=== PATIENT | female | born 1965 ===

== ENCOUNTER 2016-10-29 20:13 | Inpatient (IN) | payer MEDICAID, OTHER ==
[2016-10-29 20:13] VITALS: BMI 30.7
[2016-10-29] MEDS ORDERED: Albuterol-Ipratrop 3 mg / 0.5 (3 ml) UD INH STA ×2 (20:59→22:07)
--- NOTE | 2016-10-29 21:08 | C.PDOC ---
History Of Present Illness Patient is a 51 year old female who presents to the ER with a complaint of SOB, cough and wheezing for the past 3 days. Patient was seen in August on the where she was treated for asthma, patient deteriorated and was intubated. Patient then improved and was discharged home with antibiotics and nebulizer. Patient uses only one albuterol treatment at home and shows poor MDI technique in the ER. Denies any nausea, vomiting, or diarrhea. Time Seen by Provider: 10/29/16 20:25 Chief Complaint (Nursing): Shortness Of Breath History Per: Patient History/Exam Limitations: no limitations Current Symptoms Are (Timing): Still Present Associated Symptoms: denies: Chills, Chest Pain, Bloody Cough Past Medical History Reviewed: Historical Data, Nursing Documentation, Vital Signs Vital Signs: Last Vital Signs Temp 98.3 F 10/29/16 20:29 Pulse 120 H 10/29/16 23:25 Resp 20 10/29/16 23:25 BP 125/62 10/29/16 23:25 Pulse Ox 100 10/29/16 23:25 - Medical History PMH: Asthma, CVA, Diabetes, HTN, Hypercholesterolemia, Peripheral Edema - [facility] Procedures ASSISTANCE WITH RESPIRATORY VENTILATION, >96 HRS, CPAP (05/24/16) INSERT INFUSION DEV IN R INT JUGULAR VEIN, PERC (08/27/16) INSERTION OF ENDOTRACHEAL AIRWAY INTO TRACHEA, VIA OPENING (08/27/16) MEASURE OF CARDIAC SAMPL & PRESSURE, L HEART, PERC APPROACH (05/24/16) PLAIN RADIOGRAPHY OF LEFT HEART USING OTHER CONTRAST (05/24/16) PLAIN RADIOGRAPHY OF MULT COR ART USING OTH CONTRAST (05/24/16) RESPIRATORY VENTILATION, 24-96 CONSECUTIVE HOURS (08/27/16) Family History: States: Unknown Family Hx - Social History Hx Tobacco Use: No Hx Alcohol Use: No Hx Substance Use: No - Immunization History Hx Tetanus Toxoid Vaccination: Yes Hx Influenza Vaccination: Yes Hx Pneumococcal Vaccination: Yes Review Of Systems Cardiovascular: Negative for: Chest Pain, Palpitations Respiratory: Positive for: Cough, Shortness of Breath, Wheezing Gastrointestinal: Negative for: Nausea, Vomiting, Abdominal Pain Physical Exam - Physical Exam Appears: Non-toxic Skin: Normal Color, Warm, Dry Head: Atraumatic, Normacephalic Oral Mucosa: Moist Throat: Normal Chest: Symmetrical Cardiovascular: Rhythm Regular Respiratory: No Decreased Breath Sounds (inspiratory and expiratory), Wheezing Gastrointestinal/Abdominal: Soft, No Tenderness Neurological/Psych: Oriented x3, Normal Speech, Normal Cognition ED Course And Treatment - Laboratory Results Result Diagrams: 10/29/16 21:33 10/29/16 21:33 Lab Interpretation: Abnormal (++ hyperglycemia) ECG: Interpreted By Me ECG Rhythm: Sinus Rhythm, L BBB ECG Interpretation: Normal, No Changes From Prior Rate From EC O2 Sat by Pulse Oximetry: 98 (Room air) Pulse Ox Interpretation: Normal - Radiology CXR: Interpreted by Me CXR Interpretation: Yes: No Acute Disease, Other (hyperinflated) Progress Note: EKG, blood work, chest x-ray, and peak flow pre/post tx ordered. Combivent respimat INH, lasix IVP, and solu-medrol IVP administered. Reevaluation Time: 22:12 Reassessment Condition: Improved (mild improvement.) - Physician Consult Information Outcome Of Conversation: 2215: d/w Hospitalists- Dr. Olivas- blake to Tele Obs Critical Care Time - Critical Care Note Total Time (in mins): 90 Documented critical care: time excludes all time spent performing seperately billable procedures. Medical Decision Making Medical Decision Making: poorly controlled DM and asthma Adm 09/06 for asthma with intubation h/o normal cardiac cath and card echo with diastolic dysfunction: considering pt 's tachycardia (due to nebs), consider restarting/increasing C-Winchester blockers when s/s of asthma improved. Disposition Doctor Will See Patient In The: Hospital Counseled Patient/Family Regarding: Studies Performed, Diagnosis - Disposition Disposition: HOSPITALIZED Disposition Time: 22:13 Condition: FAIR - Clinical Impression Clinical Impression: Asthma exacerbation, Diabetes mellitus - Scribe Statement The provider has reviewed the documentation as recorded by the Scribe Magdy Sheth All medical record entries made by the Scribe were at my direction and personally dictated by me. I have reviewed the chart and agree that the record accurately reflects my personal performance of the history, physical exam, medical decision making, and the department course for this patient. I have also personally directed, reviewed, and agree with the discharge instructions and disposition.
[2016-10-29] MEDS ORDERED: Albuterol-Ipratrop 3 mg / 0.5 (3 ml) UD ONE ×5 (21:12→23:19)
[2016-10-29 21:37] LABS: BASO % 0.5 % (0.0-2.0); EOS # 0.1 K/uL (0.0-0.7); EOS % 1.1 % (0.0-4.0); HEMATOCRIT 43.3 % (34.0-47.0); LYMPH # 1.2 K/uL (1.0-4.3); LYMPH % 14.4 % (20.0-40.0); MEAN CELL VOLUME 84.7 fL (81.0-99.0); MEAN CORPUSCULAR HEMOGLOBIN 29.2 pg (27.0-31.0); MEAN CORPUSCULAR HGB CONC 34.4 g/dL (33.0-37.0); MEAN PLATELET VOLUME 7.4 fL (7.2-11.7); MONO # 0.7 K/uL (0.0-0.8); MONO % 8.4 % (0.0-10.0); RED CELL DISTRIBUTION WIDTH 13.1 % (11.5-14.5)
[2016-10-29 21:55] LABS: CHLORIDE 95 mmol/L (98-107)
[2016-10-29 21:56] LABS: POTASSIUM 3.9 mmol/L (3.6-5.2); SODIUM 136 mmol/L (132-148)
[2016-10-29 21:58] LABS: GFR AFRICAN-AMERICAN > 60
[2016-10-29 21:59] LABS: ALB/GLOB RATIO 1.5 (1.0-2.1); ALKALINE PHOSPHATASE 119 U/L (38-126); ALT/SGPT 64 U/L (9-52); AST/SGOT 50 U/L (14-36); BILIRUBIN,TOTAL 0.6 mg/dL (0.2-1.3); BLOOD UREA NITROGEN 10 mg/dL (7-17); CALCIUM 9.2 mg/dl (8.6-10.4); CARBON DIOXIDE 26 mmol/L (22-30); TOTAL PROTEIN 7.5 g/dL (6.3-8.3)
[2016-10-29 22:04] LABS: GLUCOSE,RANDOM 407 mg/dL (65-105)
[2016-10-29] MEDS ORDERED: (Novolin R) Insulin Human Regular 100 units/ml vial IV STA (22:06)
[2016-10-29] MEDS ORDERED: (Novolin R) Insulin Human Regular 100 units/ml vial ONE (22:09)
--- NOTE | 2016-10-29 23:34 | CP.PCM.HP ---
<Valentina Brigitte RITCHIE - Last Filed: 10/30/16 01:01> History of Present Illness - History of Present Illness History of Present Illness: Patient is a 51 year old female with past medical history of asthma requiring intubation one time, CHF, DM, HTN, CVA in 2003 without residual deficits, HLD, ME 16 years ago who presents to the hospital with complaint of shortness of breath for three days. Patient states that she has also been having a cough that is non-productive for the past 3 days. Patient denies fever but admits to chills. Patient states that she has lower extremity swelling that has been present since May 2016. Patient admits to sore throat which has been present since her intubation in August 2016. Patient also admits to palpitations. Patient states that while she occasionally feels light-headed at her baseline, she has been feeling increasingly lightheaded the past several days. Patient denies appetite changes. Patient states she has been compliant with her medications for her asthma but it was noted in the ER that the patient does not know the proper technique to use inhaled medications. PMD: Clinic PMHx: asthma- patient was intubated on last admission for desaturation, CHF, DM , HTN, CVA, HLD, ME Meds: lasix 20mg daily, flovent q12, pulmicort 0.25 q12, ASA 81, ventolin q6prn , vasotec 10mg daily, coreg 3.125 BID, singulair 10mg, metformin 1000mg daily, glimepiride 2mg, simvastatin 40mg PSH: cardiac cath, tubal ligation FamHx: Mother with HTN, DM, of ME in her 30s SocialHx: denies tobacco, alcohol, drugs, not currently employed Allergies: denies Present on Admission - Present on Admission Any Indicators Present on Admission: No Review of Systems - Constitutional Constitutional: Chills. absent: Fever, Weight Loss, Weakness - EENT Nose/Mouth/Throat: Nasal Congestion, Nasal Discharge, Sore Throat - Cardiovascular Cardiovascular: Leg Edema, Lightheadedness, Palpitations - Respiratory Respiratory: Cough, Wheezing. absent: Excessive Mucous Production - Gastrointestinal Gastrointestinal: Nausea. absent: Abdominal Pain, Vomiting - Genitourinary Genitourinary: absent: Dysuria - Musculoskeletal Musculoskeletal: Back Pain - Integumentary Integumentary: absent: Skin Ulcer - Neurological Neurological: Headaches Past Patient History - Infectious Disease Hx of Infectious Diseases: None - Past Medical History & Family History Past Medical History?: Yes - Past Social History Smoking Status: Never Smoked - CARDIAC Hx Hypercholesterolemia: Yes Hx Hypertension: Yes Hx Peripheral Edema: Yes - PULMONARY Hx Asthma: Yes - NEUROLOGICAL HX Cerebrovascular Accident: Yes - HEENT Other/Comment: Blurred vision - RENAL Other/Comment: UTI - ENDOCRINE/METABOLIC Hx Diabetes Mellitus Type 2: Yes - INTEGUMENTARY Other/Comment: Bilateral feet discoloration - MUSCULOSKELETAL/RHEUMATOLOGICAL Hx Falls: No - PSYCHIATRIC Hx Substance Use: No - ANESTHESIA Hx Anesthesia: No Meds Allergies/Adverse Reactions: Allergies Allergy/AdvReac Type Severity Reaction Status Date / Time No Known Allergies Allergy Verified 08/26/16 15:37 Physical Exam - Constitutional Appears: Non-toxic, No Acute Distress - Head Exam Head Exam: ATRAUMATIC, NORMOCEPHALIC - Eye Exam Eye Exam: EOMI - ENT Exam ENT Exam: Mucous Membranes Moist - Neck Exam Neck exam: Negative for: Lymphadenopathy - Respiratory Exam Respiratory Exam: Wheezes (expiratory bilaterally) - Cardiovascular Exam Cardiovascular Exam: Tachycardia, +S1, +S2 - GI/Abdominal Exam GI & Abdominal Exam: Normal Bowel Sounds, Soft. absent: Tenderness - Extremities Exam Extremities exam: Positive for: pedal edema (bilateral 2+ pitting edema) - Neurological Exam Neurological exam: Alert, Oriented x3 - Psychiatric Exam Psychiatric exam: Normal Affect - Skin Skin Exam: Normal Color, Warm Results - Vital Signs Recent Vital Signs: Last Vital Signs Temp 98.3 F 10/29/16 20:29 Pulse 127 H 10/29/16 20:29 Resp 24 10/29/16 20:29 BP 170/87 H 10/29/16 20:29 Pulse Ox 98 10/29/16 22:57 - Labs Result Diagrams: 10/29/16 21:33 10/29/16 21:33 Labs: Laboratory Results - last 24 hr 10/29/16 21:33 WBC 8.0 RBC 5.11 Hgb 14.9 Hct 43.3 MCV 84.7 MCH 29.2 MCHC 34.4 RDW 13.1 Plt Count 295 MPV 7.4 Neut % (Auto) 75.6 H Lymph % (Auto) 14.4 L Childress % (Auto) 8.4 Eos % (Auto) 1.1 Baso % (Auto) 0.5 Neut # 6.1 Lymph # 1.2 Childress # 0.7 Eos # 0.1 Baso # 0.0 PT 11.7 INR 1.0 APTT 34 Sodium 136 Potassium 3.9 Chloride 95 L Carbon Dioxide 26 Anion Gap 19 BUN 10 Creatinine 0.5 L Est GFR ( Amer) > 60 Est GFR (Non-Af Amer) > 60 Random Glucose 407 H* D Calcium 9.2 Total Bilirubin 0.6 AST 50 H D ALT 64 H Alkaline Phosphatase 119 Troponin I 0.0170 NT-Pro-B Natriuret Pep 116 Total Protein 7.5 Albumin 4.5 Globulin 3.1 Albumin/Globulin Ratio 1.5 Assessment & Plan (1) Asthma exacerbation Assessment and Plan: patient received 125mg solumedrol in ER will continue 40mg q8h duonebs q6h singulair 10mg HS Status: Acute (2) Tachycardia Assessment and Plan: patient with history of CVA but unknown if there is clotting disorder will check d-dimer if d-dimer positive will check CTA Status: Acute (3) Diabetes mellitus Assessment and Plan: will restart home medications metformin and glimepiride if patient does not need CTA- patient may require higher dosages of metformin will place patient on ISS for now accuchecks ACHS Status: Acute (4) Hyperlipidemia Assessment and Plan: continue home medication equivalent- crestor 10mg HS Status: Acute (5) Congestive heart failure Assessment and Plan: continue home medication lasix 20mg PO daily will recheck echo last echo 08/2016 showed systolic function moderately to severely impaired Status: Acute (6) Hypertension Assessment and Plan: continue vasotec 10mg daily continue coreg 3.125mg BID Status: Chronic (7) Prophylactic measure Assessment and Plan: heparin 5000 units sc q8h protonix 40mg daily Status: Acute <Charli Olivas - Last Filed: 10/30/16 06:24> Results - Vital Signs Recent Vital Signs: Last Vital Signs Temp 98.3 F 10/29/16 20:29 Pulse 129 H 10/30/16 00:42 Resp 22 10/30/16 00:42 BP 124/62 10/30/16 00:42 Pulse Ox 100 10/30/16 00:42 - Labs Result Diagrams: 10/29/16 21:33 10/29/16 21:33 Labs: Laboratory Results - last 24 hr 10/30/16 10/30/16 10/30/16 01:35 02:06 04:15 D-Dimer, Quantitative < 200 POC Glucose (mg/dL) 486 H* Total Creatine Kinase 39 CK-MB (Mass) 0.55 Troponin I, Quant 0.0180 Assessment & Plan - Date & Time Date: 10/30/16 (I have seen and examined the patient. I agree with the findings and plan of care as documented by Dr. Montgomery. Patient with asthma exacerbation. Solumedrol, nebs, singulair, oxygen. For tachycardia, check d- dimer for suspicion of PE. If positive, will check CT angio. Accuchecks and NISS for history of diabetes. Restart PO meds if CT angio not necessary. Monitor for acute changes.) Time: 06:21 Attending/Attestation - Attestation I have personally seen and examined this patient.: Yes I have fully participated in the care of the patient.: Yes I have reviewed all pertinent clinical information: Yes
[2016-10-30] MEDS ORDERED: Albuterol-Ipratrop 3 mg / 0.5 (3 ml) UD INH STA (00:23)
[2016-10-30] MEDS ORDERED: (Novolin R) Insulin Human Regular 100 units/ml vial IV ONE (01:56)
[2016-10-30] MEDS: Albuterol-Ipratrop 3 mg / 0.5 (3 ml) UD INH SCH ×4 (02:03→19:03)
[2016-10-30] MEDS ORDERED: (Novolin R) Insulin Human Regular 100 units/ml vial SC ONE (02:10)
[2016-10-30] MEDS: MethylPREDNISolone 40 mg Vial IVP SCH ×3 (06:05→21:46)
[2016-10-30] MEDS: (Novolin R) Insulin Human Regular 100 units/ml vial SC SCH ×4 (08:05→21:44)
--- NOTE | 2016-10-30 08:44 | RAD ---
PROCEDURE: CHEST RADIOGRAPH, 1 VIEW HISTORY: Shortness of breath COMPARISON: None available. FINDINGS: LUNGS: Clear. PLEURA: No pneumothorax or pleural fluid seen. CARDIOVASCULAR: Normal. OSSEOUS STRUCTURES: No significant abnormalities. VISUALIZED UPPER ABDOMEN: Normal. OTHER FINDINGS: None. IMPRESSION: No active disease.
[2016-10-30] MEDS: Pantoprazole 40 mg EC Tab PO SCH (09:52)
--- NOTE | 2016-10-30 11:39 | RAD ---
HISTORY: R/O Pneumonia COMPARISON: 10/29/2016. TECHNIQUE: Chest PA and lateral FINDINGS: LUNGS: The lungs are clear. PLEURA: No significant pleural effusion identified. No pneumothorax apparent. CARDIOVASCULAR: Normal. OSSEOUS STRUCTURES: No significant abnormalities. VISUALIZED UPPER ABDOMEN: Normal. OTHER FINDINGS: None. IMPRESSION: No active pulmonary disease.
--- NOTE | 2016-10-30 13:57 | CP.PCM.PN ---
<Marcela Ochoa - Last Filed: 10/30/16 14:06> Subjective - Date & Time of Evaluation Date of Evaluation: 10/30/16 Time of Evaluation: 07:30 - Subjective Subjective: Internal medicine progress note for Hospitalist Service- Marcela Ochoa, PGY-1 Pt S & E at bedside. Pt reports continued SOB, cough, substernal CP when she walks that radiates to mid back, rib pain with coughing/deep breathing, B/L hand pain, Right knee pain. Pt reports she slept ok, denies N/V/F/C, abdominal pain. Tolerating diet. Ambulating ok. Objective - Vital Signs/Intake and Output Vital Signs (last 24 hours): Temp Pulse Resp BP Pulse Ox 97.6 F 109 H 18 175/76 H 97 10/30/16 08:03 10/30/16 10:00 10/30/16 08:03 10/30/16 09:53 10/30/16 08:03 - Medications Medications: Current Medications Albuterol/Ipratropium (Duoneb 3 Mg/0.5 Mg (3 Ml) Ud) 3 ml INH RQ6 [facility] Last Admin: 10/30/16 13:27 Dose: 3 ml Aspirin (Ecotrin) 81 mg PO DAILY [facility] Last Admin: 10/30/16 09:52 Dose: 81 mg Budesonide (Pulmicort Respules) 0.5 mg INH RQ12 [facility] Carvedilol (Coreg) 3.125 mg PO BID [facility] Last Admin: 10/30/16 09:54 Dose: 3.125 mg Cyclobenzaprine HCl (Flexeril) 5 mg PO TID PRN PRN Reason: Muscle spasm Enalapril Maleate (Vasotec) 10 mg PO DAILY [facility] Last Admin: 10/30/16 09:53 Dose: 10 mg Furosemide (Lasix) 20 mg PO DAILY [facility] Last Admin: 10/30/16 09:52 Dose: 20 mg Heparin Sodium (Porcine) (Heparin) 5,000 units SC Q8 [facility] Last Admin: 10/30/16 06:07 Dose: 5,000 units Ibuprofen (Motrin Tab) 600 mg PO TID PRN PRN Reason: Pain, moderate (4-7) Insulin Human Regular (Novolin R) 0 unit SC ACHS [facility] PRN Reason: Protocol Last Admin: 10/30/16 08:05 Dose: 8 unit Methylprednisolone (Solu-Medrol) 40 mg IVP Q8H [facility] Last Admin: 10/30/16 06:05 Dose: 40 mg Montelukast Sodium (Singulair) 10 mg PO HS [facility] Last Admin: 10/30/16 00:33 Dose: 10 mg Pantoprazole Sodium (Protonix Ec Tab) 40 mg PO DAILY [facility] Last Admin: 10/30/16 09:52 Dose: 40 mg Rosuvastatin Calcium (Crestor) 10 mg PO HS [facility] - Labs Labs: PT 11.7 SECONDS (9.7-12.2) 10/29/16 21:33 INR 1.0 10/29/16 21:33 APTT 34 SECONDS (21-34) 10/29/16 21:33 - Constitutional Appears: Non-toxic, No Acute Distress - Head Exam Head Exam: ATRAUMATIC, NORMAL INSPECTION, NORMOCEPHALIC - Eye Exam Eye Exam: EOMI, Normal appearance, PERRL Pupil Exam: NORMAL ACCOMODATION, PERRL - ENT Exam ENT Exam: Mucous Membranes Moist, Normal Exam - Neck Exam Neck Exam: Full ROM, Normal Inspection - Respiratory Exam Respiratory Exam: Chest Wall Tenderness, Wheezes, NORMAL BREATHING PATTERN. absent: Accessory Muscle Use, Clear to Ausculation Bilateral, Rales, Rhonchi, Respiratory Distress - Cardiovascular Exam Cardiovascular Exam: Tachycardia, +S1, +S2 - GI/Abdominal Exam GI & Abdominal Exam: Soft, Normal Bowel Sounds. absent: Distended, Firm, Guarding, Rigid, Tenderness - Extremities Exam Extremities Exam: Full ROM, Normal Inspection. absent: Pedal Edema, Tenderness - Back Exam Back Exam: muscle spasm (mid thoracic) - Neurological Exam Neurological Exam: Alert, Awake, CN II-XII Intact, Oriented x3 - Psychiatric Exam Psychiatric exam: Normal Affect, Normal Mood - Skin Skin Exam: Dry, Intact, Normal Color, Warm Assessment and Plan - Assessment and Plan (Free Text) Assessment: Asthma exacerbation Cont Solumedrol 40mg q8h Cont duonebs q6h Cont singulair 10mg HS Started Pulmicort 0.5mg Q12H Monitor Diabetes mellitus ISS changed to high ISS Started Lantus 10 Units SC HS accuchecks ACHS Blood sugars in 300-400's Back pain Motrin PRN Heating pad Flexeril 5mg TID PRN Monitor Tachycardia patient with history of CVA but unknown if there is clotting disorder d-dimer neg tachycardia in low 100's Monitor Hyperlipidemia continue home medication equivalent- crestor 10mg HS Congestive heart failure continue home medication lasix 20mg PO daily Repeat echo - d/c'd Pt had echo 08/28/2016, EF 27%, mod- severe systolic dysfunction Cardio consulted- Voudouris Hypertension cont vasotec 10mg daily cont coreg 3.125mg BID GI/DVT ppx heparin 5000 units sc q8h protonix 40mg daily Dispo Cont med mgmt FU cardio recs DW attending <Leonila Santos V - Last Filed: 10/31/16 20:46> Objective - Vital Signs/Intake and Output Vital Signs (last 24 hours): Temp Pulse Resp BP Pulse Ox 98.6 F 106 H 20 147/80 96 10/30/16 15:37 10/30/16 15:37 10/30/16 15:37 10/30/16 15:37 10/30/16 15:37 - Medications Medications: Current Medications Albuterol/Ipratropium (Duoneb 3 Mg/0.5 Mg (3 Ml) Ud) 3 ml INH RQ6 [facility] Last Admin: 10/30/16 13:27 Dose: 3 ml Aspirin (Ecotrin) 81 mg PO DAILY [facility] Last Admin: 10/30/16 09:52 Dose: 81 mg Budesonide (Pulmicort Respules) 0.5 mg INH RQ12 [facility] Carvedilol (Coreg) 3.125 mg PO BID [facility] Last Admin: 10/30/16 09:54 Dose: 3.125 mg Enalapril Maleate (Vasotec) 10 mg PO DAILY [facility] Last Admin: 10/30/16 09:53 Dose: 10 mg Furosemide (Lasix) 20 mg PO DAILY [facility] Last Admin: 10/30/16 09:52 Dose: 20 mg Heparin Sodium (Porcine) (Heparin) 5,000 units SC Q8 [facility] Last Admin: 10/30/16 13:57 Dose: 5,000 units Ibuprofen (Motrin Tab) 600 mg PO TID PRN PRN Reason: Pain, moderate (4-7) Insulin Glargine (Lantus) 10 unit SC HS [facility] Insulin Human Regular (Novolin R) 0 unit SC ACHS [facility] PRN Reason: Protocol Methylprednisolone (Solu-Medrol) 40 mg IVP Q8H [facility] Last Admin: 10/30/16 13:56 Dose: 40 mg Montelukast Sodium (Singulair) 10 mg PO HS [facility] Last Admin: 10/30/16 00:33 Dose: 10 mg Pantoprazole Sodium (Protonix Ec Tab) 40 mg PO DAILY [facility] Last Admin: 10/30/16 09:52 Dose: 40 mg Rosuvastatin Calcium (Crestor) 10 mg PO HS [facility] - Labs Labs: PT 11.7 SECONDS (9.7-12.2) 10/29/16 21:33 INR 1.0 10/29/16 21:33 APTT 34 SECONDS (21-34) 10/29/16 21:33 Attending/Attestation - Attestation I have personally seen and examined this patient.: Yes I have fully participated in the care of the patient.: Yes I have reviewed all pertinent clinical information, including history, physical exam and plan: Yes Notes (Text): This is late computer entry for 10/30/16. Patient seen, examined, and case discussed with day-time resident. Patient seen at bedside reporting she came in for persistent shortness of breathe in spite of her pumps which she reports every 6 hours the Albuterol and takes the Advair. Patient also reports her boyfriend smokes but she does not live with him and explained to the patient second-hand smoke with trigger her asthma. Patient reports since last admission, she did follow-up in the clinic and with the [facility] out-[facility]. Upon review of EMR, patient also has a history of congestive heart failure, with prior echocardiogram noting for moderately-severe systolic ejection fraction. Patient ordered for repeat Echo to check if she has had improvement in EF, given shortness of breathe may be of cardiac origin. Cardiology consulted. Patient has a cardiac cath performed recently noting for angiographic normal coronaries but an area of hypokineses. Assessment/Plan Asthma exacerbation * Solumedrol 40mg IVP q8h * Duonebs q6h * singulair 10mg HS * Pulmicort 0.5mg Q12H * Monitor pre and post flows; today's flows showed minimal improvement Congestive heart failure * Acute on chronic systolic CHF * lasix 20mg PO daily * Pt had echo 08/28/2016, EF 27%, mod- severe systolic dysfunction * Reorder echocardiogram to monitor EF * Cardiology consult- Dr. Samaniego on case-->help appreciated * Enalapril 10mg PO daily * Coreg 3.125mg PO bid * Crestor 10mg POqHS Diabetes mellitus * sugars uncontrolled; partly due to IV steroids to help reduce inflammation by asthma * high insulin sliding scale subq * start Lantus 10 Units SC HS * accuchecks ACHS * Will insulin regimen based on her sliding scale Back pain * Motrin PRN * Heating pad * Flexeril 5mg one time * Monitor * Patient appears to have muscle spasm provoked by her asthma Tachycardia * d-dimer neg * most likely influenced by nebulizer treatment as well Hyperlipidemia * continue home medication equivalent- crestor 10mg HS Hypertension * Vasotec 10mg daily * Voreg 3.125mg BID GI/DVT ppx * Heparin 5000 units sc q8h * Protonix 40mg daily
--- NOTE | 2016-10-30 14:40 | CARD ---
APPROVED REPORT EKG Measurement Heart [id number] CT 176P-14 [id number] <Conclusion> Sinus tachycardia Left bundle branch block Abnormal ECG
--- NOTE | 2016-10-30 14:40 | CARD ---
APPROVED REPORT EKG Measurement Heart [id number] [place] 176P-15 [id number] <Conclusion> Sinus tachycardia Left bundle branch block Abnormal ECG
--- NOTE | 2016-10-30 14:49 | CARD ---
APPROVED REPORT EXAM: Two-dimensional and M-mode echocardiogram with Doppler and color Doppler. Other Information Quality : GoodRhythm : NSR INDICATION Congestive Heart Failure RISK FACTORS Hypertension Hyperlipidemia Diabetes M-Mode DIMENSIONS RVDd1.25 (2.1-3.2cm)Left Atrium (MM)4.31 (2.5-4.0cm) IVSd0.70 (0.7-1.1cm)Aortic Root2.58 (2.2-3.7cm) LVDd3.95 (4.0-5.6cm)Aortic Cusp Exc.1.73 (1.5-2.0cm) PWd0.85 (0.7-1.1cm)FS (%) 27 % LVDs2.88 (2.0-3.8cm)LVEF (%)53 (>50%) Aortic Valve AoV Peak Kqsprycg448.1cm/Brooke Peak GR.12mmHg Mitral Valve MV E Bhgaokvn957.7cm/sMV A Zotyqcka18.6cm/sE/A ratio4.5 TDI E/Lateral E'0.0E/Medial E'0.0 Tricuspid Valve TR Peak [id number]/sTR Peak Gr.[id number] LEFT VENTRICLE The left ventricle is normal size. There is normal left ventricular wall thickness. The left ventricular function is normal. The left ventricular ejection fraction is within the normal range. No regional wall motion abnormalities noted. LV filling pressures are elevated No left ventricle thrombus noted on this study. There is no ventricular septal defect visualized. There is no left ventricular aneurysm. There is no mass noted in the left ventricle. RIGHT VENTRICLE The right ventricle is normal size. There is normal right ventricular wall thickness. The right ventricular systolic function is normal. ATRIA The left atrium is mildly dilated. The right atrium size is normal. The interatrial septum is intact with no evidence for an atrial septal defect. AORTIC VALVE The aortic valve is normal in structure and function. No aortic regurgitation is present. There is no aortic valvular stenosis. There is no aortic valvular vegetation. MITRAL VALVE The mitral valve is normal in structure and function. There is no evidence of mitral valve prolapse. There is no mitral valve stenosis. There is no mitral valve regurgitation noted. TRICUSPID VALVE The tricuspid valve is normal in structure and function. There is mild tricuspid regurgitation. Right ventricular systolic pressure is estimated at 40-50 mmHg. There is no tricuspid valve prolapse or vegetation. There is no tricuspid valve stenosis. PULMONIC VALVE The pulmonary valve is normal in structure and function. There is no pulmonic valvular regurgitation. There is no pulmonic valvular stenosis. GREAT VESSELS The aortic root is normal in size. The ascending aorta is normal in size. The pulmonary artery is normal. The IVC is normal in size and collapses >50% with inspiration. PERICARDIAL EFFUSION The pericardium appears normal. There is no pleural effusion. <Conclusion> The left ventricular function is normal. The left ventricular ejection fraction is within the normal range. No regional wall motion abnormalities noted. LV filling pressures are elevated The left atrium is mildly dilated. There is mild tricuspid regurgitation. Right ventricular systolic pressure is estimated at 40-50 mmHg.
--- NOTE | 2016-10-30 17:18 | CP.PCM.CON ---
<Ovidio Mireles - Last Filed: 10/30/16 17:07> History of Present Illness - History of Present Illness History of Present Illness: Cardiology Consultation Note Dr. Samaniego CC: SOB x 3 days HPI: This is a 51 year old female with a PMH notable for asthma, CHF, DM, HTN, CVA, HLD, MS presenting for cardiac evaluation of three day history of SOB. The patient also notes subjective fever, chills, nausea, palpitations, non- productive cough, increased light headedness, and B/L LE Edema. The patient notes that she become short of breath performing her ADLs. She cannot walk 1 block before becoming short of breath. The patient notes that she has some orthopnea at night. The patient denies vomiting, chest pain, dysuria, urinary frequency, constipation or diarrhea. The patient has a previous echo from August that showed ejection fraction of 27% with a normal cardiac cath. PMH: Asthma (intubated 2016), CHF, DM, HTN, CVA (2003), HLD, MS (16 years ago) PSH: Cath, tubal ligation Family: Mother with HTN, DM, decreased secondary to MS in her 30s Social: Denies tobacco use, alcohol use, illicit drug use, currently not employed Allergies: NKDA Review of Systems - Constitutional Constitutional: absent: Chills, Fever - EENT Eyes: absent: Blurred Vision, Change in Vision Nose/Mouth/Throat: absent: Nose Pain, Facial Pain, Neck Pain - Cardiovascular Cardiovascular: Dyspnea, Dyspnea on Exertion, Edema, Leg Edema, Orthopnea, Pedal Edema. absent: Chest Pain, Syncope - Respiratory Respiratory: Dyspnea, Dyspnea on Exertion. absent: Cough, Hemoptysis, Wheezing - Gastrointestinal Gastrointestinal: absent: Abdominal Pain, Constipation, Diarrhea, Nausea, Vomiting - Genitourinary Genitourinary: absent: Change in Urinary Stream, Difficulty Urinating - Musculoskeletal Musculoskeletal: absent: Stiffness, Tingling - Neurological Neurological: absent: Syncope, Vertigo, Weakness - Endocrine Endocrine: absent: Cold Intolorance, Heat Intolorance Past Patient History - Infectious Disease Hx of Infectious Diseases: None - Past Medical History & Family History Past Medical History?: Yes - Past Social History Smoking Status: Never Smoked - CARDIAC Hx Cardiac Disorders: Yes Hx Hypercholesterolemia: Yes Hx Hypertension: Yes Hx Peripheral Edema: Yes - PULMONARY Hx Respiratory Disorders: Yes Hx Asthma: Yes - NEUROLOGICAL Hx Neurological Disorder: Yes HX Cerebrovascular Accident: Yes (weakness RLE) - HEENT Hx HEENT Problems: No Other/Comment: Blurred vision - RENAL Hx Chronic Kidney Disease: No Other/Comment: UTI - ENDOCRINE/METABOLIC Hx Endocrine Disorders: Yes Hx Diabetes Mellitus Type 2: Yes - HEMATOLOGICAL/ONCOLOGICAL Hx Blood Disorders: No - INTEGUMENTARY Hx Dermatological Problems: Yes Other/Comment: Bilateral feet discoloration - MUSCULOSKELETAL/RHEUMATOLOGICAL Hx Musculoskeletal Disorders: No Hx Falls: No - GASTROINTESTINAL Hx Gastrointestinal Disorders: No - GENITOURINARY/GYNECOLOGICAL Hx Genitourinary Disorders: No - PSYCHIATRIC Hx Psychophysiologic Disorder: No Hx Substance Use: No - SURGICAL HISTORY Hx Surgeries: Yes Hx Tubal Ligation: Yes - ANESTHESIA Hx Anesthesia: Yes Hx Anesthesia Reactions: No Hx Malignant Hyperthermia: No Has any member of the family had a problem w/ anesthesia?: No Meds Allergies/Adverse Reactions: Allergies Allergy/AdvReac Type Severity Reaction Status Date / Time No Known Allergies Allergy Verified 08/26/16 15:37 - Medications Medications: Current Medications Albuterol/Ipratropium (Duoneb 3 Mg/0.5 Mg (3 Ml) Ud) 3 ml INH RQ6 [facility] Last Admin: 10/30/16 13:27 Dose: 3 ml Aspirin (Ecotrin) 81 mg PO DAILY [facility] Last Admin: 10/30/16 09:52 Dose: 81 mg Budesonide (Pulmicort Respules) 0.5 mg INH RQ12 [facility] Carvedilol (Coreg) 6.25 mg PO BID [facility] Last Admin: 10/30/16 17:00 Dose: 6.25 mg Enalapril Maleate (Vasotec) 10 mg PO DAILY [facility] Last Admin: 10/30/16 09:53 Dose: 10 mg Furosemide (Lasix) 20 mg PO DAILY [facility] Last Admin: 10/30/16 09:52 Dose: 20 mg Heparin Sodium (Porcine) (Heparin) 5,000 units SC Q8 [facility] Last Admin: 10/30/16 13:57 Dose: 5,000 units Ibuprofen (Motrin Tab) 600 mg PO TID PRN PRN Reason: Pain, moderate (4-7) Insulin Glargine (Lantus) 10 unit SC HS [facility] Insulin Human Regular (Novolin R) 0 unit SC ACHS [facility] PRN Reason: Protocol Last Admin: 10/30/16 17:01 Dose: 12 unit Methylprednisolone (Solu-Medrol) 40 mg IVP Q8H [facility] Last Admin: 10/30/16 13:56 Dose: 40 mg Montelukast Sodium (Singulair) 10 mg PO HS [facility] Last Admin: 10/30/16 00:33 Dose: 10 mg Pantoprazole Sodium (Protonix Ec Tab) 40 mg PO DAILY [facility] Last Admin: 10/30/16 09:52 Dose: 40 mg Rosuvastatin Calcium (Crestor) 10 mg PO [facility] Physical Exam - Constitutional Appears: Chronically Ill - Head Exam Head Exam: ATRAUMATIC, NORMAL INSPECTION, NORMOCEPHALIC - Eye Exam Eye Exam: EOMI - ENT Exam ENT Exam: Mucous Membranes Moist - Neck Exam Neck exam: Positive for: Normal Inspection. Negative for: Lymphadenopathy - Respiratory Exam Respiratory Exam: Clear to Auscultation Bilateral, NORMAL BREATHING PATTERN. absent: Rhonchi, Wheezes - Cardiovascular Exam Cardiovascular Exam: REGULAR RHYTHM, RRR, +S1, +S2. absent: Diastolic murmur, Gallop, Systolic Murmur - GI/Abdominal Exam GI & Abdominal Exam: Normal Bowel Sounds, Soft. absent: Distended, Guarding, Tenderness - Extremities Exam Extremities exam: Positive for: normal inspection, pedal edema (1+ pitting), pedal pulses present - Neurological Exam Neurological exam: Alert, CN II-XII Intact, Oriented x3 - Skin Skin Exam: Dry, Intact, Normal Color, Warm Results - Vital Signs Recent Vital Signs: Last Vital Signs Temp 98.6 F 10/30/16 15:37 Pulse 106 H 10/30/16 15:37 Resp 20 10/30/16 15:37 BP 147/80 10/30/16 15:37 Pulse Ox 96 10/30/16 15:37 - Labs Result Diagrams: 10/29/16 21:33 10/29/16 21:33 Labs: Laboratory Results - last 24 hr 10/30/16 10/30/16 10/30/16 01:35 02:06 04:15 D-Dimer, Quantitative < 200 POC Glucose (mg/dL) 486 H* Total Creatine Kinase 39 CK-MB (Mass) 0.55 Troponin I, Quant 0.0180 10/30/16 10/30/16 10/30/16 06:34 11:13 11:57 D-Dimer, Quantitative POC Glucose (mg/dL) 370 H 468 H* Total Creatine Kinase 37 CK-MB (Mass) 0.62 Troponin I, Quant 0.0170 10/30/16 16:22 D-Dimer, Quantitative POC Glucose (mg/dL) 424 H* Total Creatine Kinase CK-MB (Mass) Troponin I, Quant Assessment & Plan - Assessment and Plan (Free Text) Assessment: This is a 51 year old female with a PMH notable for asthma, CHF, DM, HTN, CVA, HLD, MS presenting for cardiac evaluation of three day history of SOB. 1.) Systolic CHF 2.) DM 3.) HTN 4.) CVA 5.) HLD 6.) MS 7.) Asthma Plan: 1.) Systolic CHF - patient with known EF of 27% : repeat echo 10/30/16- confirms LVEF 27% - prior echo within 3 months, no need for repeat echo - 10/30/16 EKG- LBBB, sinus tachycardia (unchanged from most recent comparison ) - patient will require life vest for prevention of sudden cardiac - patient to continue : Aspirin 81mg PO daily : Coreg 6.25mg p bid : Enalapril 10mg po daily : Lasix 20mg po daily - telemetric monitoring - Patient to follow with Dr. Samaniego in his clinic - Dr. Samaniego will do outpatient MUGA scan Case Discussed with Dr. Danette Mireles PGY1 - Date & Time Date: 10/30/16 Time: 17:30 <Kaelyn Samaniego - Last Filed: 10/31/16 21:30> Meds - Medications Medications: Current Medications Albuterol/Ipratropium (Duoneb 3 Mg/0.5 Mg (3 Ml) Ud) 3 ml INH RQ6 [facility] Last Admin: 10/31/16 19:31 Dose: 3 ml Aspirin (Ecotrin) 81 mg PO DAILY [facility] Last Admin: 10/31/16 09:11 Dose: 81 mg Budesonide (Pulmicort Respules) 0.5 mg INH RQ12 [facility] Last Admin: 10/31/16 19:31 Dose: 0.5 mg Carvedilol (Coreg) 6.25 mg PO BID [facility] Last Admin: 10/31/16 17:31 Dose: 6.25 mg Enalapril Maleate (Vasotec) 10 mg PO DAILY [facility] Last Admin: 10/31/16 09:15 Dose: 10 mg Furosemide (Lasix) 20 mg PO DAILY [facility] Last Admin: 10/31/16 09:13 Dose: 20 mg Heparin Sodium (Porcine) (Heparin) 5,000 units SC Q8 [facility] Last Admin: 10/31/16 21:05 Dose: 5,000 units Ibuprofen (Motrin Tab) 600 mg PO TID PRN PRN Reason: Pain, moderate (4-7) Last Admin: 10/31/16 17:30 Dose: 600 mg Insulin Glargine (Lantus) 20 unit SC HS [facility] Insulin Human Regular (Novolin R) 0 unit SC ACHS [facility] PRN Reason: Protocol Last Admin: 10/31/16 17:37 Dose: 12 unit Methylprednisolone (Solu-Medrol) 40 mg IVP Q12 [facility] Montelukast Sodium (Singulair) 10 mg PO HS [facility] Last Admin: 10/31/16 21:05 Dose: 10 mg Pantoprazole Sodium (Protonix Ec Tab) 40 mg PO DAILY [facility] Last Admin: 10/31/16 09:12 Dose: 40 mg Rosuvastatin Calcium (Crestor) 10 mg PO HS [facility] Last Admin: 10/31/16 21:05 Dose: 10 mg Results - Vital Signs Recent Vital Signs: Last Vital Signs Temp 98.9 F 10/31/16 15:53 Pulse 82 10/31/16 16:24 Resp 20 10/31/16 15:53 BP 133/72 10/31/16 15:53 Pulse Ox 97 10/31/16 16:24 - Labs Result Diagrams: 10/31/16 07:04 10/31/16 07:04 Labs: Laboratory Results - last 24 hr 10/31/16 10/31/16 10/31/16 02:00 06:17 07:04 WBC 10.4 RBC 4.75 Hgb 13.7 Hct 40.9 MCV 86.0 MCH 28.9 MCHC 33.6 RDW 13.1 Plt Count 290 MPV 7.7 Neut % (Auto) 87.1 H Lymph % (Auto) 10.2 L [place] % (Auto) 2.6 Eos % (Auto) 0.0 Baso % (Auto) 0.1 Neut # 9.0 H Lymph # 1.1 [place] # 0.3 Eos # 0.0 Baso # 0.0 Sodium 135 Potassium 4.0 Chloride 98 Carbon Dioxide 24 Anion Gap 17 BUN 19 H Creatinine 0.5 L Est GFR ( Amer) > 60 Est GFR (Non-Af Amer) > 60 POC Glucose (mg/dL) 399 H 323 H Random Glucose 347 H Calcium 8.5 L Total Bilirubin 0.4 AST 24 ALT 51 Alkaline Phosphatase 94 Total Protein 6.4 Albumin 4.0 Globulin 2.4 Albumin/Globulin Ratio 1.6 10/31/16 10/31/16 10/31/16 12:46 16:36 21:20 WBC RBC Hgb Hct MCV MCH MCHC RDW Plt Count MPV Neut % (Auto) Lymph % (Auto) [place] % (Auto) Eos % (Auto) Baso % (Auto) Neut # Lymph # [place] # Eos # Baso # Sodium Potassium Chloride Carbon Dioxide Anion Gap BUN Creatinine Est GFR ( Amer) Est GFR (Non-Af Amer) POC Glucose (mg/dL) 397 H 458 H* 336 H Random Glucose Calcium Total Bilirubin AST ALT Alkaline Phosphatase Total Protein Albumin Globulin Albumin/Globulin Ratio Attending/Attestation - Attestation I have personally seen and examined this patient.: Yes I have fully participated in the care of the patient.: Yes I have reviewed all pertinent clinical information: Yes Notes (Text): 10/31/16 21:30 conflicting echo reading will order MUGA symptomatic chf tx
[2016-10-30] MEDS: Budesonide 0.5 mg/2 ml Inhal Susp UD INH SCH (19:02)
[2016-10-30] MEDS ORDERED: Fluticasone-Salmeterol 250-50mcg Diskus INH SCH (20:00)
[2016-10-30] MEDS ORDERED: (Lantus) Insulin Glargine, Recombinant SC SCH (22:00)
[2016-10-31] MEDS: Albuterol-Ipratrop 3 mg / 0.5 (3 ml) UD INH SCH ×4 (01:59→19:31)
[2016-10-31] MEDS: (Novolin R) Insulin Human Regular 100 units/ml vial SC SCH ×5 (02:05→21:37)
[2016-10-31] MEDS: MethylPREDNISolone 40 mg Vial IVP SCH (05:30)
[2016-10-31 07:22] LABS: BASO % 0.1 % (0.0-2.0); HEMATOCRIT 40.9 % (34.0-47.0); LYMPH # 1.1 K/uL (1.0-4.3); LYMPH % 10.2 % (20.0-40.0); MEAN CORPUSCULAR HEMOGLOBIN 28.9 pg (27.0-31.0); MEAN CORPUSCULAR HGB CONC 33.6 g/dL (33.0-37.0); MEAN PLATELET VOLUME 7.7 fL (7.2-11.7); MONO # 0.3 K/uL (0.0-0.8); MONO % 2.6 % (0.0-10.0); NRBC % 0.1 % (0.0-2.0); RED CELL DISTRIBUTION WIDTH 13.1 % (11.5-14.5); WHITE BLOOD COUNT 10.4 K/uL (4.8-10.8)
[2016-10-31] MEDS: Budesonide 0.5 mg/2 ml Inhal Susp UD INH SCH ×2 (07:22→19:31)
[2016-10-31 07:46] LABS: CHLORIDE 98 mmol/L (98-107); SODIUM 135 mmol/L (132-148)
[2016-10-31 07:49] LABS: ALB/GLOB RATIO 1.6 (1.0-2.1); ALKALINE PHOSPHATASE 94 U/L (38-126); ALT/SGPT 51 U/L (9-52); AST/SGOT 24 U/L (14-36); BILIRUBIN,TOTAL 0.4 mg/dL (0.2-1.3); BLOOD UREA NITROGEN 19 mg/dL (7-17); CALCIUM 8.5 mg/dl (8.6-10.4); CARBON DIOXIDE 24 mmol/L (22-30); GFR AFRICAN-AMERICAN > 60; GLUCOSE,RANDOM 347 mg/dL (65-105); TOTAL PROTEIN 6.4 g/dL (6.3-8.3)
[2016-10-31] MEDS: Pantoprazole 40 mg EC Tab PO SCH (09:12)
--- NOTE | 2016-10-31 10:02 | CP.PCM.PN ---
<Ovidio Mireles - Last Filed: 10/31/16 14:38> Subjective - Date & Time of Evaluation Date of Evaluation: 10/31/16 Time of Evaluation: 09:59 - Subjective Subjective: Cardiology Progress Note Dr. Samaniego Patient seen and examined at the bedside. No acute distress. No acute events overnight. Nursing staff reports no issues. The patient reports continued dizziness and SOB with minimal exertion. The patient remains with O2 via nasal cannula. Repeat Echo performed showing severe impairment of systolic LV function and grade I relaxation abnormalities. Patient for MUGA scan today to more accurately evaluation LV EF for LifeVest placement. Patient has complaint of SOB and dizziness this am. Patient denies fever, chills, headache, chest pain, abdominal pain, changes in bowel/bladder, and extremity paresthesias. Objective - Vital Signs/Intake and Output Vital Signs (last 24 hours): Temp Pulse Resp BP Pulse Ox 98.6 F 86 20 140/73 95 10/31/16 09:07 10/31/16 09:07 10/31/16 09:07 10/31/16 09:15 10/31/16 09:07 Intake and Output: 10/31/16 10/31/16 06:59 18:59 Intake Total 330 Balance 330 - Medications Medications: Current Medications Albuterol/Ipratropium (Duoneb 3 Mg/0.5 Mg (3 Ml) Ud) 3 ml INH RQ6 [facility] Last Admin: 10/31/16 07:22 Dose: 3 ml Aspirin (Ecotrin) 81 mg PO DAILY [facility] Last Admin: 10/31/16 09:11 Dose: 81 mg Budesonide (Pulmicort Respules) 0.5 mg INH RQ12 [facility] Last Admin: 10/31/16 07:22 Dose: 0.5 mg Carvedilol (Coreg) 6.25 mg PO BID [facility] Last Admin: 10/31/16 09:11 Dose: 6.25 mg Enalapril Maleate (Vasotec) 10 mg PO DAILY [facility] Last Admin: 10/31/16 09:15 Dose: 10 mg Furosemide (Lasix) 20 mg PO DAILY [facility] Last Admin: 10/31/16 09:13 Dose: 20 mg Heparin Sodium (Porcine) (Heparin) 5,000 units SC Q8 [facility] Last Admin: 10/31/16 05:19 Dose: 5,000 units Ibuprofen (Motrin Tab) 600 mg PO TID PRN PRN Reason: Pain, moderate (4-7) Insulin Glargine (Lantus) 10 unit SC [facility] Last Admin: 10/30/16 21:45 Dose: 10 units Insulin Human Regular (Novolin R) 0 unit SC ACHS [facility] PRN Reason: Protocol Last Admin: 10/31/16 07:46 Dose: 8 unit Methylprednisolone (Solu-Medrol) 40 mg IVP Q8H [facility] Last Admin: 10/31/16 05:30 Dose: 40 mg Montelukast Sodium (Singulair) 10 mg PO [facility] Last Admin: 10/30/16 21:46 Dose: 10 mg Pantoprazole Sodium (Protonix Ec Tab) 40 mg PO DAILY [facility] Last Admin: 10/31/16 09:12 Dose: 40 mg Rosuvastatin Calcium (Crestor) 10 mg PO [facility] Last Admin: 10/30/16 21:45 Dose: 10 mg - Labs Labs: 10/31/16 07:04 10/31/16 07:04 PT 11.7 SECONDS (9.7-12.2) 10/29/16 21:33 INR 1.0 10/29/16 21:33 APTT 34 SECONDS (21-34) 10/29/16 21:33 - Additional Findings Additional findings: - Constitutional Appears: Chronically Ill - Head Exam Head Exam: ATRAUMATIC, NORMAL INSPECTION, NORMOCEPHALIC - Eye Exam Eye Exam: EOMI - ENT Exam ENT Exam: Mucous Membranes Moist - Neck Exam Neck exam: Positive for: Normal Inspection. Negative for: Lymphadenopathy - Respiratory Exam Respiratory Exam: Clear to Auscultation Bilateral, NORMAL BREATHING PATTERN. absent: Rhonchi, Wheezes - Cardiovascular Exam Cardiovascular Exam: REGULAR RHYTHM, RRR, +S1, +S2. absent: Diastolic murmur, Gallop, Systolic Murmur - GI/Abdominal Exam GI & Abdominal Exam: Normal Bowel Sounds, Soft. absent: Distended, Guarding, Tenderness - Extremities Exam Extremities exam: Positive for: normal inspection, pedal edema (1+ pitting), pedal pulses present - Neurological Exam Neurological exam: Alert, CN II-XII Intact, Oriented x3 - Skin Skin Exam: Dry, Intact, Normal Color, Warm Assessment and Plan (1) Diabetes mellitus Status: h (2) Hyperlipidemia Status: h (3) Hypertension Status: h (4) Myocardial infarct, old Status: n (5) CVA (cerebral vascular accident) Status: n (7) Systolic and diastolic CHF w/reduced LV function, NYHA class 4 Status: h - Assessment and Plan (Free Text) Assessment: This is a 51 year old female with a PMH notable for asthma, CHF, DM, HTN, CVA, HLD, [place] presenting for cardiac evaluation of three day history of SOB. 1.) Systolic CHF 2.) DM 3.) HTN 4.) CVA 5.) HLD 6.) MA 7.) Asthma Plan: 1.) Systolic CHF - NYHA Class IVC Heart Failure - patient with known EF of 27% : repeat echo 10/30/16- shows mod-severely impaired LV systolic function with grade 1 relaxation abnormality - MUGA Scan : for EV evaluation and assessment of need for life vest placement - 10/30/16 EKG- LBBB, sinus tachycardia (unchanged from most recent comparison ) - Pendign MUGA, patient may require life vest for prevention of sudden cardiac if LVEF is <35% - patient to continue : Aspirin 81mg PO daily : Coreg 6.25mg p bid : Enalapril 10mg po daily : Lasix 20mg po daily - telemetric monitoring - Patient to follow with Dr. Samaniego in his clinic Case Discussed with Dr. Danette Mireles PGY1 <Kaelyn Samaniego - Last Filed: 11/20/16 09:22> Objective - Vital Signs/Intake and Output Vital Signs (last 24 hours): Temp Pulse Resp BP Pulse Ox 98.7 F 94 H 20 114/64 95 11/11/16 13:10 11/11/16 15:00 11/11/16 13:10 11/11/16 15:00 11/11/16 13:22 - Labs Labs: 11/11/16 07:38 11/11/16 07:38 PT 11.7 SECONDS (9.7-12.2) 10/29/16 21:33 INR 1.0 10/29/16 21:33 APTT 34 SECONDS (21-34) 10/29/16 21:33 Attending/Attestation - Attestation I have personally seen and examined this patient.: Yes I have fully participated in the care of the patient.: Yes I have reviewed all pertinent clinical information, including history, physical exam and plan: Yes Notes (Text): 11/20/16 09:22 Pt still sob follow up labs and ejection fraction
--- NOTE | 2016-10-31 11:17 | CP.PCM.PN ---
<Marcela Ochoa - Last Filed: 10/31/16 11:40> Subjective - Date & Time of Evaluation Date of Evaluation: 10/31/16 Time of Evaluation: 07:20 - Subjective Subjective: Internal medicine progress note for Hospitalist Service- Marcela Ochoa, PGY-1 Pt S & E at bedside. Pt reports slight improvement in SOB, CP, back pain, B/L hand pain. Admits to sleeping a little. Is tolerating diet. Denies N/V/F/C, abdominal pain. Is ambulating, still has CP when ambulating. Objective - Vital Signs/Intake and Output Vital Signs (last 24 hours): Temp Pulse Resp BP Pulse Ox 98.6 F 86 20 140/73 95 10/31/16 09:07 10/31/16 09:07 10/31/16 09:07 10/31/16 09:15 10/31/16 09:07 Intake and Output: 10/31/16 10/31/16 06:59 18:59 Intake Total 330 Balance 330 - Medications Medications: Current Medications Albuterol/Ipratropium (Duoneb 3 Mg/0.5 Mg (3 Ml) Ud) 3 ml INH RQ6 [facility] Last Admin: 10/31/16 07:22 Dose: 3 ml Aspirin (Ecotrin) 81 mg PO DAILY [facility] Last Admin: 10/31/16 09:11 Dose: 81 mg Budesonide (Pulmicort Respules) 0.5 mg INH RQ12 [facility] Last Admin: 10/31/16 07:22 Dose: 0.5 mg Carvedilol (Coreg) 6.25 mg PO BID [facility] Last Admin: 10/31/16 09:11 Dose: 6.25 mg Enalapril Maleate (Vasotec) 10 mg PO DAILY [facility] Last Admin: 10/31/16 09:15 Dose: 10 mg Furosemide (Lasix) 20 mg PO DAILY [facility] Last Admin: 10/31/16 09:13 Dose: 20 mg Heparin Sodium (Porcine) (Heparin) 5,000 units SC Q8 [facility] Last Admin: 10/31/16 05:19 Dose: 5,000 units Ibuprofen (Motrin Tab) 600 mg PO TID PRN PRN Reason: Pain, moderate (4-7) Insulin Glargine (Lantus) 10 unit SC HS [facility] Last Admin: 10/30/16 21:45 Dose: 10 units Insulin Human Regular (Novolin R) 0 unit SC ACHS [facility] PRN Reason: Protocol Last Admin: 10/31/16 07:46 Dose: 8 unit Methylprednisolone (Solu-Medrol) 40 mg IVP Q8H [facility] Last Admin: 10/31/16 05:30 Dose: 40 mg Montelukast Sodium (Singulair) 10 mg PO HS [facility] Last Admin: 10/30/16 21:46 Dose: 10 mg Pantoprazole Sodium (Protonix Ec Tab) 40 mg PO DAILY [facility] Last Admin: 10/31/16 09:12 Dose: 40 mg Rosuvastatin Calcium (Crestor) 10 mg PO HS [facility] Last Admin: 10/30/16 21:45 Dose: 10 mg - Labs Labs: 10/31/16 07:04 10/31/16 07:04 PT 11.7 SECONDS (9.7-12.2) 10/29/16 21:33 INR 1.0 10/29/16 21:33 APTT 34 SECONDS (21-34) 10/29/16 21:33 - Constitutional Appears: Non-toxic, No Acute Distress - Head Exam Head Exam: ATRAUMATIC, NORMAL INSPECTION, NORMOCEPHALIC - Eye Exam Eye Exam: EOMI, Normal appearance, PERRL Pupil Exam: NORMAL ACCOMODATION, PERRL - ENT Exam ENT Exam: Mucous Membranes Moist, Normal Exam - Neck Exam Neck Exam: Full ROM, Normal Inspection - Respiratory Exam Respiratory Exam: Chest Wall Tenderness, Clear to Ausculation Bilateral, NORMAL BREATHING PATTERN. absent: Rales, Rhonchi, Wheezes - Cardiovascular Exam Cardiovascular Exam: REGULAR RHYTHM, +S1, +S2 - GI/Abdominal Exam GI & Abdominal Exam: Soft, Normal Bowel Sounds. absent: Tenderness - Extremities Exam Extremities Exam: Normal Inspection. absent: Pedal Edema, Tenderness - Back Exam Back Exam: Full ROM, muscle spasm (mid thoracic), NORMAL INSPECTION - Neurological Exam Neurological Exam: Alert, Awake, CN II-XII Intact, Oriented x3 - Psychiatric Exam Psychiatric exam: Normal Affect, Normal Mood - Skin Skin Exam: Dry, Intact, Normal Color, Warm Assessment and Plan - Assessment and Plan (Free Text) Assessment: Asthma exacerbation Solumedrol 40mg q8h decreased to Q12H Cont duonebs q6h Cont singulair 10mg HS Cont Pulmicort 0.5mg Q12H Monitor Diabetes mellitus ISS changed to high ISS Started Lantus 10 Units SC HS accuchecks ACHS Blood sugars in 300-400's Back pain Motrin PRN Heating pad Cont Flexeril 5mg TID PRN Monitor Tachycardia- resolving patient with history of CVA but unknown if there is clotting disorder d-dimer neg tachycardia in 90's Monitor Hyperlipidemia continue home medication equivalent- crestor 10mg HS Congestive heart failure cont home medication lasix 20mg PO daily Repeat echo - Same findings as previous - EF 27%, mod-severe systolic dysfunction Pt had echo 08/28/2016, EF 27%, mod- severe systolic dysfunction Cards recs- MUGA scan today for eval LV EF for lifevest placement; cont ASA, Coreg, Enalapril, Lasix, tele Hypertension cont vasotec 10mg daily cont coreg 3.125mg BID GI/DVT ppx heparin 5000 units sc q8h protonix 40mg daily Dispo Cont med mgmt FU cardio recs FU MUGA scan Possible need for Lifevest DW attending <Leonila Santos V - Last Filed: 10/31/16 20:55> Objective - Vital Signs/Intake and Output Vital Signs (last 24 hours): Temp Pulse Resp BP Pulse Ox 98.9 F 82 20 133/72 97 10/31/16 15:53 10/31/16 16:24 10/31/16 15:53 10/31/16 15:53 10/31/16 16:24 Intake and Output: 10/31/16 11/01/16 18:59 06:59 Intake Total 250 Balance 250 - Medications Medications: Current Medications Albuterol/Ipratropium (Duoneb 3 Mg/0.5 Mg (3 Ml) Ud) 3 ml INH RQ6 [facility] Last Admin: 10/31/16 19:31 Dose: 3 ml Aspirin (Ecotrin) 81 mg PO DAILY [facility] Last Admin: 10/31/16 09:11 Dose: 81 mg Budesonide (Pulmicort Respules) 0.5 mg INH RQ12 [facility] Last Admin: 10/31/16 19:31 Dose: 0.5 mg Carvedilol (Coreg) 6.25 mg PO BID [facility] Last Admin: 10/31/16 17:31 Dose: 6.25 mg Enalapril Maleate (Vasotec) 10 mg PO DAILY [facility] Last Admin: 10/31/16 09:15 Dose: 10 mg Furosemide (Lasix) 20 mg PO DAILY [facility] Last Admin: 10/31/16 09:13 Dose: 20 mg Heparin Sodium (Porcine) (Heparin) 5,000 units SC Q8 [facility] Last Admin: 10/31/16 13:52 Dose: 5,000 units Ibuprofen (Motrin Tab) 600 mg PO TID PRN PRN Reason: Pain, moderate (4-7) Last Admin: 10/31/16 17:30 Dose: 600 mg Insulin Glargine (Lantus) 20 unit SC HS [facility] Insulin Human Regular (Novolin R) 0 unit SC ACHS [facility] PRN Reason: Protocol Last Admin: 10/31/16 17:37 Dose: 12 unit Methylprednisolone (Solu-Medrol) 40 mg IVP Q12 [facility] Montelukast Sodium (Singulair) 10 mg PO HS [facility] Last Admin: 10/30/16 21:46 Dose: 10 mg Pantoprazole Sodium (Protonix Ec Tab) 40 mg PO DAILY [facility] Last Admin: 10/31/16 09:12 Dose: 40 mg Rosuvastatin Calcium (Crestor) 10 mg PO HS [facility] Last Admin: 10/30/16 21:45 Dose: 10 mg - Labs Labs: 10/31/16 07:04 10/31/16 07:04 PT 11.7 SECONDS (9.7-12.2) 10/29/16 21:33 INR 1.0 10/29/16 21:33 APTT 34 SECONDS (21-34) 10/29/16 21:33 Assessment and Plan - Assessment and Plan (Free Text) Assessment: Patient seen, examined, and case discussed with day-time resident. Patient seen in the room with boyfriend at bedside. Patient reports breathing is a little bit better. Steroid IV decreased; better air movement per my exam Patient scheduled for MUGA scan today to assess if she is a candidate for Lifevest given her moderate to severe ejection fraction noted on prior echocardiogram. Cardiology on board. Help appreciated Patient's evening Lantus increased to 20 units given that she has need about 30 units of regular insulin during the day; sugars are influenced partially by IV steroids. Asthma exacerbation * Solumedrol 40mg IVP q12h * Duonebs q6h * singulair 10mg HS * Pulmicort 0.5mg Q12H * Monitor pre and post flows Congestive heart failure * Acute on chronic systolic CHF * lasix 20mg PO daily * Pt had echo 08/28/2016, EF 27%, mod- severe systolic dysfunction * Echocardiogram (10/31/16): left ventricular function is chelo; EF in normal range. no regional wall motion abnormalites noted. LV filling pressures elevated , RVP elevated * f/u MUGA scan * Patient has had a prior cardiac cath showing normal coronaries, but noted focal hypokinese of inferior wall * Cardiology consult- Dr. Samaniego on case-->help appreciated * Enalapril 10mg PO daily * Coreg 6.25 mg PO bid * Crestor 10mg POqHS Diabetes mellitus * sugars uncontrolled; partly due to IV steroids to help reduce inflammation by asthma * high insulin sliding scale subq * increase Lantus 20 Units SC HS * accuchecks ACHS * Will insulin regimen based on her sliding scale * order for [id number], lipid panel in AM Back pain * No complaints today * Motrin PRN * Heating pad Tachycardia * d-dimer neg * Coreg increased 6.25mg PO bid * heart rate within normal range Hyperlipidemia * continue home medication equivalent- crestor 10mg HS Hypertension * Vasotec 10mg daily * Coreg 6.25 mg BID GI/DVT ppx * Heparin 5000 units sc q8h * Protonix 40mg daily
[2016-10-31] MEDS ORDERED: (Lantus) Insulin Glargine, Recombinant SC SCH (20:45)
[2016-11-01] MEDS: Albuterol-Ipratrop 3 mg / 0.5 (3 ml) UD INH SCH ×4 (01:48→20:20)
[2016-11-01 06:25] LABS: BASO % 0.1 % (0.0-2.0); EOS % 0.1 % (0.0-4.0); LYMPH # 3.4 K/uL (1.0-4.3); LYMPH % 35.4 % (20.0-40.0); MEAN CELL VOLUME 85.5 fL (81.0-99.0); MEAN CORPUSCULAR HEMOGLOBIN 28.5 pg (27.0-31.0); MEAN CORPUSCULAR HGB CONC 33.4 g/dL (33.0-37.0); MEAN PLATELET VOLUME 7.6 fL (7.2-11.7); MONO # 0.6 K/uL (0.0-0.8); MONO % 5.8 % (0.0-10.0); NRBC % 0.1 % (0.0-2.0); RED CELL DISTRIBUTION WIDTH 12.9 % (11.5-14.5); WHITE BLOOD COUNT 9.5 K/uL (4.8-10.8)
[2016-11-01 07:21] LABS: CHLORIDE 99 mmol/L (98-107); POTASSIUM 3.8 mmol/L (3.6-5.2); SODIUM 136 mmol/L (132-148)
[2016-11-01 07:23] LABS: ALB/GLOB RATIO 1.4 (1.0-2.1); AST/SGOT 29 U/L (14-36); BILIRUBIN,TOTAL 0.3 mg/dL (0.2-1.3); CARBON DIOXIDE 27 mmol/L (22-30); CHOLESTEROL 128 mg/dL (0-199); GFR AFRICAN-AMERICAN > 60; TOTAL PROTEIN 6.3 g/dL (6.3-8.3)
[2016-11-01 07:24] LABS: ALKALINE PHOSPHATASE 112 U/L (38-126); ALT/SGPT 46 U/L (9-52); BLOOD UREA NITROGEN 24 mg/dL (7-17); CALCIUM 8.6 mg/dl (8.6-10.4); GLUCOSE,RANDOM 332 mg/dL (65-105); PHOSPHOROUS 4.2 mg/dL (2.5-4.5)
[2016-11-01] MEDS: (Novolin R) Insulin Human Regular 100 units/ml vial SC SCH ×4 (08:18→21:53)
[2016-11-01] MEDS: Budesonide 0.5 mg/2 ml Inhal Susp UD INH SCH ×2 (08:21→20:20)
[2016-11-01] MEDS: Pantoprazole 40 mg EC Tab PO SCH (10:04)
[2016-11-01] MEDS: Promethazine/Cod 6.25mg-10mg/5ml Syr UD PO PRN (10:04)
[2016-11-01] MEDS: MethylPREDNISolone 40 mg Vial IVP SCH ×2 (10:05→21:42)
--- NOTE | 2016-11-01 12:11 | CP.PCM.PN ---
<Ovidio Mireles - Last Filed: 11/01/16 14:24> Subjective - Date & Time of Evaluation Date of Evaluation: 11/01/16 Time of Evaluation: 12:07 - Subjective Subjective: Cardiology Progress Note Dr. Samaniego Patient seen and examined at the bedside. No acute distress. No acute events overnight. Nursing staff reports no issues. The patient reports continued dizziness and SOB with minimal exertion consistent with her prior complaints. The patient remains with O2 via nasal cannula. Patient for MUGA scan today. Time confirmed with nuclear certified ophthalmic medical technician. Patient has complaint of SOB and dizziness this am. Patient denies fever, chills, headache, chest pain, abdominal pain, changes in bowel/bladder, and extremity paresthesias. Objective - Vital Signs/Intake and Output Vital Signs (last 24 hours): Temp Pulse Resp BP Pulse Ox 98.7 F 82 20 159/83 H 98 11/01/16 07:25 11/01/16 07:25 11/01/16 07:25 11/01/16 10:04 11/01/16 07:25 Intake and Output: 11/01/16 11/01/16 06:59 18:59 Intake Total 740 Balance 740 - Medications Medications: Current Medications Albuterol/Ipratropium (Duoneb 3 Mg/0.5 Mg (3 Ml) Ud) 3 ml INH RQ6 [facility] Last Admin: 11/01/16 08:21 Dose: 3 ml Aspirin (Ecotrin) 81 mg PO DAILY [facility] Last Admin: 11/01/16 10:04 Dose: 81 mg Budesonide (Pulmicort Respules) 0.5 mg INH RQ12 [facility] Last Admin: 11/01/16 08:21 Dose: 0.5 mg Carvedilol (Coreg) 6.25 mg PO BID [facility] Last Admin: 11/01/16 10:05 Dose: 6.25 mg Enalapril Maleate (Vasotec) 10 mg PO DAILY [facility] Last Admin: 11/01/16 10:04 Dose: 10 mg Furosemide (Lasix) 20 mg PO DAILY [facility] Last Admin: 11/01/16 10:04 Dose: 20 mg Ibuprofen (Motrin Tab) 600 mg PO TID PRN PRN Reason: Pain, moderate (4-7) Last Admin: 10/31/16 17:30 Dose: 600 mg Insulin Aspart (Novolog) 5 unit SC ACTID [facility] Insulin Glargine (Lantus) 25 unit SC HS [facility] Insulin Human Regular (Novolin R) 0 unit SC ACHS [facility] PRN Reason: Protocol Last Admin: 11/01/16 08:18 Dose: 8 unit Methylprednisolone (Solu-Medrol) 40 mg IVP Q12 [facility] Last Admin: 11/01/16 10:05 Dose: 40 mg Montelukast Sodium (Singulair) 10 mg PO HS [facility] Last Admin: 10/31/16 21:05 Dose: 10 mg Pantoprazole Sodium (Protonix Ec Tab) 40 mg PO DAILY [facility] Last Admin: 11/01/16 10:04 Dose: 40 mg Polyethylene Glycol (Miralax) 17 gm PO DAILY [facility] Promethazine HCl/Codeine (Phenergan/Codeine Oral Syrup) 5 ml PO Q4 PRN PRN Reason: Cough Last Admin: 11/01/16 10:04 Dose: 5 ml Rosuvastatin Calcium (Crestor) 10 mg PO HS [facility] Last Admin: 10/31/16 21:05 Dose: 10 mg - Labs Labs: 11/01/16 06:14 11/01/16 06:14 PT 11.7 SECONDS (9.7-12.2) 10/29/16 21:33 INR 1.0 10/29/16 21:33 APTT 34 SECONDS (21-34) 10/29/16 21:33 - Additional Findings Additional findings: - Constitutional Appears: Chronically Ill - Head Exam Head Exam: ATRAUMATIC, NORMAL INSPECTION, NORMOCEPHALIC - Eye Exam Eye Exam: EOMI - ENT Exam ENT Exam: Mucous Membranes Moist - Neck Exam Neck exam: Positive for: Normal Inspection. Negative for: Lymphadenopathy - Respiratory Exam Respiratory Exam: Clear to Auscultation Bilateral, NORMAL BREATHING PATTERN. absent: Rhonchi, Wheezes - Cardiovascular Exam Cardiovascular Exam: REGULAR RHYTHM, RRR, +S1, +S2. absent: Diastolic murmur, Gallop, Systolic Murmur - GI/Abdominal Exam GI & Abdominal Exam: Normal Bowel Sounds, Soft. absent: Distended, Guarding, Tenderness - Extremities Exam Extremities exam: Positive for: normal inspection, pedal edema (1-2+ pitting), pedal pulses present - Neurological Exam Neurological exam: Alert, CN II-XII Intact, Oriented x3 - Skin Skin Exam: Dry, Intact, Normal Color, Warm Assessment and Plan (1) Diabetes mellitus Status: h (2) Hyperlipidemia Status: h (3) Hypertension Status: h (4) Myocardial infarct, old Status: n (5) CVA (cerebral vascular accident) Status: n (6) Systolic and diastolic CHF, chronic Assessment & Plan: NYHA Class IIIB Heart Failure Echo discrepancy in EF values prior EF of 27% recent EF on Echo 53% : MUGA scan for definitive EF determination MUGA Scan- 49% EF on preliminary report : unlikely need for live vest support 10/30/16 EKG- LBBB, sinus tachycardia (unchanged from most recent comparison) patient to continue : Aspirin 81mg PO daily : Coreg 6.25mg p bid : Enalapril 10mg po daily : Lasix 20mg po daily telemetric monitoring Patient to follow with Dr. Samaniego in his clinic Status: h - Assessment and Plan (Free Text) Plan: Case Discussed with Dr. Danette Mireles PGY1 <Kaelyn Samaniego A - Last Filed: 11/20/16 09:23> Objective - Vital Signs/Intake and Output Vital Signs (last 24 hours): Temp Pulse Resp BP Pulse Ox 98.7 F 94 H 20 114/64 95 11/11/16 13:10 11/11/16 15:00 11/11/16 13:10 11/11/16 15:00 11/11/16 13:22 - Labs Labs: 11/11/16 07:38 11/11/16 07:38 PT 11.7 SECONDS (9.7-12.2) 10/29/16 21:33 INR 1.0 10/29/16 21:33 APTT 34 SECONDS (21-34) 10/29/16 21:33 Attending/Attestation - Attestation I have personally seen and examined this patient.: Yes I have fully participated in the care of the patient.: Yes I have reviewed all pertinent clinical information, including history, physical exam and plan: Yes Notes (Text): 11/20/16 09:23 Pt for MUGA scan today to confirm EF
[2016-11-01] MEDS: (Novolog) Insulin Aspart, Recombinant 100 u/ml 10 ml vial SC SCH ×2 (12:20→17:40)
[2016-11-01] MEDS: POLYETHYLENE GLYCOL 3350 17 GM/Dose PACKET PO SCH (12:24)
--- NOTE | 2016-11-01 15:26 | CT ---
PROCEDURE: CT HEAD WITHOUT CONTRAST. HISTORY: epistaxis COMPARISON: None available. TECHNIQUE: Axial computed tomography images were obtained through the head/brain without intravenous contrast. Radiation dose: Total exam DLP = 796.17 mGy-cm. This CT exam was performed using one or more of the following dose reduction techniques: Automated exposure control, adjustment of the mA and/or kV according to patient size, and/or use of iterative reconstruction technique. FINDINGS: HEMORRHAGE: No intracranial hemorrhage. BRAIN: No mass effect or edema. The morales-white matter differentiation appears intact. Please note that MRI with diffusion imaging is more sensitive in the detection of acute ischemic event. Please note that MRI with diffusion imaging is more sensitive in the detection of acute ischemic event. VENTRICLES: No hydrocephalus. CALVARIUM: Unremarkable. PARANASAL SINUSES: Mucosal thickening of the ethmoid air cells and sphenoid sinuses. No air-fluid levels. MASTOID AIR CELLS: Unremarkable as visualized. No inflammatory changes. OTHER FINDINGS: None. IMPRESSION: No acute intracranial pathology identified. Mucosal thickening of the ethmoid air cells and sphenoid sinuses.
--- NOTE | 2016-11-01 16:38 | CP.PCM.PN ---
<Marcela Ochoa - Last Filed: 11/01/16 16:35> Subjective - Date & Time of Evaluation Date of Evaluation: 11/01/16 Time of Evaluation: 07:40 - Subjective Subjective: Internal medicine progress note for Hospitalist Service- Marcela Ochoa, PGY-1 Pt S & E at bedside. Pt continues to c/o SOB, cough, CP with ambulation, palpitations with ambulation , chest pressure with walking, insomnia. Pt tolerating diet. Objective - Vital Signs/Intake and Output Vital Signs (last 24 hours): Temp Pulse Resp BP Pulse Ox 98.7 F 73 20 159/83 H 98 11/01/16 07:25 11/01/16 09:00 11/01/16 07:25 11/01/16 10:04 11/01/16 07:25 Intake and Output: 11/01/16 11/01/16 06:59 18:59 Intake Total 740 Balance 740 - Medications Medications: Current Medications Albuterol/Ipratropium (Duoneb 3 Mg/0.5 Mg (3 Ml) Ud) 3 ml INH RQ6 [facility] Last Admin: 11/01/16 13:35 Dose: Not Given Aspirin (Ecotrin) 81 mg PO DAILY [facility] Last Admin: 11/01/16 10:04 Dose: 81 mg Budesonide (Pulmicort Respules) 0.5 mg INH RQ12 [facility] Last Admin: 11/01/16 08:21 Dose: 0.5 mg Carvedilol (Coreg) 6.25 mg PO BID [facility] Last Admin: 11/01/16 10:05 Dose: 6.25 mg Enalapril Maleate (Vasotec) 10 mg PO DAILY [facility] Last Admin: 11/01/16 10:04 Dose: 10 mg Furosemide (Lasix) 20 mg PO DAILY [facility] Last Admin: 11/01/16 10:04 Dose: 20 mg Ibuprofen (Motrin Tab) 600 mg PO TID PRN PRN Reason: Pain, moderate (4-7) Last Admin: 10/31/16 17:30 Dose: 600 mg Insulin Aspart (Novolog) 5 unit SC ACTID [facility] Last Admin: 11/01/16 12:20 Dose: 5 unit Insulin Glargine (Lantus) 25 unit SC HS [facility] Insulin Human Regular (Novolin R) 0 unit SC ACHS [facility] PRN Reason: Protocol Last Admin: 11/01/16 12:21 Dose: 12 unit Methylprednisolone (Solu-Medrol) 40 mg IVP Q12 [facility] Last Admin: 11/01/16 10:05 Dose: 40 mg Montelukast Sodium (Singulair) 10 mg PO HS [facility] Last Admin: 10/31/16 21:05 Dose: 10 mg Pantoprazole Sodium (Protonix Ec Tab) 40 mg PO DAILY [facility] Last Admin: 11/01/16 10:04 Dose: 40 mg Polyethylene Glycol (Miralax) 17 gm PO DAILY [facility] Last Admin: 11/01/16 12:24 Dose: 17 gm Promethazine HCl/Codeine (Phenergan/Codeine Oral Syrup) 5 ml PO Q4 PRN PRN Reason: Cough Last Admin: 11/01/16 10:04 Dose: 5 ml Rosuvastatin Calcium (Crestor) 10 mg PO HS [facility] Last Admin: 10/31/16 21:05 Dose: 10 mg - Labs Labs: 11/01/16 06:14 11/01/16 06:14 PT 11.7 SECONDS (9.7-12.2) 10/29/16 21:33 INR 1.0 10/29/16 21:33 APTT 34 SECONDS (21-34) 10/29/16 21:33 - Constitutional Appears: Non-toxic, No Acute Distress - Head Exam Head Exam: ATRAUMATIC, NORMAL INSPECTION, NORMOCEPHALIC - Eye Exam Eye Exam: EOMI, Normal appearance, PERRL Pupil Exam: NORMAL ACCOMODATION, PERRL - ENT Exam ENT Exam: Mucous Membranes Moist, Normal Exam - Respiratory Exam Respiratory Exam: Chest Wall Tenderness, Wheezes (slight B/L), NORMAL BREATHING PATTERN. absent: Accessory Muscle Use, Clear to Ausculation Bilateral, Rales, Rhonchi, Stridor - Cardiovascular Exam Cardiovascular Exam: REGULAR RHYTHM, +S1, +S2 - GI/Abdominal Exam GI & Abdominal Exam: Soft, Normal Bowel Sounds. absent: Tenderness - Extremities Exam Extremities Exam: Full ROM, Normal Inspection. absent: Pedal Edema, Tenderness - Back Exam Back Exam: muscle spasm, NORMAL INSPECTION - Neurological Exam Neurological Exam: Alert, Awake, CN II-XII Intact, Oriented x3 - Psychiatric Exam Psychiatric exam: Normal Affect, Normal Mood - Skin Skin Exam: Dry, Intact, Normal Color, Warm Assessment and Plan - Assessment and Plan (Free Text) Assessment: Asthma exacerbation/Cough Solumedrol 40mg q8h decreased to Q12H Cont duonebs q6h Cont singulair 10mg HS Cont Pulmicort 0.5mg Q12H Phenergan w/codeine PRN Pre-post flows per respiratory Monitor Epistaxis Humidifer to O2 via NC Heparin d/c'd FU CT brain Monitor Constipation Miralax daily Diabetes mellitus ISS changed to high ISS Lantus 20 Units SC HS increased to 25 accuchecks ACHS Started Novolog 5 units ACTID Blood sugars in 300-400's Back pain Motrin PRN Heating pad Cont Flexeril 5mg TID PRN Monitor Tachycardia- resolving patient with history of CVA but unknown if there is clotting disorder d-dimer neg tachycardia in 90's Monitor Hyperlipidemia continue home medication equivalent- crestor 10mg HS Congestive heart failure cont home medication lasix 20mg PO daily Repeat echo - noted discrepancy from report yesterday vs. today Cards recs- NYHA Class IIIB Heart Failure Echo discrepancy in EF values prior EF of 27% recent EF on Echo 53% : MUGA scan for definitive EF determination MUGA Scan- 49% EF on preliminary report : unlikely need for live vest support Hypertension cont vasotec 10mg daily cont coreg 3.125mg BID GI/DVT ppx heparin 5000 units sc q8h protonix 40mg daily Dispo Cont med mgmt No need for Lifevest as per cardio Optimize breathing status of pt possible d/c home in AM DW attending <Leonila Santos V - Last Filed: 11/01/16 20:39> Objective - Vital Signs/Intake and Output Vital Signs (last 24 hours): Temp Pulse Resp BP Pulse Ox 97.8 F 71 20 125/64 97 11/01/16 15:00 11/01/16 15:00 11/01/16 15:00 11/01/16 15:00 11/01/16 15:00 - Medications Medications: Current Medications Albuterol/Ipratropium (Duoneb 3 Mg/0.5 Mg (3 Ml) Ud) 3 ml INH RQ6 [facility] Last Admin: 11/01/16 20:20 Dose: 3 ml Aspirin (Ecotrin) 81 mg PO DAILY [facility] Last Admin: 11/01/16 10:04 Dose: 81 mg Budesonide (Pulmicort Respules) 0.5 mg INH RQ12 [facility] Last Admin: 11/01/16 20:20 Dose: 0.5 mg Carvedilol (Coreg) 6.25 mg PO BID [facility] Last Admin: 11/01/16 18:39 Dose: 6.25 mg Enalapril Maleate (Vasotec) 10 mg PO DAILY [facility] Last Admin: 11/01/16 10:04 Dose: 10 mg Furosemide (Lasix) 20 mg PO DAILY [facility] Last Admin: 11/01/16 10:04 Dose: 20 mg Ibuprofen (Motrin Tab) 600 mg PO TID PRN PRN Reason: Pain, moderate (4-7) Last Admin: 10/31/16 17:30 Dose: 600 mg Insulin Aspart (Novolog) 5 unit SC ACTID [facility] Last Admin: 11/01/16 17:40 Dose: 5 unit Insulin Glargine (Lantus) 25 unit SC HS [facility] Insulin Human Regular (Novolin R) 0 unit SC ACHS [facility] PRN Reason: Protocol Last Admin: 11/01/16 17:40 Dose: 8 unit Methylprednisolone (Solu-Medrol) 40 mg IVP Q12 [facility] Last Admin: 11/01/16 10:05 Dose: 40 mg Montelukast Sodium (Singulair) 10 mg PO HS [facility] Last Admin: 10/31/16 21:05 Dose: 10 mg Pantoprazole Sodium (Protonix Ec Tab) 40 mg PO DAILY [facility] Last Admin: 11/01/16 10:04 Dose: 40 mg Polyethylene Glycol (Miralax) 17 gm PO DAILY [facility] Last Admin: 11/01/16 12:24 Dose: 17 gm Promethazine HCl/Codeine (Phenergan/Codeine Oral Syrup) 5 ml PO Q4 PRN PRN Reason: Cough Last Admin: 11/01/16 10:04 Dose: 5 ml Rosuvastatin Calcium (Crestor) 10 mg PO HS [facility] Last Admin: 10/31/16 21:05 Dose: 10 mg - Labs Labs: 11/01/16 06:14 11/01/16 06:14 PT 11.7 SECONDS (9.7-12.2) 10/29/16 21:33 INR 1.0 10/29/16 21:33 APTT 34 SECONDS (21-34) 10/29/16 21:33 Attending/Attestation - Attestation I have personally seen and examined this patient.: Yes I have fully participated in the care of the patient.: Yes I have reviewed all pertinent clinical information, including history, physical exam and plan: Yes Notes (Text): Patient seen, examined, and case discussed with day-time resident. Patient seen in the room. Patient reports breathing has improved. Patient scheduled for MUGA scan today, completed EF: 49% based on prelim; awaiting official report. Cardiology on board. Help appreciated Patient's evening Lantus increased to 25 units and Novolog 5 units TIDAC; sugars are influenced partially by IV steroids; uncontrolled diabetic. Patient possible discharge tomorrow. Assessment/Plan Asthma exacerbation * Solumedrol 40mg IVP q12h * Duonebs q6h * singulair 10mg HS * Pulmicort 0.5mg Q12H * Monitor pre and post flows Congestive heart failure * Acute on chronic systolic CHF * lasix 20mg PO daily * Pt had echo 08/28/2016, EF 27%, mod- severe systolic dysfunction * Echocardiogram (10/31/16): left ventricular function is chelo; EF in normal range. no regional wall motion abnormalites noted. LV filling pressures elevated , RVP elevated * MUGA scan pending final * Patient has had a prior cardiac cath showing normal coronaries, but noted focal hypokinese of inferior wall * Cardiology consult- Dr. Samaniego on case-->help appreciated * Enalapril 10mg PO daily * Coreg 6.25 mg PO bid * Crestor 10mg POqHS Diabetes mellitus * sugars uncontrolled; partly due to IV steroids to help reduce inflammation by asthma * high insulin sliding scale subq * increase Lantus 25 Units SC HS + Novolog 5 units TIDAC * accuchecks ACHS * Will insulin regimen based on her sliding scale * [id number]: 10.2 Back pain * No complaints today * Motrin PRN * Heating pad Tachycardia * d-dimer neg * Coreg increased 6.25mg PO bid * heart rate within normal range Hyperlipidemia * continue home medication equivalent- crestor 10mg HS Hypertension * Vasotec 10mg daily * Coreg 6.25 mg BID GI/DVT ppx * Heparin 5000 units sc q8h * Protonix 40mg daily
[2016-11-01] MEDS: (Lantus) Insulin Glargine, Recombinant SC SCH (21:53)
[2016-11-02] MEDS: Albuterol-Ipratrop 3 mg / 0.5 (3 ml) UD INH SCH ×4 (01:43→19:34)
[2016-11-02] MEDS: Budesonide 0.5 mg/2 ml Inhal Susp UD INH SCH ×2 (07:59→19:34)
[2016-11-02] MEDS: (Novolog) Insulin Aspart, Recombinant 100 u/ml 10 ml vial SC SCH ×3 (08:16→18:14)
[2016-11-02] MEDS: (Novolin R) Insulin Human Regular 100 units/ml vial SC SCH ×4 (08:18→21:58)
[2016-11-02] MEDS: POLYETHYLENE GLYCOL 3350 17 GM/Dose PACKET PO SCH (10:00)
[2016-11-02] MEDS: Pantoprazole 40 mg EC Tab PO SCH (10:00)
[2016-11-02] MEDS: MethylPREDNISolone 40 mg Vial IVP SCH ×2 (10:01→21:57)
[2016-11-02] MEDS: Promethazine/Cod 6.25mg-10mg/5ml Syr UD PO PRN ×2 (11:46→22:06)
[2016-11-02] MEDS: (Lantus) Insulin Glargine, Recombinant SC SCH (21:58)
[2016-11-03] MEDS: Albuterol-Ipratrop 3 mg / 0.5 (3 ml) UD INH SCH ×6 (00:37→21:43)
--- NOTE | 2016-11-03 03:34 | CP.PCM.PN ---
Subjective - Date & Time of Evaluation Date of Evaluation: 11/03/16 Time of Evaluation: 03:10 - Subjective Subjective: Pt still feels weak breathing better Objective - Vital Signs/Intake and Output Vital Signs (last 24 hours): Temp Pulse Resp BP Pulse Ox 98.2 F 72 20 152/76 H 97 11/02/16 23:30 11/02/16 23:30 11/02/16 23:30 11/02/16 23:30 11/02/16 23:30 Intake and Output: 11/02/16 11/03/16 18:59 06:59 Intake Total 240 320 Balance 240 320 - Medications Medications: Current Medications Albuterol/Ipratropium (Duoneb 3 Mg/0.5 Mg (3 Ml) Ud) 3 ml INH RQ4 [facility] Last Admin: 11/03/16 03:22 Dose: 3 ml Aspirin (Ecotrin) 81 mg PO DAILY [facility] Last Admin: 11/02/16 10:00 Dose: 81 mg Budesonide (Pulmicort Respules) 0.5 mg INH RQ12 [facility] Last Admin: 11/02/16 19:34 Dose: 0.5 mg Carvedilol (Coreg) 6.25 mg PO BID [facility] Last Admin: 11/02/16 18:16 Dose: 6.25 mg Enalapril Maleate (Vasotec) 10 mg PO BID [facility] Last Admin: 11/02/16 18:16 Dose: 10 mg Furosemide (Lasix) 20 mg PO DAILY [facility] Last Admin: 11/02/16 10:01 Dose: 20 mg Ibuprofen (Motrin Tab) 600 mg PO TID PRN PRN Reason: Pain, moderate (4-7) Last Admin: 10/31/16 17:30 Dose: 600 mg Insulin Aspart (Novolog) 5 unit SC ACTID [facility] Last Admin: 11/02/16 18:14 Dose: 5 unit Insulin Glargine (Lantus) 25 unit SC HS [facility] Last Admin: 11/02/16 21:58 Dose: 25 units Insulin Human Regular (Novolin R) 0 unit SC ACHS [facility] PRN Reason: Protocol Last Admin: 11/02/16 21:58 Dose: 4 unit Methylprednisolone (Solu-Medrol) 40 mg IVP Q12 [facility] Last Admin: 11/02/16 21:57 Dose: 40 mg Montelukast Sodium (Singulair) 10 mg PO HS [facility] Last Admin: 11/02/16 21:57 Dose: 10 mg Pantoprazole Sodium (Protonix Ec Tab) 40 mg PO DAILY [facility] Last Admin: 11/02/16 10:00 Dose: 40 mg Polyethylene Glycol (Miralax) 17 gm PO DAILY [facility] Last Admin: 11/02/16 10:00 Dose: 17 gm Promethazine HCl/Codeine (Phenergan/Codeine Oral Syrup) 5 ml PO Q4 PRN PRN Reason: Cough Last Admin: 11/02/16 22:06 Dose: 5 ml Rosuvastatin Calcium (Crestor) 10 mg PO HS [facility] Last Admin: 11/02/16 21:57 Dose: 10 mg - Labs Labs: 11/01/16 06:14 11/01/16 06:14 PT 11.7 SECONDS (9.7-12.2) 10/29/16 21:33 INR 1.0 10/29/16 21:33 APTT 34 SECONDS (21-34) 10/29/16 21:33 - Constitutional Appears: No Acute Distress - Head Exam Head Exam: ATRAUMATIC, NORMAL INSPECTION, NORMOCEPHALIC - Eye Exam Eye Exam: Normal appearance - ENT Exam ENT Exam: Mucous Membranes Moist - Respiratory Exam Respiratory Exam: Wheezes - Cardiovascular Exam Cardiovascular Exam: REGULAR RHYTHM - GI/Abdominal Exam GI & Abdominal Exam: Soft - Exam External exam: absent: Ecchymosis - Extremities Exam Extremities Exam: absent: Pedal Edema - Neurological Exam Neurological Exam: Alert, Awake - Psychiatric Exam Psychiatric exam: Normal Affect, Normal Mood - Skin Skin Exam: Dry Assessment and Plan (1) Congestive heart failure Assessment & Plan: Continue pulmonary tx hr wnl continue chf meds Status: Acute (2) Asthma exacerbation Status: Chronic
[2016-11-03] MEDS: (Novolog) Insulin Aspart, Recombinant 100 u/ml 10 ml vial SC SCH ×3 (07:00→18:23)
[2016-11-03] MEDS: (Novolin R) Insulin Human Regular 100 units/ml vial SC SCH ×4 (08:00→21:52)
[2016-11-03] MEDS: Budesonide 0.5 mg/2 ml Inhal Susp UD INH SCH ×2 (08:08→21:43)
[2016-11-03] MEDS: Pantoprazole 40 mg EC Tab PO SCH (09:58)
[2016-11-03] MEDS: Promethazine/Cod 6.25mg-10mg/5ml Syr UD PO PRN (09:58)
[2016-11-03] MEDS: MethylPREDNISolone 40 mg Vial IVP SCH ×2 (10:00→22:18)
[2016-11-03] MEDS: POLYETHYLENE GLYCOL 3350 17 GM/Dose PACKET PO SCH (10:00)
--- NOTE | 2016-11-03 13:55 | CP.PCM.PN ---
<Romel Sánchez - Last Filed: 11/03/16 15:13> Subjective - Date & Time of Evaluation Date of Evaluation: 11/03/16 Time of Evaluation: 07:35 - Subjective Subjective: PGY-1 Medicine Progress Note for Dr. Santos Patient seen and examined at bedside. No acute event overnight. Patient still complaining of some SOB and cehst discomfort. She stated that it is slightly better than yesterday. Again, patient was reassured that she would not be discharged until she was medically optimized and stable. Patient has mild anxiety, one dose of xanax was given. Patient tolerating diet. Denied fever/ chills, palpitations, abd pain, n/v/d. Objective - Vital Signs/Intake and Output Vital Signs (last 24 hours): Temp Pulse Resp BP Pulse Ox 98.3 F 81 20 146/79 97 11/03/16 07:52 11/03/16 07:52 11/03/16 07:52 11/03/16 09:59 11/03/16 07:52 Intake and Output: 11/03/16 11/03/16 06:59 18:59 Intake Total 320 Balance 320 - Medications Medications: Current Medications Albuterol/Ipratropium (Duoneb 3 Mg/0.5 Mg (3 Ml) Ud) 3 ml INH RQ4 [facility] Last Admin: 11/03/16 11:32 Dose: 3 ml Aspirin (Ecotrin) 81 mg PO DAILY [facility] Last Admin: 11/03/16 09:58 Dose: 81 mg Budesonide (Pulmicort Respules) 0.5 mg INH RQ12 [facility] Last Admin: 11/03/16 08:08 Dose: 0.5 mg Carvedilol (Coreg) 6.25 mg PO BID [facility] Last Admin: 11/03/16 09:58 Dose: 6.25 mg Enalapril Maleate (Vasotec) 10 mg PO BID [facility] Last Admin: 11/03/16 09:59 Dose: 10 mg Furosemide (Lasix) 20 mg PO DAILY [facility] Last Admin: 11/03/16 09:59 Dose: 20 mg Ibuprofen (Motrin Tab) 600 mg PO TID PRN PRN Reason: Pain, moderate (4-7) Last Admin: 11/03/16 09:58 Dose: 600 mg Insulin Aspart (Novolog) 5 unit SC ACTID [facility] Last Admin: 11/03/16 13:05 Dose: 5 unit Insulin Glargine (Lantus) 25 unit SC HS [facility] Last Admin: 11/02/16 21:58 Dose: 25 units Insulin Human Regular (Novolin R) 0 unit SC ACHS [facility] PRN Reason: Protocol Last Admin: 11/03/16 11:30 Dose: 12 unit Methylprednisolone (Solu-Medrol) 40 mg IVP Q12 [facility] Last Admin: 11/03/16 10:00 Dose: 40 mg Montelukast Sodium (Singulair) 10 mg PO HS [facility] Last Admin: 11/02/16 21:57 Dose: 10 mg Pantoprazole Sodium (Protonix Ec Tab) 40 mg PO DAILY [facility] Last Admin: 11/03/16 09:58 Dose: 40 mg Polyethylene Glycol (Miralax) 17 gm PO DAILY [facility] Last Admin: 11/03/16 10:00 Dose: 17 gm Promethazine HCl/Codeine (Phenergan/Codeine Oral Syrup) 5 ml PO Q4 PRN PRN Reason: Cough Last Admin: 11/03/16 09:58 Dose: 5 ml Rosuvastatin Calcium (Crestor) 10 mg PO [facility] Last Admin: 11/02/16 21:57 Dose: 10 mg - Labs Labs: 11/01/16 06:14 11/01/16 06:14 PT 11.7 SECONDS (9.7-12.2) 10/29/16 21:33 INR 1.0 10/29/16 21:33 APTT 34 SECONDS (21-34) 10/29/16 21:33 - Constitutional Appears: No Acute Distress - Head Exam Head Exam: ATRAUMATIC, NORMOCEPHALIC - Eye Exam Eye Exam: EOMI, Normal appearance Pupil Exam: PERRL - ENT Exam ENT Exam: Mucous Membranes Moist - Respiratory Exam Respiratory Exam: Clear to Ausculation Bilateral (receiving breathing treatment) , NORMAL BREATHING PATTERN - Cardiovascular Exam Cardiovascular Exam: REGULAR RHYTHM, +S1, +S2 - GI/Abdominal Exam GI & Abdominal Exam: Soft, Normal Bowel Sounds. absent: Tenderness - Extremities Exam Extremities Exam: Normal Capillary Refill - Back Exam Back Exam: absent: CVA tenderness (L), CVA tenderness (R) - Neurological Exam Neurological Exam: Alert, Awake, CN II-XII Intact, Oriented x3 - Psychiatric Exam Psychiatric exam: Anxious - Skin Skin Exam: Dry, Intact, Normal Color, Warm Assessment and Plan - Assessment and Plan (Free Text) Plan: 1. Asthma exacerbation/Cough repeat CXR today Solumedrol 40mg q8h decreased to Q12H Cont duonebs q6h Cont singulair 10mg HS Cont Pulmicort 0.5mg Q12H Phenergan w/codeine PRN Pre-post flows per respiratory Monitor 2. Anxiety Xanax 0.25 mg PO ONCE 3. Epistaxis Humidifer to O2 via NC Heparin d/c'd CT head: no intracranial pathology identified. mucosal thickening of ethmoid air cells and sphenoid sinuses (see full report) Monitor 4. Constipation Miralax daily 5. Diabetes mellitus ISS changed to high ISS Lantus 20 Units SC HS increased to 25 accuchecks ACHS Started Novolog 5 units ACTID Blood sugars in 300-400's 6. Back pain Motrin PRN Heating pad Cont Flexeril 5mg TID PRN Monitor 7. Tachycardia- resolving patient with history of CVA but unknown if there is clotting disorder d-dimer neg tachycardia in 90's Monitor 8. Hyperlipidemia continue home medication equivalent- crestor 10mg HS 9. Congestive heart failure cont home medication lasix 20mg PO daily Repeat echo - noted discrepancy from report yesterday vs. today Cards recs- NYHA Class IIIB Heart Failure Echo discrepancy in EF values prior EF of 27% recent EF on Echo 53% : MUGA scan for definitive EF determination MUGA Scan- 49% EF on preliminary report : unlikely need for live vest support 10. HTN cont vasotec 10mg daily cont coreg 3.125mg BID 11. Prophylactic Measures heparin 5000 units sc q8h protonix 40mg daily Disposition Continue current management No need for Lifevest as per cardio Optimize breathing status of pt possible d/c home in AM <Leonila Santos V - Last Filed: 11/03/16 17:13> Objective - Vital Signs/Intake and Output Vital Signs (last 24 hours): Temp Pulse Resp BP Pulse Ox 97.6 F 68 20 136/74 97 11/03/16 16:00 11/03/16 16:00 11/03/16 16:00 11/03/16 16:00 11/03/16 16:00 Intake and Output: 11/03/16 11/03/16 06:59 18:59 Intake Total 320 Balance 320 - Medications Medications: Current Medications Albuterol/Ipratropium (Duoneb 3 Mg/0.5 Mg (3 Ml) Ud) 3 ml INH RQ4 [facility] Last Admin: 11/03/16 16:28 Dose: 3 ml Aspirin (Ecotrin) 81 mg PO DAILY [facility] Last Admin: 11/03/16 09:58 Dose: 81 mg Budesonide (Pulmicort Respules) 0.5 mg INH RQ12 [facility] Last Admin: 11/03/16 08:08 Dose: 0.5 mg Carvedilol (Coreg) 6.25 mg PO BID [facility] Last Admin: 11/03/16 09:58 Dose: 6.25 mg Enalapril Maleate (Vasotec) 10 mg PO BID [facility] Last Admin: 11/03/16 09:59 Dose: 10 mg Furosemide (Lasix) 20 mg PO DAILY [facility] Last Admin: 11/03/16 09:59 Dose: 20 mg Ibuprofen (Motrin Tab) 600 mg PO TID PRN PRN Reason: Pain, moderate (4-7) Last Admin: 11/03/16 09:58 Dose: 600 mg Insulin Aspart (Novolog) 5 unit SC ACTID [facility] Last Admin: 11/03/16 13:05 Dose: 5 unit Insulin Glargine (Lantus) 25 unit SC HS [facility] Last Admin: 11/02/16 21:58 Dose: 25 units Insulin Human Regular (Novolin R) 0 unit SC ACHS [facility] PRN Reason: Protocol Last Admin: 11/03/16 11:30 Dose: 12 unit Methylprednisolone (Solu-Medrol) 40 mg IVP Q12 [facility] Last Admin: 11/03/16 10:00 Dose: 40 mg Montelukast Sodium (Singulair) 10 mg PO HS [facility] Last Admin: 11/02/16 21:57 Dose: 10 mg Pantoprazole Sodium (Protonix Ec Tab) 40 mg PO DAILY [facility] Last Admin: 11/03/16 09:58 Dose: 40 mg Polyethylene Glycol (Miralax) 17 gm PO DAILY [facility] Last Admin: 11/03/16 10:00 Dose: 17 gm Promethazine HCl/Codeine (Phenergan/Codeine Oral Syrup) 5 ml PO Q4 PRN PRN Reason: Cough Last Admin: 11/03/16 09:58 Dose: 5 ml Rosuvastatin Calcium (Crestor) 10 mg PO HS [facility] Last Admin: 11/02/16 21:57 Dose: 10 mg - Labs Labs: 11/01/16 06:14 11/01/16 06:14 PT 11.7 SECONDS (9.7-12.2) 10/29/16 21:33 INR 1.0 10/29/16 21:33 APTT 34 SECONDS (21-34) 10/29/16 21:33 Attending/Attestation - Attestation I have personally seen and examined this patient.: Yes I have fully participated in the care of the patient.: Yes I have reviewed all pertinent clinical information, including history, physical exam and plan: Yes Notes (Text): Patient seen, examined, and case discussed with day-time resident. Patient seen in the room. Patient reports breathing is about the same; reports feeling shortness of breathe and report atypical chest symptoms. Patient appears very anxious. Patient given additional Xanax today to relieve anxiety Ordered for chest xray today which showed no pneumonia. Disposition: Patient reports shortness of breathe while ambulating which will need to be optimized prior to discharge. Assessment/Plan Asthma exacerbation * Solumedrol 40mg IVP q12h * Duonebs q4h * singulair 10mg HS * Pulmicort 0.5mg Q12H * Monitor pre and post flows Congestive heart failure * Acute on chronic systolic CHF * lasix 20mg PO daily * Pt had echo 08/28/2016, EF 27%, mod- severe systolic dysfunction * Echocardiogram (10/31/16): left ventricular function is chelo; EF in normal range. no regional wall motion abnormalites noted. LV filling pressures elevated , RVP elevated * MUGA scan pending final; prelim 49% ejection fraction on prelim report * Patient has had a prior cardiac cath showing normal coronaries, but noted focal hypokinesis of inferior wall * Cardiology consult- Dr. Samaniego on case-->help appreciated * Enalapril 10mg PO daily * Coreg 6.25 mg PO bid * Crestor 10mg POqHS * Aspirin 81mg PO daily Diabetes mellitus * sugars uncontrolled; partly due to IV steroids to help reduce inflammation by asthma * high insulin sliding scale subq * increase Lantus 30 Units SC HS + Novolog 5 units TIDAC * accuchecks ACHS * Will insulin regimen based on her sliding scale * [id number]: 10.2 Back pain * No complaints today * Motrin PRN * Heating pad Tachycardia * d-dimer neg * Coreg increased 6.25mg PO bid * heart rate within normal range Hyperlipidemia * continue home medication equivalent- crestor 10mg HS Hypertension * Vasotec 10mg daily * Coreg 6.25 mg BID GI/DVT ppx * Heparin 5000 units sc q8h * Protonix 40mg daily
--- NOTE | 2016-11-03 15:36 | RAD ---
HISTORY: dyspnea COMPARISON: Chest x-ray performed 10/29/16 TECHNIQUE: Chest, one view. FINDINGS: LUNGS: No focal consolidation. Please note that chest x-ray has limited sensitivity for the detection of pulmonary masses. PLEURA: No significant pleural effusion identified. No definite pneumothorax . CARDIOVASCULAR: Heart size appears within normal limits. OSSEOUS STRUCTURES: Degenerative changes of the spine. VISUALIZED UPPER ABDOMEN: Unremarkable. OTHER FINDINGS: None. IMPRESSION: No focal consolidation, significant pleural effusion, or definite pneumothorax identified.
--- NOTE | 2016-11-03 17:16 | CP.PCM.PN ---
Subjective - Date & Time of Evaluation Date of Evaluation: 11/02/16 Time of Evaluation: 10:00 - Subjective Subjective: Medical Attending Note: Follow-up: Patient seen, examined, and case discussed with day-time resident. Error in saving the note secondary to EMR error. Patient reports she is having shortness of breathe, with associated pleuritic chest pain. Patient reports it has not changed since yesterday. Discussed with physical therapist, patient actually walked shorter distance compared to on Friday and visibily looked in distress in spite of normal saturation.s Objective - Vital Signs/Intake and Output Vital Signs (last 24 hours): Temp Pulse Resp BP Pulse Ox 97.6 F 68 20 136/74 97 11/03/16 16:00 11/03/16 16:00 11/03/16 16:00 11/03/16 16:00 11/03/16 16:00 Intake and Output: 11/03/16 11/03/16 06:59 18:59 Intake Total 320 Balance 320 - Medications Medications: Current Medications Albuterol/Ipratropium (Duoneb 3 Mg/0.5 Mg (3 Ml) Ud) 3 ml INH RQ4 [facility] Last Admin: 11/03/16 16:28 Dose: 3 ml Aspirin (Ecotrin) 81 mg PO DAILY [facility] Last Admin: 11/03/16 09:58 Dose: 81 mg Budesonide (Pulmicort Respules) 0.5 mg INH RQ12 [facility] Last Admin: 11/03/16 08:08 Dose: 0.5 mg Carvedilol (Coreg) 6.25 mg PO BID [facility] Last Admin: 11/03/16 09:58 Dose: 6.25 mg Enalapril Maleate (Vasotec) 10 mg PO BID [facility] Last Admin: 11/03/16 09:59 Dose: 10 mg Furosemide (Lasix) 20 mg PO DAILY [facility] Last Admin: 11/03/16 09:59 Dose: 20 mg Ibuprofen (Motrin Tab) 600 mg PO TID PRN PRN Reason: Pain, moderate (4-7) Last Admin: 11/03/16 09:58 Dose: 600 mg Insulin Aspart (Novolog) 5 unit SC ACTID [facility] Last Admin: 11/03/16 13:05 Dose: 5 unit Insulin Glargine (Lantus) 30 unit SC HS [facility] Insulin Human Regular (Novolin R) 0 unit SC ACHS [facility] PRN Reason: Protocol Last Admin: 11/03/16 11:30 Dose: 12 unit Methylprednisolone (Solu-Medrol) 40 mg IVP Q12 [facility] Last Admin: 11/03/16 10:00 Dose: 40 mg Montelukast Sodium (Singulair) 10 mg PO HS [facility] Last Admin: 11/02/16 21:57 Dose: 10 mg Pantoprazole Sodium (Protonix Ec Tab) 40 mg PO DAILY [facility] Last Admin: 11/03/16 09:58 Dose: 40 mg Polyethylene Glycol (Miralax) 17 gm PO DAILY [facility] Last Admin: 11/03/16 10:00 Dose: 17 gm Promethazine HCl/Codeine (Phenergan/Codeine Oral Syrup) 5 ml PO Q4 PRN PRN Reason: Cough Last Admin: 11/03/16 09:58 Dose: 5 ml Rosuvastatin Calcium (Crestor) 10 mg PO HS [facility] Last Admin: 11/02/16 21:57 Dose: 10 mg - Labs Labs: 11/01/16 06:14 11/01/16 06:14 PT 11.7 SECONDS (9.7-12.2) 10/29/16 21:33 INR 1.0 10/29/16 21:33 APTT 34 SECONDS (21-34) 10/29/16 21:33 - Constitutional Appears: Non-toxic, No Acute Distress - Head Exam Head Exam: NORMAL INSPECTION - Eye Exam Eye Exam: EOMI - ENT Exam ENT Exam: Mucous Membranes Moist - Respiratory Exam Respiratory Exam: Decreased Breath Sounds, NORMAL BREATHING PATTERN. absent: Rales, Respiratory Distress, Stridor - Cardiovascular Exam Cardiovascular Exam: REGULAR RHYTHM, +S1, +S2 - GI/Abdominal Exam GI & Abdominal Exam: Soft, Normal Bowel Sounds. absent: Firm, Guarding, Rigid, Tenderness, Rebound - Neurological Exam Neurological Exam: Alert, Awake, Oriented x3 - Psychiatric Exam Psychiatric exam: Normal Affect, Normal Mood - Skin Skin Exam: Dry, Normal Color, Warm Assessment and Plan - Assessment and Plan (Free Text) Assessment: This is late computer entry for 11/02/16. Error in [place] regarding saving resident note. Patient seen, examined, and case discussed with day-time resident. Patient seen in the room. Patient reports she is not gaining adequate breathing. Discussed with physical therapy, patient walked a shorter distance compared to when he worked with her a Friday and visible appeared in distress. Will need to optimize her breathing while on ambulating prior to discharge planning. Nebulizers changed to Q4 hours. Awaiting official report of the [facility]; prelim report 49% EF Cardiology on board. Help appreciated Assessment/Plan Asthma exacerbation * Solumedrol 40mg IVP q12h * Duonebs q4h * singulair 10mg HS * Pulmicort 0.5mg Q12H * Monitor pre and post flows Congestive heart failure * Acute on chronic systolic CHF * lasix 20mg PO daily * Pt had echo 08/28/2016, EF 27%, mod- severe systolic dysfunction * Echocardiogram (10/31/16): left ventricular function is chelo; EF in normal range. no regional wall motion abnormalites noted. LV filling pressures elevated , RVP elevated * [facility] scan pending final * Patient has had a prior cardiac cath showing normal coronaries, but noted focal hypokinese of inferior wall * Cardiology consult- Dr. Samaniego on case-->help appreciated * Enalapril 10mg PO daily * Coreg 6.25 mg PO bid * Crestor 10mg POqHS * Aspirin 81mg Po daily Diabetes mellitus * sugars uncontrolled; partly due to IV steroids to help reduce inflammation by asthma * high insulin sliding scale subq * increase Lantus 25 Units SC HS + Novolog 5 units TIDAC * accuchecks ACHS * Will insulin regimen based on her sliding scale * [id number]: 10.2 Back pain * No complaints today * Motrin PRN * Heating pad Tachycardia * d-dimer neg * Coreg increased 6.25mg PO bid * heart rate within normal range Hyperlipidemia * continue home medication equivalent- crestor 10mg HS Hypertension * Vasotec 10mg daily * Coreg 6.25 mg BID GI/DVT ppx * Heparin 5000 units sc q8h * Protonix 40mg daily
[2016-11-03] MEDS: (Lantus) Insulin Glargine, Recombinant SC SCH (22:17)
[2016-11-04] MEDS: Albuterol-Ipratrop 3 mg / 0.5 (3 ml) UD INH SCH ×6 (00:37→19:47)
[2016-11-04 06:29] LABS: HEMATOCRIT 43.3 % (34.0-47.0); LYMPH # 1.5 K/uL (1.0-4.3); LYMPH % 14.3 % (20.0-40.0); MEAN CELL VOLUME 85.5 fL (81.0-99.0); MEAN CORPUSCULAR HEMOGLOBIN 28.6 pg (27.0-31.0); MEAN CORPUSCULAR HGB CONC 33.5 g/dL (33.0-37.0); MEAN PLATELET VOLUME 7.8 fL (7.2-11.7); MONO # 0.5 K/uL (0.0-0.8); MONO % 4.5 % (0.0-10.0); WHITE BLOOD COUNT 10.3 K/uL (4.8-10.8)
[2016-11-04 06:32] LABS: CHLORIDE 92 mmol/L (98-107); POTASSIUM 4.2 mmol/L (3.6-5.2); SODIUM 132 mmol/L (132-148)
[2016-11-04 06:34] LABS: BILIRUBIN,TOTAL 0.8 mg/dL (0.2-1.3); CARBON DIOXIDE 29 mmol/L (22-30); GFR AFRICAN-AMERICAN > 60
[2016-11-04 06:35] LABS: ALB/GLOB RATIO 1.6 (1.0-2.1); ALKALINE PHOSPHATASE 105 U/L (38-126); ALT/SGPT 42 U/L (9-52); AST/SGOT 20 U/L (14-36); BLOOD UREA NITROGEN 22 mg/dL (7-17); CALCIUM 8.7 mg/dl (8.6-10.4); GLUCOSE,RANDOM 352 mg/dL (65-105); MAGNESIUM 1.9 mg/dL (1.6-2.3); PHOSPHOROUS 5.1 mg/dL (2.5-4.5); TOTAL PROTEIN 6.3 g/dL (6.3-8.3)
[2016-11-04] MEDS: (Novolog) Insulin Aspart, Recombinant 100 u/ml 10 ml vial SC SCH ×3 (08:50→17:11)
[2016-11-04] MEDS: (Novolin R) Insulin Human Regular 100 units/ml vial SC SCH ×4 (08:51→22:15)
[2016-11-04] MEDS: Budesonide 0.5 mg/2 ml Inhal Susp UD INH SCH ×2 (08:53→19:47)
[2016-11-04] MEDS: Pantoprazole 40 mg EC Tab PO SCH (10:09)
[2016-11-04] MEDS: POLYETHYLENE GLYCOL 3350 17 GM/Dose PACKET PO SCH (10:10)
[2016-11-04] MEDS ORDERED: MethylPREDNISolone 40 mg Vial IVP SCH (10:10)
[2016-11-04] MEDS: MethylPREDNISolone 40 mg Vial IVP SCH ×2 (11:14→22:13)
--- NOTE | 2016-11-04 13:18 | CP.PCM.PN ---
<Ovidio Mireles - Last Filed: 11/04/16 18:07> Subjective - Date & Time of Evaluation Date of Evaluation: 11/04/16 Time of Evaluation: 13:13 - Subjective Subjective: Cardiology Progress Note Dr. Samaniego Patient seen and examined at the bedside. No acute distress. No acute events overnight. Nursing staff reports elevated sugars but no other issues. The patient reports continued dizziness and SOB with minimal exertion consistent with her prior complaints. Patient's test results explained in detail. The patient verbalized understanding. Patient denies fever, chills, headache, chest pain, abdominal pain, changes in bowel/bladder, and extremity paresthesias. Objective - Vital Signs/Intake and Output Vital Signs (last 24 hours): Temp Pulse Resp BP Pulse Ox 97.9 F 96 H 20 174/85 H 97 11/04/16 10:07 11/04/16 10:07 11/04/16 09:25 11/04/16 10:09 11/04/16 09:25 Intake and Output: 11/04/16 11/04/16 06:59 18:59 Intake Total 320 Balance 320 - Medications Medications: Current Medications Albuterol/Ipratropium (Duoneb 3 Mg/0.5 Mg (3 Ml) Ud) 3 ml INH RQ4 [facility] Last Admin: 11/04/16 11:33 Dose: 3 ml Alprazolam (Xanax) 0.25 mg PO TID PRN PRN Reason: Anxiety Stop: 11/11/16 11:11 Aspirin (Ecotrin) 81 mg PO DAILY [facility] Last Admin: 11/04/16 10:09 Dose: 81 mg Budesonide (Pulmicort Respules) 0.5 mg INH RQ12 [facility] Last Admin: 11/04/16 08:53 Dose: 0.5 mg Carvedilol (Coreg) 6.25 mg PO BID [facility] Last Admin: 11/04/16 10:10 Dose: 6.25 mg Enalapril Maleate (Vasotec) 10 mg PO BID [facility] Last Admin: 11/04/16 10:08 Dose: 10 mg Furosemide (Lasix) 20 mg PO DAILY [facility] Last Admin: 11/04/16 10:09 Dose: 20 mg Ibuprofen (Motrin Tab) 600 mg PO TID PRN PRN Reason: Pain, moderate (4-7) Last Admin: 11/03/16 09:58 Dose: 600 mg Insulin Aspart (Novolog) 10 unit SC ACTID [facility] Last Admin: 11/04/16 12:37 Dose: 10 unit Insulin Glargine (Lantus) 30 unit SC HS [facility] Last Admin: 11/03/16 22:17 Dose: 30 units Insulin Human Regular (Novolin R) 0 unit SC ACHS [facility] PRN Reason: Protocol Last Admin: 11/04/16 12:38 Dose: 8 unit Methylprednisolone (Solu-Medrol) 20 mg IVP Q12 [facility] Last Admin: 11/04/16 11:14 Dose: 20 mg Montelukast Sodium (Singulair) 10 mg PO HS [facility] Last Admin: 11/03/16 22:17 Dose: 10 mg Pantoprazole Sodium (Protonix Ec Tab) 40 mg PO DAILY [facility] Last Admin: 11/04/16 10:09 Dose: 40 mg Polyethylene Glycol (Miralax) 17 gm PO DAILY [facility] Last Admin: 11/04/16 10:10 Dose: 17 gm Promethazine HCl/Codeine (Phenergan/Codeine Oral Syrup) 5 ml PO Q4 PRN PRN Reason: Cough Last Admin: 11/03/16 09:58 Dose: 5 ml Rosuvastatin Calcium (Crestor) 10 mg PO HS [facility] Last Admin: 11/03/16 22:17 Dose: 10 mg - Labs Labs: 11/04/16 06:11 11/04/16 06:11 PT 11.7 SECONDS (9.7-12.2) 10/29/16 21:33 INR 1.0 10/29/16 21:33 APTT 34 SECONDS (21-34) 10/29/16 21:33 - Additional Findings Additional findings: - Constitutional Appears: Chronically Ill - Head Exam Head Exam: ATRAUMATIC, NORMAL INSPECTION, NORMOCEPHALIC - Eye Exam Eye Exam: EOMI - ENT Exam ENT Exam: Mucous Membranes Moist - Neck Exam Neck exam: Positive for: Normal Inspection. Negative for: Lymphadenopathy - Respiratory Exam Respiratory Exam: Clear to Auscultation Bilateral, NORMAL BREATHING PATTERN. absent: Rhonchi, Wheezes - Cardiovascular Exam Cardiovascular Exam: REGULAR RHYTHM, RRR, +S1, +S2. absent: Diastolic murmur, Gallop, Systolic Murmur - GI/Abdominal Exam GI & Abdominal Exam: Normal Bowel Sounds, Soft. absent: Distended, Guarding, Tenderness - Extremities Exam Extremities exam: Positive for: normal inspection, pedal edema (1+ pitting), pedal pulses present - Neurological Exam Neurological exam: Alert, CN II-XII Intact, Oriented x3 - Skin Skin Exam: Dry, Intact, Normal Color, Warm Assessment and Plan (1) Diabetes mellitus Assessment & Plan: Uncontrolled Status: h (2) Hyperlipidemia Status: h (3) Hypertension Status: h (4) Myocardial infarct, old Status: n (5) CVA (cerebral vascular accident) Status: n (6) Systolic and diastolic CHF, chronic Assessment & Plan: NYHA Class IIIB Heart Failure [facility] Scan- 49% EF on preliminary report : unlikely need for live vest support 11/03/16 CXR- no acutely active pulmonary disease 10/30/16 EKG- LBBB, sinus tachycardia (unchanged from most recent comparison) Incentive Spirometry Ordered patient to continue : Aspirin 81mg PO daily : Coreg 6.25mg p bid : Enalapril 10mg po daily : Lasix 20mg po daily telemetric monitoring Patient to follow with Dr. Samaniego in his clinic Status: h <Kaelyn Samaniego - Last Filed: 11/20/16 09:25> Objective - Vital Signs/Intake and Output Vital Signs (last 24 hours): Temp Pulse Resp BP Pulse Ox 98.7 F 94 H 20 114/64 95 11/11/16 13:10 11/11/16 15:00 11/11/16 13:10 11/11/16 15:00 11/11/16 13:22 - Labs Labs: 11/11/16 07:38 11/11/16 07:38 PT 11.7 SECONDS (9.7-12.2) 10/29/16 21:33 INR 1.0 10/29/16 21:33 APTT 34 SECONDS (21-34) 10/29/16 21:33 Attending/Attestation - Attestation I have personally seen and examined this patient.: Yes I have fully participated in the care of the patient.: Yes I have reviewed all pertinent clinical information, including history, physical exam and plan: Yes Notes (Text): 11/20/16 09:24 No life vest MUGA 49 percent ef continue meds for chf
--- NOTE | 2016-11-04 14:54 | CP.PCM.PN ---
<Marcela Ochoa - Last Filed: 11/04/16 15:13> Subjective - Date & Time of Evaluation Date of Evaluation: 11/04/16 Time of Evaluation: 07:15 - Subjective Subjective: Internal medicine progress note for Hospitalist Service- Marcela Ochoa, PGY-1 Pt S & E at bedside. Pt reports chest tightness CP increased since last night, pt was not able to sleep overnight, continues with SOB - no change, coughing episodes with nausea, non emesis,but retching episodes. Still feels dizziness with ambulating to bathroom. Now with Headache. Is tolerating diet. Denies abdominal pain. Pt obviously anxious at bedside. Objective - Vital Signs/Intake and Output Vital Signs (last 24 hours): Temp Pulse Resp BP Pulse Ox 97.9 F 96 H 20 174/85 H 97 11/04/16 10:07 11/04/16 10:07 11/04/16 09:25 11/04/16 10:09 11/04/16 09:25 Intake and Output: 11/04/16 11/04/16 06:59 18:59 Intake Total 320 Balance 320 - Medications Medications: Current Medications Albuterol/Ipratropium (Duoneb 3 Mg/0.5 Mg (3 Ml) Ud) 3 ml INH RQ4 [facility] Last Admin: 11/04/16 11:33 Dose: 3 ml Alprazolam (Xanax) 0.25 mg PO TID PRN PRN Reason: Anxiety Stop: 11/11/16 11:11 Aspirin (Ecotrin) 81 mg PO DAILY [facility] Last Admin: 11/04/16 10:09 Dose: 81 mg Budesonide (Pulmicort Respules) 0.5 mg INH RQ12 [facility] Last Admin: 11/04/16 08:53 Dose: 0.5 mg Carvedilol (Coreg) 6.25 mg PO BID [facility] Last Admin: 11/04/16 10:10 Dose: 6.25 mg Enalapril Maleate (Vasotec) 10 mg PO BID [facility] Last Admin: 11/04/16 10:08 Dose: 10 mg Furosemide (Lasix) 20 mg PO DAILY [facility] Last Admin: 11/04/16 10:09 Dose: 20 mg Ibuprofen (Motrin Tab) 600 mg PO TID PRN PRN Reason: Pain, moderate (4-7) Last Admin: 11/03/16 09:58 Dose: 600 mg Insulin Aspart (Novolog) 10 unit SC ACTID [facility] Last Admin: 11/04/16 12:37 Dose: 10 unit Insulin Glargine (Lantus) 30 unit SC HS [facility] Last Admin: 11/03/16 22:17 Dose: 30 units Insulin Human Regular (Novolin R) 0 unit SC ACHS [facility] PRN Reason: Protocol Last Admin: 11/04/16 12:38 Dose: 8 unit Methylprednisolone (Solu-Medrol) 20 mg IVP Q12 [facility] Last Admin: 11/04/16 11:14 Dose: 20 mg Montelukast Sodium (Singulair) 10 mg PO HS [facility] Last Admin: 11/03/16 22:17 Dose: 10 mg Pantoprazole Sodium (Protonix Ec Tab) 40 mg PO DAILY [facility] Last Admin: 11/04/16 10:09 Dose: 40 mg Polyethylene Glycol (Miralax) 17 gm PO DAILY [facility] Last Admin: 11/04/16 10:10 Dose: 17 gm Promethazine HCl/Codeine (Phenergan/Codeine Oral Syrup) 5 ml PO Q4 PRN PRN Reason: Cough Last Admin: 11/03/16 09:58 Dose: 5 ml Rosuvastatin Calcium (Crestor) 10 mg PO HS [facility] Last Admin: 11/03/16 22:17 Dose: 10 mg - Labs Labs: 11/04/16 06:11 11/04/16 06:11 PT 11.7 SECONDS (9.7-12.2) 10/29/16 21:33 INR 1.0 10/29/16 21:33 APTT 34 SECONDS (21-34) 10/29/16 21:33 - Constitutional Appears: Non-toxic, No Acute Distress - Head Exam Head Exam: ATRAUMATIC, NORMAL INSPECTION, NORMOCEPHALIC - Eye Exam Eye Exam: EOMI, Normal appearance, PERRL Pupil Exam: NORMAL ACCOMODATION, PERRL - ENT Exam ENT Exam: Mucous Membranes Moist, Normal Exam - Respiratory Exam Respiratory Exam: Chest Wall Tenderness (over sternum), Clear to Ausculation Bilateral, NORMAL BREATHING PATTERN. absent: Rales, Rhonchi, Wheezes, Respiratory Distress, Stridor - Cardiovascular Exam Cardiovascular Exam: Tachycardia, +S1, +S2 - GI/Abdominal Exam GI & Abdominal Exam: Soft, Normal Bowel Sounds. absent: Tenderness - Extremities Exam Extremities Exam: Full ROM, Normal Inspection. absent: Pedal Edema, Tenderness - Back Exam Back Exam: Full ROM, muscle spasm (mid thoracic), NORMAL INSPECTION - Neurological Exam Neurological Exam: Alert, Awake, CN II-XII Intact, Oriented x3 - Psychiatric Exam Psychiatric exam: Anxious, Normal Affect - Skin Skin Exam: Diaphoretic (mildly), Intact, Normal Color, Warm Assessment and Plan - Assessment and Plan (Free Text) Assessment: Asthma exacerbation/Cough Solumedrol 40mg q12H decreased to 20mg Cont duonebs q6h Cont singulair 10mg HS Cont Pulmicort 0.5mg Q12H Phenergan w/codeine PRN Pre-post flows per respiratory Monitor Diabetes mellitus ISS changed to high ISS Lantus 20 Units SC HS increased to 25 accuchecks ACHS on high protocol Novolog 5 units ACTID increased to 10 units Blood sugars in 300-400's Constipation Miralax daily Back pain Motrin PRN Heating pad Cont Flexeril 5mg TID PRN Monitor Tachycardia- resolving patient with history of CVA but unknown if there is clotting disorder d-dimer neg tachycardia in 100-120's Monitor Cards recs: [facility] scan- 49%- pt does not need lifevest, ok to d/c with outpatient FU in clinic Hyperlipidemia continue home medication equivalent- crestor 10mg HS Hx CHF cont home medication lasix 20mg PO daily Cards recs: [facility] scan- 49%- pt does not need lifevest Hypertension BP 142/78 cont vasotec 10mg daily cont coreg 3.125mg BID Epistaxis- resolved Humidifer to O2 via NC CT brain neg Monitor Anxiety Started Xanax 0.25mg TID PRN Monitor Headache Tylenol PRN CT brain neg Monitor GI/DVT ppx heparin 5000 units sc q8h protonix 40mg daily Dispo Cont med mgmt Tele re-newed No need for Lifevest as per cardio Optimize breathing status of pt Pt and son are concerned re: continuing symptoms without resolution, possible discharge. Have previously had long conversation with them regarding pt not being sent home until she is stable for discharge DW attending <Kendall Lynn - Last Filed: 11/04/16 15:26> Objective - Vital Signs/Intake and Output Vital Signs (last 24 hours): Temp Pulse Resp BP Pulse Ox 97.9 F 96 H 20 174/85 H 97 11/04/16 10:07 11/04/16 10:07 11/04/16 09:25 11/04/16 10:09 11/04/16 09:25 Intake and Output: 11/04/16 11/04/16 06:59 18:59 Intake Total 320 Balance 320 - Medications Medications: Current Medications Acetaminophen (Tylenol 325mg Tab) 650 mg PO Q6 PRN PRN Reason: Headache Albuterol/Ipratropium (Duoneb 3 Mg/0.5 Mg (3 Ml) Ud) 3 ml INH RQ4 [facility] Last Admin: 11/04/16 11:33 Dose: 3 ml Alprazolam (Xanax) 0.25 mg PO TID PRN PRN Reason: Anxiety Stop: 11/11/16 11:11 Aspirin (Ecotrin) 81 mg PO DAILY [facility] Last Admin: 11/04/16 10:09 Dose: 81 mg Budesonide (Pulmicort Respules) 0.5 mg INH RQ12 [facility] Last Admin: 11/04/16 08:53 Dose: 0.5 mg Carvedilol (Coreg) 6.25 mg PO BID [facility] Last Admin: 11/04/16 10:10 Dose: 6.25 mg Enalapril Maleate (Vasotec) 10 mg PO BID [facility] Last Admin: 11/04/16 10:08 Dose: 10 mg Furosemide (Lasix) 20 mg PO DAILY [facility] Last Admin: 11/04/16 10:09 Dose: 20 mg Ibuprofen (Motrin Tab) 600 mg PO TID PRN PRN Reason: Pain, moderate (4-7) Last Admin: 11/03/16 09:58 Dose: 600 mg Insulin Aspart (Novolog) 10 unit SC ACTID [facility] Last Admin: 11/04/16 12:37 Dose: 10 unit Insulin Glargine (Lantus) 30 unit SC HS [facility] Last Admin: 11/03/16 22:17 Dose: 30 units Insulin Human Regular (Novolin R) 0 unit SC ACHS [facility] PRN Reason: Protocol Last Admin: 11/04/16 12:38 Dose: 8 unit Methylprednisolone (Solu-Medrol) 20 mg IVP Q12 [facility] Last Admin: 11/04/16 11:14 Dose: 20 mg Montelukast Sodium (Singulair) 10 mg PO HS [facility] Last Admin: 11/03/16 22:17 Dose: 10 mg Pantoprazole Sodium (Protonix Ec Tab) 40 mg PO DAILY [facility] Last Admin: 11/04/16 10:09 Dose: 40 mg Polyethylene Glycol (Miralax) 17 gm PO DAILY [facility] Last Admin: 11/04/16 10:10 Dose: 17 gm Promethazine HCl/Codeine (Phenergan/Codeine Oral Syrup) 5 ml PO Q4 PRN PRN Reason: Cough Last Admin: 11/03/16 09:58 Dose: 5 ml Rosuvastatin Calcium (Crestor) 10 mg PO HS [facility] Last Admin: 11/03/16 22:17 Dose: 10 mg - Labs Labs: 11/04/16 06:11 11/04/16 06:11 PT 11.7 SECONDS (9.7-12.2) 10/29/16 21:33 INR 1.0 10/29/16 21:33 APTT 34 SECONDS (21-34) 10/29/16 21:33 Attending/Attestation - Attestation I have personally seen and examined this patient.: Yes I have fully participated in the care of the patient.: Yes I have reviewed all pertinent clinical information, including history, physical exam and plan: Yes Notes (Text): Medical attending: Patient was seen and examined by me, agrees the above note by medical laboratory scientist. Currently on physical exam the patient was not actively wheezing, she seemed to become very nervous when I came into the room to see her, she was worried that we would discharge her. Regardless she does not appear to be ready to be discharged at this moment. We are to try to decrease the IV Solu-Medrol to see how she does for breathing. In the meantime were giving continue the patient on her other breathing medication including Singulair and Pulmicort. She does seem to be breathing quite well, and we will start the patient on a very low dose of Xanax 0.25 to be given twice a day. It seems like she is very anxious person on exam. Her Accu-Cheks have shown very high blood sugars as well, this is probably related to the patient receiving IV Solu-Medrol. Nevertheless we'll give her some insulin with meals as well as continue the previous insulin that was being given. Thank you very much, Kendall Lynn
[2016-11-04] MEDS: (Lantus) Insulin Glargine, Recombinant SC SCH (22:15)
[2016-11-05] MEDS: Albuterol-Ipratrop 3 mg / 0.5 (3 ml) UD INH SCH ×6 (00:46→20:59)
--- NOTE | 2016-11-05 07:51 | CARD ---
APPROVED REPORT INDICATION CHF / EVALUATE EJECTION FRACTION PROCEDURE The above named patient recieved 25.0 millicuries of Tc99m tagged red blood cells intravenously. After achieving equilibrium, gated imaging of 16/frame/cycle was performed utillizing Gamma camera interfaced with a digital computer and gated device. Gated imaging was then performed in the left anterior oblique, anterior, and the left lateral projections. Findings Calculated LV Ejection Fraction is 49%. Normal Ejection Fraction for this facility is 55%. Impressions Calculated Ejection Fraction is 49 %. ef 49 percent
--- NOTE | 2016-11-05 07:55 | CP.PCM.PN ---
<Ovidio Mireles - Last Filed: 11/05/16 12:56> Subjective - Date & Time of Evaluation Date of Evaluation: 11/05/16 Time of Evaluation: 07:54 - Subjective Subjective: Cardiology Progress Note Dr. Samaniego Patient seen and examined at the bedside. No acute distress. No acute events overnight. Nursing staff reports no issues. Patient reports feeling much improved from yesterday. Xanax was added to the patient's medication regimen. Patient is still maintained on O2 via nasal cannula. Patient denies fever, chills, headache, chest pain, abdominal pain, changes in bowel/bladder, and extremity paresthesias. Objective - Vital Signs/Intake and Output Vital Signs (last 24 hours): Temp Pulse Resp BP Pulse Ox 97.9 F 74 20 136/76 99 11/04/16 23:20 11/05/16 06:04 11/04/16 23:20 11/04/16 23:20 11/04/16 23:20 - Medications Medications: Current Medications Acetaminophen (Tylenol 325mg Tab) 650 mg PO Q6 PRN PRN Reason: Headache Last Admin: 11/04/16 17:16 Dose: 650 mg Albuterol/Ipratropium (Duoneb 3 Mg/0.5 Mg (3 Ml) Ud) 3 ml INH RQ4 [facility] Last Admin: 11/05/16 04:38 Dose: 3 ml Alprazolam (Xanax) 0.25 mg PO TID PRN PRN Reason: Anxiety Stop: 11/11/16 11:11 Last Admin: 11/04/16 22:21 Dose: 0.25 mg Aspirin (Ecotrin) 81 mg PO DAILY [facility] Last Admin: 11/04/16 10:09 Dose: 81 mg Budesonide (Pulmicort Respules) 0.5 mg INH RQ12 [facility] Last Admin: 11/04/16 19:47 Dose: 0.5 mg Carvedilol (Coreg) 6.25 mg PO BID [facility] Last Admin: 11/04/16 17:12 Dose: 6.25 mg Enalapril Maleate (Vasotec) 10 mg PO BID [facility] Last Admin: 11/04/16 17:12 Dose: 10 mg Furosemide (Lasix) 20 mg PO DAILY [facility] Last Admin: 11/04/16 10:09 Dose: 20 mg Ibuprofen (Motrin Tab) 600 mg PO TID PRN PRN Reason: Pain, moderate (4-7) Last Admin: 11/03/16 09:58 Dose: 600 mg Insulin Aspart (Novolog) 10 unit SC ACTID [facility] Last Admin: 11/04/16 17:11 Dose: 10 unit Insulin Glargine (Lantus) 30 unit SC HS [facility] Last Admin: 11/04/16 22:15 Dose: 30 units Insulin Human Regular (Novolin R) 0 unit SC ACHS [facility] PRN Reason: Protocol Last Admin: 11/04/16 22:15 Dose: 3 unit Methylprednisolone (Solu-Medrol) 20 mg IVP Q12 [facility] Last Admin: 11/04/16 22:13 Dose: 20 mg Montelukast Sodium (Singulair) 10 mg PO HS [facility] Last Admin: 11/04/16 22:13 Dose: 10 mg Pantoprazole Sodium (Protonix Ec Tab) 40 mg PO DAILY [facility] Last Admin: 11/04/16 10:09 Dose: 40 mg Polyethylene Glycol (Miralax) 17 gm PO DAILY [facility] Last Admin: 11/04/16 10:10 Dose: 17 gm Promethazine HCl/Codeine (Phenergan/Codeine Oral Syrup) 5 ml PO Q4 PRN PRN Reason: Cough Last Admin: 11/03/16 09:58 Dose: 5 ml Rosuvastatin Calcium (Crestor) 10 mg PO HS [facility] Last Admin: 11/04/16 22:12 Dose: 10 mg - Labs Labs: 11/04/16 06:11 11/04/16 06:11 PT 11.7 SECONDS (9.7-12.2) 10/29/16 21:33 INR 1.0 10/29/16 21:33 APTT 34 SECONDS (21-34) 10/29/16 21:33 - Additional Findings Additional findings: - Constitutional Appears: Chronically Ill - Head Exam Head Exam: ATRAUMATIC, NORMAL INSPECTION, NORMOCEPHALIC - Eye Exam Eye Exam: EOMI - ENT Exam ENT Exam: Mucous Membranes Moist - Neck Exam Neck exam: Positive for: Normal Inspection. Negative for: Lymphadenopathy - Respiratory Exam Respiratory Exam: Clear to Auscultation Bilateral, NORMAL BREATHING PATTERN. absent: Rhonchi, Wheezes - Cardiovascular Exam Cardiovascular Exam: REGULAR RHYTHM, RRR, +S1, +S2. absent: Diastolic murmur, Gallop, Systolic Murmur - GI/Abdominal Exam GI & Abdominal Exam: Normal Bowel Sounds, Soft. absent: Distended, Guarding, Tenderness - Extremities Exam Extremities exam: Positive for: normal inspection, pedal edema (1+ pitting), pedal pulses present - Neurological Exam Neurological exam: Alert, CN II-XII Intact, Oriented x3 - Skin Skin Exam: Dry, Intact, Normal Color, Warm Assessment and Plan (1) Diabetes mellitus Assessment & Plan: uncontrolled Status: h (2) Hyperlipidemia Status: h (3) Hypertension Status: h (4) Myocardial infarct, old Assessment & Plan: Case Discussed with Dr. Danette Mireles PGY1 Status: n (5) CVA (cerebral vascular accident) Status: n (6) Systolic and diastolic CHF, chronic Assessment & Plan: Continue current management cardiac stable at this time NYHA Class IIIB Heart Failure MUGA Scan- 49% EF on preliminary report : unlikely need for live vest support 11/03/16 CXR- no acutely active pulmonary disease 10/30/16 EKG- LBBB, sinus tachycardia (unchanged from most recent comparison) Incentive Spirometry Ordered patient to continue : Aspirin 81mg PO daily : Coreg 6.25mg p bid : Enalapril 10mg po daily : Lasix 20mg po daily telemetric monitoring Patient to follow with Dr. Samaniego in his clinic Status: h <Kaelyn Samaniego - Last Filed: 11/20/16 09:30> Objective - Vital Signs/Intake and Output Vital Signs (last 24 hours): Temp Pulse Resp BP Pulse Ox 98.7 F 94 H 20 114/64 95 11/11/16 13:10 11/11/16 15:00 11/11/16 13:10 11/11/16 15:00 11/11/16 13:22 - Labs Labs: 11/11/16 07:38 11/11/16 07:38 PT 11.7 SECONDS (9.7-12.2) 10/29/16 21:33 INR 1.0 10/29/16 21:33 APTT 34 SECONDS (21-34) 10/29/16 21:33 Assessment and Plan (1) Congestive heart failure Status: Acute (2) Asthma exacerbation Status: Chronic Attending/Attestation - Attestation I have personally seen and examined this patient.: Yes I have fully participated in the care of the patient.: Yes I have reviewed all pertinent clinical information, including history, physical exam and plan: Yes Notes (Text): 11/20/16 09:29 pt feeling better. Shekhar was prescribed and helping pt as well
[2016-11-05] MEDS: Budesonide 0.5 mg/2 ml Inhal Susp UD INH SCH ×2 (08:32→20:59)
[2016-11-05] MEDS: (Novolin R) Insulin Human Regular 100 units/ml vial SC SCH ×4 (08:47→21:42)
[2016-11-05] MEDS: (Novolog) Insulin Aspart, Recombinant 100 u/ml 10 ml vial SC SCH ×3 (08:48→17:38)
[2016-11-05] MEDS: POLYETHYLENE GLYCOL 3350 17 GM/Dose PACKET PO SCH (10:41)
[2016-11-05] MEDS: MethylPREDNISolone 40 mg Vial IVP SCH (10:41)
[2016-11-05] MEDS: Pantoprazole 40 mg EC Tab PO SCH (10:42)
--- NOTE | 2016-11-05 14:42 | CP.PCM.PN ---
<Marcela Ochoa - Last Filed: 11/05/16 14:39> Subjective - Date & Time of Evaluation Date of Evaluation: 11/05/16 Time of Evaluation: 06:45 - Subjective Subjective: Internal medicine progress note for Hospitalist Service- Marcela Ochoa, PGY-1 Pt S & E at bedside. Pt reports that since start of Xanax, she feels that the chest tightness, SOB and body pains have improved. Continues to c/o dizziness, inessa with ambulation, productive cough with yellow mucus. Is sleeping a little, tolerating diet. Objective - Vital Signs/Intake and Output Vital Signs (last 24 hours): Temp Pulse Resp BP Pulse Ox 98.0 F 75 20 137/81 95 11/05/16 08:55 11/05/16 10:39 11/05/16 08:55 11/05/16 10:42 11/05/16 08:55 - Medications Medications: Current Medications Acetaminophen (Tylenol 325mg Tab) 650 mg PO Q6 PRN PRN Reason: Headache Last Admin: 11/04/16 17:16 Dose: 650 mg Albuterol/Ipratropium (Duoneb 3 Mg/0.5 Mg (3 Ml) Ud) 3 ml INH RQ4 [facility] Last Admin: 11/05/16 12:03 Dose: 3 ml Alprazolam (Xanax) 0.25 mg PO TID PRN PRN Reason: Anxiety Stop: 11/11/16 11:11 Last Admin: 11/04/16 22:21 Dose: 0.25 mg Aspirin (Ecotrin) 81 mg PO DAILY [facility] Last Admin: 11/05/16 10:42 Dose: 81 mg Budesonide (Pulmicort Respules) 0.5 mg INH RQ12 [facility] Last Admin: 11/05/16 08:32 Dose: 0.5 mg Carvedilol (Coreg) 6.25 mg PO BID [facility] Last Admin: 11/05/16 10:43 Dose: 6.25 mg Enalapril Maleate (Vasotec) 10 mg PO BID [facility] Last Admin: 11/05/16 10:42 Dose: 10 mg Furosemide (Lasix) 20 mg PO DAILY [facility] Last Admin: 11/05/16 10:42 Dose: 20 mg Ibuprofen (Motrin Tab) 600 mg PO TID PRN PRN Reason: Pain, moderate (4-7) Last Admin: 11/03/16 09:58 Dose: 600 mg Insulin Aspart (Novolog) 15 unit SC ACTID [facility] Insulin Glargine (Lantus) 40 unit SC HS [facility] Insulin Human Regular (Novolin R) 0 unit SC ACHS [facility] PRN Reason: Protocol Last Admin: 11/05/16 12:49 Dose: 10 unit Meclizine HCl (Antivert) 25 mg PO STAT STA Stop: 11/05/16 14:37 Meclizine HCl (Antivert) 25 mg PO Q12H [facility] Montelukast Sodium (Singulair) 10 mg PO HS [facility] Last Admin: 11/04/16 22:13 Dose: 10 mg Pantoprazole Sodium (Protonix Ec Tab) 40 mg PO DAILY [facility] Last Admin: 11/05/16 10:42 Dose: 40 mg Polyethylene Glycol (Miralax) 17 gm PO DAILY [facility] Last Admin: 11/05/16 10:41 Dose: 17 gm Prednisone (Prednisone Tab) 10 mg PO BID [facility] Promethazine HCl/Codeine (Phenergan/Codeine Oral Syrup) 5 ml PO Q4 PRN PRN Reason: Cough Last Admin: 11/03/16 09:58 Dose: 5 ml Rosuvastatin Calcium (Crestor) 10 mg PO HS [facility] Last Admin: 11/04/16 22:12 Dose: 10 mg Fluticasone/Salmeterol (Advair Diskus 250/50) 1 puff INH RQ12 [facility] - Labs Labs: 11/04/16 06:11 11/04/16 06:11 PT 11.7 SECONDS (9.7-12.2) 10/29/16 21:33 INR 1.0 10/29/16 21:33 APTT 34 SECONDS (21-34) 10/29/16 21:33 - Constitutional Appears: Non-toxic, No Acute Distress - Head Exam Head Exam: ATRAUMATIC, NORMAL INSPECTION, NORMOCEPHALIC - Eye Exam Eye Exam: EOMI, Normal appearance, PERRL. absent: Scleral icterus Pupil Exam: NORMAL ACCOMODATION, PERRL Additional comments: pt unable to follow finger with eyes- states she gets double vision and dizzy when looking at objects - ENT Exam ENT Exam: Mucous Membranes Moist, Normal Exam - Neck Exam Neck Exam: Full ROM, Normal Inspection - Respiratory Exam Respiratory Exam: Clear to Ausculation Bilateral, NORMAL BREATHING PATTERN. absent: Accessory Muscle Use, Decreased Breath Sounds, Rales, Rhonchi, Wheezes, Respiratory Distress, Stridor - Cardiovascular Exam Cardiovascular Exam: Tachycardia, +S1, +S2 - GI/Abdominal Exam GI & Abdominal Exam: Soft, Normal Bowel Sounds. absent: Tenderness - Extremities Exam Extremities Exam: Full ROM, Normal Capillary Refill, Normal Inspection. absent : Joint Swelling, Pedal Edema - Back Exam Back Exam: muscle spasm (right trapezius, mid thoracic region), NORMAL INSPECTION - Neurological Exam Neurological Exam: Alert, Awake, CN II-XII Intact, Normal Gait, Oriented x3 - Psychiatric Exam Psychiatric exam: Normal Affect, Normal Mood - Skin Skin Exam: Dry, Intact, Normal Color, Warm Assessment and Plan - Assessment and Plan (Free Text) Assessment: Asthma exacerbation/Cough Solumedrol 20mg Q12H - d/c'd Started Prednisone 20mg BID Started Advair Q12H Cont duonebs q6h Cont singulair 10mg HS Cont Pulmicort 0.5mg Q12H Phenergan w/codeine PRN Pre-post flows per respiratory Monitor Diabetes mellitus ISS high protocol Lantus 30 Units SC HS increased to 40 accuchecks ACHS on high protocol Novolog 10 units ACTID increased to 15 Blood sugars in 300-400's AM Blood sugar 330 A1c 10.2 Constipation Miralax daily Back pain Motrin PRN Heating pad Monitor Tachycardia- resolving patient with history of CVA but unknown if there is clotting disorder d-dimer neg tachycardia in low 100's Monitor Cards recs: MUGA scan- 49%- pt does not need lifevest, ok to d/c with outpatient FU in clinic Hyperlipidemia continue home medication equivalent- crestor 10mg HS Hx CHF cont home medication lasix 20mg PO daily Cards recs: MUGA scan- 49%- pt does not need lifevest Hypertension BP 143/76 cont vasotec 10mg daily cont coreg 3.125mg BID Anxiety Started Xanax 0.25mg TID PRN Monitor Headache Tylenol PRN CT brain neg Monitor Epistaxis- resolved Humidifer to O2 via NC CT brain neg Monitor GI/DVT ppx heparin 5000 units sc q8h protonix 40mg daily Dispo Cont med mgmt Tele re-newed No need for Lifevest as per cardio Optimize breathing status of pt PT/OT DW attending <Kendall Lynn H - Last Filed: 11/05/16 16:20> Objective - Vital Signs/Intake and Output Vital Signs (last 24 hours): Temp Pulse Resp BP Pulse Ox 97.8 F 76 20 146/70 98 11/05/16 15:50 11/05/16 15:50 11/05/16 15:50 11/05/16 15:50 11/05/16 15:50 Intake and Output: 11/05/16 11/05/16 06:59 18:59 Intake Total 400 Balance 400 - Medications Medications: Current Medications Acetaminophen (Tylenol 325mg Tab) 650 mg PO Q6 PRN PRN Reason: Headache Last Admin: 11/04/16 17:16 Dose: 650 mg Albuterol/Ipratropium (Duoneb 3 Mg/0.5 Mg (3 Ml) Ud) 3 ml INH RQ4 [facility] Last Admin: 11/05/16 15:45 Dose: Not Given Alprazolam (Xanax) 0.25 mg PO TID PRN PRN Reason: Anxiety Stop: 11/11/16 11:11 Last Admin: 11/04/16 22:21 Dose: 0.25 mg Aspirin (Ecotrin) 81 mg PO DAILY [facility] Last Admin: 11/05/16 10:42 Dose: 81 mg Budesonide (Pulmicort Respules) 0.5 mg INH RQ12 [facility] Last Admin: 11/05/16 08:32 Dose: 0.5 mg Carvedilol (Coreg) 6.25 mg PO BID [facility] Last Admin: 11/05/16 10:43 Dose: 6.25 mg Enalapril Maleate (Vasotec) 10 mg PO BID [facility] Last Admin: 11/05/16 10:42 Dose: 10 mg Furosemide (Lasix) 20 mg PO DAILY [facility] Last Admin: 11/05/16 10:42 Dose: 20 mg Ibuprofen (Motrin Tab) 600 mg PO TID PRN PRN Reason: Pain, moderate (4-7) Last Admin: 11/03/16 09:58 Dose: 600 mg Insulin Aspart (Novolog) 15 unit SC ACTID [facility] Insulin Glargine (Lantus) 40 unit SC HS [facility] Insulin Human Regular (Novolin R) 0 unit SC ACHS [facility] PRN Reason: Protocol Last Admin: 11/05/16 12:49 Dose: 10 unit Meclizine HCl (Antivert) 25 mg PO Q12H [facility] Montelukast Sodium (Singulair) 10 mg PO HS [facility] Last Admin: 11/04/16 22:13 Dose: 10 mg Pantoprazole Sodium (Protonix Ec Tab) 40 mg PO DAILY [facility] Last Admin: 11/05/16 10:42 Dose: 40 mg Polyethylene Glycol (Miralax) 17 gm PO DAILY [facility] Last Admin: 11/05/16 10:41 Dose: 17 gm Prednisone (Prednisone Tab) 10 mg PO BID [facility] Promethazine HCl/Codeine (Phenergan/Codeine Oral Syrup) 5 ml PO Q4 PRN PRN Reason: Cough Last Admin: 11/03/16 09:58 Dose: 5 ml Rosuvastatin Calcium (Crestor) 10 mg PO HS [facility] Last Admin: 11/04/16 22:12 Dose: 10 mg Fluticasone/Salmeterol (Advair Diskus 250/50) 1 puff INH RQ12 [facility] - Labs Labs: 11/04/16 06:11 11/04/16 06:11 PT 11.7 SECONDS (9.7-12.2) 10/29/16 21:33 INR 1.0 10/29/16 21:33 APTT 34 SECONDS (21-34) 10/29/16 21:33 Attending/Attestation - Attestation I have personally seen and examined this patient.: Yes I have fully participated in the care of the patient.: Yes I have reviewed all pertinent clinical information, including history, physical exam and plan: Yes Notes (Text): Medical Attending: Patient was seen and examined by me, agrees the above note by medical office rep. Today when we saw her she appeared to be more calm, she was moving air in and out fairly well we did a random peak flow at bedside and he came up to about 270. We also had her walk with us on exam. She explained to us that she felt short of breath when she walked with us. She denied having palpitations she denied having chest pain she did look short of breath when she walked. She did not need our assistance and she was able to walk up to the nurses station. We reviewed her telemetry her heart rate when walking was about 110, and it was sinus tach. At this time were to change her Pulmicort over to Advair to be given twice a day , were to continue with the oral prednisone, continue with the Singulair. She's had several chest imaging modalities she doesn't have anything such as a infectious process at this time. In the mean time her blood sugars are still relatively high and will adjust insulin thank you Kendall Lynn
--- NOTE | 2016-11-05 15:01 | CP.PCM.PN ---
Subjective - Date & Time of Evaluation Date of Evaluation: 11/05/16 Time of Evaluation: 06:55 - Subjective Subjective: Internal medicine progress note for Dr. Raymundo Ochoa, PGY-1 Pt S & E at bedside. Pt reports feeling shaky, but with improved SOB, slept poorly. Denies N/V/F/C, CP, abdominal pain, LE pain. Reports lack of appetite. Objective - Vital Signs/Intake and Output Vital Signs (last 24 hours): Temp Pulse Resp BP Pulse Ox 98.0 F 75 20 137/81 95 11/05/16 08:55 11/05/16 10:39 11/05/16 08:55 11/05/16 10:42 11/05/16 08:55 - Medications Medications: Current Medications Acetaminophen (Tylenol 325mg Tab) 650 mg PO Q6 PRN PRN Reason: Headache Last Admin: 11/04/16 17:16 Dose: 650 mg Albuterol/Ipratropium (Duoneb 3 Mg/0.5 Mg (3 Ml) Ud) 3 ml INH RQ4 [facility] Last Admin: 11/05/16 12:03 Dose: 3 ml Alprazolam (Xanax) 0.25 mg PO TID PRN PRN Reason: Anxiety Stop: 11/11/16 11:11 Last Admin: 11/04/16 22:21 Dose: 0.25 mg Aspirin (Ecotrin) 81 mg PO DAILY [facility] Last Admin: 11/05/16 10:42 Dose: 81 mg Budesonide (Pulmicort Respules) 0.5 mg INH RQ12 [facility] Last Admin: 11/05/16 08:32 Dose: 0.5 mg Carvedilol (Coreg) 6.25 mg PO BID [facility] Last Admin: 11/05/16 10:43 Dose: 6.25 mg Enalapril Maleate (Vasotec) 10 mg PO BID [facility] Last Admin: 11/05/16 10:42 Dose: 10 mg Furosemide (Lasix) 20 mg PO DAILY [facility] Last Admin: 11/05/16 10:42 Dose: 20 mg Ibuprofen (Motrin Tab) 600 mg PO TID PRN PRN Reason: Pain, moderate (4-7) Last Admin: 11/03/16 09:58 Dose: 600 mg Insulin Aspart (Novolog) 15 unit SC ACTID [facility] Insulin Glargine (Lantus) 40 unit SC HS [facility] Insulin Human Regular (Novolin R) 0 unit SC ACHS [facility] PRN Reason: Protocol Last Admin: 11/05/16 12:49 Dose: 10 unit Meclizine HCl (Antivert) 25 mg PO Q12H [facility] Montelukast Sodium (Singulair) 10 mg PO HS [facility] Last Admin: 11/04/16 22:13 Dose: 10 mg Pantoprazole Sodium (Protonix Ec Tab) 40 mg PO DAILY [facility] Last Admin: 11/05/16 10:42 Dose: 40 mg Polyethylene Glycol (Miralax) 17 gm PO DAILY [facility] Last Admin: 11/05/16 10:41 Dose: 17 gm Prednisone (Prednisone Tab) 10 mg PO BID [facility] Promethazine HCl/Codeine (Phenergan/Codeine Oral Syrup) 5 ml PO Q4 PRN PRN Reason: Cough Last Admin: 11/03/16 09:58 Dose: 5 ml Rosuvastatin Calcium (Crestor) 10 mg PO HS [facility] Last Admin: 11/04/16 22:12 Dose: 10 mg Fluticasone/Salmeterol (Advair Diskus 250/50) 1 puff INH RQ12 [facility] - Labs Labs: 11/04/16 06:11 11/04/16 06:11 PT 11.7 SECONDS (9.7-12.2) 10/29/16 21:33 INR 1.0 10/29/16 21:33 APTT 34 SECONDS (21-34) 10/29/16 21:33 - Constitutional Appears: Non-toxic, No Acute Distress - Head Exam Head Exam: ATRAUMATIC, NORMAL INSPECTION, NORMOCEPHALIC - Eye Exam Eye Exam: EOMI, Normal appearance, PERRL, Scleral icterus Pupil Exam: NORMAL ACCOMODATION, PERRL - ENT Exam ENT Exam: Mucous Membranes Moist, Normal Exam - Neck Exam Neck Exam: Full ROM, Normal Inspection. absent: Lymphadenopathy - Respiratory Exam Respiratory Exam: Clear to Ausculation Bilateral, NORMAL BREATHING PATTERN - Cardiovascular Exam Cardiovascular Exam: Tachycardia, +S1, +S2. absent: Murmur - GI/Abdominal Exam GI & Abdominal Exam: Soft, Normal Bowel Sounds. absent: Tenderness - Extremities Exam Extremities Exam: Normal Capillary Refill, Normal Inspection. absent: Joint Swelling, Pedal Edema - Neurological Exam Neurological Exam: Alert, Awake, CN II-XII Intact, Oriented x3 - Psychiatric Exam Psychiatric exam: Normal Affect, Normal Mood - Skin Skin Exam: Dry, Intact, Normal Color, Warm Assessment and Plan - Assessment and Plan (Free Text) Assessment: Acute asthma/COPD exacerbation CXR 11/01: stable b/l lower lobe infiltrates Cont Duoneb 3ml INH Q6 PRN Cont Solumedrol 40mg IVP Q6H changed to 20mg Q6H Cont Singulair 10 mg po qHS Cont ppx abx for pneumonia: Azithromycin and Rocephin Pulm recs- bronchodilators Heroin withdrawal UDS pos for opiates only Methadone taper Abilify Remeron UDS positive for opiates- withdrawal is most likely cause of patient's symptoms Psych recs: Abilify for psychosis, Remeron for depression, Trazadone for sleep, suppor & psychoeducation for depression, Methadone taper for opiate w/drawal, SW for housing issues HUMBERTO BUN 28 from 20 Cr 1.3 from 1 Monitor Will consider IVF if BP WNL Abdominal pain No leuokocytosis Ab U/S w/hepatitic steatosis Monitor Hx of hypertension Could be due to withdrawal symptoms Blood pressure: 163/91 Norvasc 10mg po daily Hydralazone 10 mg IVP for SBP >160 ASA 81mg po daily Monitor BP Hx of hyperlipidemia Crestor 2.5mg po daily Hx of b/l PE as per patient records, patient had bilateral PE in April 2015 admission f/u LE dopplers- pending SCD contraindicated PPX Lovenox 40mg SC daily Protonix 40 mg IVP daily Zofran 4mg IVP Q6H PRN SCD contraindicated Nicoderm patch Dispo Cont med mgmt Cont psych mgmt SW eval for housing issues DW attending
[2016-11-05] MEDS: Fluticasone-Salmeterol 250-50mcg Diskus INH SCH (20:59)
[2016-11-05] MEDS: (Lantus) Insulin Glargine, Recombinant SC SCH (21:43)
[2016-11-06] MEDS: Albuterol-Ipratrop 3 mg / 0.5 (3 ml) UD INH SCH ×8 (00:59→23:58)
[2016-11-06] MEDS: Budesonide 0.5 mg/2 ml Inhal Susp UD INH SCH ×2 (07:41→20:05)
[2016-11-06] MEDS: (Novolog) Insulin Aspart, Recombinant 100 u/ml 10 ml vial SC SCH ×3 (08:44→17:21)
[2016-11-06] MEDS: (Novolin R) Insulin Human Regular 100 units/ml vial SC SCH ×4 (08:45→21:27)
[2016-11-06] MEDS: POLYETHYLENE GLYCOL 3350 17 GM/Dose PACKET PO SCH (10:18)
[2016-11-06] MEDS: Pantoprazole 40 mg EC Tab PO SCH (10:20)
--- NOTE | 2016-11-06 10:50 | CP.PCM.PN ---
<Ovidio Mireles - Last Filed: 11/06/16 10:47> Subjective - Date & Time of Evaluation Date of Evaluation: 11/06/16 Time of Evaluation: 10:47 - Subjective Subjective: Cardiology Progress Note Dr. Samaniego Patient seen and examined at the bedside. No acute distress. No acute events overnight. Nursing staff reports no issues. No interval change from prior examination. Patient is still maintained on O2 via nasal cannula. Patient denies fever, chills, headache, chest pain, abdominal pain, changes in bowel/ bladder, and extremity paresthesias. Objective - Vital Signs/Intake and Output Vital Signs (last 24 hours): Temp Pulse Resp BP Pulse Ox 97.9 F 82 20 148/82 98 11/06/16 07:30 11/06/16 10:17 11/06/16 07:30 11/06/16 10:19 11/06/16 07:30 Intake and Output: 11/06/16 11/06/16 06:59 18:59 Intake Total 350 Balance 350 - Medications Medications: Current Medications Acetaminophen (Tylenol 325mg Tab) 650 mg PO Q6 PRN PRN Reason: Headache Last Admin: 11/04/16 17:16 Dose: 650 mg Albuterol/Ipratropium (Duoneb 3 Mg/0.5 Mg (3 Ml) Ud) 3 ml INH RQ4 [facility] Last Admin: 11/06/16 07:41 Dose: 3 ml Alprazolam (Xanax) 0.25 mg PO TID PRN PRN Reason: Anxiety Stop: 11/11/16 11:11 Last Admin: 11/04/16 22:21 Dose: 0.25 mg Aspirin (Ecotrin) 81 mg PO DAILY [facility] Last Admin: 11/06/16 10:19 Dose: 81 mg Budesonide (Pulmicort Respules) 0.5 mg INH RQ12 [facility] Last Admin: 11/06/16 07:41 Dose: 0.5 mg Carvedilol (Coreg) 6.25 mg PO BID [facility] Last Admin: 11/06/16 10:19 Dose: 6.25 mg Enalapril Maleate (Vasotec) 10 mg PO BID [facility] Last Admin: 11/06/16 10:19 Dose: 10 mg Furosemide (Lasix) 20 mg PO DAILY [facility] Last Admin: 11/06/16 10:19 Dose: 20 mg Ibuprofen (Motrin Tab) 600 mg PO TID PRN PRN Reason: Pain, moderate (4-7) Last Admin: 11/03/16 09:58 Dose: 600 mg Insulin Aspart (Novolog) 15 unit SC ACTID [facility] Last Admin: 11/06/16 08:44 Dose: 15 unit Insulin Glargine (Lantus) 40 unit SC HS [facility] Last Admin: 11/05/16 21:43 Dose: 40 u Insulin Human Regular (Novolin R) 0 unit SC ACHS [facility] PRN Reason: Protocol Last Admin: 11/06/16 08:45 Dose: 8 unit Meclizine HCl (Antivert) 25 mg PO Q12H [facility] Last Admin: 11/06/16 10:19 Dose: 25 mg Montelukast Sodium (Singulair) 10 mg PO HS [facility] Last Admin: 11/05/16 21:31 Dose: 10 mg Pantoprazole Sodium (Protonix Ec Tab) 40 mg PO DAILY [facility] Last Admin: 11/06/16 10:20 Dose: 40 mg Polyethylene Glycol (Miralax) 17 gm PO DAILY [facility] Last Admin: 11/06/16 10:18 Dose: 17 gm Prednisone (Prednisone Tab) 10 mg PO BID [facility] Last Admin: 11/06/16 10:19 Dose: 10 mg Promethazine HCl/Codeine (Phenergan/Codeine Oral Syrup) 5 ml PO Q4 PRN PRN Reason: Cough Last Admin: 11/03/16 09:58 Dose: 5 ml Rosuvastatin Calcium (Crestor) 10 mg PO [facility] Last Admin: 11/05/16 21:30 Dose: 10 mg Fluticasone/Salmeterol (Advair Diskus 250/50) 1 puff INH RQ12 [facility] Last Admin: 11/05/16 20:59 Dose: 1 puff - Labs Labs: 11/04/16 06:11 11/04/16 06:11 PT 11.7 SECONDS (9.7-12.2) 10/29/16 21:33 INR 1.0 10/29/16 21:33 APTT 34 SECONDS (21-34) 10/29/16 21:33 - Additional Findings Additional findings: - Constitutional Appears: Chronically Ill - Head Exam Head Exam: ATRAUMATIC, NORMAL INSPECTION, NORMOCEPHALIC - Eye Exam Eye Exam: EOMI - ENT Exam ENT Exam: Mucous Membranes Moist - Neck Exam Neck exam: Positive for: Normal Inspection. Negative for: Lymphadenopathy - Respiratory Exam Respiratory Exam: Clear to Auscultation Bilateral, NORMAL BREATHING PATTERN. absent: Rhonchi, Wheezes - Cardiovascular Exam Cardiovascular Exam: REGULAR RHYTHM, RRR, +S1, +S2. absent: Diastolic murmur, Gallop, Systolic Murmur - GI/Abdominal Exam GI & Abdominal Exam: Normal Bowel Sounds, Soft. absent: Distended, Guarding, Tenderness - Extremities Exam Extremities exam: Positive for: normal inspection, pedal edema (1+ pitting), pedal pulses present - Neurological Exam Neurological exam: Alert, CN II-XII Intact, Oriented x3 - Skin Skin Exam: Dry, Intact, Normal Color, Warm Assessment and Plan (1) Diabetes mellitus Assessment & Plan: uncontrolled Status: h (2) Hyperlipidemia Status: h (3) Hypertension Status: h (4) Myocardial infarct, old Status: n (5) CVA (cerebral vascular accident) Status: n (6) Systolic and diastolic CHF, chronic Assessment & Plan: Continue current management, no additional cardiac intervention at this time cardiac stable at this time NYHA Class IIIB Heart Failure MUGA Scan- 49% EF on preliminary report : unlikely need for live vest support 11/03/16 CXR- no acutely active pulmonary disease 10/30/16 EKG- LBBB, sinus tachycardia (unchanged from most recent comparison) Incentive Spirometry Ordered patient to continue : Aspirin 81mg PO daily : Coreg 6.25mg p bid : Enalapril 10mg po daily : Lasix 20mg po daily telemetric monitoring Patient to follow with Dr. Samaniego in his clinic Status: h <Kaelyn Samaniego - Last Filed: 11/20/16 09:26> Objective - Vital Signs/Intake and Output Vital Signs (last 24 hours): Temp Pulse Resp BP Pulse Ox 98.7 F 94 H 20 114/64 95 11/11/16 13:10 11/11/16 15:00 11/11/16 13:10 11/11/16 15:00 11/11/16 13:22 - Labs Labs: 11/11/16 07:38 11/11/16 07:38 PT 11.7 SECONDS (9.7-12.2) 10/29/16 21:33 INR 1.0 10/29/16 21:33 APTT 34 SECONDS (21-34) 10/29/16 21:33 Attending/Attestation - Attestation I have personally seen and examined this patient.: Yes I have fully participated in the care of the patient.: Yes I have reviewed all pertinent clinical information, including history, physical exam and plan: Yes Notes (Text): 11/20/16 09:26 incentive spirometry ordered to help pulmonary status
[2016-11-06] MEDS: Fluticasone-Salmeterol 250-50mcg Diskus INH SCH ×2 (11:12→20:04)
[2016-11-06] MEDS: guaiFENesin 600 mg ER Tab PO SCH ×2 (13:03→17:23)
--- NOTE | 2016-11-06 15:40 | CP.PCM.PN ---
<Marcela Ochoa - Last Filed: 11/06/16 15:34> Subjective - Date & Time of Evaluation Date of Evaluation: 11/06/16 Time of Evaluation: 07:20 - Subjective Subjective: Internal medicine progress note for Hospitalist Service- Marcela Ochoa, PGY-1 Pt S & E at bedside Pt reports not feeling well and still complaining of dizziness despite treatment with Antivert. Patient reports continued diplopia, chest pain, cough, fatigue, new onset tremors. Denies vomiting, diarrhea, headache, numbness, and tingling. Objective - Vital Signs/Intake and Output Vital Signs (last 24 hours): Temp Pulse Resp BP Pulse Ox 97.9 F 82 20 148/82 98 11/06/16 07:30 11/06/16 10:17 11/06/16 07:30 11/06/16 10:19 11/06/16 07:30 Intake and Output: 11/06/16 11/06/16 06:59 18:59 Intake Total 350 Balance 350 - Medications Medications: Current Medications Acetaminophen (Tylenol 325mg Tab) 650 mg PO Q6 PRN PRN Reason: Headache Last Admin: 11/04/16 17:16 Dose: 650 mg Albuterol/Ipratropium (Duoneb 3 Mg/0.5 Mg (3 Ml) Ud) 3 ml INH RQ4 [facility] Last Admin: 11/06/16 11:13 Dose: 3 ml Alprazolam (Xanax) 0.25 mg PO TID PRN PRN Reason: Anxiety Stop: 11/11/16 11:11 Last Admin: 11/04/16 22:21 Dose: 0.25 mg Aspirin (Ecotrin) 81 mg PO DAILY [facility] Last Admin: 11/06/16 10:19 Dose: 81 mg Budesonide (Pulmicort Respules) 0.5 mg INH RQ12 [facility] Last Admin: 11/06/16 07:41 Dose: 0.5 mg Carvedilol (Coreg) 6.25 mg PO BID [facility] Last Admin: 11/06/16 10:19 Dose: 6.25 mg Enalapril Maleate (Vasotec) 10 mg PO BID [facility] Last Admin: 11/06/16 10:19 Dose: 10 mg Furosemide (Lasix) 20 mg PO DAILY [facility] Last Admin: 11/06/16 10:19 Dose: 20 mg Guaifenesin (Mucinex La) 600 mg PO BID [facility] Last Admin: 11/06/16 13:03 Dose: 600 mg Ibuprofen (Motrin Tab) 600 mg PO TID PRN PRN Reason: Pain, moderate (4-7) Last Admin: 11/03/16 09:58 Dose: 600 mg Insulin Aspart (Novolog) 20 unit SC ACTID [facility] Last Admin: 11/06/16 13:02 Dose: 20 unit Insulin Glargine (Lantus) 40 unit SC HS [facility] Last Admin: 11/05/16 21:43 Dose: 40 u Insulin Human Regular (Novolin R) 0 unit SC ACHS [facility] PRN Reason: Protocol Last Admin: 11/06/16 13:02 Dose: 6 unit Meclizine HCl (Antivert) 25 mg PO Q12H [facility] Last Admin: 11/06/16 10:19 Dose: 25 mg Montelukast Sodium (Singulair) 10 mg PO [facility] Last Admin: 11/05/16 21:31 Dose: 10 mg Pantoprazole Sodium (Protonix Ec Tab) 40 mg PO DAILY [facility] Last Admin: 11/06/16 10:20 Dose: 40 mg Polyethylene Glycol (Miralax) 17 gm PO DAILY [facility] Last Admin: 11/06/16 10:18 Dose: 17 gm Promethazine HCl/Codeine (Phenergan/Codeine Oral Syrup) 5 ml PO Q4 PRN PRN Reason: Cough Last Admin: 11/03/16 09:58 Dose: 5 ml Rosuvastatin Calcium (Crestor) 10 mg PO [facility] Last Admin: 11/05/16 21:30 Dose: 10 mg Fluticasone/Salmeterol (Advair Diskus 250/50) 1 puff INH RQ12 [facility] Last Admin: 11/06/16 11:12 Dose: Not Given - Labs Labs: 11/04/16 06:11 11/04/16 06:11 PT 11.7 SECONDS (9.7-12.2) 10/29/16 21:33 INR 1.0 10/29/16 21:33 APTT 34 SECONDS (21-34) 10/29/16 21:33 - Constitutional Appears: Non-toxic, No Acute Distress - Head Exam Head Exam: ATRAUMATIC, NORMAL INSPECTION, NORMOCEPHALIC - Eye Exam Eye Exam: EOMI, Normal appearance, PERRL Pupil Exam: NORMAL ACCOMODATION, PERRL - ENT Exam ENT Exam: Mucous Membranes Moist, Normal Exam - Neck Exam Neck Exam: Full ROM, Normal Inspection. absent: Lymphadenopathy - Respiratory Exam Respiratory Exam: Clear to Ausculation Bilateral, NORMAL BREATHING PATTERN Additional comments: cough - Cardiovascular Exam Cardiovascular Exam: REGULAR RHYTHM, +S1, +S2. absent: Murmur - GI/Abdominal Exam GI & Abdominal Exam: Soft, Normal Bowel Sounds. absent: Tenderness - Extremities Exam Extremities Exam: Full ROM, Normal Capillary Refill, Normal Inspection, Pedal Edema (trace 1+ on RLE). absent: Joint Swelling - Back Exam Back Exam: muscle spasm (mid thoracic), NORMAL INSPECTION - Neurological Exam Neurological Exam: Alert, Awake, CN II-XII Intact, Oriented x3 - Psychiatric Exam Psychiatric exam: Anxious, Normal Affect - Skin Skin Exam: Dry, Intact, Normal Color, Warm Assessment and Plan - Assessment and Plan (Free Text) Assessment: Asthma exacerbation/Cough Prednisone 20mg BID- d/c'd Cont Advair Q12H Cont duonebs q6h Cont Singulair 10mg HS Cont Pulmicort 0.5mg Q12H Cont Phenergan w/codeine PRN Started Mucinex Pre-post flows per respiratory Monitor Diabetes mellitus ISS high protocol Cont Lantus 40 Units SC HS accuchecks ACHS on high protocol Novolog 15 units ACTID increased to 20 Blood sugars in 300-400's AM Blood sugar 329 A1c 10.2 Monitor Constipation Miralax daily Dizziness Meclizine 25mg Q12H Neuro consulted Back pain Motrin PRN Heating pad Monitor Tachycardia- resolved patient with history of CVA but unknown if there is clotting disorder d-dimer neg tachycardia in 80-90's Monitor Cards recs: MUGA scan- 49%- pt does not need lifevest, ok to d/c with outpatient FU in clinic Hyperlipidemia continue home medication equivalent- crestor 10mg HS Hx CHF cont home med lasix 20mg PO daily Cards recs: MUGA scan- 49%- pt does not need lifevest Hypertension BP 140/76 cont vasotec 10mg daily cont coreg 3.125mg BID Anxiety Cont Xanax 0.25mg TID PRN Monitor Headache Tylenol PRN CT brain neg Monitor Epistaxis- resolved Humidifer to O2 via NC CT brain neg Monitor GI/DVT ppx heparin 5000 units sc q8h protonix 40mg daily Dispo Cont med mgmt Cont tele No need for Lifevest as per cardio Optimize breathing status of pt PT/OT FU neuro recs DW attending <Kendall Lynn - Last Filed: 11/06/16 17:38> Objective - Vital Signs/Intake and Output Vital Signs (last 24 hours): Temp Pulse Resp BP Pulse Ox 98.3 F 84 20 135/77 97 11/06/16 16:00 11/06/16 16:00 11/06/16 16:00 11/06/16 16:00 11/06/16 16:00 Intake and Output: 11/06/16 11/06/16 06:59 18:59 Intake Total 350 400 Balance 350 400 - Medications Medications: Current Medications Acetaminophen (Tylenol 325mg Tab) 650 mg PO Q6 PRN PRN Reason: Headache Last Admin: 11/04/16 17:16 Dose: 650 mg Albuterol/Ipratropium (Duoneb 3 Mg/0.5 Mg (3 Ml) Ud) 3 ml INH RQ4 [facility] Last Admin: 11/06/16 15:59 Dose: 3 ml Alprazolam (Xanax) 0.25 mg PO TID PRN PRN Reason: Anxiety Stop: 11/11/16 11:11 Last Admin: 11/04/16 22:21 Dose: 0.25 mg Aspirin (Ecotrin) 81 mg PO DAILY [facility] Last Admin: 11/06/16 10:19 Dose: 81 mg Budesonide (Pulmicort Respules) 0.5 mg INH RQ12 [facility] Last Admin: 11/06/16 07:41 Dose: 0.5 mg Carvedilol (Coreg) 6.25 mg PO BID [facility] Last Admin: 11/06/16 10:19 Dose: 6.25 mg Enalapril Maleate (Vasotec) 10 mg PO BID [facility] Last Admin: 11/06/16 10:19 Dose: 10 mg Furosemide (Lasix) 20 mg PO DAILY [facility] Last Admin: 11/06/16 10:19 Dose: 20 mg Guaifenesin (Mucinex La) 600 mg PO BID [facility] Last Admin: 11/06/16 13:03 Dose: 600 mg Ibuprofen (Motrin Tab) 600 mg PO TID PRN PRN Reason: Pain, moderate (4-7) Last Admin: 11/03/16 09:58 Dose: 600 mg Insulin Aspart (Novolog) 20 unit SC ACTID [facility] Last Admin: 11/06/16 13:02 Dose: 20 unit Insulin Glargine (Lantus) 40 unit SC HS [facility] Last Admin: 11/05/16 21:43 Dose: 40 u Insulin Human Regular (Novolin R) 0 unit SC ACHS [facility] PRN Reason: Protocol Last Admin: 11/06/16 13:02 Dose: 6 unit Meclizine HCl (Antivert) 25 mg PO Q12H [facility] Last Admin: 11/06/16 10:19 Dose: 25 mg Montelukast Sodium (Singulair) 10 mg PO HS [facility] Last Admin: 11/05/16 21:31 Dose: 10 mg Pantoprazole Sodium (Protonix Ec Tab) 40 mg PO DAILY [facility] Last Admin: 11/06/16 10:20 Dose: 40 mg Polyethylene Glycol (Miralax) 17 gm PO DAILY [facility] Last Admin: 11/06/16 10:18 Dose: 17 gm Promethazine HCl/Codeine (Phenergan/Codeine Oral Syrup) 5 ml PO Q4 PRN PRN Reason: Cough Last Admin: 11/03/16 09:58 Dose: 5 ml Rosuvastatin Calcium (Crestor) 10 mg PO HS [facility] Last Admin: 11/05/16 21:30 Dose: 10 mg Fluticasone/Salmeterol (Advair Diskus 250/50) 1 puff INH RQ12 [facility] Last Admin: 11/06/16 11:12 Dose: Not Given - Labs Labs: 11/04/16 06:11 11/04/16 06:11 PT 11.7 SECONDS (9.7-12.2) 10/29/16 21:33 INR 1.0 10/29/16 21:33 APTT 34 SECONDS (21-34) 10/29/16 21:33 Attending/Attestation - Attestation I have personally seen and examined this patient.: Yes I have fully participated in the care of the patient.: Yes I have reviewed all pertinent clinical information, including history, physical exam and plan: Yes Notes (Text): 11/06/16 17:34 Medical Attending: Patient was seen and examined by me. Agree with the above note by the resident. The patient is now off of PO prednisone. She appears to be well with rest however exertion has caused her a lot of shortnss of breath Continue with inhlaers at this time. PT/OT EF is stable as well with MUGA scan. Further adjustments were made to her DM medication as well thank you Kendall Lynn 11/06/16 17:37
--- NOTE | 2016-11-06 21:06 | CP.PCM.CON ---
History of Present Illness - History of Present Illness History of Present Illness: C.C: Dizziness, sense of light headedness and vertigo: This started after his admission. Obesity, Sleep Apnea Patient is a 51 year old female with past medical history of asthma requiring intubation one time, CHF, DM, HTN, CVA in 2003 without residual deficits, HLD, ID 16 years ago who presents to the hospital with complaint of shortness of breath for three days. Patient states that she has also been having a cough that is non-productive for the past 3 days. Patient denies fever but admits to chills. Patient states that she has lower extremity swelling that has been present since May 2016. Patient admits to sore throat which has been present since her intubation in August 2016. Patient also admits to palpitations. Patient states that while she occasionally feels light-headed at her baseline, she has been feeling increasingly lightheaded the past several days. Patient denies appetite changes. Patient states she has been compliant with her medications for her asthma but it was noted in the ER that the patient does not know the proper technique to use inhaled medications. She complains of Headaches and dizziness currently, sense of Vertigo. Neck pain on moving her head Tingling and numbness peripherally in her feet and her hands and fingers. PMD: Clinic PMHx: asthma- patient was intubated on last admission for desaturation, CHF, DM , HTN, CVA, HLD, ID, Obesity, Obstructive sleep Apnea. - Past Social History Smoking Status: Never Smoked - CARDIAC Hx Hypercholesterolemia: Yes Hx Hypertension: Yes Hx Peripheral Edema: Yes - PULMONARY Hx Asthma: Yes - NEUROLOGICAL HX Cerebrovascular Accident: Yes - HEENT Other/Comment: Blurred vision - RENAL Other/Comment: UTI - ENDOCRINE/METABOLIC Hx Diabetes Mellitus Type 2: Yes Meds: lasix 20mg daily, flovent q12, pulmicort 0.25 q12, ASA 81, ventolin q6prn , vasotec 10mg daily, coreg 3.125 BID, singulair 10mg, metformin 1000mg daily, glimepiride 2mg, simvastatin 40mg PSH: cardiac cath, tubal ligation FamHx: Mother with HTN, DM, of ID in her 30s SocialHx: denies tobacco, alcohol, drugs, not currently employed Allergies: denies IMPRESSION of CT Brain: No acute intracranial pathology identified. Mucosal thickening of the ethmoid air cells and sphenoid sinuses. Past Patient History - Infectious Disease Hx of Infectious Diseases: None - Past Medical History & Family History Past Medical History?: Yes - Past Social History Smoking Status: Never Smoked - CARDIAC Hx Cardiac Disorders: Yes Hx Hypercholesterolemia: Yes Hx Hypertension: Yes - PULMONARY Hx Respiratory Disorders: Yes Hx Asthma: Yes - NEUROLOGICAL HX Cerebrovascular Accident: Yes (weakness RLE) - HEENT Hx HEENT Problems: No Other/Comment: Blurred vision - RENAL Hx Chronic Kidney Disease: No Other/Comment: UTI - ENDOCRINE/METABOLIC Hx Diabetes Mellitus Type 2: Yes - HEMATOLOGICAL/ONCOLOGICAL Hx Blood Disorders: No - INTEGUMENTARY Hx Dermatological Problems: Yes Other/Comment: Bilateral feet discoloration - MUSCULOSKELETAL/RHEUMATOLOGICAL Hx Musculoskeletal Disorders: No Hx Falls: No - GASTROINTESTINAL Hx Gastrointestinal Disorders: No - GENITOURINARY/GYNECOLOGICAL Hx Genitourinary Disorders: No - PSYCHIATRIC Hx Psychophysiologic Disorder: No Hx Substance Use: No - SURGICAL HISTORY Hx Surgeries: Yes Hx Tubal Ligation: Yes - ANESTHESIA Hx Anesthesia: Yes Hx Anesthesia Reactions: No Hx Malignant Hyperthermia: No Has any member of the family had a problem w/ anesthesia?: No Meds Allergies/Adverse Reactions: Allergies Allergy/AdvReac Type Severity Reaction Status Date / Time No Known Allergies Allergy Verified 08/26/16 15:37 - Medications Medications: Current Medications Acetaminophen (Tylenol 325mg Tab) 650 mg PO Q6 PRN PRN Reason: Headache Last Admin: 11/04/16 17:16 Dose: 650 mg Albuterol/Ipratropium (Duoneb 3 Mg/0.5 Mg (3 Ml) Ud) 3 ml INH RQ4 [facility] Last Admin: 11/06/16 20:04 Dose: 3 ml Alprazolam (Xanax) 0.25 mg PO TID PRN PRN Reason: Anxiety Stop: 11/11/16 11:11 Last Admin: 11/04/16 22:21 Dose: 0.25 mg Aspirin (Ecotrin) 81 mg PO DAILY [facility] Last Admin: 11/06/16 10:19 Dose: 81 mg Budesonide (Pulmicort Respules) 0.5 mg INH RQ12 [facility] Last Admin: 11/06/16 20:05 Dose: 0.5 mg Carvedilol (Coreg) 6.25 mg PO BID [facility] Last Admin: 11/06/16 17:24 Dose: 6.25 mg Enalapril Maleate (Vasotec) 10 mg PO BID [facility] Last Admin: 11/06/16 17:23 Dose: 10 mg Furosemide (Lasix) 20 mg PO DAILY [facility] Last Admin: 11/06/16 10:19 Dose: 20 mg Guaifenesin (Mucinex La) 600 mg PO BID [facility] Last Admin: 11/06/16 17:23 Dose: 600 mg Ibuprofen (Motrin Tab) 600 mg PO TID PRN PRN Reason: Pain, moderate (4-7) Last Admin: 11/03/16 09:58 Dose: 600 mg Insulin Aspart (Novolog) 20 unit SC ACTID [facility] Last Admin: 11/06/16 17:21 Dose: 20 unit Insulin Glargine (Lantus) 40 unit SC HS [facility] Last Admin: 11/05/16 21:43 Dose: 40 u Insulin Human Regular (Novolin R) 0 unit SC ACHS [facility] PRN Reason: Protocol Last Admin: 11/06/16 17:22 Dose: 8 unit Meclizine HCl (Antivert) 25 mg PO Q12H [facility] Last Admin: 11/06/16 10:19 Dose: 25 mg Montelukast Sodium (Singulair) 10 mg PO HS [facility] Last Admin: 11/05/16 21:31 Dose: 10 mg Pantoprazole Sodium (Protonix Ec Tab) 40 mg PO DAILY [facility] Last Admin: 11/06/16 10:20 Dose: 40 mg Polyethylene Glycol (Miralax) 17 gm PO DAILY [facility] Last Admin: 11/06/16 10:18 Dose: 17 gm Promethazine HCl/Codeine (Phenergan/Codeine Oral Syrup) 5 ml PO Q4 PRN PRN Reason: Cough Last Admin: 11/03/16 09:58 Dose: 5 ml Rosuvastatin Calcium (Crestor) 10 mg PO HS [facility] Last Admin: 11/05/16 21:30 Dose: 10 mg Fluticasone/Salmeterol (Advair Diskus 250/50) 1 puff INH RQ12 [facility] Last Admin: 11/06/16 20:04 Dose: Not Given Physical Exam - Neurological Exam Additional comments: Obese Mental Status: Awake, Alert, Oriented X 3 Fluent Coherent speech, Normal memory X 3 Cranial Nerves II to XII: No deficits, No Nystagmus Motor: Limited neck movements Normal Tone, Positive lasegue test Normal Power DTR 0/4 Toes are down going Sensory: Glove and stoke sensory deficit ( Diabetic) in UEs and LEs Peripherally. Cerebellar: Normal FNT Stature and Gait: Normal when slow. Results - Vital Signs Recent Vital Signs: Last Vital Signs Temp 98.3 F 11/06/16 16:00 Pulse 84 11/06/16 16:00 Resp 20 11/06/16 16:00 BP 118/62 11/06/16 17:23 Pulse Ox 97 11/06/16 16:00 - Labs Result Diagrams: 11/04/16 06:11 11/04/16 06:11 Labs: Laboratory Results - last 24 hr 11/05/16 11/06/16 11/06/16 21:11 06:36 11:56 POC Glucose (mg/dL) 454 H* 329 H 274 H 11/06/16 16:17 POC Glucose (mg/dL) 348 H Assessment & Plan (1) Asthma exacerbation Status: Acute (2) Tachycardia Status: Acute (3) Dizziness Assessment and Plan: R/O Cardiac causes Status: Acute (4) Vertigo Assessment and Plan: R/o BPPV, call PT for Eply Maneuver R/o Seizures R/O CVA R/O Aute Labyrinthitis R/O Post Traumatic vascular Headache and Vertigo Status: Acute (5) Cervical radiculopathy Assessment and Plan: may cause vertigo Status: Acute (6) Diabetic peripheral neuropathy Status: Acute (7) Sleep apnea Assessment and Plan: Might be a factor in her headache and her Vertigo and dizziness. Status: Acute
[2016-11-06] MEDS: (Lantus) Insulin Glargine, Recombinant SC SCH (21:27)
[2016-11-07] MEDS: Albuterol-Ipratrop 3 mg / 0.5 (3 ml) UD INH SCH ×5 (03:16→19:53)
[2016-11-07] MEDS: Budesonide 0.5 mg/2 ml Inhal Susp UD INH SCH ×2 (07:44→19:53)
[2016-11-07 08:10] LABS: URIC ACID 3.7 mg/dL (2.2-7.5)
[2016-11-07] MEDS: (Novolin R) Insulin Human Regular 100 units/ml vial SC SCH ×4 (08:38→21:47)
[2016-11-07] MEDS: (Novolog) Insulin Aspart, Recombinant 100 u/ml 10 ml vial SC SCH ×3 (08:39→17:09)
[2016-11-07 09:04] LABS: THYROID STIMULATING HORMONE 4.42 mIU/L (0.46-4.68)
--- NOTE | 2016-11-07 10:17 | CP.PCM.PN ---
<Ovidio Mireles - Last Filed: 11/07/16 10:14> Subjective - Date & Time of Evaluation Date of Evaluation: 11/07/16 Time of Evaluation: 10:14 - Subjective Subjective: Cardiology Progress Note Dr. Samaniego Patient seen and examined at the bedside. No acute distress. No acute events overnight. Nursing staff reports no issues. No clinical, interval change from prior examination. Patient has complaint of dizziness this morning that is worse than yesterday. Patient is still maintained on O2 via nasal cannula (3L) . Patient denies fever, chills, headache, chest pain, abdominal pain, changes in bowel/bladder, and extremity paresthesias. Objective - Vital Signs/Intake and Output Vital Signs (last 24 hours): Temp Pulse Resp BP Pulse Ox 98.7 F 78 20 120/74 96 11/07/16 09:09 11/07/16 09:09 11/07/16 09:09 11/07/16 09:09 11/07/16 09:09 Intake and Output: 11/07/16 11/07/16 06:59 18:59 Intake Total 320 Balance 320 - Medications Medications: Current Medications Acetaminophen (Tylenol 325mg Tab) 650 mg PO Q6 PRN PRN Reason: Headache Last Admin: 11/07/16 08:40 Dose: 650 mg Albuterol/Ipratropium (Duoneb 3 Mg/0.5 Mg (3 Ml) Ud) 3 ml INH RQ4 [facility] Last Admin: 11/07/16 07:44 Dose: 3 ml Alprazolam (Xanax) 0.25 mg PO TID [facility] Stop: 11/14/16 10:01 Aspirin (Ecotrin) 81 mg PO DAILY [facility] Last Admin: 11/06/16 10:19 Dose: 81 mg Budesonide (Pulmicort Respules) 0.5 mg INH RQ12 [facility] Last Admin: 11/07/16 07:44 Dose: 0.5 mg Carvedilol (Coreg) 6.25 mg PO BID [facility] Last Admin: 11/06/16 17:24 Dose: 6.25 mg Enalapril Maleate (Vasotec) 10 mg PO BID [facility] Last Admin: 11/06/16 17:23 Dose: 10 mg Furosemide (Lasix) 20 mg PO DAILY [facility] Last Admin: 11/06/16 10:19 Dose: 20 mg Guaifenesin (Mucinex La) 600 mg PO BID [facility] Last Admin: 11/06/16 17:23 Dose: 600 mg Ibuprofen (Motrin Tab) 600 mg PO TID PRN PRN Reason: Pain, moderate (4-7) Last Admin: 11/03/16 09:58 Dose: 600 mg Insulin Aspart (Novolog) 20 unit SC ACTID [facility] Last Admin: 11/07/16 08:39 Dose: 20 unit Insulin Glargine (Lantus) 40 unit SC HS [facility] Last Admin: 11/06/16 21:27 Dose: 40 u Insulin Human Regular (Novolin R) 0 unit SC ACHS [facility] PRN Reason: Protocol Last Admin: 11/07/16 08:38 Dose: 4 unit Meclizine HCl (Antivert) 25 mg PO Q12H [facility] Last Admin: 11/06/16 21:30 Dose: 25 mg Montelukast Sodium (Singulair) 10 mg PO HS [facility] Last Admin: 11/06/16 21:26 Dose: 10 mg Pantoprazole Sodium (Protonix Ec Tab) 40 mg PO DAILY [facility] Last Admin: 11/06/16 10:20 Dose: 40 mg Polyethylene Glycol (Miralax) 17 gm PO DAILY [facility] Last Admin: 11/06/16 10:18 Dose: 17 gm Promethazine HCl/Codeine (Phenergan/Codeine Oral Syrup) 5 ml PO Q4 PRN PRN Reason: Cough Last Admin: 11/03/16 09:58 Dose: 5 ml Rosuvastatin Calcium (Crestor) 10 mg PO HS [facility] Last Admin: 11/06/16 21:26 Dose: 10 mg Fluticasone/Salmeterol (Advair Diskus 250/50) 1 puff INH RQ12 [facility] Last Admin: 11/06/16 20:04 Dose: Not Given - Labs Labs: 11/04/16 06:11 11/04/16 06:11 PT 11.7 SECONDS (9.7-12.2) 10/29/16 21:33 INR 1.0 10/29/16 21:33 APTT 34 SECONDS (21-34) 10/29/16 21:33 - Additional Findings Additional findings: - Constitutional Appears: Chronically Ill - Head Exam Head Exam: ATRAUMATIC, NORMAL INSPECTION, NORMOCEPHALIC - Eye Exam Eye Exam: EOMI - ENT Exam ENT Exam: Mucous Membranes Moist - Neck Exam Neck exam: Positive for: Normal Inspection. Negative for: Lymphadenopathy - Respiratory Exam Respiratory Exam: Clear to Auscultation Bilateral, NORMAL BREATHING PATTERN. absent: Rhonchi, Wheezes - Cardiovascular Exam Cardiovascular Exam: REGULAR RHYTHM, RRR, +S1, +S2. absent: Diastolic murmur, Gallop, Systolic Murmur - GI/Abdominal Exam GI & Abdominal Exam: Normal Bowel Sounds, Soft. absent: Distended, Guarding, Tenderness - Extremities Exam Extremities exam: Positive for: normal inspection, pedal edema (1+ pitting), pedal pulses present - Neurological Exam Neurological exam: Alert, CN II-XII Intact, Oriented x3 - Skin Skin Exam: Dry, Intact, Normal Color, Warm Assessment and Plan (1) Diabetes mellitus Status: h (2) Hyperlipidemia Status: h (3) Hypertension Status: h (4) Myocardial infarct, old Status: n (5) CVA (cerebral vascular accident) Status: n (6) Systolic and diastolic CHF, chronic Assessment & Plan: Continue current management, no additional cardiac intervention at this time Dr. Samaniego and the cardiology service will sign off at this time. Please reconsult as needed. Thank you cardiac stable at this time NYHA Class IIIB Heart Failure MUGA Scan- 49% EF on preliminary report : unlikely need for live vest support 11/03/16 CXR- no acutely active pulmonary disease 10/30/16 EKG- LBBB, sinus tachycardia (unchanged from most recent comparison) Incentive Spirometry Ordered patient to continue : Aspirin 81mg PO daily : Coreg 6.25mg p bid : Enalapril 10mg po daily : Lasix 20mg po daily telemetric monitoring Patient to follow with Dr. Samaniego in his clinic Status: h <Kaelyn Samaniego - Last Filed: 11/20/16 09:25> Objective - Vital Signs/Intake and Output Vital Signs (last 24 hours): Temp Pulse Resp BP Pulse Ox 98.7 F 94 H 20 114/64 95 11/11/16 13:10 11/11/16 15:00 11/11/16 13:10 11/11/16 15:00 11/11/16 13:22 - Labs Labs: 11/11/16 07:38 11/11/16 07:38 PT 11.7 SECONDS (9.7-12.2) 10/29/16 21:33 INR 1.0 10/29/16 21:33 APTT 34 SECONDS (21-34) 10/29/16 21:33 Attending/Attestation - Attestation I have personally seen and examined this patient.: Yes I have fully participated in the care of the patient.: Yes I have reviewed all pertinent clinical information, including history, physical exam and plan: Yes Notes (Text): 11/20/16 09:25 No cp abx continue tolerating PO
[2016-11-07] MEDS: POLYETHYLENE GLYCOL 3350 17 GM/Dose PACKET PO SCH (10:46)
[2016-11-07] MEDS: Pantoprazole 40 mg EC Tab PO SCH (10:46)
[2016-11-07] MEDS: guaiFENesin 600 mg ER Tab PO SCH ×2 (10:47→17:09)
[2016-11-07] MEDS: Fluticasone-Salmeterol 250-50mcg Diskus INH SCH ×2 (10:58→19:53)
[2016-11-07 12:05] LABS: CHLORIDE 93 mmol/L (98-107)
[2016-11-07 12:06] LABS: POTASSIUM 3.5 mmol/L (3.6-5.2); SODIUM 133 mmol/L (132-148)
[2016-11-07 12:08] LABS: ALB/GLOB RATIO 1.4 (1.0-2.1); ALKALINE PHOSPHATASE 94 U/L (38-126); ALT/SGPT 37 U/L (9-52); AST/SGOT 20 U/L (14-36); BILIRUBIN,TOTAL 0.5 mg/dL (0.2-1.3); BLOOD UREA NITROGEN 21 mg/dL (7-17); CARBON DIOXIDE 31 mmol/L (22-30); GFR AFRICAN-AMERICAN > 60; TOTAL PROTEIN 6.2 g/dL (6.3-8.3)
[2016-11-07 12:09] LABS: CALCIUM 8.6 mg/dl (8.6-10.4); GLUCOSE,RANDOM 311 mg/dL (65-105); MAGNESIUM 1.7 mg/dL (1.6-2.3); PHOSPHOROUS 3.9 mg/dL (2.5-4.5)
[2016-11-07 12:12] LABS: BASO % 0.1 % (0.0-2.0); EOS # 0.2 K/uL (0.0-0.7); EOS % 1.1 % (0.0-4.0); HEMATOCRIT 43.9 % (34.0-47.0); LYMPH # 2.2 K/uL (1.0-4.3); LYMPH % 16.3 % (20.0-40.0); MEAN CELL VOLUME 86.3 fL (81.0-99.0); MEAN CORPUSCULAR HEMOGLOBIN 28.4 pg (27.0-31.0); MEAN CORPUSCULAR HGB CONC 32.9 g/dL (33.0-37.0); MEAN PLATELET VOLUME 7.8 fL (7.2-11.7); MONO # 0.9 K/uL (0.0-0.8); MONO % 6.6 % (0.0-10.0); RED CELL DISTRIBUTION WIDTH 12.9 % (11.5-14.5); WHITE BLOOD COUNT 13.7 K/uL (4.8-10.8)
--- NOTE | 2016-11-07 12:56 | MRI ---
PROCEDURE: MRI BRAIN WITHOUT CONTRAST HISTORY: r/o cva, r/o seizures COMPARISON: Comparison made with CT scan brain dated 11/01/2016. TECHNIQUE: Multiplanar, multisequence MR images of the brain were obtained without intravenous contrast enhancement. FINDINGS: HEMORRHAGE: No acute parenchymal, subarachnoid or extra-axial hemorrhage. DWI: No evidence of acute infarct identified on diffusion-weighted sequence. BRAIN PARENCHYMA: Few tiny nonspecific foci increased T2 signal seen in the frontal subcortical and right parasagittal posterior parietal subcortical regions. These changes are nonspecific. Rule out sequela small chronic lacunar-type infarcts, migraine headaches old trauma or post infectious/inflammatory change. No evidence of parenchymal nor extra-axial masses or collections. No edema VENTRICLES: Ventricular and sulcal size within range of normal this patient's stated age. CRANIUM: Unremarkable. ORBITS: Orbits and contents unremarkable. PARANASAL SINUSES/MASTOIDS: Mild on mucosal thickening both maxillary antra with what appears represent tiny fluid level left larger than right there is also mild mucosal thickening noted within several ethmoid air cells right greater than left VASCULAR SYSTEM: Skull base flow voids intact. OTHER FINDINGS: None. IMPRESSION: No evidence of acute hemorrhage or infarct. There are a few tiny nonspecific foci of increased T2 signal in the left frontal and right parietal subcortical region nonspecific. Rule out small chronic lacunar type infarcts, sequela of migraine headaches old trauma or post infectious/ inflammatory changes. There are inflammatory changes seen within the maxillary and ethmoid air complexes. Questionable small bilateral maxillary sinus fluid levels left greater than right
--- NOTE | 2016-11-07 14:15 | MRI ---
PROCEDURE: MR cervical spine 11/07/2016 HISTORY: Rule out radiculopathy. COMPARISON: No prior study available comparison. FINDINGS: Current study reveals no acute compression fractures no retropulsed fragments. Vertebral bodies exhibit normal stature. Slight straightening of the normal cervical lordosis could be due to patient positioning in the gantry however underlying element of muscle spasm not excluded. Vertebral bodies otherwise exhibit normal alignment. Mild age related disc desiccation and small central and bilateral disc bulge noted at the C6-C7 level which indents the ventral surface of the thecal sac though does not appear to result in any significant cord compression. Central canal is minimally narrowed. Exit foramina appear adequate. At the C5-C6 level, mild age related disc desiccation and small asymmetric disc bulge slightly larger on the left than right which indents the ventral surface of the thecal sac however no significant cord compression. Central canal is marginal to adequate. Exit foramina are adequate despite slightly prominent facets. At the C4-C5 level, there is mild age related disc desiccation with minimal asymmetric disc bulge slightly larger on the right than left that also indents the ventral surface of the thecal sac without cord compression. . The central canal is marginal to minimally narrowed. . The remaining levels exhibit mild age related disc desiccation. No disc herniation or significant disc bulges. . No definitive intrinsic signal changes seen within the visualized spinal cord. Cervicomedullary junction unremarkable. Incidental note made of partially empty sella. Impression: Minor disc bulging noted at the C6-C7 level with mild canal narrowing however no significant cord compression.
--- NOTE | 2016-11-07 15:20 | CP.PCM.PN ---
<Marcela Ochoa - Last Filed: 11/07/16 15:15> Subjective - Date & Time of Evaluation Date of Evaluation: 11/07/16 Time of Evaluation: 07:35 - Subjective Subjective: Internal medicine progress note for Hospitalist Service- Marcela Ochoa, PGY-1 Pt S & E at bedside Pt reports she did not sleep well due to cough and WISEMAN that arose overnight. WISEMAN is 7/10. No improvement in other symptoms. Admits to subjective fever, diplopia , SOB, Palps, CP, Cough, Nausea, Constipation, and dizziness. Gets CP when ambulating. Objective - Vital Signs/Intake and Output Vital Signs (last 24 hours): Temp Pulse Resp BP Pulse Ox 98.7 F 98 H 20 118/72 96 11/07/16 09:09 11/07/16 12:30 11/07/16 09:09 11/07/16 10:49 11/07/16 09:09 Intake and Output: 11/07/16 11/07/16 06:59 18:59 Intake Total 320 400 Balance 320 400 - Medications Medications: Current Medications Acetaminophen (Tylenol 325mg Tab) 650 mg PO Q6 PRN PRN Reason: Headache Albuterol/Ipratropium (Duoneb 3 Mg/0.5 Mg (3 Ml) Ud) 3 ml INH RQ4 [facility] Last Admin: 11/07/16 11:11 Dose: Not Given Alprazolam (Xanax) 0.5 mg PO TID [facility] Stop: 11/14/16 10:01 Aspirin (Ecotrin) 81 mg PO DAILY [facility] Last Admin: 11/07/16 10:46 Dose: 81 mg Budesonide (Pulmicort Respules) 0.5 mg INH RQ12 [facility] Last Admin: 11/07/16 07:44 Dose: 0.5 mg Carvedilol (Coreg) 6.25 mg PO BID [facility] Last Admin: 11/07/16 10:46 Dose: 6.25 mg Enalapril Maleate (Vasotec) 10 mg PO BID [facility] Last Admin: 11/07/16 10:49 Dose: 10 mg Furosemide (Lasix) 20 mg PO DAILY [facility] Last Admin: 11/07/16 10:46 Dose: 20 mg Guaifenesin (Mucinex La) 600 mg PO BID [facility] Last Admin: 11/07/16 10:47 Dose: 600 mg Ibuprofen (Motrin Tab) 600 mg PO TID PRN PRN Reason: Pain, moderate (4-7) Last Admin: 11/03/16 09:58 Dose: 600 mg Insulin Aspart (Novolog) 20 unit SC ACTID [facility] Last Admin: 11/07/16 13:07 Dose: 20 unit Insulin Glargine (Lantus) 45 unit SC HS [facility] Insulin Human Regular (Novolin R) 0 unit SC ACHS [facility] PRN Reason: Protocol Last Admin: 11/07/16 13:08 Dose: 4 unit Meclizine HCl (Antivert) 25 mg PO Q12H [facility] Last Admin: 11/07/16 10:47 Dose: 25 mg Montelukast Sodium (Singulair) 10 mg PO HS [facility] Last Admin: 11/06/16 21:26 Dose: 10 mg Pantoprazole Sodium (Protonix Ec Tab) 40 mg PO DAILY [facility] Last Admin: 11/07/16 10:46 Dose: 40 mg Polyethylene Glycol (Miralax) 17 gm PO DAILY [facility] Last Admin: 11/07/16 10:46 Dose: 17 gm Potassium Chloride (K-Dur 20 Meq Er Tab) 20 meq PO ONCE ONE Stop: 11/07/16 15:16 Promethazine HCl/Codeine (Phenergan/Codeine Oral Syrup) 5 ml PO Q4 PRN PRN Reason: Cough Last Admin: 11/03/16 09:58 Dose: 5 ml Rosuvastatin Calcium (Crestor) 10 mg PO HS [facility] Last Admin: 11/06/16 21:26 Dose: 10 mg Fluticasone/Salmeterol (Advair Diskus 250/50) 1 puff INH RQ12 [facility] Last Admin: 11/07/16 10:58 Dose: 1 puff - Labs Labs: 11/07/16 11:47 11/07/16 11:47 PT 11.7 SECONDS (9.7-12.2) 10/29/16 21:33 INR 1.0 10/29/16 21:33 APTT 34 SECONDS (21-34) 10/29/16 21:33 - Constitutional Appears: Non-toxic, No Acute Distress - Head Exam Head Exam: ATRAUMATIC, NORMAL INSPECTION, NORMOCEPHALIC - Eye Exam Eye Exam: EOMI, Normal appearance, PERRL Pupil Exam: NORMAL ACCOMODATION, PERRL Additional comments: c/o double vision, not able to follow fingers with eyes to check for nystagmus - ENT Exam ENT Exam: Mucous Membranes Moist, Normal Exam - Neck Exam Neck Exam: Full ROM, Normal Inspection, Tenderness (Right side of neck- muscle spasm noted). absent: Lymphadenopathy - Respiratory Exam Respiratory Exam: Clear to Ausculation Bilateral, NORMAL BREATHING PATTERN. absent: Accessory Muscle Use, Chest Wall Tenderness, Decreased Breath Sounds, Rales, Rhonchi, Wheezes, Respiratory Distress, Stridor - Cardiovascular Exam Cardiovascular Exam: REGULAR RHYTHM, +S1, +S2. absent: Murmur - GI/Abdominal Exam GI & Abdominal Exam: Soft, Normal Bowel Sounds. absent: Tenderness - Extremities Exam Extremities Exam: Normal Inspection, Pedal Edema (RLE with trace edema), Tenderness (at joints B/L UE). absent: Joint Swelling - Back Exam Back Exam: muscle spasm (midthoracic), NORMAL INSPECTION - Neurological Exam Neurological Exam: Alert, Awake, Oriented x3 - Psychiatric Exam Psychiatric exam: Anxious, Normal Affect - Skin Skin Exam: Dry, Intact, Normal Color, Warm Assessment and Plan - Assessment and Plan (Free Text) Assessment: Dizziness Meclizine 25mg Q12H [facility] pending Rheum arthritis panel neg Neuro consulted- Ashley-recs for MRI brain, EEG, Cervical CT, josef B2 level, R/O seizures, CVA, acute labyrinthitis, post traumatic vascular WISEMAN and vertigo, cardiac causes, or cervicla radiculopathy; poss YANI might be a factor CT cervial spine w/Minor disc bulging noted at the C6-C7 level with mild canal narrowing however no significant cord compression. Brain MRI w/No evidence of acute hemorrhage or infarct. There are a few tiny nonspecific foci of increased T2 signal in the left frontal and right parietal subcortical region nonspecific. Rule out small chronic lacunar type infarcts, sequela of migraine headaches old trauma or post infectious/ inflammatory changes. There are inflammatory changes seen within the maxillary and ethmoid air complexes. Questionable small bilateral maxillary sinus fluid levels left greater than right Asthma exacerbation/Cough off steroids Cont Advair Q12H Cont duonebs q6h Cont Singulair 10mg HS Cont Pulmicort 0.5mg Q12H Cont Phenergan w/codeine PRN Cont Mucinex Pre-post flows per respiratory Monitor FU CT chest Diabetes mellitus ISS high protocol Cont Lantus 40 Units SC HS Increased to 45 Units accuchecks ACHS on high protocol Novolog 30 units ACTID Blood sugars in 300-400's AM Blood sugar 240 A1c 10.2 Monitor Hypokalemia K 3.5 Replaced 20mEq KCl Monitor Constipation Miralax daily Back pain Motrin PRN Heating pad Monitor Tachycardia- resolved patient w/hx CVA but unknown if there is clotting disorder d-dimer neg tachycardia in 80-90's- decreasing Monitor Cards recs: MUGA scan- 49%- pt does not need lifevest, ok to d/c with outpatient FU in clinic- signed off HLD cont home med equivalent- crestor 10mg HS Hx CHF cont home med lasix 20mg PO daily Cards recs: MUGA scan- 49%- pt does not need lifevest HTN BP 136/81 cont vasotec 10mg daily cont coreg 3.125mg BID Anxiety Xanax 0.25mg TID PRN increased to 0.5mg TID [facility] Monitor Headache Tylenol PRN CT brain neg Monitor Epistaxis- resolved Humidifer to O2 via NC CT brain neg Monitor GI/DVT ppx heparin 5000 units sc q8h protonix 40mg daily Dispo Cont med mgmt Cont tele No need for Lifevest as per cardio- signed off Optimize breathing status of pt PT/OT FU neuro recs & W/U DW attending <Kendall Lynn - Last Filed: 11/07/16 17:17> Objective - Vital Signs/Intake and Output Vital Signs (last 24 hours): Temp Pulse Resp BP Pulse Ox 98.7 F 78 20 118/72 96 11/07/16 09:09 11/07/16 16:00 11/07/16 09:09 11/07/16 10:49 11/07/16 09:09 Intake and Output: 11/07/16 11/07/16 06:59 18:59 Intake Total 320 400 Balance 320 400 - Medications Medications: Current Medications Acetaminophen (Tylenol 325mg Tab) 650 mg PO Q6 PRN PRN Reason: Headache Albuterol/Ipratropium (Duoneb 3 Mg/0.5 Mg (3 Ml) Ud) 3 ml INH RQ4 [facility] Last Admin: 11/07/16 16:23 Dose: 3 ml Alprazolam (Xanax) 0.5 mg PO TID [facility] Stop: 11/14/16 16:01 Last Admin: 11/07/16 17:10 Dose: Not Given Aspirin (Ecotrin) 81 mg PO DAILY [facility] Last Admin: 11/07/16 10:46 Dose: 81 mg Budesonide (Pulmicort Respules) 0.5 mg INH RQ12 [facility] Last Admin: 11/07/16 07:44 Dose: 0.5 mg Carvedilol (Coreg) 6.25 mg PO BID [facility] Last Admin: 11/07/16 10:46 Dose: 6.25 mg Enalapril Maleate (Vasotec) 10 mg PO BID [facility] Last Admin: 11/07/16 10:49 Dose: 10 mg Furosemide (Lasix) 20 mg PO DAILY [facility] Last Admin: 11/07/16 10:46 Dose: 20 mg Guaifenesin (Mucinex La) 600 mg PO BID [facility] Last Admin: 11/07/16 17:09 Dose: 600 mg Ibuprofen (Motrin Tab) 600 mg PO TID PRN PRN Reason: Pain, moderate (4-7) Last Admin: 11/03/16 09:58 Dose: 600 mg Insulin Aspart (Novolog) 20 unit SC ACTID [facility] Last Admin: 11/07/16 17:09 Dose: 20 unit Insulin Glargine (Lantus) 45 unit SC [facility] Insulin Human Regular (Novolin R) 0 unit SC ACHS [facility] PRN Reason: Protocol Last Admin: 11/07/16 17:09 Dose: 6 unit Meclizine HCl (Antivert) 25 mg PO Q12H [facility] Last Admin: 11/07/16 10:47 Dose: 25 mg Montelukast Sodium (Singulair) 10 mg PO HS [facility] Last Admin: 11/06/16 21:26 Dose: 10 mg Pantoprazole Sodium (Protonix Ec Tab) 40 mg PO DAILY [facility] Last Admin: 11/07/16 10:46 Dose: 40 mg Polyethylene Glycol (Miralax) 17 gm PO DAILY [facility] Last Admin: 11/07/16 10:46 Dose: 17 gm Promethazine HCl/Codeine (Phenergan/Codeine Oral Syrup) 5 ml PO Q4 PRN PRN Reason: Cough Last Admin: 11/03/16 09:58 Dose: 5 ml Rosuvastatin Calcium (Crestor) 10 mg PO [facility] Last Admin: 11/06/16 21:26 Dose: 10 mg Fluticasone/Salmeterol (Advair Diskus 250/50) 1 puff INH RQ12 [facility] Last Admin: 11/07/16 10:58 Dose: 1 puff - Labs Labs: 11/07/16 11:47 11/07/16 11:47 PT 11.7 SECONDS (9.7-12.2) 10/29/16 21:33 INR 1.0 10/29/16 21:33 APTT 34 SECONDS (21-34) 10/29/16 21:33 Attending/Attestation - Attestation I have personally seen and examined this patient.: Yes I have fully participated in the care of the patient.: Yes I have reviewed all pertinent clinical information, including history, physical exam and plan: Yes Notes (Text): Medical attending: Patient was seen and examined by me, agrees the above note by associate medical director. The associate medical director had started additional Xanax to be given. Considering how the patient seems on exam and discussion with her, and I suspect her anxiety, I do agree with this idea of giving her additional Xanax to see how she does. The patient was also evaluated by neurology as well since she continues to have these reports of dizziness and at times diplopia. An MRI as well as CT scan of the brain are pending at this time. We'll also get a repeat CT of the chest. There was a CAT scan done in August 2016 and will compared to that when if there is any acute changes. Currently she is off of IV Solu-Medrol. Were still continuing her on inhaled steroidal such as Advair, Singulair, and nebulizer treatments Thank you very much, Kendall Lynn
[2016-11-07] MEDS ORDERED: Potassium Chloride 20 mEq ER Tab PO ONE (16:00)
--- NOTE | 2016-11-07 17:27 | CT ---
PROCEDURE: CT Chest without contrast HISTORY: chest pain COMPARISON: 08/26/2016. CT chest. TECHNIQUE: Contiguous axial images were obtained through the chest without intravenous contrast enhancement. Sagittal and coronal reconstructions were performed. Radiation dose (DLP): Upper mGy-cm. This CT exam was performed using one or more of the following dose reduction techniques: Automated exposure control, adjustment of the mA and/or kV according to patient size, and/or use of iterative reconstruction technique. FINDINGS: LUNGS: Left lower lobe Subsegmental infiltrate a new finding. Likely infectious/inflammatory. MEDIASTINUM: Unremarkable thoracic aorta. No aneurysm. Cardiomegaly. No evidence of acute, significant cardiovascular disease. Main pulmonary artery unremarkable. No vascular congestion. Mediastinal adenopathy unchanged compared to the prior study including middle mediastinum, AP window and azygos josep chains. PLEURA: No pleural fluid. No pneumothorax. BONES: No fracture. No destructive lesion. UPPER ABDOMEN: Grossly unremarkable. OTHER FINDINGS: None. IMPRESSION: New left lower lobe infiltrate likely pneumonia. Stable mediastinal lymphadenopathy.
[2016-11-07] MEDS: (Lantus) Insulin Glargine, Recombinant SC SCH (21:44)
[2016-11-08] MEDS: Albuterol-Ipratrop 3 mg / 0.5 (3 ml) UD INH SCH ×6 (00:59→20:11)
--- NOTE | 2016-11-08 07:20 | CP.PCM.PN ---
<Jo Adams - Last Filed: 11/08/16 15:26> Subjective - Date & Time of Evaluation Date of Evaluation: 11/08/16 Time of Evaluation: 07:14 - Subjective Subjective: Patient seen and examined at bedside. Patient states she feels weak and admits to chest congestion. She reports coughing and shortness of breath. She states her appetite is decreased and admits to mild abdominal discomfort. Patient denies chest pain, palpitations, nausea, vomiting, diarrhea, and constipation. Objective - Vital Signs/Intake and Output Vital Signs (last 24 hours): Temp Pulse Resp BP Pulse Ox 98.5 F 109 H 20 121/68 98 11/08/16 04:00 11/08/16 04:16 11/08/16 04:00 11/08/16 04:00 11/08/16 04:00 Intake and Output: 11/08/16 11/08/16 06:59 18:59 Intake Total 320 Balance 320 - Medications Medications: Current Medications Acetaminophen (Tylenol 325mg Tab) 650 mg PO Q6 PRN PRN Reason: Headache Last Admin: 11/08/16 04:12 Dose: 650 mg Albuterol/Ipratropium (Duoneb 3 Mg/0.5 Mg (3 Ml) Ud) 3 ml INH RQ4 [facility] Last Admin: 11/08/16 03:05 Dose: Not Given Alprazolam (Xanax) 0.5 mg PO TID [facility] Stop: 11/14/16 16:01 Last Admin: 11/07/16 17:10 Dose: Not Given Aspirin (Ecotrin) 81 mg PO DAILY [facility] Last Admin: 11/07/16 10:46 Dose: 81 mg Budesonide (Pulmicort Respules) 0.5 mg INH RQ12 [facility] Last Admin: 11/07/16 19:53 Dose: 0.5 mg Carvedilol (Coreg) 6.25 mg PO BID [facility] Last Admin: 11/07/16 17:11 Dose: 6.25 mg Enalapril Maleate (Vasotec) 10 mg PO BID [facility] Last Admin: 11/07/16 17:11 Dose: 10 mg Furosemide (Lasix) 20 mg PO DAILY [facility] Last Admin: 11/07/16 10:46 Dose: 20 mg Guaifenesin (Mucinex La) 600 mg PO BID [facility] Last Admin: 11/07/16 17:09 Dose: 600 mg Ibuprofen (Motrin Tab) 600 mg PO TID PRN PRN Reason: Pain, moderate (4-7) Last Admin: 11/03/16 09:58 Dose: 600 mg Insulin Aspart (Novolog) 20 unit SC ACTID [facility] Last Admin: 11/07/16 17:09 Dose: 20 unit Insulin Glargine (Lantus) 45 unit SC HS [facility] Last Admin: 11/07/16 21:44 Dose: 45 units Insulin Human Regular (Novolin R) 0 unit SC ACHS [facility] PRN Reason: Protocol Last Admin: 11/07/16 21:47 Dose: Not Given Meclizine HCl (Antivert) 25 mg PO Q12H [facility] Last Admin: 11/07/16 21:44 Dose: 25 mg Montelukast Sodium (Singulair) 10 mg PO HS [facility] Last Admin: 11/07/16 21:44 Dose: 10 mg Pantoprazole Sodium (Protonix Ec Tab) 40 mg PO DAILY [facility] Last Admin: 11/07/16 10:46 Dose: 40 mg Polyethylene Glycol (Miralax) 17 gm PO DAILY [facility] Last Admin: 11/07/16 10:46 Dose: 17 gm Promethazine HCl/Codeine (Phenergan/Codeine Oral Syrup) 5 ml PO Q4 PRN PRN Reason: Cough Last Admin: 11/03/16 09:58 Dose: 5 ml Rosuvastatin Calcium (Crestor) 10 mg PO HS [facility] Last Admin: 11/07/16 21:44 Dose: 10 mg Fluticasone/Salmeterol (Advair Diskus 250/50) 1 puff INH RQ12 [facility] Last Admin: 11/07/16 19:53 Dose: 1 puff - Labs Labs: 11/07/16 11:47 11/07/16 11:47 PT 11.7 SECONDS (9.7-12.2) 10/29/16 21:33 INR 1.0 10/29/16 21:33 APTT 34 SECONDS (21-34) 10/29/16 21:33 - Constitutional Appears: Non-toxic, No Acute Distress - Head Exam Head Exam: ATRAUMATIC, NORMAL INSPECTION, NORMOCEPHALIC - Eye Exam Eye Exam: EOMI, Normal appearance, PERRL - ENT Exam ENT Exam: Mucous Membranes Moist - Respiratory Exam Respiratory Exam: Decreased Breath Sounds - Cardiovascular Exam Cardiovascular Exam: +S1, +S2. absent: Murmur - GI/Abdominal Exam GI & Abdominal Exam: Soft, Tenderness, Normal Bowel Sounds - Extremities Exam Extremities Exam: Pedal Edema - Back Exam Back Exam: NORMAL INSPECTION - Neurological Exam Neurological Exam: Alert, Awake, Oriented x3 - Psychiatric Exam Psychiatric exam: Normal Affect, Normal Mood - Skin Skin Exam: Intact, Normal Color, Warm Assessment and Plan - Assessment and Plan (Free Text) Assessment: Dizziness Meclizine 25mg Q12H MYA pending Rheum arthritis panel neg Neuro consulted- [place]-recs for MRI brain, EEG, Cervical CT, josef B2 level, R/O seizures, CVA, acute labyrinthitis, post traumatic vascular WISEMAN and vertigo, cardiac causes, or cervicla radiculopathy; poss YANI might be a factor CT cervial spine w/Minor disc bulging noted at the C6-C7 level with mild canal narrowing however no significant cord compression. Brain MRI w/No evidence of acute hemorrhage or infarct. There are a few tiny nonspecific foci of increased T2 signal in the left frontal and right parietal subcortical region nonspecific. Rule out small chronic lacunar type infarcts, sequela of migraine headaches old trauma or post infectious/ inflammatory changes. There are inflammatory changes seen within the maxillary and ethmoid air complexes. Questionable small bilateral maxillary sinus fluid levels left greater than right Cervical Spine MRI (11/07/16): Minor disc bulging noted at the C6-C7 level with mild canal narrowing however no significant cord compression. Asthma exacerbation/Cough Chest CT (11/07): New left lower lobe infiltrate likely pneumonia. Stable mediastinal lymphadenopathy. WBC 13.2, Neut 80.8%, Procalcitonin <0.05 Start Avelox 400 mg IVPB Q24h for possible pneumonia Follow-up procalcitonin off steroids Cont Advair Q12H Cont duonebs q6h Cont Singulair 10mg HS Cont Pulmicort 0.5mg Q12H Cont Phenergan w/codeine PRN Cont Mucinex Pre-post flows per respiratory Monitor FU CT chest Diabetes mellitus ISS high protocol Cont Lantus 40 Units SC HS Increased to 45 Units accuchecks ACHS on high protocol Novolog 30 units ACTID Blood sugars in 300-400's AM Blood sugar 240 A1c 10.2 Monitor Hypokalemia K 3.3 Replaced 40 Meq of Kdur Monitor Constipation Miralax daily Back pain Motrin PRN Heating pad Monitor Tachycardia- resolved patient w/hx CVA but unknown if there is clotting disorder d-dimer neg tachycardia in 80-90's- decreasing Monitor Cards recs: MUGA scan- 49%- pt does not need lifevest, ok to d/c with outpatient FU in clinic- signed off HLD cont home med equivalent- crestor 10mg HS Hx CHF cont home med lasix 20mg PO daily Cards recs: MUGA scan- 49%- pt does not need lifevest HTN BP 129/80 cont vasotec 10mg daily cont coreg 3.125mg BID Anxiety Xanax 0.25mg TID PRN increased to 0.5mg TID [facility] Monitor Headache Tylenol PRN CT brain neg Monitor Epistaxis- resolved Humidifer to O2 via NC CT brain neg Monitor GI/DVT ppx heparin 5000 units sc q8h protonix 40mg daily Dispo Cont med mgmt Cont tele No need for Lifevest as per cardio- signed off [facility]imize breathing status of pt PT/OT FU neuro recs & W/U <Kendall Lynn - Last Filed: 11/08/16 16:05> Objective - Vital Signs/Intake and Output Vital Signs (last 24 hours): Temp Pulse Resp BP Pulse Ox 98.5 F 78 20 129/80 98 11/08/16 08:58 11/08/16 10:28 11/08/16 08:58 11/08/16 09:41 11/08/16 08:58 Intake and Output: 11/08/16 11/08/16 06:59 18:59 Intake Total 320 Balance 320 - Medications Medications: Current Medications Acetaminophen (Tylenol 325mg Tab) 650 mg PO Q6 PRN PRN Reason: Headache Last Admin: 11/08/16 04:12 Dose: 650 mg Albuterol/Ipratropium (Duoneb 3 Mg/0.5 Mg (3 Ml) Ud) 3 ml INH RQ4 [facility] Last Admin: 11/08/16 15:41 Dose: 3 ml Alprazolam (Xanax) 0.5 mg PO TID [facility] Stop: 11/14/16 16:01 Last Admin: 11/08/16 14:34 Dose: Not Given Aspirin (Ecotrin) 81 mg PO DAILY [facility] Last Admin: 11/08/16 09:41 Dose: 81 mg Budesonide (Pulmicort Respules) 0.5 mg INH RQ12 [facility] Last Admin: 11/08/16 08:02 Dose: 0.5 mg Carvedilol (Coreg) 6.25 mg PO BID [facility] Last Admin: 11/08/16 09:41 Dose: 6.25 mg Enalapril Maleate (Vasotec) 10 mg PO BID [facility] Last Admin: 11/08/16 09:41 Dose: 10 mg Furosemide (Lasix) 20 mg PO DAILY [facility] Last Admin: 11/08/16 09:41 Dose: 20 mg Guaifenesin (Mucinex La) 600 mg PO BID [facility] Last Admin: 11/08/16 09:41 Dose: 600 mg Moxifloxacin HCl (Avelox Iv 400mg/250ml Ns) 250 mls @ 167 mls/hr IVPB Q24H [facility] Ibuprofen (Motrin Tab) 600 mg PO TID PRN PRN Reason: Pain, moderate (4-7) Last Admin: 11/03/16 09:58 Dose: 600 mg Insulin Aspart (Novolog) 30 unit SC ACTID [facility] Insulin Glargine (Lantus) 45 unit SC [facility] Last Admin: 11/07/16 21:44 Dose: 45 units Insulin Human Regular (Novolin R) 0 unit SC ACHS [facility] PRN Reason: Protocol Last Admin: 11/08/16 12:58 Dose: 4 unit Meclizine HCl (Antivert) 25 mg PO Q12H [facility] Last Admin: 11/08/16 09:41 Dose: 25 mg Montelukast Sodium (Singulair) 10 mg PO HS [facility] Last Admin: 11/07/16 21:44 Dose: 10 mg Pantoprazole Sodium (Protonix Ec Tab) 40 mg PO DAILY [facility] Last Admin: 11/08/16 09:41 Dose: 40 mg Polyethylene Glycol (Miralax) 17 gm PO DAILY [facility] Last Admin: 11/08/16 09:42 Dose: 17 gm Promethazine HCl/Codeine (Phenergan/Codeine Oral Syrup) 5 ml PO Q4 PRN PRN Reason: Cough Last Admin: 11/03/16 09:58 Dose: 5 ml Rosuvastatin Calcium (Crestor) 10 mg PO HS [facility] Last Admin: 11/07/16 21:44 Dose: 10 mg Fluticasone/Salmeterol (Advair Diskus 250/50) 1 puff INH RQ12 [facility] Last Admin: 11/08/16 10:27 Dose: 1 puff - Labs Labs: 11/08/16 11:04 11/08/16 11:04 PT 11.7 SECONDS (9.7-12.2) 10/29/16 21:33 INR 1.0 10/29/16 21:33 APTT 34 SECONDS (21-34) 10/29/16 21:33 Attending/Attestation - Attestation I have personally seen and examined this patient.: Yes I have fully participated in the care of the patient.: Yes I have reviewed all pertinent clinical information, including history, physical exam and plan: Yes Notes (Text): 11/08/16 15:59 Medical Attending: Patient was seen and examined by me. Agree with the above note by the resident. She is still anxious in appearance. Xanax .5 TID She tells us breathing is not changed from before. Currently off of the IV solumedrol. CT imaging of the chest suggest an infiltrate, Avelox 40 has been started. She also completed MRI of the brain and this was negative for any acute process. thank you Kendall Lynn 11/08/16 16:04
[2016-11-08] MEDS: Budesonide 0.5 mg/2 ml Inhal Susp UD INH SCH ×2 (08:02→20:09)
[2016-11-08] MEDS: (Novolin R) Insulin Human Regular 100 units/ml vial SC SCH ×4 (08:22→22:48)
[2016-11-08] MEDS: (Novolog) Insulin Aspart, Recombinant 100 u/ml 10 ml vial SC SCH ×3 (08:23→17:36)
[2016-11-08] MEDS: Pantoprazole 40 mg EC Tab PO SCH (09:41)
[2016-11-08] MEDS: guaiFENesin 600 mg ER Tab PO SCH ×2 (09:41→17:37)
[2016-11-08] MEDS: POLYETHYLENE GLYCOL 3350 17 GM/Dose PACKET PO SCH (09:42)
[2016-11-08] MEDS: Fluticasone-Salmeterol 250-50mcg Diskus INH SCH ×2 (10:27→20:09)
[2016-11-08 11:10] LABS: BASO % 0.3 % (0.0-2.0); EOS # 0.1 K/uL (0.0-0.7); HEMATOCRIT 40.4 % (34.0-47.0); LYMPH # 1.7 K/uL (1.0-4.3); LYMPH % 12.6 % (20.0-40.0); MEAN CELL VOLUME 85.9 fL (81.0-99.0); MEAN CORPUSCULAR HEMOGLOBIN 28.7 pg (27.0-31.0); MEAN CORPUSCULAR HGB CONC 33.4 g/dL (33.0-37.0); MEAN PLATELET VOLUME 7.9 fL (7.2-11.7); MONO # 0.7 K/uL (0.0-0.8); MONO % 5.3 % (0.0-10.0); RED CELL DISTRIBUTION WIDTH 12.9 % (11.5-14.5); WHITE BLOOD COUNT 13.2 K/uL (4.8-10.8)
[2016-11-08 11:25] LABS: CHLORIDE 97 mmol/L (98-107); POTASSIUM 3.3 mmol/L (3.6-5.2); SODIUM 135 mmol/L (132-148)
[2016-11-08 11:27] LABS: ALB/GLOB RATIO 1.3 (1.0-2.1); ALKALINE PHOSPHATASE 91 U/L (38-126); AST/SGOT 16 U/L (14-36); BILIRUBIN,TOTAL 0.4 mg/dL (0.2-1.3); CARBON DIOXIDE 26 mmol/L (22-30); GFR AFRICAN-AMERICAN > 60
[2016-11-08 11:28] LABS: ALT/SGPT 33 U/L (9-52); BLOOD UREA NITROGEN 16 mg/dL (7-17); CALCIUM 8.1 mg/dl (8.6-10.4); GLUCOSE,RANDOM 280 mg/dL (65-105); MAGNESIUM 1.9 mg/dL (1.6-2.3)
[2016-11-08 12:31] LABS: PROCALCITONIN SERUM < 0.05 NG/ML (0.19-0.49)
[2016-11-08] MEDS ORDERED: Moxifloxacin IV 400mg/250ml NS 250 ML IVPB SCH ×2 (14:15→15:00)
--- NOTE | 2016-11-08 15:11 | VASCLAB ---
PROCEDURE: HISTORY: Dizziness, Left side numbness COMPARISON: None available. TECHNIQUE: Grayscale and duplex Doppler evaluation of the cervical carotid and vertebral arteries were performed. The common carotid, carotid bifurcations and cervical Internal Carotid Artery (ICA) and proximal External Carotid Artery (ECA) were evaluated. The vertebral arteries were evaluated for gross patency and flow direction. Report prepared by Violetta Villatoro Connie FINDINGS: RIGHT CAROTID ARTERIES: 1. Common Carotid Artery: No significant focal plaque formation of the right common carotid artery. Maximum Peak Systolic velocity: 87 cm/sec: End-diastolic velocity 16 cm/sec. 2. Carotid Bifurcation: Homogeneous plaque formation. Maximum Peak Systolic velocity: 36 cm/sec: End-diastolic velocity 9 cm/sec. 3. Internal Carotid Artery: Plaque description: Homogeneous 3.1. Proximal Segment: Peak systolic velocity 58 cm/sec: End-diastolic velocity 12 cm/sec - % stenosis 0-15% 3.2. Middle Segment: Peak systolic velocity 71 cm/sec: End-diastolic velocity 24 cm/sec - % stenosis 0-15% 3.3. Distal Segment: Peak systolic velocity 85 cm/sec: End-diastolic velocity 20 cm/sec - % stenosis 0-15% 4. External Carotid Artery: No significant focal plaque formation. Peak systolic velocity 190 cm/sec 5. ICA/CCA Ratio: 1.3 LEFT CAROTID ARTERIES: 1. Common Carotid Artery: No significant focal plaque formation of the left common carotid artery. Maximum Peak Systolic velocity: 77 cm/sec: End-diastolic velocity 15 cm/sec. 2. Carotid Bifurcation: Homogeneous plaque formation. Maximum Peak Systolic velocity: 45 cm/sec: End-diastolic velocity 13 cm/sec. 3. Internal Carotid Artery: Plaque description: Homogeneous 3.1. Proximal Segment: Peak systolic velocity 79 cm/sec: End-diastolic velocity 14 cm/sec - % stenosis 0-15% 3.2. Middle Segment: Peak systolic velocity 38 cm/sec: End-diastolic velocity 9 cm/sec - % stenosis 0-15% 3.3. Distal Segment: Peak systolic velocity 59 cm/sec: End-diastolic velocity 16 cm/sec - % stenosis 0-15% 4. External Carotid Artery: No significant focal plaque formation. Peak systolic velocity 132 cm/sec 5. ICA/CCA Ratio: 0.9 VERTEBRAL ARTERIES: 1. Right Vertebral Artery: The right vertebral artery flow direction is antegrade. 2. Left Vertebral Artery: The left vertebral artery flow direction is antegrade. OTHER FINDINGS: 1. Right Brachial Blood pressure: 140 mmHg. 2. Left Brachial Blood pressure: 130 mmHg. IMPRESSION: RIGHT: Duplex scan does not suggest hemodynamically significant stenosis of the right extracranial carotid arteries. LEFT: Duplex scan does not suggest hemodynamically significant stenosis of the left extracranial carotid arteries.
[2016-11-08] MEDS ORDERED: Potassium Chloride 20 mEq ER Tab PO ONE (15:45)
[2016-11-08] MEDS: Moxifloxacin IV 400mg/250ml NS 250 ML IVPB SCH (16:22)
[2016-11-08] MEDS: (Lantus) Insulin Glargine, Recombinant SC SCH (22:20)
--- NOTE | 2016-11-09 00:49 | CP.PCM.PN ---
Subjective - Date & Time of Evaluation Date of Evaluation: 11/08/16 Time of Evaluation: 19:45 - Subjective Subjective: No major changes in her condition, she is stable. Objective - Vital Signs/Intake and Output Vital Signs (last 24 hours): Temp Pulse Resp BP Pulse Ox 98.5 F 105 H 20 127/82 97 11/08/16 16:31 11/08/16 19:48 11/08/16 16:31 11/08/16 17:39 11/08/16 16:31 Intake and Output: 11/08/16 11/09/16 18:59 06:59 Intake Total 400 Balance 400 - Medications Medications: Current Medications Acetaminophen (Tylenol 325mg Tab) 650 mg PO Q6 PRN PRN Reason: Headache Last Admin: 11/08/16 04:12 Dose: 650 mg Albuterol/Ipratropium (Duoneb 3 Mg/0.5 Mg (3 Ml) Ud) 3 ml INH RQ4 [facility] Last Admin: 11/08/16 20:11 Dose: 3 ml Alprazolam (Xanax) 0.5 mg PO TID [facility] Stop: 11/14/16 16:01 Last Admin: 11/08/16 17:38 Dose: 0.5 mg Aspirin (Ecotrin) 81 mg PO DAILY [facility] Last Admin: 11/08/16 09:41 Dose: 81 mg Budesonide (Pulmicort Respules) 0.5 mg INH RQ12 [facility] Last Admin: 11/08/16 20:09 Dose: 0.5 mg Carvedilol (Coreg) 6.25 mg PO BID [facility] Last Admin: 11/08/16 17:38 Dose: 6.25 mg Enalapril Maleate (Vasotec) 10 mg PO BID [facility] Last Admin: 11/08/16 17:39 Dose: 10 mg Furosemide (Lasix) 20 mg PO DAILY [facility] Last Admin: 11/08/16 09:41 Dose: 20 mg Guaifenesin (Mucinex La) 600 mg PO BID [facility] Last Admin: 11/08/16 17:37 Dose: 600 mg Moxifloxacin HCl (Avelox Iv 400mg/250ml Ns) 250 mls @ 167 mls/hr IVPB Q24H [facility] Last Admin: 11/08/16 16:22 Dose: 167 mls/hr Ibuprofen (Motrin Tab) 600 mg PO TID PRN PRN Reason: Pain, moderate (4-7) Last Admin: 11/03/16 09:58 Dose: 600 mg Insulin Aspart (Novolog) 30 unit SC ACTID [facility] Last Admin: 11/08/16 17:36 Dose: 30 unit Insulin Glargine (Lantus) 45 unit SC HS [facility] Last Admin: 11/08/16 22:20 Dose: 45 units Insulin Human Regular (Novolin R) 0 unit SC ACHS [facility] PRN Reason: Protocol Last Admin: 11/08/16 22:48 Dose: Not Given Meclizine HCl (Antivert) 25 mg PO Q12H [facility] Last Admin: 11/08/16 22:18 Dose: 25 mg Montelukast Sodium (Singulair) 10 mg PO HS [facility] Last Admin: 11/08/16 22:17 Dose: 10 mg Pantoprazole Sodium (Protonix Ec Tab) 40 mg PO DAILY [facility] Last Admin: 11/08/16 09:41 Dose: 40 mg Polyethylene Glycol (Miralax) 17 gm PO DAILY [facility] Last Admin: 11/08/16 09:42 Dose: 17 gm Promethazine HCl/Codeine (Phenergan/Codeine Oral Syrup) 5 ml PO Q4 PRN PRN Reason: Cough Last Admin: 11/03/16 09:58 Dose: 5 ml Rosuvastatin Calcium (Crestor) 10 mg PO HS [facility] Last Admin: 11/08/16 22:18 Dose: 10 mg Fluticasone/Salmeterol (Advair Diskus 250/50) 1 puff INH RQ12 [facility] Last Admin: 11/08/16 20:09 Dose: 1 puff - Labs Labs: 11/08/16 11:04 11/08/16 11:04 PT 11.7 SECONDS (9.7-12.2) 10/29/16 21:33 INR 1.0 10/29/16 21:33 APTT 34 SECONDS (21-34) 10/29/16 21:33 Assessment and Plan (1) Asthma exacerbation Status: Acute (2) Tachycardia Status: Acute (3) Dizziness Status: Acute (4) Vertigo Status: Acute (5) Cervical radiculopathy Status: Acute (6) Diabetic peripheral neuropathy Status: Acute (7) Sleep apnea Status: Acute
[2016-11-09] MEDS: Albuterol-Ipratrop 3 mg / 0.5 (3 ml) UD INH SCH ×6 (01:32→20:27)
[2016-11-09 07:02] LABS: BASO % 0.2 % (0.0-2.0); EOS # 0.2 K/uL (0.0-0.7); EOS % 1.3 % (0.0-4.0); LYMPH % 13.9 % (20.0-40.0); MEAN CELL VOLUME 86.6 fL (81.0-99.0); MEAN CORPUSCULAR HEMOGLOBIN 28.3 pg (27.0-31.0); MEAN CORPUSCULAR HGB CONC 32.7 g/dL (33.0-37.0); MEAN PLATELET VOLUME 7.9 fL (7.2-11.7); MONO # 0.9 K/uL (0.0-0.8); MONO % 6.6 % (0.0-10.0); RED CELL DISTRIBUTION WIDTH 12.7 % (11.5-14.5); WHITE BLOOD COUNT 14.3 K/uL (4.8-10.8)
[2016-11-09] MEDS: Budesonide 0.5 mg/2 ml Inhal Susp UD INH SCH ×2 (07:35→20:28)
[2016-11-09 07:42] LABS: CHLORIDE 98 mmol/L (98-107); SODIUM 136 mmol/L (132-148)
[2016-11-09 07:43] LABS: POTASSIUM 3.9 mmol/L (3.6-5.2)
[2016-11-09 07:45] LABS: ALB/GLOB RATIO 1.5 (1.0-2.1); ALKALINE PHOSPHATASE 99 U/L (38-126); AST/SGOT 18 U/L (14-36); BILIRUBIN,TOTAL 0.8 mg/dL (0.2-1.3); BLOOD UREA NITROGEN 11 mg/dL (7-17); CARBON DIOXIDE 26 mmol/L (22-30); GFR AFRICAN-AMERICAN > 60; GLUCOSE,RANDOM 252 mg/dL (65-105); TOTAL PROTEIN 5.6 g/dL (6.3-8.3)
[2016-11-09 07:46] LABS: ALT/SGPT 33 U/L (9-52); CALCIUM 8.5 mg/dl (8.6-10.4)
[2016-11-09] MEDS: Fluticasone-Salmeterol 250-50mcg Diskus INH SCH ×2 (08:10→20:27)
[2016-11-09] MEDS: (Novolin R) Insulin Human Regular 100 units/ml vial SC SCH ×4 (08:29→21:23)
[2016-11-09] MEDS: (Novolog) Insulin Aspart, Recombinant 100 u/ml 10 ml vial SC SCH ×3 (08:30→17:30)
[2016-11-09] MEDS: Pantoprazole 40 mg EC Tab PO SCH (10:05)
[2016-11-09] MEDS: guaiFENesin 600 mg ER Tab PO SCH ×2 (10:06→17:31)
[2016-11-09] MEDS: POLYETHYLENE GLYCOL 3350 17 GM/Dose PACKET PO SCH (10:06)
--- NOTE | 2016-11-09 11:10 | CP.PCM.PN ---
Subjective - Date & Time of Evaluation Date of Evaluation: 11/09/16 Time of Evaluation: 10:00 - Subjective Subjective: Patient was seen and examined by me with the help of medical team translating. When we saw her she was calm and not in acute distress. She has been reciving Xanax to help with anxiety She was still wheezing slightly on exam. She reports she still has some dizziness, we tried giving meclizine but that has not helped. An MRI of the brain was also done and this was negative for acute findings. A CT scan of the chest showed possible pneumonia on 11/07 and she was already placed on IV abx. She has a WBC of 14, cultures are negative at this moment The patient had a NEGATIVE MYA, Rheum, and Influenza. Objective - Vital Signs/Intake and Output Vital Signs (last 24 hours): Temp Pulse Resp BP Pulse Ox 98.6 F 89 20 127/80 98 11/09/16 10:04 11/09/16 10:04 11/09/16 10:04 11/09/16 10:05 11/09/16 10:04 - Medications Medications: Current Medications Acetaminophen (Tylenol 325mg Tab) 650 mg PO Q6 PRN PRN Reason: Headache Last Admin: 11/08/16 04:12 Dose: 650 mg Albuterol/Ipratropium (Duoneb 3 Mg/0.5 Mg (3 Ml) Ud) 3 ml INH RQ4 [facility] Last Admin: 11/09/16 07:35 Dose: 3 ml Alprazolam (Xanax) 0.5 mg PO TID [facility] Stop: 11/14/16 16:01 Last Admin: 11/09/16 10:05 Dose: 0.5 mg Aspirin (Ecotrin) 81 mg PO DAILY [facility] Last Admin: 11/09/16 10:05 Dose: 81 mg Budesonide (Pulmicort Respules) 0.5 mg INH RQ12 [facility] Last Admin: 11/09/16 07:35 Dose: 0.5 mg Carvedilol (Coreg) 6.25 mg PO BID [facility] Last Admin: 11/09/16 10:05 Dose: 6.25 mg Enalapril Maleate (Vasotec) 10 mg PO BID [facility] Last Admin: 11/09/16 10:05 Dose: 10 mg Furosemide (Lasix) 20 mg PO DAILY [facility] Last Admin: 11/09/16 10:05 Dose: 20 mg Guaifenesin (Mucinex La) 600 mg PO BID [facility] Last Admin: 11/09/16 10:06 Dose: 600 mg Moxifloxacin HCl (Avelox Iv 400mg/250ml Ns) 250 mls @ 167 mls/hr IVPB Q24H [facility] Last Admin: 11/08/16 16:22 Dose: 167 mls/hr Ibuprofen (Motrin Tab) 600 mg PO TID PRN PRN Reason: Pain, moderate (4-7) Last Admin: 11/09/16 08:31 Dose: 600 mg Insulin Aspart (Novolog) 30 unit SC ACTID [facility] Last Admin: 11/09/16 08:30 Dose: 30 unit Insulin Glargine (Lantus) 45 unit SC HS [facility] Last Admin: 11/08/16 22:20 Dose: 45 units Insulin Human Regular (Novolin R) 0 unit SC ACHS [facility] PRN Reason: Protocol Last Admin: 11/09/16 08:29 Dose: 6 unit Meclizine HCl (Antivert) 25 mg PO Q12H [facility] Last Admin: 11/09/16 10:05 Dose: 25 mg Montelukast Sodium (Singulair) 10 mg PO HS [facility] Last Admin: 11/08/16 22:17 Dose: 10 mg Pantoprazole Sodium (Protonix Ec Tab) 40 mg PO DAILY [facility] Last Admin: 11/09/16 10:05 Dose: 40 mg Polyethylene Glycol (Miralax) 17 gm PO DAILY [facility] Last Admin: 11/09/16 10:06 Dose: 17 gm Promethazine HCl/Codeine (Phenergan/Codeine Oral Syrup) 5 ml PO Q4 PRN PRN Reason: Cough Last Admin: 11/03/16 09:58 Dose: 5 ml Rosuvastatin Calcium (Crestor) 10 mg PO HS [facility] Last Admin: 11/08/16 22:18 Dose: 10 mg Fluticasone/Salmeterol (Advair Diskus 250/50) 1 puff INH RQ12 [facility] Last Admin: 11/09/16 08:10 Dose: 1 puff - Labs Labs: 11/09/16 06:40 11/09/16 06:40 PT 11.7 SECONDS (9.7-12.2) 10/29/16 21:33 INR 1.0 10/29/16 21:33 APTT 34 SECONDS (21-34) 10/29/16 21:33 - Constitutional Appears: Well, No Acute Distress - Head Exam Head Exam: NORMAL INSPECTION - Eye Exam Eye Exam: Normal appearance - ENT Exam ENT Exam: Mucous Membranes Moist - GI/Abdominal Exam GI & Abdominal Exam: Soft, Normal Bowel Sounds Additional comments: Obesity - Neurological Exam Neurological Exam: Alert, Awake, Oriented x3 Neuro motor strength exam: Left Upper Extremity: 5, Right Upper Extremity: 5, Left Lower Extremity: 5, Right Lower Extremity: 5 - Psychiatric Exam Psychiatric exam: Depressed, Flat Affect - Skin Skin Exam: Normal Color, Warm Assessment and Plan - Assessment and Plan (Free Text) Assessment: Asthma exacerbation/Cough 11/09: Today breathing appeared easier on exam. CT scan had suggested left lower lobe infiltrate likely pneumonia, on Avelox. Continue monitor cultures WBC 13.2 , Neut 80.8%, Procalcitonin <0.05 Avelox 400 mg IVPB Q24h for possible pneumonia Procalcitonin is low off steroids Cont Advair Q12H Cont duonebs q6h Cont Singulair 10mg HS Cont Pulmicort 0.5mg Q12H Cont Phenergan w/codeine PRN Cont Mucinex Dizziness 11/09: Nothing seems to help. MYA negative, Rheum negative, influenza negative. She had an MRI of the brain and this is negative. MYA and Rheu negatove. Meclizine 25mg Q12H MYA pending Rheum arthritis panel neg Neuro consulted- [place]-rec for MRI brain, EEG, Cervical CT, josef B2 level, R/O seizures, CVA, acute labyrinthitis, post traumatic vascular WISEMAN and vertigo, cardiac causes, or cervicla radiculopathy; poss YANI might be a factor CT cervial spine w/Minor disc bulging noted at the C6-C7 level with mild canal narrowing however no significant cord compression. Brain MRI w/No evidence of acute hemorrhage or infarct. There are a few tiny nonspecific foci of increased T2 signal in the left frontal and right parietal subcortical region nonspecific. Rule out small chronic lacunar type infarcts, sequela of migraine headaches old trauma or post infectious/ inflammatory changes. There are inflammatory changes seen within the maxillary and ethmoid air complexes. Questionable small bilateral maxillary sinus fluid levels left greater than right Cervical Spine MRI (11/07/16): Minor disc bulging noted at the C6-C7 level with mild canal narrowing however no significant cord compression. Diabetes mellitus ISS high protocol Cont Lantus 40 Units SC HS Increased to 45 Units accuchecks ACHS on high protocol Novolog 30 units ACTID Blood sugars in 300-400's AM Blood sugar 240 A1c 10.2 Constipation Miralax daily Back pain Motrin PRN Heating pad Monitor Tachycardia- resolved patient w/hx CVA but unknown if there is clotting disorder d-dimer neg tachycardia in 80-90's- decreasing Monitor Cards recs: MUGA scan- 49%- pt does not need lifevest, ok to d/c with outpatient FU in clinic- signed off HLD cont home med equivalent- crestor 10mg HS Hx CHF cont home med lasix 20mg PO daily Cards recs: MUGA scan- 49%- pt does not need lifevest HTN BP 129/80 cont vasotec 10mg daily cont coreg 3.125mg BID Anxiety Xanax 0.25mg TID PRN increased to 0.5mg TID [facility] Monitor Headache Tylenol PRN CT brain neg Monitor Epistaxis- resolved Humidifer to O2 via NC CT brain neg Monitor GI/DVT ppx heparin 5000 units sc q8h protonix 40mg daily
[2016-11-09] MEDS ORDERED: Ergocalciferol 50,000 Intl Units Cap PO SCH (13:45)
[2016-11-09] MEDS: Moxifloxacin IV 400mg/250ml NS 250 ML IVPB SCH (17:32)
[2016-11-09] MEDS: (Lantus) Insulin Glargine, Recombinant SC SCH (21:34)
--- NOTE | 2016-11-09 21:59 | CP.PCM.PN ---
Subjective - Date & Time of Evaluation Date of Evaluation: 11/09/16 Time of Evaluation: 20:15 - Subjective Subjective: She is more stable and has very low Vitamin D. She is receiving replacement. Negative Carotid Doppler. Objective - Vital Signs/Intake and Output Vital Signs (last 24 hours): Temp Pulse Resp BP Pulse Ox 97.4 F L 77 18 105/60 98 11/09/16 16:00 11/09/16 17:00 11/09/16 16:00 11/09/16 17:31 11/09/16 16:00 Intake and Output: 11/09/16 11/10/16 18:59 06:59 Intake Total 400 Balance 400 - Medications Medications: Current Medications Acetaminophen (Tylenol 325mg Tab) 650 mg PO Q6 PRN PRN Reason: Headache Last Admin: 11/08/16 04:12 Dose: 650 mg Albuterol/Ipratropium (Duoneb 3 Mg/0.5 Mg (3 Ml) Ud) 3 ml INH RQ4 [facility] Last Admin: 11/09/16 20:27 Dose: 3 ml Alprazolam (Xanax) 0.5 mg PO TID [facility] Stop: 11/14/16 16:01 Last Admin: 11/09/16 17:31 Dose: 0.5 mg Aspirin (Ecotrin) 81 mg PO DAILY [facility] Last Admin: 11/09/16 10:05 Dose: 81 mg Budesonide (Pulmicort Respules) 0.5 mg INH RQ12 [facility] Last Admin: 11/09/16 20:28 Dose: 0.5 mg Carvedilol (Coreg) 6.25 mg PO BID [facility] Last Admin: 11/09/16 17:32 Dose: 6.25 mg Enalapril Maleate (Vasotec) 10 mg PO BID [facility] Last Admin: 11/09/16 17:31 Dose: 10 mg Ergocalciferol (Drisdol 50,000 Intl Units Cap) 1 cap PO Q7D [facility] Last Admin: 11/09/16 14:17 Dose: 1 cap Furosemide (Lasix) 20 mg PO DAILY [facility] Last Admin: 11/09/16 10:05 Dose: 20 mg Guaifenesin (Mucinex La) 600 mg PO BID [facility] Last Admin: 11/09/16 17:31 Dose: 600 mg Moxifloxacin HCl (Avelox Iv 400mg/250ml Ns) 250 mls @ 167 mls/hr IVPB Q24H [facility] Last Admin: 11/09/16 17:32 Dose: 167 mls/hr Ibuprofen (Motrin Tab) 600 mg PO TID PRN PRN Reason: Pain, moderate (4-7) Last Admin: 11/09/16 08:31 Dose: 600 mg Insulin Aspart (Novolog) 30 unit SC ACTID [facility] Last Admin: 11/09/16 17:30 Dose: 30 unit Insulin Glargine (Lantus) 45 unit SC HS [facility] Last Admin: 11/09/16 21:34 Dose: 45 units Insulin Human Regular (Novolin R) 0 unit SC ACHS [facility] PRN Reason: Protocol Last Admin: 11/09/16 21:23 Dose: Not Given Meclizine HCl (Antivert) 25 mg PO Q12H [facility] Last Admin: 11/09/16 21:34 Dose: 25 mg Montelukast Sodium (Singulair) 10 mg PO [facility] Last Admin: 11/09/16 21:34 Dose: 10 mg Pantoprazole Sodium (Protonix Ec Tab) 40 mg PO DAILY [facility] Last Admin: 11/09/16 10:05 Dose: 40 mg Polyethylene Glycol (Miralax) 17 gm PO DAILY [facility] Last Admin: 11/09/16 10:06 Dose: 17 gm Promethazine HCl/Codeine (Phenergan/Codeine Oral Syrup) 5 ml PO Q4 PRN PRN Reason: Cough Last Admin: 11/03/16 09:58 Dose: 5 ml Rosuvastatin Calcium (Crestor) 10 mg PO [facility] Last Admin: 11/09/16 21:34 Dose: 10 mg Fluticasone/Salmeterol (Advair Diskus 250/50) 1 puff INH RQ12 [facility] Last Admin: 11/09/16 20:27 Dose: 1 puff - Labs Labs: 11/09/16 06:40 11/09/16 06:40 PT 11.7 SECONDS (9.7-12.2) 10/29/16 21:33 INR 1.0 10/29/16 21:33 APTT 34 SECONDS (21-34) 10/29/16 21:33 Assessment and Plan (1) Asthma exacerbation Status: Acute (2) Tachycardia Status: Acute (3) Dizziness Status: Acute (4) Vertigo Status: Acute (5) Cervical radiculopathy Status: Acute (6) Diabetic peripheral neuropathy Status: Acute (7) Sleep apnea Status: Acute
[2016-11-10] MEDS: Albuterol-Ipratrop 3 mg / 0.5 (3 ml) UD INH SCH ×6 (00:28→20:06)
[2016-11-10 08:06] LABS: BASO % 0.1 % (0.0-2.0); EOS # 0.2 K/uL (0.0-0.7); EOS % 1.4 % (0.0-4.0); HEMATOCRIT 38.5 % (34.0-47.0); LYMPH # 1.3 K/uL (1.0-4.3); LYMPH % 9.6 % (20.0-40.0); MEAN CORPUSCULAR HEMOGLOBIN 28.4 pg (27.0-31.0); MEAN PLATELET VOLUME 8.1 fL (7.2-11.7); MONO # 0.8 K/uL (0.0-0.8); MONO % 5.7 % (0.0-10.0); PLATELET COUNT 269 K/uL (130-400); RED CELL DISTRIBUTION WIDTH 12.6 % (11.5-14.5); WHITE BLOOD COUNT 13.7 K/uL (4.8-10.8)
[2016-11-10] MEDS: (Novolin R) Insulin Human Regular 100 units/ml vial SC SCH ×4 (08:13→21:21)
[2016-11-10] MEDS: (Novolog) Insulin Aspart, Recombinant 100 u/ml 10 ml vial SC SCH ×3 (08:14→17:45)
[2016-11-10 08:37] LABS: CHLORIDE 100 mmol/L (98-107); POTASSIUM 3.9 mmol/L (3.6-5.2); SODIUM 136 mmol/L (132-148)
[2016-11-10 08:39] LABS: GFR AFRICAN-AMERICAN > 60
[2016-11-10 08:40] LABS: ALB/GLOB RATIO 1.2 (1.0-2.1); ALKALINE PHOSPHATASE 99 U/L (38-126); ALT/SGPT 26 U/L (9-52); AST/SGOT 15 U/L (14-36); BILIRUBIN,TOTAL 0.4 mg/dL (0.2-1.3); BLOOD UREA NITROGEN 14 mg/dL (7-17); CALCIUM 8.5 mg/dl (8.6-10.4); CARBON DIOXIDE 26 mmol/L (22-30); GLUCOSE,RANDOM 269 mg/dL (65-105); TOTAL PROTEIN 6.5 g/dL (6.3-8.3)
[2016-11-10] MEDS: Budesonide 0.5 mg/2 ml Inhal Susp UD INH SCH ×2 (08:50→20:06)
[2016-11-10] MEDS: Fluticasone-Salmeterol 250-50mcg Diskus INH SCH ×2 (08:50→20:06)
[2016-11-10] MEDS: Pantoprazole 40 mg EC Tab PO SCH (09:13)
[2016-11-10] MEDS: guaiFENesin 600 mg ER Tab PO SCH ×2 (09:13→17:44)
[2016-11-10] MEDS: POLYETHYLENE GLYCOL 3350 17 GM/Dose PACKET PO SCH (09:14)
[2016-11-10 09:20] LABS: BASOPHIL 1 % (0-2); EOSINOPHIL 1 % (0-4); NEUTROPHIL 83 % (50-75); REACTIVE LYMPHOCYTES 1 % (0-0); TOTAL CELLS COUNTED 100
[2016-11-10 09:21] LABS: LARGE PLATELETS PRESENT
--- NOTE | 2016-11-10 10:27 | CP.PCM.PN ---
Subjective - Date & Time of Evaluation Date of Evaluation: 11/10/16 Time of Evaluation: 10:00 - Subjective Subjective: Patient's breathing is stable - she does have some minimal wheezing - however better. She tells me she still has dizziness and headache. She is still anxious as mentioned in previous notes Will try to see if she can be discharged tommorow. Objective - Vital Signs/Intake and Output Vital Signs (last 24 hours): Temp Pulse Resp BP Pulse Ox 99.3 F 106 H 20 134/84 97 11/10/16 08:00 11/10/16 09:09 11/10/16 08:00 11/10/16 09:13 11/10/16 08:00 Intake and Output: 11/10/16 11/10/16 06:59 18:59 Intake Total 240 Balance 240 - Medications Medications: Current Medications Acetaminophen (Tylenol 325mg Tab) 650 mg PO Q6 PRN PRN Reason: Headache Last Admin: 11/10/16 09:12 Dose: 650 mg Albuterol/Ipratropium (Duoneb 3 Mg/0.5 Mg (3 Ml) Ud) 3 ml INH RQ4 [facility] Last Admin: 11/10/16 08:46 Dose: 3 ml Alprazolam (Xanax) 0.5 mg PO TID [facility] Stop: 11/14/16 16:01 Last Admin: 11/10/16 09:13 Dose: 0.5 mg Aspirin (Ecotrin) 81 mg PO DAILY [facility] Last Admin: 11/10/16 09:13 Dose: 81 mg Budesonide (Pulmicort Respules) 0.5 mg INH RQ12 [facility] 234 [facility] Last Admin: 11/10/16 08:50 Dose: 0.5 mg Carvedilol (Coreg) 6.25 mg PO BID [facility] Last Admin: 11/10/16 09:13 Dose: 6.25 mg Enalapril Maleate (Vasotec) 10 mg PO BID [facility] Last Admin: 11/10/16 09:13 Dose: 10 mg Ergocalciferol (Drisdol 50,000 Intl Units Cap) 1 cap PO Q7D [facility] 234 [facility] Last Admin: 11/09/16 14:17 Dose: 1 cap Furosemide (Lasix) 20 mg PO DAILY [facility] Last Admin: 11/10/16 09:13 Dose: 20 mg Guaifenesin (Mucinex La) 600 mg PO BID [facility] Last Admin: 11/10/16 09:13 Dose: 600 mg Moxifloxacin HCl (Avelox Iv 400mg/250ml Ns) 250 mls @ 167 mls/hr IVPB Q24H [facility] Last Admin: 11/09/16 17:32 Dose: 167 mls/hr Ibuprofen (Motrin Tab) 600 mg PO TID PRN PRN Reason: Pain, moderate (4-7) Last Admin: 11/09/16 08:31 Dose: 600 mg Insulin Aspart (Novolog) 30 unit SC ACTID [facility] Last Admin: 11/10/16 08:14 Dose: 30 unit Insulin Glargine (Lantus) 45 unit SC HS [facility] Last Admin: 11/09/16 21:34 Dose: 45 units Insulin Human Regular (Novolin R) 0 unit SC ACHS [facility] PRN Reason: Protocol Last Admin: 11/10/16 08:13 Dose: 6 unit Meclizine HCl (Antivert) 25 mg PO Q12H [facility] Last Admin: 11/10/16 09:13 Dose: 25 mg Montelukast Sodium (Singulair) 10 mg PO HS [facility] Last Admin: 11/09/16 21:34 Dose: 10 mg Pantoprazole Sodium (Protonix Ec Tab) 40 mg PO DAILY [facility] Last Admin: 11/10/16 09:13 Dose: 40 mg Polyethylene Glycol (Miralax) 17 gm PO DAILY [facility] 234 [facility] Last Admin: 11/10/16 09:14 Dose: 17 gm Promethazine HCl/Codeine (Phenergan/Codeine Oral Syrup) 5 ml PO Q4 PRN PRN Reason: Cough Last Admin: 11/03/16 09:58 Dose: 5 ml Rosuvastatin Calcium (Crestor) 10 mg PO HS [facility] 234 [facility] Last Admin: 11/09/16 21:34 Dose: 10 mg Fluticasone/Salmeterol (Advair Diskus 250/50) 1 puff INH RQ12 [facility] Last Admin: 11/10/16 08:50 Dose: 1 puff - Labs Labs: 11/10/16 07:56 11/10/16 07:56 PT 11.7 SECONDS (9.7-12.2) 10/29/16 21:33 INR 1.0 10/29/16 21:33 APTT 34 SECONDS (21-34) 10/29/16 21:33 Assessment and Plan - Assessment and Plan (Free Text) Assessment: Asthma Exacerbation/Cough 11/10: Still having some wheezing, airmovement is fairly good now. Off of steroids. Continue on nebulizers and Advair and singulair. 11/09: Today breathing appeared easier on exam. CT scan had suggested left lower lobe infiltrate likely pneumonia, on Avelox. Continue monitor cultures WBC 13.2 , Neut 80.8%, Procalcitonin <0.05 Avelox 400 mg IVPB Q24h for possible pneumonia Procalcitonin is low off steroids Cont Advair Q12H Cont duonebs q6h Cont Singulair 10mg HS Cont Phenergan w/codeine PRN Cont Mucinex Dizziness 11/10: Still having the dizziness. Not changed from before 11/09: Nothing seems to help. MYA negative, Rheum negative, influenza negative. She had an MRI of the brain and this is negative. MYA and Rheu negatove. Meclizine 25mg Q12H MYA pending Rheum arthritis panel neg Neuro consulted- Ashley-recs for MRI brain, EEG, Cervical CT, josef B2 level, R/O seizures, CVA, acute labyrinthitis, post traumatic vascular WISEMAN and vertigo, cardiac causes, or cervicla radiculopathy; poss YANI might be a factor CT cervial spine w/Minor disc bulging noted at the C6-C7 level with mild canal narrowing however no significant cord compression. Brain MRI w/No evidence of acute hemorrhage or infarct. There are a few tiny nonspecific foci of increased T2 signal in the left frontal and right parietal subcortical region nonspecific. Rule out small chronic lacunar type infarcts, sequela of migraine headaches old trauma or post infectious/ inflammatory changes. There are inflammatory changes seen within the maxillary and ethmoid air complexes. Questionable small bilateral maxillary sinus fluid levels left greater than right Cervical Spine MRI (11/07/16): Minor disc bulging noted at the C6-C7 level with mild canal narrowing however no significant cord compression. Diabetes mellitus ISS high protocol Cont Lantus 40 Units SC HS Increased to 45 Units accuchecks ACHS on high protocol Novolog 30 units ACTID Blood sugars in 300-400's AM Blood sugar 240 A1c 10.2 Constipation Miralax daily Back pain Motrin PRN Heating pad Monitor Tachycardia- resolved patient w/hx CVA but unknown if there is clotting disorder d-dimer neg tachycardia in 80-90's- decreasing Monitor Cards recs: MUGA scan- 49%- pt does not need lifevest, ok to d/c with outpatient FU in clinic- signed off HLD cont home med equivalent- crestor 10mg HS Hx CHF cont home med lasix 20mg PO daily Cards recs: MUGA scan- 49%- pt does not need lifevest HTN BP 129/80 cont vasotec 10mg daily cont coreg 3.125mg BID Anxiety Xanax 0.25mg TID PRN increased to 0.5mg TID [facility] Monitor Headache 11/10: Patient has underwent CT as well as MRI of the brain Epistaxis- resolved Humidifer to O2 via NC CT brain neg Monitor GI/DVT ppx heparin 5000 units sc q8h protonix 40mg daily
[2016-11-10] MEDS: Moxifloxacin IV 400mg/250ml NS 250 ML IVPB SCH (16:04)
[2016-11-10] MEDS: Saccharomyces Boulardi 250 mg Cap PO SCH (17:44)
[2016-11-10] MEDS: (Lantus) Insulin Glargine, Recombinant SC SCH (21:22)
--- NOTE | 2016-11-10 22:09 | CP.PCM.PN ---
Subjective - Date & Time of Evaluation Date of Evaluation: 11/10/16 Time of Evaluation: 20:30 - Subjective Subjective: Stable, less vertigo, receiving Vitamin D and Oscal. VS are stable. Objective - Vital Signs/Intake and Output Vital Signs (last 24 hours): Temp Pulse Resp BP Pulse Ox 98.3 F 86 20 115/60 98 11/10/16 15:46 11/10/16 16:00 11/10/16 15:46 11/10/16 17:54 11/10/16 15:46 Intake and Output: 11/10/16 11/11/16 18:59 06:59 Intake Total 400 Balance 400 - Medications Medications: Current Medications Acetaminophen (Tylenol 325mg Tab) 650 mg PO Q6 PRN PRN Reason: Headache Last Admin: 11/10/16 09:12 Dose: 650 mg Albuterol/Ipratropium (Duoneb 3 Mg/0.5 Mg (3 Ml) Ud) 3 ml INH RQ4 [facility] Last Admin: 11/10/16 20:06 Dose: 3 ml Alprazolam (Xanax) 0.5 mg PO TID [facility] Stop: 11/14/16 16:01 Last Admin: 11/10/16 17:44 Dose: 0.5 mg Aspirin (Ecotrin) 81 mg PO DAILY [facility] Last Admin: 11/10/16 09:13 Dose: 81 mg Budesonide (Pulmicort Respules) 0.5 mg INH RQ12 [facility] Last Admin: 11/10/16 20:06 Dose: 0.5 mg Carvedilol (Coreg) 6.25 mg PO BID [facility] Last Admin: 11/10/16 17:44 Dose: 6.25 mg Enalapril Maleate (Vasotec) 10 mg PO BID [facility] Last Admin: 11/10/16 17:54 Dose: 10 mg Ergocalciferol (Drisdol 50,000 Intl Units Cap) 1 cap PO Q7D [facility] Last Admin: 11/09/16 14:17 Dose: 1 cap Furosemide (Lasix) 20 mg PO DAILY [facility] Last Admin: 11/10/16 09:13 Dose: 20 mg Guaifenesin (Mucinex La) 600 mg PO BID [facility] Last Admin: 11/10/16 17:44 Dose: 600 mg Moxifloxacin HCl (Avelox Iv 400mg/250ml Ns) 250 mls @ 167 mls/hr IVPB Q24H [facility] Last Admin: 11/10/16 16:04 Dose: 167 mls/hr Ibuprofen (Motrin Tab) 600 mg PO TID PRN PRN Reason: Pain, moderate (4-7) Last Admin: 11/09/16 08:31 Dose: 600 mg Insulin Aspart (Novolog) 30 unit SC ACTID [facility] Last Admin: 11/10/16 17:45 Dose: 30 unit Insulin Glargine (Lantus) 45 unit SC HS [facility] Last Admin: 11/10/16 21:22 Dose: 45 units Insulin Human Regular (Novolin R) 0 unit SC ACHS [facility] PRN Reason: Protocol Last Admin: 11/10/16 21:21 Dose: Not Given Meclizine HCl (Antivert) 25 mg PO Q12H [facility] Last Admin: 11/10/16 21:22 Dose: 25 mg Montelukast Sodium (Singulair) 10 mg PO HS [facility] Last Admin: 11/10/16 21:22 Dose: 10 mg Pantoprazole Sodium (Protonix Ec Tab) 40 mg PO DAILY [facility] Last Admin: 11/10/16 09:13 Dose: 40 mg Polyethylene Glycol (Miralax) 17 gm PO DAILY [facility] Last Admin: 11/10/16 09:14 Dose: 17 gm Promethazine HCl/Codeine (Phenergan/Codeine Oral Syrup) 5 ml PO Q4 PRN PRN Reason: Cough Last Admin: 11/03/16 09:58 Dose: 5 ml Rosuvastatin Calcium (Crestor) 10 mg PO HS [facility] Last Admin: 11/10/16 21:22 Dose: 10 mg Saccharomyces Boulardii (Florastor) 250 mg PO BID [facility] Last Admin: 11/10/16 17:44 Dose: 250 mg Fluticasone/Salmeterol (Advair Diskus 250/50) 1 puff INH RQ12 [facility] Last Admin: 11/10/16 20:06 Dose: 1 puff - Labs Labs: 11/10/16 07:56 11/10/16 07:56 PT 11.7 SECONDS (9.7-12.2) 10/29/16 21:33 INR 1.0 10/29/16 21:33 APTT 34 SECONDS (21-34) 10/29/16 21:33 Assessment and Plan (1) Asthma exacerbation Status: Acute (2) Tachycardia Status: Acute (3) Dizziness Status: Acute (4) Vertigo Status: Acute (5) Cervical radiculopathy Status: Acute (6) Diabetic peripheral neuropathy Status: Acute (7) Sleep apnea Status: Acute
[2016-11-11] MEDS: Albuterol-Ipratrop 3 mg / 0.5 (3 ml) UD INH SCH ×4 (01:19→14:01)
[2016-11-11 07:55] LABS: BASO % 0.1 % (0.0-2.0); EOS # 0.2 K/uL (0.0-0.7); EOS % 1.7 % (0.0-4.0); HEMATOCRIT 35.7 % (34.0-47.0); LYMPH # 1.3 K/uL (1.0-4.3); LYMPH % 10.3 % (20.0-40.0); MEAN CELL VOLUME 85.9 fL (81.0-99.0); MEAN CORPUSCULAR HEMOGLOBIN 28.1 pg (27.0-31.0); MEAN CORPUSCULAR HGB CONC 32.7 g/dL (33.0-37.0); MEAN PLATELET VOLUME 7.6 fL (7.2-11.7); MONO % 8.2 % (0.0-10.0); RED CELL DISTRIBUTION WIDTH 12.8 % (11.5-14.5); WHITE BLOOD COUNT 12.3 K/uL (4.8-10.8)
[2016-11-11 08:04] LABS: CHLORIDE 99 mmol/L (98-107); POTASSIUM 3.7 mmol/L (3.6-5.2); SODIUM 135 mmol/L (132-148)
[2016-11-11 08:06] LABS: BILIRUBIN,TOTAL 0.4 mg/dL (0.2-1.3); GFR AFRICAN-AMERICAN > 60
[2016-11-11 08:07] LABS: ALB/GLOB RATIO 1.2 (1.0-2.1); ALKALINE PHOSPHATASE 83 U/L (38-126); ALT/SGPT 31 U/L (9-52); AST/SGOT 15 U/L (14-36); BLOOD UREA NITROGEN 11 mg/dL (7-17); CARBON DIOXIDE 29 mmol/L (22-30); GLUCOSE,RANDOM 227 mg/dL (65-105); PHOSPHOROUS 3.4 mg/dL (2.5-4.5); TOTAL PROTEIN 6.1 g/dL (6.3-8.3)
[2016-11-11 08:08] LABS: CALCIUM 8.1 mg/dl (8.6-10.4); MAGNESIUM 1.8 mg/dL (1.6-2.3)
[2016-11-11] MEDS: (Novolin R) Insulin Human Regular 100 units/ml vial SC SCH ×2 (08:28→12:57)
[2016-11-11] MEDS: (Novolog) Insulin Aspart, Recombinant 100 u/ml 10 ml vial SC SCH ×2 (08:29→12:58)
[2016-11-11] MEDS: Budesonide 0.5 mg/2 ml Inhal Susp UD INH SCH (08:52)
[2016-11-11] MEDS: Fluticasone-Salmeterol 250-50mcg Diskus INH SCH (08:52)
--- NOTE | 2016-11-11 10:25 | CP.PCM.DIS ---
<Romel Sánchez - Last Filed: 11/11/16 11:28> Provider - Provider Date of Admission: 10/29/16 23:43 Attending physician: Kendall Lynn DO Consults: Cardio: Voudouris Neuro: Ashley Time Spent in preparation of Discharge (in minutes): 45 Diagnosis - Discharge Diagnosis (1) Asthma exacerbation Status: Acute Comment: see hospital course (2) Dizziness Status: Acute Comment: see hospital course (3) Asthma Status: Chronic Comment: see hospital course (4) Diabetes mellitus Status: Chronic Comment: see hospital course (5) Hyperlipidemia Status: Chronic Comment: see hospital course (6) Hypertension Status: Chronic Comment: see hospital course (7) Congestive heart failure Status: Acute Comment: see hospital course Hospital Course - Lab Results Lab Results: Most Recent Lab Values WBC 12.3 K/uL (4.8-10.8) H 11/11/16 07:38 RBC 4.16 Mil/uL (3.80-5.20) 11/11/16 07:38 Hgb 11.7 g/dL (11.0-16.0) 11/11/16 07:38 Hct 35.7 % (34.0-47.0) 11/11/16 07:38 MCV 85.9 fL (81.0-99.0) 11/11/16 07:38 MCH 28.1 pg (27.0-31.0) 11/11/16 07:38 MCHC 32.7 g/dL (33.0-37.0) L 11/11/16 07:38 RDW 12.8 % (11.5-14.5) 11/11/16 07:38 Plt Count 280 K/uL (130-400) 11/11/16 07:38 MPV 7.6 fL (7.2-11.7) 11/11/16 07:38 Neut % (Auto) 79.7 % (50.0-75.0) H 11/11/16 07:38 Lymph % (Auto) 10.3 % (20.0-40.0) L 11/11/16 07:38 Mccone % (Auto) 8.2 % (0.0-10.0) 11/11/16 07:38 Eos % (Auto) 1.7 % (0.0-4.0) 11/11/16 07:38 Baso % (Auto) 0.1 % (0.0-2.0) 11/11/16 07:38 Neut # 9.8 K/uL (1.8-7.0) H 11/11/16 07:38 Lymph # 1.3 K/uL (1.0-4.3) 11/11/16 07:38 Mccone # 1.0 K/uL (0.0-0.8) H 11/11/16 07:38 Eos # 0.2 K/uL (0.0-0.7) 11/11/16 07:38 Baso # 0.0 K/uL (0.0-0.2) 11/11/16 07:38 Neutrophils % (Manual) 83 % (50-75) H 11/10/16 07:56 Band Neutrophils % 1 % (0-2) 11/10/16 07:56 Lymphocytes % (Manual) 7 % (20-40) L 11/10/16 07:56 Reactive Lymphs % 1 % (0-0) H 11/10/16 07:56 Monocytes % (Manual) 6 % (0-10) 11/10/16 07:56 Eosinophils % (Manual) 1 % (0-4) 11/10/16 07:56 Basophils % (Manual) 1 % (0-2) 11/10/16 07:56 Platelet Estimate Normal (NORMAL) 11/10/16 07:56 Large Platelets Present 11/10/16 07:56 Polychromasia Slight 11/10/16 07:56 Hypochromasia (manual) Slight 11/10/16 07:56 Anisocytosis (manual) Slight 11/10/16 07:56 PT 11.7 SECONDS (9.7-12.2) 10/29/16 21:33 INR 1.0 10/29/16 21:33 APTT 34 SECONDS (21-34) 10/29/16 21:33 D-Dimer, Quantitative < 200 ng/mlDDU (0-243) 10/30/16 02:06 Sodium 135 mmol/L (132-148) 11/11/16 07:38 Potassium 3.7 mmol/L (3.6-5.2) 11/11/16 07:38 Chloride 99 mmol/L (98-107) 11/11/16 07:38 Carbon Dioxide 29 mmol/L (22-30) 11/11/16 07:38 Anion Gap 11 (10-20) 11/11/16 07:38 BUN 11 mg/dL (7-17) 11/11/16 07:38 Creatinine 0.5 MG/DL (0.7-1.2) L 11/11/16 07:38 Est GFR ( Amer) > 60 11/11/16 07:38 Est GFR (Non-Af Amer) > 60 11/11/16 07:38 POC Glucose (mg/dL) 255 mg/dL (65-110) H 11/11/16 06:43 Random Glucose 227 mg/dL (65-105) H 11/11/16 07:38 Hemoglobin A1c 10.2 % (4.2-6.5) H D 11/01/16 06:14 Uric Acid 3.7 mg/dL (2.2-7.5) 11/07/16 07:44 Calcium 8.1 mg/dl (8.6-10.4) L 11/11/16 07:38 Phosphorus 3.4 mg/dL (2.5-4.5) 11/11/16 07:38 Magnesium 1.8 mg/dL (1.6-2.3) 11/11/16 07:38 Total Bilirubin 0.4 mg/dL (0.2-1.3) 11/11/16 07:38 AST 15 U/L (14-36) 11/11/16 07:38 ALT 31 U/L (9-52) 11/11/16 07:38 Alkaline Phosphatase 83 U/L (38-126) 11/11/16 07:38 Total Creatine Kinase 37 U/L (30-135) 10/30/16 11:13 CK-MB (Mass) 0.62 ng/mL (0.0-3.38) 10/30/16 11:13 Troponin I 0.0170 ng/mL (0.00-0.120) 10/29/16 21:33 Troponin I, Quant 0.0170 ng/mL (0.00-0.120) 10/30/16 11:13 NT-Pro-B Natriuret Pep 116 pg/mL (0-900) 10/29/16 21:33 Total Protein 6.1 g/dL (6.3-8.3) L 11/11/16 07:38 Albumin 3.3 g/dL (3.5-5.0) L 11/11/16 07:38 Globulin 2.8 gm/dL (2.2-3.9) 11/11/16 07:38 Albumin/Globulin Ratio 1.2 (1.0-2.1) 11/11/16 07:38 Triglycerides 248 mg/dL (0-149) H D 11/01/16 06:14 Cholesterol 128 mg/dL (0-199) 11/01/16 06:14 LDL Cholesterol Direct 66 mg/dL (0-129) 11/01/16 06:14 HDL Cholesterol 35 mg/dL (30-70) 11/01/16 06:14 Vitamin B2 16.9 nmol/L (6.2-39.0) 11/07/16 08:10 25-OH Vitamin D Total 15.4 NG/ML (30.0-100.0) L 11/09/16 06:40 Procalcitonin < 0.05 NG/ML (0.19-0.49) L 11/07/16 07:44 TSH 3rd Generation 4.42 mIU/L (0.46-4.68) 11/07/16 07:44 Rheum Arthritis Panel Negative (NEGATIVE) 11/07/16 07:44 MYA 6 Profile Negative (NEGATIVE) 11/07/16 07:44 Influenza Typ A,B (EIA) Negative for flu a/b (NEGATIVE) 11/04/16 18:42 - Hospital Course Hospital Course: 51 year old female with past medical history of asthma requiring intubation one time, CHF, DM, HTN, CVA in 2003 without residual deficits, HLD, [place] 16 years ago who presents to the hospital with complaint of shortness of breath for three days. Patient states that she has also been having a cough that is non-productive for the past 3 days. Patient denies fever but admits to chills. Patient states that she has lower extremity swelling that has been present since May 2016. Patient admits to sore throat which has been present since her intubation in August 2016. Patient also admits to palpitations. Patient states that while she occasionally feels light-headed at her baseline, she has been feeling increasingly lightheaded the past several days. Patient denies appetite changes. Patient states she has been compliant with her medications for her asthma but it was noted in the ER that the patient does not know the proper technique to use inhaled medications. Patient was admitted for asthma exacerbation. Inital CXR sowed no active pulmonary disease (see full report). It was complicated by a complaint of persistent dizziness throughout the hospital course. Patient had echo and MUG scan which showed EF 53% and 49%, respectively (see full reports). Head CT and Brain MRI showed no acute pathology (see full reports). Cartotid doppler was unremarkable (see full report). On 11/07, Chest CT showed left lower lobe infiltrate likely to be pneumonia (see full report), so patient was started on Avelox. Patient was cleared by Neuro and cardio. On, 11/11, patient was deemed medically stable for discharge by Dr. Lynn. patient was sent home with meclizine and Avelox. patient was also given refills on asthma medications. This is a summary of the hospital course. Please refer to EMR for more specific details. Discharge Exam - Head Exam Head Exam: ATRAUMATIC, NORMAL INSPECTION, NORMOCEPHALIC - Eye Exam Eye Exam: EOMI, Normal appearance Pupil Exam: PERRL - ENT Exam ENT Exam: Mucous Membranes Moist - Neck Exam Neck exam: Normal Inspection - Respiratory Exam Respiratory Exam: Wheezes (mild), NORMAL BREATHING PATTERN. absent: Accessory Muscle Use, Respiratory Distress - Cardiovascular Exam Cardiovascular Exam: RRR, +S1, +S2 - GI/Abdominal Exam GI & Abdominal Exam: Normal Bowel Sounds, Soft, Unremarkable. absent: Distended , Firm, Guarding, Rebound, Tenderness - Extremities Exam Extremities exam: normal capillary refill, pedal edema, pedal pulses present - Back Exam Back exam: absent: CVA tenderness (L), CVA tenderness (R) - Neurological Exam Neurological exam: Alert, CN II-XII Intact, Oriented x3 - Psychiatric Exam Psychiatric exam: Normal Affect, Normal Mood - Skin Skin Exam: Dry, Intact, Normal Color, Warm Discharge Plan - Discharge Medications Prescriptions: Fluticasone/Salmeterol 250/50 [Advair Diskus 250/50] 1 puff IH Q12 #1 puff Moxifloxacin [Avelox Tab] 400 mg PO DAILY #7 tab Fluticasone Propionate [Flovent Hfa] 12 gm IH Q12 30 Days Meclizine [Meclizine*] 25 mg PO TID PRN #90 tab PRN Reason: Dizziness Budesonide [Pulmicort Respules] 0.25 mg INH RQ12 #1 neb Montelukast [Singulair] 10 mg PO DAILY #30 tab Albuterol HFA [Ventolin HFA 90 mcg/actuation (8 g)] 1 puff IH Q6H PRN #1 inhaler PRN Reason: Shortness Of Breath predniSONE [Prednisone] See Taper PO DAILY #6 tab - Follow Up Plan Condition: FAIR Disposition: HOME/ ROUTINE Instructions: Albuterol (By breathing), Prednisone (By mouth), Budesonide (By breathing), Montelukast (By mouth), Moxifloxacin (By mouth), Fluticasone/ Salmeterol (By breathing), Heart Failure (DC), Asthma (DC), Heart Healthy Diet ( DC), Diabetic Foot Care (DC), Basic Carbohydrate Counting (DC), Meal Planning with the Plate Method (DC), Meal Planning with Diabetes Exchanges (DC) Additional Instructions: Patient medically stable for discharge by Dr. Lynn. Patient is to take new medications Meclizine, Advair, Singulair, and Prednisone as directed. Patient is to resume home medications as previously prescribed. Patient is to follow up with PMD, Cuff Presser and Neurologist within 2-3 days of discharge. Patient may resume physical activity as tolerated. Please return to ED if symptoms persist or condition worsens. All instructions stated above were discussed with patient in detail. She verbalized understanding and agreement. Referrals: Kaelyn Samaniego MD [Staff Provider] - Diana Ramirez MD [Staff Provider] - <Kendall Lynn - Last Filed: 11/11/16 13:05> Provider - Provider Date of Admission: 10/29/16 23:43 Attending physician: Kendall Lynn DO Hospital Course - Lab Results Lab Results: Most Recent Lab Values WBC 12.3 K/uL (4.8-10.8) H 11/11/16 07:38 RBC 4.16 Mil/uL (3.80-5.20) 11/11/16 07:38 Hgb 11.7 g/dL (11.0-16.0) 11/11/16 07:38 Hct 35.7 % (34.0-47.0) 11/11/16 07:38 MCV 85.9 fL (81.0-99.0) 11/11/16 07:38 MCH 28.1 pg (27.0-31.0) 11/11/16 07:38 MCHC 32.7 g/dL (33.0-37.0) L 11/11/16 07:38 RDW 12.8 % (11.5-14.5) 11/11/16 07:38 Plt Count 280 K/uL (130-400) 11/11/16 07:38 MPV 7.6 fL (7.2-11.7) 11/11/16 07:38 Neut % (Auto) 79.7 % (50.0-75.0) H 11/11/16 07:38 Lymph % (Auto) 10.3 % (20.0-40.0) L 11/11/16 07:38 Mccone % (Auto) 8.2 % (0.0-10.0) 11/11/16 07:38 Eos % (Auto) 1.7 % (0.0-4.0) 11/11/16 07:38 Baso % (Auto) 0.1 % (0.0-2.0) 11/11/16 07:38 Neut # 9.8 K/uL (1.8-7.0) H 11/11/16 07:38 Lymph # 1.3 K/uL (1.0-4.3) 11/11/16 07:38 Mccone # 1.0 K/uL (0.0-0.8) H 11/11/16 07:38 Eos # 0.2 K/uL (0.0-0.7) 11/11/16 07:38 Baso # 0.0 K/uL (0.0-0.2) 11/11/16 07:38 Neutrophils % (Manual) 83 % (50-75) H 11/10/16 07:56 Band Neutrophils % 1 % (0-2) 11/10/16 07:56 Lymphocytes % (Manual) 7 % (20-40) L 11/10/16 07:56 Reactive Lymphs % 1 % (0-0) H 11/10/16 07:56 Monocytes % (Manual) 6 % (0-10) 11/10/16 07:56 Eosinophils % (Manual) 1 % (0-4) 11/10/16 07:56 Basophils % (Manual) 1 % (0-2) 11/10/16 07:56 Platelet Estimate Normal (NORMAL) 11/10/16 07:56 Large Platelets Present 11/10/16 07:56 Polychromasia Slight 11/10/16 07:56 Hypochromasia (manual) Slight 11/10/16 07:56 Anisocytosis (manual) Slight 11/10/16 07:56 PT 11.7 SECONDS (9.7-12.2) 10/29/16 21:33 INR 1.0 10/29/16 21:33 APTT 34 SECONDS (21-34) 10/29/16 21:33 D-Dimer, Quantitative < 200 ng/mlDDU (0-243) 10/30/16 02:06 Sodium 135 mmol/L (132-148) 11/11/16 07:38 Potassium 3.7 mmol/L (3.6-5.2) 11/11/16 07:38 Chloride 99 mmol/L (98-107) 11/11/16 07:38 Carbon Dioxide 29 mmol/L (22-30) 11/11/16 07:38 Anion Gap 11 (10-20) 11/11/16 07:38 BUN 11 mg/dL (7-17) 11/11/16 07:38 Creatinine 0.5 MG/DL (0.7-1.2) L 11/11/16 07:38 Est GFR ( Amer) > 60 11/11/16 07:38 Est GFR (Non-Af Amer) > 60 11/11/16 07:38 POC Glucose (mg/dL) 204 mg/dL (65-110) H 11/11/16 12:22 Random Glucose 227 mg/dL (65-105) H 11/11/16 07:38 Hemoglobin A1c 10.2 % (4.2-6.5) H D 11/01/16 06:14 Uric Acid 3.7 mg/dL (2.2-7.5) 11/07/16 07:44 Calcium 8.1 mg/dl (8.6-10.4) L 11/11/16 07:38 Phosphorus 3.4 mg/dL (2.5-4.5) 11/11/16 07:38 Magnesium 1.8 mg/dL (1.6-2.3) 11/11/16 07:38 Total Bilirubin 0.4 mg/dL (0.2-1.3) 11/11/16 07:38 AST 15 U/L (14-36) 11/11/16 07:38 ALT 31 U/L (9-52) 11/11/16 07:38 Alkaline Phosphatase 83 U/L (38-126) 11/11/16 07:38 Total Creatine Kinase 37 U/L (30-135) 10/30/16 11:13 CK-MB (Mass) 0.62 ng/mL (0.0-3.38) 10/30/16 11:13 Troponin I 0.0170 ng/mL (0.00-0.120) 10/29/16 21:33 Troponin I, Quant 0.0170 ng/mL (0.00-0.120) 10/30/16 11:13 NT-Pro-B Natriuret Pep 116 pg/mL (0-900) 10/29/16 21:33 Total Protein 6.1 g/dL (6.3-8.3) L 11/11/16 07:38 Albumin 3.3 g/dL (3.5-5.0) L 11/11/16 07:38 Globulin 2.8 gm/dL (2.2-3.9) 11/11/16 07:38 Albumin/Globulin Ratio 1.2 (1.0-2.1) 11/11/16 07:38 Triglycerides 248 mg/dL (0-149) H D 11/01/16 06:14 Cholesterol 128 mg/dL (0-199) 11/01/16 06:14 LDL Cholesterol Direct 66 mg/dL (0-129) 11/01/16 06:14 HDL Cholesterol 35 mg/dL (30-70) 11/01/16 06:14 Vitamin B2 16.9 nmol/L (6.2-39.0) 11/07/16 08:10 25-OH Vitamin D Total 15.4 NG/ML (30.0-100.0) L 11/09/16 06:40 Procalcitonin < 0.05 NG/ML (0.19-0.49) L 11/07/16 07:44 TSH 3rd Generation 4.42 mIU/L (0.46-4.68) 11/07/16 07:44 Rheum Arthritis Panel Negative (NEGATIVE) 11/07/16 07:44 MYA 6 Profile Negative (NEGATIVE) 11/07/16 07:44 Influenza Typ A,B (EIA) Negative for flu a/b (NEGATIVE) 11/04/16 18:42 Attending/Attestation - Attestation I have personally seen and examined this patient.: Yes I have fully participated in the care of the patient.: Yes I have reviewed all pertinent clinical information, including history, physical exam and plan: Yes Notes (Text): 11/11/16 13:01 Medical attending: Patient was seen and examined by me, agree with the above note by biomedical engineering technician. At this time we will try to discharge the patient. The patient states that her breathing is better, she still reports having from time to time headaches and sensation of dizziness she has to go home with oral meclizine and we will certainly write for that The patient will have to take her Advair, nebulizers, Singulair, as well as a very short tapering prednisone dose. As we have been mentioning before the patient has a lot of anxiety and stress. She commonly becomes worried a lot about many things. I emphasized to the patient that in case her shortness of breath becomes acutely worse or if there are changes that she needs to come back to the emergency room. When I listen to her breathing she is not short of breath, she did not have wheezing, she was moving irrigated out very well she is not tachycardic she appeared to be comfortable while in bed she explained she continues to have ongoing headaches So will see how we do. I explained to the patient that when she walks around she must be very careful in that when she gets out of bed that she needs to stand up very slowly as to prevent dizziness worse. As mentioned before she's had several imaging modalities brain Thank you very much, Kendall Lynn
[2016-11-11] MEDS: Saccharomyces Boulardi 250 mg Cap PO SCH (10:54)
[2016-11-11] MEDS: POLYETHYLENE GLYCOL 3350 17 GM/Dose PACKET PO SCH (10:54)
[2016-11-11] MEDS: guaiFENesin 600 mg ER Tab PO SCH (10:54)
[2016-11-11] MEDS: Pantoprazole 40 mg EC Tab PO SCH (10:56)
[2016-11-11 13:11] VITALS: RESP 20; TEMP 98.7
[2016-11-11 13:28] VITALS: O2SAT 95
[2016-11-11 15:55] VITALS: BP 114/64; PULSE 94
--- NOTE | 2016-11-11 20:23 | CP.PCM.PN ---
Subjective - Date & Time of Evaluation Date of Evaluation: 11/11/16 Time of Evaluation: 13:25 - Subjective Subjective: 51 year old female with past medical history of asthma requiring intubation one time, CHF, DM, HTN, CVA in 2003 without residual deficits, HLD, [place] 16 years ago who presents to the hospital with complaint of shortness of breath for three days. Patient states that she has also been having a cough that is non-productive for the past 3 days. Patient denies fever but admits to chills. Patient states that she has lower extremity swelling that has been present since May 2016. Patient admits to sore throat which has been present since her intubation in August 2016. Patient also admits to palpitations. Patient states that while she occasionally feels light-headed at her baseline, she has been feeling increasingly lightheaded the past several days. Patient denies appetite changes. Patient states she has been compliant with her medications for her asthma but it was noted in the ER that the patient does not know the proper technique to use inhaled medications. Patient was admitted for asthma exacerbation. Inital CXR sowed no active pulmonary disease (see full report). It was complicated by a complaint of persistent dizziness throughout the hospital course. Patient had echo and MUG scan which showed EF 53% and 49%, respectively (see full reports). Head CT and Brain MRI showed no acute pathology (see full reports). Cartotid doppler was unremarkable (see full report). On 11/07, Chest CT showed left lower lobe infiltrate likely to be pneumonia (see full report), so patient was started on Avelox. Patient was cleared by Neuro and cardio. On, 11/11, patient was deemed medically stable for discharge by Dr. Lynn. patient was sent home with meclizine and Avelox. patient was also given refills on asthma medications. Patient is doing better and is discharged home safely. Objective - Vital Signs/Intake and Output Vital Signs (last 24 hours): Temp Pulse Resp BP Pulse Ox 98.7 F 94 H 20 114/64 95 11/11/16 13:10 11/11/16 15:00 11/11/16 13:10 11/11/16 15:00 11/11/16 13:22 Intake and Output: 11/11/16 11/12/16 18:59 06:59 Intake Total 400 Balance 400 - Labs Labs: 11/11/16 07:38 11/11/16 07:38 PT 11.7 SECONDS (9.7-12.2) 10/29/16 21:33 INR 1.0 10/29/16 21:33 APTT 34 SECONDS (21-34) 10/29/16 21:33 Assessment and Plan (1) Asthma exacerbation Status: Chronic (2) Tachycardia Status: Chronic (3) Dizziness Status: Chronic (4) Vertigo Status: Chronic (5) Cervical radiculopathy Status: Acute (6) Diabetic peripheral neuropathy Status: Chronic (7) Sleep apnea Status: Chronic
--- NOTE | 2016-11-12 10:25 | EEG ---
DATE: 11/07/2016 The record is obtained for altered mental status, rule out seizures. The patient has dizziness and bronchial asthma exacerbation. The record was obtained while the patie nt was awake, drowsy, and asleep. The record was symmetrically equal on both sides with velocity of 8 cycles per second. The waves are fairly formed, fairly organized with posterior distribution, mode rate in amplitude, reactive to eye opening by attenuation. There are no abnormal discharges. No spi ke, no polyspike, no sharp wave, no focal slowing, paroxysmal discharge. The record did not show any changes with photic stimulation. The hyperventilation was omitted. There were periods of drowsines s during which attenuation and slowing of the record were seen, and theta waves were seen. There are eye movement artifact, electrode artifact, and muscle movement artifacts. There are periods of slee p during which delta waves are seen. The photic stimulation was performed and did not produce any c hanges. Hyperventilation was omitted. In sum, this is a normal awake, drowsy, and asleep EEG. Clinical correlation is recommended. Diana Ramirez MD cc: [id number] TT: 11/12/2016 09:23:05 Confirmation # [id number] Dictation # [id number] indra
== END 2016-11-11 15:10 | disposition home or self-care (01) | DRG 588 ==
LOC: C.ER 20:13 → C.9E 23:43 → C.6T 10-30 00:16
PROVIDERS: ADMIT Hospitalist; ATTEND Hospitalist
DX: J45.901 Unspecified asthma with (acute) exacerbation (principal); I50.22 Chronic systolic (congestive) heart failure; E11.42 Type 2 diabetes mellitus with diabetic polyneuropathy; I11.0 Hypertensive heart disease with heart failure; E78.5 Hyperlipidemia, unspecified; R00.0 Tachycardia, unspecified; M54.12 Radiculopathy, cervical region; G47.33 Obstructive sleep apnea (adult) (pediatric); E55.9 Vitamin D deficiency, unspecified; F41.9 Anxiety disorder, unspecified; E66.9 Obesity, unspecified; Z86.73 Personal history of transient ischemic attack (TIA), and cerebral infarction without residual deficits; Z68.37 Body mass index [BMI] 37.0-37.9, adult; Z79.4 Long term (current) use of insulin; I25.2 Old myocardial infarction

== ENCOUNTER 2016-12-02 01:05 | Inpatient (IN) | payer MEDICAID, OTHER ==
[2016-12-02 01:07] VITALS: BMI 30.7
[2016-12-02] MEDS ORDERED: DiphenhydrAMINE 50 mg/ml Inj IVP STA (01:58)
--- NOTE | 2016-12-02 01:59 | C.PDOC ---
Addendum entered and electronically signed by Charla Devries PA 12/02/16 09: 09: Addendum Addendum: 07:00 Receiving Sign Out Patient signed out to me by Ariella ARCHIBALD). Pending CT scan. Patient states she was having mid sternal chest pain, radiating to left side associated with shortness of breath and dizziness, that is described as a room spinning sensation. Patient states she has a history of similar in the past, and notes she took medication that was prescribed to her for dizziness, without relief. Patient had cardiac catheterization last year. Patient denies any history of anxiety. On my exam, Patient is obese, her abdomen is soft and non- tender. Patients chest pain is reproducible on palpation, and she has B/L pedal edema, (R>L). Case discussed w/ Dr Lynn; Patient will be admitted to hospitalists service EKG Rate 107bpm Rhythm Sinus Tachycadria Interpret LBBB, unchanged from 10/30 Accession No. : [id number] Patient Name / ID : FRED HAGER / [id number] Exam Date : 12/02/2016 08:12:37 ( Approved ) Study Comment : Sex / Age : F / 51Y Creator : Rojas Tran MD Dictator : Rojas Tran MD Replanter : Rn Birthing : Rojas Tran MD Approver2 : Report Date : 12/02/2016 08:26:03 My Comment : PROCEDURE: CT HEAD WITHOUT CONTRAST. HISTORY headache, dizziness COMPARISON: 10/22/2016 TECHNIQUE: Axial computed tomography images were obtained through the head/brain without intravenous contrast. Radiation dose: Total exam DLP = 708 mGy-cm. This CT exam was performed using one or more of the following dose reduction techniques: Automated exposure control, adjustment of the mA and/or kV according to patient size, and/or use of iterative reconstruction technique. FINDINGS: HEMORRHAGE: No intracranial hemorrhage. BRAIN: No mass effect or edema. No atrophy or chronic microvascular ischemic changes. VENTRICLES: Unremarkable. No hydrocephalus. CALVARIUM: Unremarkable. PARANASAL SINUSES: Unremarkable as visualized. No significant inflammatory changes. MASTOID AIR CELLS: Unremarkable as visualized. No inflammatory changes. OTHER FINDINGS: None. IMPRESSION: No acute intracranial abnormality. If symptoms persists, consider further evaluation with MRI. Original Note: History Of Present Illness <Ariella Belle - Last Filed: 12/02/16 07:00> <Charla Devries - Last Filed: 12/02/16 09:04> <Aline Manning - Last Filed: 12/03/16 07:58> 51 y/o female presents to ED, accompanied by son who provides history via translation, with complaint of mid-sternal chest pain associated with dizziness. Patient describes dizziness as room spinning sensation, worsening with head movement. Patient reports symptoms started at 10PM tonight (appx 3 hours prior to arrival). Patient also complains of chronic leg swelling over the past several weeks, noting right leg is more swollen than the left. Denies fever, chills, shortness of breath, nausea, vomiting, diarrhea, trauma, or injury. (Ariella Belle) History Per: Patient History/Exam Limitations: no limitations Onset/Duration Of Symptoms: Hrs Current Symptoms Are (Timing): Still Present Quality: "Pain" Associated Symptoms: denies: Nausea, Dyspnea, Diaphoresis <Ariella Belle - Last Filed: 12/02/16 07:00> <Charla Devries - Last Filed: 12/02/16 09:04> <Aline Manning - Last Filed: 12/03/16 07:58> Time Seen by Provider: 12/02/16 01:34 Chief Complaint (Nursing): Chest Pain Past Medical History Reviewed: Historical Data, Nursing Documentation, Vital Signs - Medical History PMH: Asthma, CVA, Diabetes, HTN, Hypercholesterolemia, Peripheral Edema Family History: States: No Known Family Hx - Social History Hx Tobacco Use: No Hx Alcohol Use: No Hx Substance Use: No - Immunization History Hx Tetanus Toxoid Vaccination: Yes Hx Influenza Vaccination: Yes Hx Pneumococcal Vaccination: Yes <Ariella Belle - Last Filed: 12/02/16 07:00> Review Of Systems Except As Marked, All Systems Reviewed And Found Negative. Constitutional: Negative for: Fever, Chills Cardiovascular: Positive for: Chest Pain. Negative for: Palpitations Respiratory: Negative for: Cough, Shortness of Breath, Wheezing Gastrointestinal: Negative for: Nausea, Vomiting, Abdominal Pain Skin: Negative for: Rash Neurological: Positive for: Dizziness. Negative for: Weakness, Numbness, Headache <Ariella Belle - Last Filed: 12/02/16 07:00> Physical Exam - Physical Exam Appears: Non-toxic, No Acute Distress Skin: Normal Color, Warm, Dry, No Rash, No Jaundice Head: Atraumatic, Normacephalic Eye(s): bilateral: Normal Inspection, PERRL, EOMI Ear(s): Bilateral: Normal Oral Mucosa: Moist Neck: Supple Chest: Symmetrical Cardiovascular: Rhythm Regular (tachycardic) Respiratory: Decreased Breath Sounds (mild, bilaterally), No Rales, No Rhonchi, No Wheezing Gastrointestinal/Abdominal: Soft, No Tenderness, No Guarding, No Rebound Back: Normal Inspection Extremity: Normal ROM, Tenderness (mild tenderness bilateral lower extremities) , Pedal Edema (2+ edema Left , 3+ edema Right), Capillary Refill (< 2 sec.) Neurological/Psych: Oriented x3, Normal Speech, Normal Cognition <Ariella Belle C - Last Filed: 12/02/16 07:00> ED Course And Treatment - Laboratory Results Result Diagrams: 12/02/16 01:58 12/02/16 01:58 ECG: Interpreted By Md ECG Rhythm: Sinus Tachycardia ECG Interpretation: No Acute Changes (LBBB, no change as compared to 10/30/16) Interpretation Of ECG: LAD Rate From EC O2 Sat by Pulse Oximetry: 99 (RA) Pulse Ox Interpretation: Normal - CT Scan/US CT Angio Chest Other Rad Studies (CT/US): Read By Radiologist, Radiology Report Reviewed CT/US Interpretation: FINDINGS: Pulmonary arteries: No pulmonary embolism. Aorta: Mild atherosclerotic disease of aorta. No aortic aneurysm. Lungs: Mild atelectasis/scarring. No consolidation. Mild mosaic pattern of lung parenchyma, . nonspecific. Pleural space: No significant effusion. No pneumothorax. Heart : Mild cardiomegaly. No significant pericardial effusion. Bones/joints: No acute fracture. No dislocation. Soft tissues: Unremarkable. Lymph nodes: No pathologically enlarged lymph nodes. Liver: Fatty infiltration. Spleen: Small splenic calcification. Kidneys and ureters: Too small to characterize lesion within RIGHT kidney. IMPRESSION: 1. No CT evidence of pulmonary embolism. 2. Incidental/non-acute findings are described above. Progress Note: CT angio, CxR, bloodwork ordered. Treated with Benadryl and Reglan. CT angio shows no pulmonary embolism. <Ariella Belle - Last Filed: 12/02/16 07:00> - Laboratory Results Result Diagrams: 12/02/16 01:58 12/02/16 01:58 <Aline Manning - Last Filed: 12/03/16 07:58> Medical Decision Making <Ariella Belle - Last Filed: 12/02/16 07:00> <Charla Devries - Last Filed: 12/02/16 09:04> <Aline Manning - Last Filed: 12/03/16 07:58> Medical Decision Making: CT chest was ordered for r/o PE. CT chest was negative. The patient continues to be dizzy after reglan and meclizine was ordered. Patient reports she has a history of dizziness and had head CT last month. ( Ariella Belle) Disposition - Disposition Disposition Time: 07:01 <Ariella Belle - Last Filed: 12/02/16 07:00> <Charla Devries - Last Filed: 12/02/16 09:04> <Aline Manning - Last Filed: 12/03/16 07:58> - Disposition Condition: STABLE - Clinical Impression Clinical Impression: Chest discomfort, Vertigo - PA / SENIOR [employer] BUSINESS PARTNER / Resident Statement / has reviewed & agrees with the documentation as recorded. - Scribe Statement The provider has reviewed the documentation as recorded by the Scribe <Ariella Belle - Last Filed: 12/02/16 07:00> <Charla Devries - Last Filed: 12/02/16 09:04> - PA / SENIOR HR BUSINESS PARTNER / Resident Statement / has reviewed & agrees with the documentation as recorded. <Aline Manning - Last Filed: 12/03/16 07:58> - Scribe Statement Ken Roca Provider Scribe Attestation: All medical record entries made by the Scribe were at my direction and personally dictated by me. I have reviewed the chart and agree that the record accurately reflects my personal performance of the history, physical exam, medical decision making, and the department course for this patient. I have also personally directed, reviewed, and agree with the discharge instructions and disposition. (Ariella Belle)
[2016-12-02] MEDS ORDERED: DiphenhydrAMINE 50 mg/ml Inj ONE (02:04)
[2016-12-02 02:06] LABS: BASO % 0.3 % (0.0-2.0); EOS # 0.2 K/uL (0.0-0.7); EOS % 2.5 % (0.0-4.0); LYMPH # 2.5 K/uL (1.0-4.3); LYMPH % 36.2 % (20.0-40.0); MEAN CELL VOLUME 86.5 fL (81.0-99.0); MEAN CORPUSCULAR HGB CONC 33.5 g/dL (33.0-37.0); MEAN PLATELET VOLUME 7.6 fL (7.2-11.7); MONO # 0.4 K/uL (0.0-0.8); MONO % 6.3 % (0.0-10.0); NRBC % 0.1 % (0.0-2.0); RED CELL DISTRIBUTION WIDTH 13.4 % (11.5-14.5); WHITE BLOOD COUNT 6.8 K/uL (4.8-10.8)
[2016-12-02 02:26] LABS: CHLORIDE 94 mmol/L (98-107)
[2016-12-02 02:27] LABS: POTASSIUM 4.1 mmol/L (3.6-5.2); SODIUM 135 mmol/L (132-148)
[2016-12-02 02:29] LABS: BILIRUBIN,TOTAL 0.6 mg/dL (0.2-1.3); CARBON DIOXIDE 27 mmol/L (22-30); GFR AFRICAN-AMERICAN > 60
[2016-12-02] MEDS ORDERED: Iodixanol 320 MG/ML 100 ML BOTTLE IV ONE (02:29)
[2016-12-02 02:30] LABS: ALB/GLOB RATIO 1.4 (1.0-2.1); ALKALINE PHOSPHATASE 123 U/L (38-126); ALT/SGPT 66 U/L (9-52); AST/SGOT 34 U/L (14-36); BLOOD UREA NITROGEN 13 mg/dL (7-17); CALCIUM 9.3 mg/dl (8.6-10.4); TOTAL PROTEIN 7.3 g/dL (6.3-8.3)
[2016-12-02 02:46] LABS: GLUCOSE,RANDOM 402 mg/dL (65-105)
[2016-12-02] MEDS ORDERED: Sodium Chloride 0.9% 1,000 ML IV ONE ×2 (02:56→03:49)
[2016-12-02] MEDS ORDERED: Sodium Chloride 0.9% 1,000 ML ONE ×2 (03:02→03:53)
--- NOTE | 2016-12-02 03:18 | CT ---
EXAM: CT Angiography Chest With Intravenous Contrast CLINICAL HISTORY: 51 years old, female; Pain; Chest pain; Type not specified; Additional info: Chest pain, tachycardic, SOB TECHNIQUE: Axial computed tomographic angiography images of the chest with intravenous contrast using pulmonary embolism protocol. This CT exam was performed using one or more of the following dose reduction techniques: automated exposure control, adjustment of the mA and/or kV according to patient size, and/or use of iterative reconstruction technique. MIP reconstructed images were created and reviewed. Coronal and sagittal reformatted images were created and reviewed. CONTRAST: 100 mL of [id number] administered intravenously. COMPARISON: CT - ANGIO CHEST PE PROTOCOL 06/03/2016 1:04:03 PM FINDINGS: Pulmonary arteries: No pulmonary embolism. Aorta: Mild atherosclerotic disease of aorta. No aortic aneurysm. Lungs: Mild atelectasis/scarring. No consolidation. Mild mosaic pattern of lung parenchyma, nonspecific. Pleural space: No significant effusion. No pneumothorax. Heart: Mild cardiomegaly. No significant pericardial effusion. Bones/joints: No acute fracture. No dislocation. Soft tissues: Unremarkable. Lymph nodes: No pathologically enlarged lymph nodes. Liver: Fatty infiltration. Spleen: Small splenic calcification. Kidneys and ureters: Too small to characterize lesion within RIGHT kidney. IMPRESSION: 1. No CT evidence of pulmonary embolism. 2. Incidental/non-acute findings are described above.
--- NOTE | 2016-12-02 08:27 | CT ---
PROCEDURE: CT HEAD WITHOUT CONTRAST. HISTORY: headache, dizziness COMPARISON: 10/22/2016 TECHNIQUE: Axial computed tomography images were obtained through the head/brain without intravenous contrast. Radiation dose: Total exam DLP = 708 mGy-cm. This CT exam was performed using one or more of the following dose reduction techniques: Automated exposure control, adjustment of the mA and/or kV according to patient size, and/or use of iterative reconstruction technique. FINDINGS: HEMORRHAGE: No intracranial hemorrhage. BRAIN: No mass effect or edema. No atrophy or chronic microvascular ischemic changes. VENTRICLES: Unremarkable. No hydrocephalus. CALVARIUM: Unremarkable. PARANASAL SINUSES: Unremarkable as visualized. No significant inflammatory changes. MASTOID AIR CELLS: Unremarkable as visualized. No inflammatory changes. OTHER FINDINGS: None. IMPRESSION: No acute intracranial abnormality. If symptoms persists, consider further evaluation with MRI.
--- NOTE | 2016-12-02 09:20 | RAD ---
PROCEDURE: CHEST RADIOGRAPH, 1 VIEW HISTORY: chest pain COMPARISON: 11/03/2016 FINDINGS: LUNGS: Clear. PLEURA: No pneumothorax or pleural fluid seen. CARDIOVASCULAR: Normal. OSSEOUS STRUCTURES: No significant abnormalities. VISUALIZED UPPER ABDOMEN: Normal. OTHER FINDINGS: None. IMPRESSION: No active disease.
[2016-12-02] MEDS ORDERED: Albuterol HFA 90 mcg/actuation (8 g) IH PRN (10:03)
[2016-12-02] MEDS ORDERED: Fluticasone-Salmeterol 250-50mcg Diskus IH SCH (10:15)
[2016-12-02 11:17] LABS: T4 6.65 ug/dL (5.5-11.0)
[2016-12-02 11:30] LABS: THYROID STIMULATING HORMONE 3.72 mIU/L (0.46-4.68)
--- NOTE | 2016-12-02 11:41 | CP.PCM.HP ---
<Fredo Lord - Last Filed: 12/02/16 17:08> History of Present Illness - History of Present Illness History of Present Illness: 51 year old female with past medical history of asthma requiring intubation one time, CHF, DM, HTN, CVA in 2003 without residual deficits, HLD, MT 16 years ago who presents to the hospital with complaint of dizziness and weakness. She states it started around 10 PM last night when she was riding in the car home. Once home, her dizziness worsened and she developed some blurry vision. She said she checked her blood sugar and it was over 400. Also her blood pressure has been running around 160/90's at home. She reports when she was discharged, she was taking meclizine for dizziness but did not take an evening dos. She reports her chronic lower extremity swelling but no SOB, nausea , fever, or chills. She reports chest pain reproducible with palpation and back pain, general malaise but no focal weakness. She states she takes her metformin daily and when she notices her blood sugar elevated. She has never used insulin at home. PMD: Clinic-Dr. Torres PMHx: asthma- patient was intubated on last admission for desaturation, CHF, DM , HTN, CVA, HLD, MT Meds: lasix 20mg daily, flovent q12, pulmicort 0.25 q12, ASA 81, ventolin q6prn , vasotec 10mg daily, coreg 3.125 BID, singulair 10mg, metformin 1000mg daily, glimepiride 2mg, simvastatin 40mg PSH: cardiac cath, tubal ligation FamHx: Mother with HTN, DM, of MT in her 30s SocialHx: denies tobacco, alcohol, drugs, not currently employed Allergies: denies Present on Admission - Present on Admission Any Indicators Present on Admission: No Review of Systems - Constitutional Constitutional: Headache, Malaise. absent: Chills, Fever - EENT Eyes: Diplopia. absent: Blurred Vision, Spots in Vision Ears: absent: Decreased Hearing Nose/Mouth/Throat: absent: Dysphagia, Sore Throat, Neck Mass - Cardiovascular Cardiovascular: Chest Pain (reproducible with palpation), Leg Edema. absent: Dyspnea - Respiratory Respiratory: absent: Cough, Dyspnea - Gastrointestinal Gastrointestinal: absent: Bloating, Diarrhea, Nausea - Genitourinary Genitourinary: absent: Dysuria - Reproductive: Female Reproductive:Female: Post Menopausal - Musculoskeletal Musculoskeletal: Back Pain. absent: Numbness, Tingling - Integumentary Integumentary: absent: Lesions, Skin Pain, Wounds - Neurological Neurological: Weakness. absent: Numbness, Focal Weakness, Syncope, Tingling - Psychiatric Psychiatric: Anxiety. absent: Depression - Endocrine Endocrine: absent: Fatigue, Palpitations - Hematologic/Lymphatic Hematologic: absent: Easy Bleeding Past Patient History - Infectious Disease Hx of Infectious Diseases: None - Past Medical History & Family History Past Medical History?: Yes - Past Social History Smoking Status: Never Smoked Alcohol: None Drugs: Denies Home Situation {Lives}: With Family - CARDIAC Hx Hypercholesterolemia: Yes Hx Hypertension: Yes Hx Peripheral Edema: Yes - PULMONARY Hx Asthma: Yes - NEUROLOGICAL HX Cerebrovascular Accident: Yes (weakness RLE) - HEENT Hx HEENT Problems: No Other/Comment: Blurred vision - RENAL Hx Chronic Kidney Disease: No - ENDOCRINE/METABOLIC Hx Diabetes Mellitus Type 2: Yes - HEMATOLOGICAL/ONCOLOGICAL Hx Blood Disorders: No - INTEGUMENTARY Hx Dermatological Problems: Yes Other/Comment: Bilateral feet discoloration - MUSCULOSKELETAL/RHEUMATOLOGICAL Hx Musculoskeletal Disorders: No Hx Falls: No - GASTROINTESTINAL Hx Gastrointestinal Disorders: No - GENITOURINARY/GYNECOLOGICAL Hx Genitourinary Disorders: No - PSYCHIATRIC Hx Substance Use: No - SURGICAL HISTORY Hx Surgeries: Yes Hx Tubal Ligation: Yes - ANESTHESIA Hx Anesthesia: Yes Hx Anesthesia Reactions: No Hx Malignant Hyperthermia: No Meds Allergies/Adverse Reactions: Allergies Allergy/AdvReac Type Severity Reaction Status Date / Time No Known Allergies Allergy Verified 12/02/16 01:17 Physical Exam - Constitutional Appears: Non-toxic, No Acute Distress - Head Exam Head Exam: ATRAUMATIC, NORMOCEPHALIC - Eye Exam Eye Exam: Conjunctival injection, PERRL. absent: EOMI (right sided nystagmus) Pupil Exam: NORMAL ACCOMODATION, PERRL - ENT Exam ENT Exam: Mucous Membranes Moist, Normal Oropharynx - Neck Exam Neck exam: Positive for: Normal Inspection. Negative for: Tenderness, Thyromegaly - Respiratory Exam Respiratory Exam: Chest Wall Tenderness (left ribs 4-6), Clear to Auscultation Bilateral, NORMAL BREATHING PATTERN. absent: Rales, Rhonchi, Wheezes - Cardiovascular Exam Cardiovascular Exam: REGULAR RHYTHM, +S1, +S2. absent: Gallop, Rubs, Systolic Murmur - GI/Abdominal Exam GI & Abdominal Exam: Normal Bowel Sounds, Soft. absent: Firm, Guarding, Tenderness - Extremities Exam Extremities exam: Positive for: pedal edema (right lower ext), pedal pulses present. Negative for: tenderness - Back Exam Back exam: NORMAL INSPECTION, tenderness (left ribs 4-6). absent: rash noted - Neurological Exam Neurological exam: Alert, Oriented x3 - Psychiatric Exam Psychiatric exam: Normal Affect, Normal Mood - Skin Skin Exam: Dry, Intact, Normal Color, Warm Results - Vital Signs Recent Vital Signs: Last Vital Signs Temp 97.6 F 12/02/16 06:59 Pulse 86 12/02/16 06:59 Resp 18 12/02/16 10:42 BP 137/70 12/02/16 06:59 Pulse Ox 98 12/02/16 10:42 - Labs Result Diagrams: 12/02/16 01:58 12/02/16 01:58 Labs: Laboratory Results - last 24 hr 12/02/16 10:18 Thyroxine (T4) 6.65 TSH 3rd Generation 3.72 Assessment & Plan - Assessment and Plan (Free Text) Assessment: 51 y/o F presents with chest pain, dizziness, double vision. Plan: Chest Pain * Initial EKG showed sinus tach @107 w/ LBBB * chest x-ray(12/02) showed no active disease * chest ct ) showed joe evidence of PE [see full report] * MUGA scan previous admission 49% * initial cardiac enzymes negative, f/u repeat troponins * TSH and T4 wnl * ibuprofen for pain * continue aspirin and crestor Dizziness * Head CT (12/02/16) no active disease process [see full report] * MRI on previous admission (10/29) showed no evidence of acute hemorrhage or infarct. There are a few tiny nonspecific foci of increased T2 signal in the left frontal and right parietal subcortical region nonspecific. Rule out small chronic lacunar type infarcts, sequela of migraine headaches old trauma or post infectious/ inflammatory changes. There are inflammatory changes seen within the maxillary and ethmoid air complexes. Questionable small bilateral maxillary sinus fluid levels left greater than right. [ see full report] * Cervical Spine MRI (11/07/16): Minor disc bulging noted at the C6-C7 level with mild canal narrowing however no significant cord compression. * On previous admission (10/29)- MYA negative, rheumatoid negative, influenza negative * Continue Meclizine 25mg TID PRN dizziness * continue to monitor Diabetes mellitus * ISS high protocol * accuchecks ACHS on high protocol * A1c was 10.2 * hold metformin * Blood sugars in 300-400's * Target euglycemia 140-180 HTN * BP 170/85on admissiom * continue vasotec 10mg daily * continue coreg 3.125mg BID * continue lasix HLD * cont home med equivalent- crestor 10mg HS Hx CHF * cont home med lasix 20mg PO daily Anxiety * Xanax 0.25mg TID PRN increased to 0.5mg TID LACY * Monitor Hx of Asthma * continue singulair * continue lowell diskus 1puf ih Q12 * continue albuterol 1 puff Q6H prn GI/DVT ppx * heparin 5000 units sc q8h * protonix 40mg daily * SCD's contraindicated due to edema Assessment and plan discussed with attending physician. <Kendall Lynn H - Last Filed: 12/02/16 18:30> Results - Vital Signs Recent Vital Signs: Last Vital Signs Temp 98.2 F 12/02/16 16:08 Pulse 78 12/02/16 16:08 Resp 20 12/02/16 16:08 BP 139/76 12/02/16 16:08 Pulse Ox 99 12/02/16 16:08 - Labs Result Diagrams: 12/02/16 01:58 12/02/16 01:58 Labs: Laboratory Results - last 24 hr 12/02/16 12/02/16 12/02/16 10:18 12:53 16:34 POC Glucose (mg/dL) 284 H 312 H Troponin I < 0.0120 Thyroxine (T4) 6.65 TSH 3rd Generation 3.72 Attending/Attestation - Attestation I have personally seen and examined this patient.: Yes I have fully participated in the care of the patient.: Yes I have reviewed all pertinent clinical information: Yes Notes (Text): 12/02/16 18:26 Medical attending: Patient was seen and examined by me. Agree with the above note by the resident. The patient is well known to hospitalist service from previous time here She had an extensive work up the last time with numerous imaging of her brain and chest. She reported shortness of breath as well as chest pain this time. CT of the head was negatve. Will check additional cardiac enzymes as well She reports dizziness and weakness - this is very similar to previous admission. My concern is for her relatively high BP as well as her out of control DM. She may also have a component of anxiety as well thank you Kendall Lynn
[2016-12-02] MEDS: (Novolin R) Insulin Human Regular 100 units/ml vial SC SCH ×3 (14:06→22:03)
[2016-12-02] MEDS: Fluticasone-Salmeterol 250-50mcg Diskus IH SCH (19:22)
[2016-12-03 08:02] LABS: BASO % 0.4 % (0.0-2.0); EOS # 0.2 K/uL (0.0-0.7); EOS % 2.8 % (0.0-4.0); HEMATOCRIT 39.4 % (34.0-47.0); LYMPH % 32.1 % (20.0-40.0); MEAN CELL VOLUME 85.7 fL (81.0-99.0); MEAN CORPUSCULAR HEMOGLOBIN 28.9 pg (27.0-31.0); MEAN CORPUSCULAR HGB CONC 33.7 g/dL (33.0-37.0); MEAN PLATELET VOLUME 7.4 fL (7.2-11.7); MONO # 0.4 K/uL (0.0-0.8); MONO % 6.6 % (0.0-10.0); RED CELL DISTRIBUTION WIDTH 13.2 % (11.5-14.5); WHITE BLOOD COUNT 6.2 K/uL (4.8-10.8)
[2016-12-03] MEDS: (Novolin R) Insulin Human Regular 100 units/ml vial SC SCH ×4 (08:19→22:12)
[2016-12-03 08:25] LABS: CHLORIDE 100 mmol/L (98-107); POTASSIUM 3.7 mmol/L (3.6-5.2); SODIUM 135 mmol/L (132-148)
[2016-12-03 08:27] LABS: ALKALINE PHOSPHATASE 79 U/L (38-126); AST/SGOT 30 U/L (14-36); BILIRUBIN,TOTAL 0.7 mg/dL (0.2-1.3); CARBON DIOXIDE 28 mmol/L (22-30); GFR AFRICAN-AMERICAN > 60
[2016-12-03 08:28] LABS: ALB/GLOB RATIO 1.3 (1.0-2.1); ALT/SGPT 50 U/L (9-52); BLOOD UREA NITROGEN 15 mg/dL (7-17); CALCIUM 8.5 mg/dl (8.6-10.4); GLUCOSE,RANDOM 247 mg/dL (65-105); TOTAL PROTEIN 6.2 g/dL (6.3-8.3)
[2016-12-03] MEDS: Fluticasone-Salmeterol 250-50mcg Diskus IH SCH ×2 (09:06→20:12)
[2016-12-03] MEDS: Albuterol HFA 90 mcg/actuation (8 g) IH PRN (09:07)
[2016-12-03] MEDS: Pantoprazole 40 mg EC Tab PO SCH (09:54)
--- NOTE | 2016-12-03 17:23 | CP.PCM.PN ---
<Fredo Lord - Last Filed: 12/03/16 17:20> Subjective - Date & Time of Evaluation Date of Evaluation: 12/03/16 Time of Evaluation: 09:00 - Subjective Subjective: Hospitalist note- Dr. Lynn's service The patient was seen this morning and examined at bedside. She states that she had an "ok" night and states that her headaches and dizziness have been improving in comparison to their intensity upon admission. Today she reports a marked improvement in her dizziness although it is still present. She is ambulating to the bathroom and complains of a mild sense of "off balance". She reports that her headaches cause pain from the back of her neck and travel up her head and terminate on her forehead. She reports heavy eyes, photophobia, and nausea associated with the headaches, although the headaches are reported as "permanent" in duration. The patient denies an aura but states that she feels sensations of warmth or chills that she associates with increasing or decreasing blood pressure; she adds that her headaches improve or worsen with fluctuations in her blood pressure. With regards to her breathing, the patient reports noted improvement in her breathing but states that the chest pressure she is experiencing is still present upon inhalation. This pressure is described as a squeezing sensation located across her chest at the level of the sternum anteriorly and at the same level in her back posteriorly. Lastly, the patient is complaining of continuing but improving chest pain located between ribs 4-6 on the left. Upon palpation the chest pain is reproducible. She states her vision has improved over night. Patient reports dizziness, LE edema, nausea , constipation, and anxiety. Patient denies fever, shortness of breath/dyspnea, cough, and vomiting. Objective - Vital Signs/Intake and Output Vital Signs (last 24 hours): Temp Pulse Resp BP Pulse Ox 98.1 F 86 20 145/76 95 12/03/16 16:39 12/03/16 16:39 12/03/16 16:39 12/03/16 16:39 12/03/16 16:39 - Medications Medications: Current Medications Acetaminophen (Tylenol 325mg Tab) 650 mg PO Q6 PRN PRN Reason: Fever >100.4 F Albuterol (Ventolin Hfa 90 Mcg/Actuation (8 G)) 1 puff IH RQ6 PRN PRN Reason: Shortness of Breath Last Admin: 12/03/16 09:07 Dose: 1 puff Alprazolam (Xanax) 0.5 mg PO TID PRN PRN Reason: Anxiety Aspirin (Ecotrin) 81 mg PO DAILY [facility] Last Admin: 12/03/16 09:54 Dose: 81 mg Carvedilol (Coreg) 3.125 mg PO DAILY [facility] Last Admin: 12/03/16 09:55 Dose: 3.125 mg Enalapril Maleate (Vasotec) 10 mg PO DAILY [facility] Last Admin: 12/03/16 09:55 Dose: 10 mg Furosemide (Lasix) 20 mg PO DAILY [facility] Last Admin: 12/03/16 09:54 Dose: 20 mg Heparin Sodium (Porcine) (Heparin) 5,000 units SC Q12 [facility] Last Admin: 12/03/16 09:55 Dose: 5,000 units Ibuprofen (Motrin Tab) 600 mg PO Q6 PRN PRN Reason: Headache Insulin Glargine (Lantus) 40 unit SC HS [facility] Insulin Human Regular (Novolin R) 0 unit SC ACHS [facility] PRN Reason: Protocol Last Admin: 12/03/16 12:24 Dose: 6 unit Meclizine HCl (Antivert) 25 mg PO TID PRN PRN Reason: Dizziness Last Admin: 12/02/16 11:42 Dose: 25 mg Montelukast Sodium (Singulair) 10 mg PO DAILY [facility] Last Admin: 12/03/16 09:54 Dose: 10 mg Ondansetron HCl (Zofran Inj) 4 mg IVP Q6 PRN PRN Reason: Nausea/Vomiting Pantoprazole Sodium (Protonix Ec Tab) 40 mg PO DAILY [facility] Last Admin: 12/03/16 09:54 Dose: 40 mg Rosuvastatin Calcium (Crestor) 10 mg PO HS [facility] Last Admin: 12/02/16 21:31 Dose: 10 mg Fluticasone/Salmeterol (Advair Diskus 250/50) 1 puff IH RQ12 [facility] Last Admin: 12/03/16 09:06 Dose: 1 puff - Constitutional Appears: Non-toxic, No Acute Distress - Head Exam Head Exam: ATRAUMATIC, NORMOCEPHALIC - Eye Exam Eye Exam: EOMI, Normal appearance, PERRL Pupil Exam: PERRL - ENT Exam ENT Exam: Mucous Membranes Moist, Normal Oropharynx - Neck Exam Neck Exam: Normal Inspection - Respiratory Exam Respiratory Exam: Chest Wall Tenderness (between ribs 4-6), Clear to Ausculation Bilateral, NORMAL BREATHING PATTERN. absent: Rales, Rhonchi, Wheezes - Cardiovascular Exam Cardiovascular Exam: REGULAR RHYTHM, +S1, +S2. absent: Gallop, Rubs, Murmur - GI/Abdominal Exam GI & Abdominal Exam: Soft, Normal Bowel Sounds. absent: Distended, Firm, Guarding, Tenderness - Extremities Exam Extremities Exam: Normal Capillary Refill, Normal Inspection, Pedal Edema (+1 edema right LE). absent: Tenderness - Back Exam Back Exam: NORMAL INSPECTION - Neurological Exam Neurological Exam: Alert, Awake, CN II-XII Intact, Oriented x3 Neuro motor strength exam: Left Upper Extremity: 4, Right Upper Extremity: 4, Left Lower Extremity: 4, Right Lower Extremity: 4 - Psychiatric Exam Psychiatric exam: Anxious - Skin Skin Exam: Dry, Intact, Normal Color, Warm Assessment and Plan - Assessment and Plan (Free Text) Assessment: 51 y/o F presents with chest pain, dizziness, double vision. Plan: Chest pain * Initial EKG showed sinus tachycardia @ 107 w/ LBBB * CXR (12/02/2016) showed no active disease * Chest CT (12/02) showed no evidence of PE [see full report] * MUGA scan previous admission 49% * Initial cardiac enzymes negative * TSH and T4 wnl * Negative troponins 3x * Recommended stretching exercises for chest pain * Continue Ibuprofen for pain * Continue aspirin and crestor Dizziness * Head CT (12/02/16): no active disease process [see full report] * MRI on previous admission (10/29) showed no evidence of acute hemorrhage or infarct. There are a few tiny nonspecific foci of increased T2 signal in the left frontal and right parietal subcortical region nonspecific. Rule out small chronic lacunar type infarcts, sequelae of migraine headaches old trauma or post infectious/inflammatory changes. There are inflammatory changes seen within the maxillary and ethmoid air complexes. Questional small bilateral maxillary sinus fluid levels left greater than right [see full report] * Cervical spine MRI (11/07/16): minor disc bulging noted at the C6-C7 level with mild canal narrowing however no significant cord compression * On previous admission (10/29) - MYA negative, rheumatoid negative, influenza negative * Continue Meclizine 25 mg tid prn dizziness * Continue to monitor Migraine headaches * Start sumatriptan 20 mg PO * reassess if pain controlled and symptoms ipmroved Diabetes mellitus * Blood sugars continually in upper 200s-400s * Consider increasing ISS * ISS high protocol * Accuchecks ACHS on high protocol * A1c was 10.2 * Hold metformin * Start on lantus 40 U SC HS as on previous admission * Target euglycemia 140-180 Hypertension * BP 170/85 on admission * Currently wnl today * Continue vasotec 10 mg daily * Continue coreg 3.125 mg bid * Continue lasix Hyperlipidemia * Continue home med equivalent - crestor 10 mg HS History of CHF * Continue home med lasix 20 mg po daily Anxiety * Patient reports improvement in anxiety and states that she feels calm today * Continue Xanax 0.5 mg tid marvel * Monitor History of asthma * Continue singulair * Continue advair diskus 1 puff ih q12 * Continue albuterol 1 puff q6h prn Prophylactic measures * Heparin 5000 units sc q8h * Protonix 40 mg daily * SCD's contraindicated due to edema Assessment and plan discussed with attending physician. <Kendall Lynn H - Last Filed: 12/03/16 17:56> Objective - Vital Signs/Intake and Output Vital Signs (last 24 hours): Temp Pulse Resp BP Pulse Ox 98.1 F 86 20 145/76 95 12/03/16 16:39 12/03/16 16:39 12/03/16 16:39 12/03/16 16:39 12/03/16 16:39 - Medications Medications: Current Medications Acetaminophen (Tylenol 325mg Tab) 650 mg PO Q6 PRN PRN Reason: Fever >100.4 F Albuterol (Ventolin Hfa 90 Mcg/Actuation (8 G)) 1 puff IH RQ6 PRN PRN Reason: Shortness of Breath Last Admin: 12/03/16 09:07 Dose: 1 puff Alprazolam (Xanax) 0.5 mg PO TID PRN PRN Reason: Anxiety Aspirin (Ecotrin) 81 mg PO DAILY [facility] Last Admin: 12/03/16 09:54 Dose: 81 mg Carvedilol (Coreg) 3.125 mg PO DAILY [facility] Last Admin: 12/03/16 09:55 Dose: 3.125 mg Enalapril Maleate (Vasotec) 10 mg PO DAILY [facility] Last Admin: 12/03/16 09:55 Dose: 10 mg Furosemide (Lasix) 20 mg PO DAILY [facility] Last Admin: 12/03/16 09:54 Dose: 20 mg Heparin Sodium (Porcine) (Heparin) 5,000 units SC Q12 [facility] Last Admin: 12/03/16 09:55 Dose: 5,000 units Ibuprofen (Motrin Tab) 600 mg PO Q6 PRN PRN Reason: Headache Insulin Glargine (Lantus) 40 unit SC HS [facility] Insulin Human Regular (Novolin R) 0 unit SC ACHS [facility] PRN Reason: Protocol Last Admin: 12/03/16 12:24 Dose: 6 unit Meclizine HCl (Antivert) 25 mg PO TID PRN PRN Reason: Dizziness Last Admin: 12/02/16 11:42 Dose: 25 mg Montelukast Sodium (Singulair) 10 mg PO DAILY [facility] Last Admin: 12/03/16 09:54 Dose: 10 mg Ondansetron HCl (Zofran Inj) 4 mg IVP Q6 PRN PRN Reason: Nausea/Vomiting Pantoprazole Sodium (Protonix Ec Tab) 40 mg PO DAILY [facility] Last Admin: 12/03/16 09:54 Dose: 40 mg Rosuvastatin Calcium (Crestor) 10 mg PO HS [facility] Last Admin: 12/02/16 21:31 Dose: 10 mg Fluticasone/Salmeterol (Advair Diskus 250/50) 1 puff IH RQ12 [facility] Last Admin: 12/03/16 09:06 Dose: 1 puff Attending/Attestation - Attestation I have personally seen and examined this patient.: Yes I have fully participated in the care of the patient.: Yes I have reviewed all pertinent clinical information, including history, physical exam and plan: Yes Notes (Text): 12/03/16 17:53 Medical Attending: Patient was seen and examined by me. She reported she did feel better but still had the sensation of headache as well as dizziness. When I saw her no chest pain and breathing was ok. She has already had an extensive work up last time she was here. At this time concern is that she maybe having these headaches due to out of control BP, out of control sugars, or potential migraines. Will try sumitriptan to see if this helps and also add on more insulin as well. thank you Kendall Lynn
--- NOTE | 2016-12-03 18:47 | CARD ---
APPROVED REPORT EKG Measurement Heart [id number] <Conclusion> Sinus tachycardia Left axis deviation Left bundle branch block Abnormal ECG
[2016-12-03] MEDS ORDERED: (Lantus) Insulin Glargine, Recombinant SC SCH (22:00)
[2016-12-04 07:46] LABS: BASO # 0.1 K/uL (0.0-0.2); BASO % 0.8 % (0.0-2.0); EOS # 0.2 K/uL (0.0-0.7); EOS % 2.6 % (0.0-4.0); HEMATOCRIT 39.9 % (34.0-47.0); LYMPH # 1.8 K/uL (1.0-4.3); MEAN CELL VOLUME 85.3 fL (81.0-99.0); MEAN CORPUSCULAR HEMOGLOBIN 28.9 pg (27.0-31.0); MEAN CORPUSCULAR HGB CONC 33.8 g/dL (33.0-37.0); MEAN PLATELET VOLUME 7.4 fL (7.2-11.7); MONO # 0.4 K/uL (0.0-0.8); MONO % 6.5 % (0.0-10.0); RED CELL DISTRIBUTION WIDTH 13.3 % (11.5-14.5); WHITE BLOOD COUNT 6.5 K/uL (4.8-10.8)
[2016-12-04] MEDS: Fluticasone-Salmeterol 250-50mcg Diskus IH SCH ×2 (07:59→19:42)
[2016-12-04] MEDS: Albuterol HFA 90 mcg/actuation (8 g) IH PRN (08:00)
[2016-12-04 08:03] LABS: CHLORIDE 96 mmol/L (98-107); POTASSIUM 3.5 mmol/L (3.6-5.2); SODIUM 137 mmol/L (132-148)
[2016-12-04 08:05] LABS: AST/SGOT 29 U/L (14-36); BILIRUBIN,TOTAL 0.7 mg/dL (0.2-1.3); CARBON DIOXIDE 32 mmol/L (22-30); GFR AFRICAN-AMERICAN > 60
[2016-12-04 08:06] LABS: ALB/GLOB RATIO 1.5 (1.0-2.1); ALKALINE PHOSPHATASE 85 U/L (38-126); ALT/SGPT 51 U/L (9-52); BLOOD UREA NITROGEN 14 mg/dL (7-17); CALCIUM 8.7 mg/dl (8.6-10.4); GLUCOSE,RANDOM 257 mg/dL (65-105); TOTAL PROTEIN 6.4 g/dL (6.3-8.3)
[2016-12-04] MEDS: (Novolin R) Insulin Human Regular 100 units/ml vial SC SCH ×4 (08:11→21:19)
[2016-12-04] MEDS ORDERED: Potassium Chloride 20 mEq ER Tab PO ONE (09:49)
[2016-12-04] MEDS: Pantoprazole 40 mg EC Tab PO SCH (10:47)
[2016-12-04 16:31] VITALS: RESP 20
--- NOTE | 2016-12-04 17:03 | CP.PCM.PN ---
<Fredo Lord - Last Filed: 12/04/16 16:56> Subjective - Date & Time of Evaluation Date of Evaluation: 12/04/16 Time of Evaluation: 07:45 - Subjective Subjective: Hospitalist note- Dr. Lynn's service The patient was seen and evaluated at bedside. She reports that she slept well last night, although late, at 3 AM because she was not sleepy. Her first dose of sumatriptan was administered around 9 PM. She reports that her headache has improved greatly compared to yesterday. She states that her dizziness is not present at rest and is now only elicited by positional changes and ambulation now. In terms of her breathing, she reports that she is having significantly more shortness of breath today than yesterday. She states that she is dependent on her O2 canula currently and that she becomes short of breath when she walks to and from the rest room without it. Lastly, she reports that her chest pain and pressure associated with inspiration has decreased/improved compared to yesterday. On review of systems she reports headache, chest pain, palpitations, shortness of breath, cough, voice hoarseness, fatigue/tiredness. She denies sputum production and confusion. Objective - Vital Signs/Intake and Output Vital Signs (last 24 hours): Temp Pulse Resp BP Pulse Ox 98.4 F 73 20 127/64 97 12/04/16 16:29 12/04/16 16:29 12/04/16 16:29 12/04/16 16:29 12/04/16 16:29 Intake and Output: 12/04/16 12/04/16 06:59 18:59 Intake Total 120 Balance 120 - Medications Medications: Current Medications Acetaminophen (Tylenol 325mg Tab) 650 mg PO Q6 PRN PRN Reason: Fever >100.4 F Albuterol (Ventolin Hfa 90 Mcg/Actuation (8 G)) 1 puff IH RQ6 PRN PRN Reason: Shortness of Breath Last Admin: 12/04/16 08:00 Dose: 1 puff Alprazolam (Xanax) 0.5 mg PO TID PRN PRN Reason: Anxiety Aspirin (Ecotrin) 81 mg PO DAILY [facility] Last Admin: 12/04/16 10:47 Dose: 81 mg Carvedilol (Coreg) 3.125 mg PO DAILY [facility] Last Admin: 12/04/16 10:47 Dose: 3.125 mg Enalapril Maleate (Vasotec) 10 mg PO DAILY [facility] Last Admin: 12/04/16 10:47 Dose: 10 mg Furosemide (Lasix) 20 mg PO DAILY [facility] Last Admin: 12/04/16 10:48 Dose: 20 mg Heparin Sodium (Porcine) (Heparin) 5,000 units SC Q12 [facility] Last Admin: 12/04/16 10:48 Dose: 5,000 units Ibuprofen (Motrin Tab) 600 mg PO Q6 PRN PRN Reason: Headache Insulin Glargine (Lantus) 45 unit SC HS [facility] Insulin Human Regular (Novolin R) 0 unit SC ACHS [facility] PRN Reason: Protocol Last Admin: 12/04/16 12:57 Dose: 8 unit Meclizine HCl (Antivert) 25 mg PO TID PRN PRN Reason: Dizziness Last Admin: 12/02/16 11:42 Dose: 25 mg Montelukast Sodium (Singulair) 10 mg PO DAILY [facility] Last Admin: 12/04/16 10:48 Dose: 10 mg Ondansetron HCl (Zofran Inj) 4 mg IVP Q6 PRN PRN Reason: Nausea/Vomiting Pantoprazole Sodium (Protonix Ec Tab) 40 mg PO DAILY [facility] Last Admin: 12/04/16 10:47 Dose: 40 mg Rosuvastatin Calcium (Crestor) 10 mg PO HS [facility] Last Admin: 12/03/16 22:12 Dose: 10 mg Fluticasone/Salmeterol (Advair Diskus 250/50) 1 puff IH RQ12 [facility] Last Admin: 12/04/16 07:59 Dose: 1 puff - Labs Labs: 12/04/16 07:32 12/04/16 07:32 - Constitutional Appears: Non-toxic, No Acute Distress - Head Exam Head Exam: ATRAUMATIC, NORMOCEPHALIC - Eye Exam Eye Exam: EOMI, Normal appearance, PERRL Pupil Exam: NORMAL ACCOMODATION, PERRL - ENT Exam ENT Exam: Mucous Membranes Moist, Normal Oropharynx - Neck Exam Neck Exam: Normal Inspection - Respiratory Exam Respiratory Exam: Clear to Ausculation Bilateral, NORMAL BREATHING PATTERN. absent: Rales, Rhonchi, Wheezes - Cardiovascular Exam Cardiovascular Exam: REGULAR RHYTHM, +S1, +S2. absent: Gallop, Rubs, Murmur - GI/Abdominal Exam GI & Abdominal Exam: Soft, Tenderness, Normal Bowel Sounds. absent: Firm, Guarding - Extremities Exam Extremities Exam: Normal Capillary Refill, Normal Inspection, Pedal Edema (+1 edema right leg). absent: Tenderness - Back Exam Back Exam: NORMAL INSPECTION. absent: rash noted, tenderness - Neurological Exam Neurological Exam: Alert, Awake, CN II-XII Intact, Oriented x3 - Psychiatric Exam Psychiatric exam: Anxious, Normal Mood - Skin Skin Exam: Dry, Intact, Normal Color, Warm Assessment and Plan - Assessment and Plan (Free Text) Plan: Chest pain * Initial EKG showed sinus tachycardia @ 107 w/ LBBB * CXR (12/02/2016) showed no active disease * Chest CT (12/02) showed no evidence of PE [see full report] * MUGA scan previous admission 49% * Initial cardiac enzymes negative * TSH and T4 wnl * Negative troponins 3x * Recommended stretching exercises for chest pain * Continue Ibuprofen for pain * Continue aspirin and crestor Dizziness * Head CT (12/02/16): no active disease process [see full report] * MRI on previous admission (10/29) showed no evidence of acute hemorrhage or infarct. There are a few tiny nonspecific foci of increased T2 signal in the left frontal and right parietal subcortical region nonspecific. Rule out small chronic lacunar type infarcts, sequelae of migraine headaches old trauma or post infectious/inflammatory changes. There are inflammatory changes seen within the maxillary and ethmoid air complexes. Questional small bilateral maxillary sinus fluid levels left greater than right [see full report] * Cervical spine MRI (11/07/16): minor disc bulging noted at the C6-C7 level with mild canal narrowing however no significant cord compression * On previous admission (10/29) - MYA negative, rheumatoid negative, influenza negative * Orthostatics negative for changes * Continue Meclizine 25 mg tid prn dizziness * Continue to monitor Migraine headaches * continue sumatriptan 25 mg PO Q12H prn * reassess if pain controlled and symptoms ipmroved Diabetes mellitus * Blood sugars continually in upper 200s-400s * Consider increasing ISS * ISS high protocol * Accuchecks ACHS on high protocol * A1c was 10.2 * Hold metformin * Increase lantus to 45 U SC HS * Target euglycemia 140-180 Hypertension * BP 170/85 on admission * Currently wnl today * Continue vasotec 10 mg daily * Continue coreg 3.125 mg bid * Continue lasix Hyperlipidemia * Continue home med equivalent - crestor 10 mg HS History of CHF * Continue home med lasix 20 mg po daily Anxiety * Patient reports improvement in anxiety and states that she feels calm today * Continue Xanax 0.5 mg tid marvel * Monitor History of asthma * Continue singulair * Continue advair diskus 1 puff ih q12 * Continue albuterol 1 puff q6h prn Prophylactic measures * Heparin 5000 units sc q8h * Protonix 40 mg daily * SCD's contraindicated due to edema Assessment and plan discussed with attending physician. <Kendall Lynn - Last Filed: 12/04/16 18:12> Objective - Vital Signs/Intake and Output Vital Signs (last 24 hours): Temp Pulse Resp BP Pulse Ox 98.4 F 73 20 127/64 97 12/04/16 16:29 12/04/16 16:29 12/04/16 16:29 12/04/16 16:29 12/04/16 16:29 Intake and Output: 12/04/16 12/04/16 06:59 18:59 Intake Total 120 Balance 120 - Medications Medications: Current Medications Acetaminophen (Tylenol 325mg Tab) 650 mg PO Q6 PRN PRN Reason: Fever >100.4 F Albuterol (Ventolin Hfa 90 Mcg/Actuation (8 G)) 1 puff IH RQ6 PRN PRN Reason: Shortness of Breath Last Admin: 12/04/16 08:00 Dose: 1 puff Alprazolam (Xanax) 0.5 mg PO TID PRN PRN Reason: Anxiety Aspirin (Ecotrin) 81 mg PO DAILY [facility] Last Admin: 12/04/16 10:47 Dose: 81 mg Carvedilol (Coreg) 3.125 mg PO DAILY [facility] Last Admin: 12/04/16 10:47 Dose: 3.125 mg Enalapril Maleate (Vasotec) 10 mg PO DAILY [facility] Last Admin: 12/04/16 10:47 Dose: 10 mg Furosemide (Lasix) 20 mg PO DAILY [facility] Last Admin: 12/04/16 10:48 Dose: 20 mg Heparin Sodium (Porcine) (Heparin) 5,000 units SC Q12 [facility] Last Admin: 12/04/16 10:48 Dose: 5,000 units Ibuprofen (Motrin Tab) 600 mg PO Q6 PRN PRN Reason: Headache Insulin Glargine (Lantus) 45 unit SC HS [facility] Insulin Human Regular (Novolin R) 0 unit SC ACHS [facility] PRN Reason: Protocol Last Admin: 12/04/16 17:51 Dose: 6 unit Meclizine HCl (Antivert) 25 mg PO TID PRN PRN Reason: Dizziness Last Admin: 12/02/16 11:42 Dose: 25 mg Montelukast Sodium (Singulair) 10 mg PO DAILY [facility] Last Admin: 12/04/16 10:48 Dose: 10 mg Ondansetron HCl (Zofran Inj) 4 mg IVP Q6 PRN PRN Reason: Nausea/Vomiting Pantoprazole Sodium (Protonix Ec Tab) 40 mg PO DAILY [facility] Last Admin: 12/04/16 10:47 Dose: 40 mg Rosuvastatin Calcium (Crestor) 10 mg PO HS [facility] Last Admin: 12/03/16 22:12 Dose: 10 mg Fluticasone/Salmeterol (Advair Diskus 250/50) 1 puff IH RQ12 [facility] Last Admin: 12/04/16 07:59 Dose: 1 puff Sumatriptan Succinate (Imitrex Tab) 25 mg PO Q12 PRN PRN Reason: Migraine headache - Labs Labs: 12/04/16 07:32 12/04/16 07:32 Attending/Attestation - Attestation I have personally seen and examined this patient.: Yes I have fully participated in the care of the patient.: Yes I have reviewed all pertinent clinical information, including history, physical exam and plan: Yes Notes (Text): 12/04/16 18:10 Medical Attending: Patient was seen and examined by me. Agree with the above note by the resident. The patient had family member present at bedside. The patient reported she overall felt better than when she came in. Headache was still present however much better after the sumatriptan x 1. Also chest pain and breathing is better. As mentioned before she had a very large work up recently and we are trying to avoid repeat imaging and testing if possible. Also we discussed her out of controll sugars when she came in. Insulin increased and back on metformin again. BP is now in better range thank you Kendall Lynn
[2016-12-04] MEDS: (Lantus) Insulin Glargine, Recombinant SC SCH (21:35)
[2016-12-05] MEDS: Fluticasone-Salmeterol 250-50mcg Diskus IH SCH ×2 (08:15→19:29)
[2016-12-05] MEDS: Albuterol HFA 90 mcg/actuation (8 g) IH PRN (13:00)
[2016-12-05 21:12] LABS: ALB/GLOB RATIO 1.4 (1.0-2.1); ALKALINE PHOSPHATASE 78 U/L (38-126); ALT/SGPT 47 U/L (9-52); AST/SGOT 36 U/L (14-36); BILIRUBIN,TOTAL 0.7 mg/dL (0.2-1.3); BLOOD UREA NITROGEN 13 mg/dL (7-17); CALCIUM 8.7 mg/dl (8.6-10.4); CARBON DIOXIDE 28 mmol/L (22-30); CHLORIDE 95 mmol/L (98-107); GFR AFRICAN-AMERICAN > 60; GLUCOSE,RANDOM 332 mg/dL (65-105); POTASSIUM 3.9 mmol/L (3.6-5.2); SODIUM 135 mmol/L (132-148); TOTAL PROTEIN 6.6 g/dL (6.3-8.3)
[2016-12-05] MEDS: (Lantus) Insulin Glargine, Recombinant SC SCH (21:29)
[2016-12-05] MEDS: (Novolin R) Insulin Human Regular 100 units/ml vial SC SCH (21:33)
[2016-12-05] MEDS ORDERED: (Novolin R) Insulin Human Regular 100 units/ml vial SC SCH (22:00)
[2016-12-05 22:04] LABS: BASO % 0.3 % (0.0-2.0); EOS # 0.1 K/uL (0.0-0.7); HEMATOCRIT 40.1 % (34.0-47.0); LYMPH # 1.7 K/uL (1.0-4.3); LYMPH % 25.5 % (20.0-40.0); MEAN CORPUSCULAR HEMOGLOBIN 28.1 pg (27.0-31.0); MEAN CORPUSCULAR HGB CONC 32.7 g/dL (33.0-37.0); MEAN PLATELET VOLUME 7.5 fL (7.2-11.7); MONO # 0.4 K/uL (0.0-0.8); MONO % 6.5 % (0.0-10.0); NRBC % 0.1 % (0.0-2.0); RED CELL DISTRIBUTION WIDTH 13.2 % (11.5-14.5); WHITE BLOOD COUNT 6.7 K/uL (4.8-10.8)
[2016-12-06 08:39] LABS: HEMATOCRIT 39.7 % (34.0-47.0); MEAN CELL VOLUME 85.5 fL (81.0-99.0); MEAN CORPUSCULAR HGB CONC 33.9 g/dL (33.0-37.0); MEAN PLATELET VOLUME 7.6 fL (7.2-11.7); RED CELL DISTRIBUTION WIDTH 13.2 % (11.5-14.5); WHITE BLOOD COUNT 7.1 K/uL (4.8-10.8)
[2016-12-06 09:01] LABS: CHLORIDE 97 mmol/L (98-107); POTASSIUM 3.3 mmol/L (3.6-5.2); SODIUM 134 mmol/L (132-148)
[2016-12-06 09:03] LABS: ALB/GLOB RATIO 1.4 (1.0-2.1); ALKALINE PHOSPHATASE 86 U/L (38-126); AST/SGOT 32 U/L (14-36); BILIRUBIN,TOTAL 0.6 mg/dL (0.2-1.3); CARBON DIOXIDE 28 mmol/L (22-30); GFR AFRICAN-AMERICAN > 60; TOTAL PROTEIN 6.6 g/dL (6.3-8.3)
[2016-12-06 09:04] LABS: ALT/SGPT 51 U/L (9-52); BLOOD UREA NITROGEN 14 mg/dL (7-17); CALCIUM 8.8 mg/dl (8.6-10.4); GLUCOSE,RANDOM 244 mg/dL (65-105); MAGNESIUM 1.7 mg/dL (1.6-2.3); PHOSPHOROUS 4.2 mg/dL (2.5-4.5)
[2016-12-06] MEDS ORDERED: Potassium Chloride 20 mEq ER Tab PO ONE (09:44)
[2016-12-06] MEDS: Fluticasone-Salmeterol 250-50mcg Diskus IH SCH (10:21)
[2016-12-06] MEDS: Pantoprazole 40 mg EC Tab PO SCH ×2 (10:27→10:28)
[2016-12-06] MEDS: (Novolin R) Insulin Human Regular 100 units/ml vial SC SCH ×2 (10:28→12:51)
--- NOTE | 2016-12-06 15:37 | CP.PCM.DIS ---
<Ovidio Jo - Last Filed: 12/06/16 16:50> Provider - Provider Date of Admission: 12/03/16 13:22 Attending physician: Kendall Lynn DO Consults: None Time Spent in preparation of Discharge (in minutes): 45 Hospital Course - Lab Results Lab Results: Most Recent Lab Values WBC 7.1 K/uL (4.8-10.8) 12/06/16 08:09 RBC 4.64 Mil/uL (3.80-5.20) 12/06/16 08:09 Hgb 13.4 g/dL (11.0-16.0) 12/06/16 08:09 Hct 39.7 % (34.0-47.0) 12/06/16 08:09 MCV 85.5 fL (81.0-99.0) 12/06/16 08:09 MCH 29.0 pg (27.0-31.0) 12/06/16 08:09 MCHC 33.9 g/dL (33.0-37.0) 12/06/16 08:09 RDW 13.2 % (11.5-14.5) 12/06/16 08:09 Plt Count 243 K/uL (130-400) 12/06/16 08:09 MPV 7.6 fL (7.2-11.7) 12/06/16 08:09 Neut % (Auto) 65.7 % (50.0-75.0) 12/05/16 20:18 Lymph % (Auto) 25.5 % (20.0-40.0) 12/05/16 20:18 Bradley % (Auto) 6.5 % (0.0-10.0) 12/05/16 20:18 Eos % (Auto) 2.0 % (0.0-4.0) 12/05/16 20:18 Baso % (Auto) 0.3 % (0.0-2.0) 12/05/16 20:18 Neut # 4.4 K/uL (1.8-7.0) 12/05/16 20:18 Lymph # 1.7 K/uL (1.0-4.3) 12/05/16 20:18 Bradley # 0.4 K/uL (0.0-0.8) 12/05/16 20:18 Eos # 0.1 K/uL (0.0-0.7) 12/05/16 20:18 Baso # 0.0 K/uL (0.0-0.2) 12/05/16 20:18 Sodium 134 mmol/L (132-148) 12/06/16 08:09 Potassium 3.3 mmol/L (3.6-5.2) L 12/06/16 08:09 Chloride 97 mmol/L (98-107) L 12/06/16 08:09 Carbon Dioxide 28 mmol/L (22-30) 12/06/16 08:09 Anion Gap 12 (10-20) 12/06/16 08:09 BUN 14 mg/dL (7-17) 12/06/16 08:09 Creatinine 0.5 MG/DL (0.7-1.2) L 12/06/16 08:09 Est GFR ( Amer) > 60 12/06/16 08:09 Est GFR (Non-Af Amer) > 60 12/06/16 08:09 POC Glucose (mg/dL) 277 mg/dL (65-110) H 12/06/16 08:54 Random Glucose 244 mg/dL (65-105) H 12/06/16 08:09 Calcium 8.8 mg/dl (8.6-10.4) 12/06/16 08:09 Phosphorus 4.2 mg/dL (2.5-4.5) 12/06/16 08:09 Magnesium 1.7 mg/dL (1.6-2.3) 12/06/16 08:09 Total Bilirubin 0.6 mg/dL (0.2-1.3) 12/06/16 08:09 AST 32 U/L (14-36) 12/06/16 08:09 ALT 51 U/L (9-52) 12/06/16 08:09 Alkaline Phosphatase 86 U/L (38-126) 12/06/16 08:09 Troponin I < 0.0120 ng/mL (0.00-0.120) 12/02/16 19:41 NT-Pro-B Natriuret Pep 80.5 pg/mL (0-900) 12/02/16 01:58 Total Protein 6.6 g/dL (6.3-8.3) 12/06/16 08:09 Albumin 3.8 g/dL (3.5-5.0) 12/06/16 08:09 Globulin 2.8 gm/dL (2.2-3.9) 12/06/16 08:09 Albumin/Globulin Ratio 1.4 (1.0-2.1) 12/06/16 08:09 Thyroxine (T4) 6.65 ug/dL (5.5-11.0) 12/02/16 10:18 TSH 3rd Generation 3.72 mIU/L (0.46-4.68) 12/02/16 10:18 - Hospital Course Hospital Course: Attending: Dr. Lynn Admit date - 12/02/16 DC date- 12/06/16 Consults: none Procedures- none No complications Discharge dx 1. Chest pain 2. Dizziness 3. Migraines 4. DM 5. HTN 6. HLD 7. CHF HPI: see H/P Labs: see lab data Hospital course Chest pain * Initial EKG showed sinus tachycardia @ 107 w/ LBBB * CXR (12/02/2016) showed no active disease * Chest CT (12/02) showed no evidence of PE [see full report] * MUGA scan previous admission 49% * Initial cardiac enzymes negative * TSH and T4 wnl * Negative troponins 3x * Recommended stretching exercises for chest pain * Ibuprofen for pain * aspirin and crestor given Dizziness * Head CT (12/02/16): no active disease process [see full report] * MRI on previous admission (10/29) showed no evidence of acute hemorrhage or infarct. There are a few tiny nonspecific foci of increased T2 signal in the left frontal and right parietal subcortical region nonspecific. Rule out small chronic lacunar type infarcts, sequelae of migraine headaches old trauma or post infectious/inflammatory changes. There are inflammatory changes seen within the maxillary and ethmoid air complexes. Questional small bilateral maxillary sinus fluid levels left greater than right [see full report] * Cervical spine MRI (11/07/16): minor disc bulging noted at the C6-C7 level with mild canal narrowing however no significant cord compression * On previous admission (10/29) - MYA negative, rheumatoid negative, influenza negative * Orthostatics negative for changes * Meclizine 25 mg tid prn dizziness Migraine headaches sumatriptan 25 mg PO Q12H prn>>>> headache improved Diabetes mellitus * Blood sugars continually in upper 200s-400s * ISS high protocol * Accuchecks ACHS on high protocol * A1c was 10.2 * Held metformin * Increase lantus to 45 U SC HS * Target euglycemia 140-180 Hypertension * BP 170/85 on admission * Currently wnl today * placed on vasotec 10 mg daily * placed on coreg 3.125 mg, lasix was continued Hyperlipidemia * Continue home med equivalent - crestor 10 mg HS History of CHF * Continue home med lasix 20 mg po daily Anxiety * Patient reports improvement in anxiety and states that she feels calm today * given xanax during hospital stay * Monitor History of asthma * Continue singulair * Continue advair diskus 1 puff ih q12 * Continue albuterol 1 puff q6h prn Prophylactic measures * Heparin 5000 units sc q8h * Protonix 40 mg daily * SCD's contraindicated due to edema Discharge instructions pt is medically stable for discharge. please call [facility] downstairs in basement for appointment to follow up. please take voucher form to pay for medication. please return if condition worsens. [phone] is the number for the clinic, please follow up in a week. Discharge meds 1. albuterol inhaler prn 2. ASA 81 daily 3. coreg 3.125 po daily 4. fluticasone/salmeterol 1 puff q 12 INH 5. lasix 20 po daily 6. lantus 45 units HS 7. meclizine 25 tid prn dizziness 8. singulair 10 daily 9. simvastatin 10 daily 10. sumatriptan 25 mg po q 12 prn headache. - Date & Time of H&P Date of H&P: 12/02/16 Time of H&P: 09:37 Discharge Exam - Head Exam Head Exam: ATRAUMATIC, NORMOCEPHALIC - Eye Exam Eye Exam: EOMI - ENT Exam ENT Exam: Mucous Membranes Moist - Neck Exam Neck exam: Full Rom, Normal Inspection - Respiratory Exam Respiratory Exam: NORMAL BREATHING PATTERN. absent: Respiratory Distress - Cardiovascular Exam Cardiovascular Exam: +S1, +S2 - GI/Abdominal Exam GI & Abdominal Exam: Normal Bowel Sounds - Extremities Exam Extremities exam: full ROM, normal inspection - Neurological Exam Neurological exam: Alert, CN II-XII Intact, Oriented x3 - Psychiatric Exam Psychiatric exam: Normal Affect, Normal Mood - Skin Skin Exam: Dry, Intact, Normal Color, Warm Discharge Plan - Discharge Medications Prescriptions: Carvedilol [Coreg] 3.125 mg PO DAILY #30 tab Fluticasone/Salmeterol 250/50 [Advair Diskus 250/50] 1 puff IH Q12 #1 puff Furosemide [Lasix] 20 mg PO DAILY #30 tab Insulin Glargine, Recombina [Lantus] 45 unit SC HS #1 unit Meclizine [Meclizine*] 25 mg PO TID PRN #90 tab PRN Reason: Dizziness Montelukast [Singulair] 10 mg PO DAILY #30 tab Simvastatin 10 mg PO HS #30 tablet SUMAtriptan [Imitrex Tab] 25 mg PO Q12 PRN #60 tab PRN Reason: Migraine Headache - Follow Up Plan Condition: STABLE Disposition: HOME/ ROUTINE Instructions: Furosemide (By mouth), Meclizine (By mouth), Simvastatin (By mouth), Carvedilol (By mouth), Montelukast (By mouth), Sumatriptan (By mouth), Insulin Glargine (By injection), Heart Failure (DC), Chest Pain (DC), Heart Healthy Diet (DC), Diabetic Foot Care (DC), Diabetes Mellitus Type 2 in Adults ( DC), Basic Carbohydrate Counting (DC), Meal Planning with the Plate Method (DC) , Meal Planning with Diabetes Exchanges (DC), Dizziness (GEN) Additional Instructions: please call [facility] clinic downstairs in basement for appointment to follow up. please take voucher form to pay for medication. please return if condition worsens. [phone] is the number for the clinic, please follow up in a week. Referrals: [facility] [Outside] <Kendall Lynn - Last Filed: 12/07/16 07:48> Provider - Provider Date of Admission: 12/03/16 13:22 Attending physician: Kendall Lynn DO Hospital Course - Lab Results Lab Results: Most Recent Lab Values WBC 7.1 K/uL (4.8-10.8) 12/06/16 08:09 RBC 4.64 Mil/uL (3.80-5.20) 12/06/16 08:09 Hgb 13.4 g/dL (11.0-16.0) 12/06/16 08:09 Hct 39.7 % (34.0-47.0) 12/06/16 08:09 MCV 85.5 fL (81.0-99.0) 12/06/16 08:09 MCH 29.0 pg (27.0-31.0) 12/06/16 08:09 MCHC 33.9 g/dL (33.0-37.0) 12/06/16 08:09 RDW 13.2 % (11.5-14.5) 12/06/16 08:09 Plt Count 243 K/uL (130-400) 12/06/16 08:09 MPV 7.6 fL (7.2-11.7) 12/06/16 08:09 Neut % (Auto) 65.7 % (50.0-75.0) 12/05/16 20:18 Lymph % (Auto) 25.5 % (20.0-40.0) 12/05/16 20:18 Bradley % (Auto) 6.5 % (0.0-10.0) 12/05/16 20:18 Eos % (Auto) 2.0 % (0.0-4.0) 12/05/16 20:18 Baso % (Auto) 0.3 % (0.0-2.0) 12/05/16 20:18 Neut # 4.4 K/uL (1.8-7.0) 12/05/16 20:18 Lymph # 1.7 K/uL (1.0-4.3) 12/05/16 20:18 Bradley # 0.4 K/uL (0.0-0.8) 12/05/16 20:18 Eos # 0.1 K/uL (0.0-0.7) 12/05/16 20:18 Baso # 0.0 K/uL (0.0-0.2) 12/05/16 20:18 Sodium 134 mmol/L (132-148) 12/06/16 08:09 Potassium 3.3 mmol/L (3.6-5.2) L 12/06/16 08:09 Chloride 97 mmol/L (98-107) L 12/06/16 08:09 Carbon Dioxide 28 mmol/L (22-30) 12/06/16 08:09 Anion Gap 12 (10-20) 12/06/16 08:09 BUN 14 mg/dL (7-17) 12/06/16 08:09 Creatinine 0.5 MG/DL (0.7-1.2) L 12/06/16 08:09 Est GFR ( Amer) > 60 12/06/16 08:09 Est GFR (Non-Af Amer) > 60 12/06/16 08:09 POC Glucose (mg/dL) 277 mg/dL (65-110) H 12/06/16 08:54 Random Glucose 244 mg/dL (65-105) H 12/06/16 08:09 Calcium 8.8 mg/dl (8.6-10.4) 12/06/16 08:09 Phosphorus 4.2 mg/dL (2.5-4.5) 12/06/16 08:09 Magnesium 1.7 mg/dL (1.6-2.3) 12/06/16 08:09 Total Bilirubin 0.6 mg/dL (0.2-1.3) 12/06/16 08:09 AST 32 U/L (14-36) 12/06/16 08:09 ALT 51 U/L (9-52) 12/06/16 08:09 Alkaline Phosphatase 86 U/L (38-126) 12/06/16 08:09 Troponin I < 0.0120 ng/mL (0.00-0.120) 12/02/16 19:41 NT-Pro-B Natriuret Pep 80.5 pg/mL (0-900) 12/02/16 01:58 Total Protein 6.6 g/dL (6.3-8.3) 12/06/16 08:09 Albumin 3.8 g/dL (3.5-5.0) 12/06/16 08:09 Globulin 2.8 gm/dL (2.2-3.9) 12/06/16 08:09 Albumin/Globulin Ratio 1.4 (1.0-2.1) 12/06/16 08:09 Thyroxine (T4) 6.65 ug/dL (5.5-11.0) 12/02/16 10:18 TSH 3rd Generation 3.72 mIU/L (0.46-4.68) 12/02/16 10:18 Attending/Attestation - Attestation I have personally seen and examined this patient.: Yes I have fully participated in the care of the patient.: Yes I have reviewed all pertinent clinical information, including history, physical exam and plan: Yes Notes (Text): 12/07/16 07:46 Medical attending: Patient was seen and examined by me, agrees the above note by lead medical technologist. The patient was able to stand up and walk with us. She was able to walk into the hallway. She denied feeling short of breath, denied chest pain, denied headache during walking. She did not need any assistance. She was reporting that she's been feeling a whole lot better now and that the headache which was very severe has now resolved The patient will be sent with supplies for her diabetes. As mentioned before she has fairly poorly controlled diabetes. Also medication for blood pressure as well and medication for migraines. The patient is well aware that she needs to follow-up at the [facility]. Thank you very much, Kendall Lynn
[2016-12-06 15:46] VITALS: BP 110/71; PULSE 80; TEMP 98.3; O2SAT 97
== END 2016-12-06 18:00 | disposition home or self-care (01) | DRG 143 ==
LOC: C.ER 01:05 → C.9E 08:47 → C.6T 13:53 → OBSVTOIN 12-03 13:22
PROVIDERS: ADMIT Hospitalist; ATTEND Hospitalist
DX: R07.2 Precordial pain (principal); I11.0 Hypertensive heart disease with heart failure; I50.9 Heart failure, unspecified; E11.65 Type 2 diabetes mellitus with hyperglycemia; R42 Dizziness and giddiness; E78.5 Hyperlipidemia, unspecified; F41.9 Anxiety disorder, unspecified; J45.909 Unspecified asthma, uncomplicated; Z79.84 Long term (current) use of oral hypoglycemic drugs; G43.909 Migraine, unspecified, not intractable, without status migrainosus

== ENCOUNTER 2017-05-19 20:16 | Observation (INO) | payer MEDICAID, OTHER, SELFPAY ==
[2017-05-19 20:16] VITALS: BMI 37.7
[2017-05-19] MEDS ORDERED: Aspirin 325 mg EC Tablets PO STA (21:10)
[2017-05-19] MEDS ORDERED: Aspirin 325 mg EC Tablets PO ONE (21:18)
[2017-05-19 21:21] LABS: BASO % 0.5 % (0.0-2.0); EOS # 0.2 K/uL (0.0-0.7); EOS % 2.4 % (0.0-4.0); HEMATOCRIT 42.8 % (34.0-47.0); LYMPH # 1.9 K/uL (1.0-4.3); LYMPH % 24.4 % (20.0-40.0); MEAN CORPUSCULAR HEMOGLOBIN 29.9 pg (27.0-31.0); MEAN CORPUSCULAR HGB CONC 34.7 g/dL (33.0-37.0); MEAN PLATELET VOLUME 7.7 fL (7.2-11.7); MONO # 0.5 K/uL (0.0-0.8); RED CELL DISTRIBUTION WIDTH 13.5 % (11.5-14.5); WHITE BLOOD COUNT 7.7 K/uL (4.8-10.8)
[2017-05-19 21:28] LABS: CHLORIDE 96 mmol/L (98-107)
[2017-05-19 21:29] LABS: SODIUM 132 mmol/L (132-148)
[2017-05-19 21:30] LABS: POTASSIUM 4.6 mmol/L (3.6-5.2)
[2017-05-19 21:32] LABS: ALB/GLOB RATIO 1.5 (1.0-2.1); ALKALINE PHOSPHATASE 104 U/L (38-126); ALT/SGPT 67 U/L (9-52); AST/SGOT 79 U/L (14-36); BILIRUBIN,TOTAL 1.4 mg/dL (0.2-1.3); BLOOD UREA NITROGEN 11 mg/dL (7-17); CARBON DIOXIDE 24 mmol/L (22-30); GFR AFRICAN-AMERICAN > 60; GLUCOSE,RANDOM 332 mg/dL (65-105)
[2017-05-19 21:33] LABS: CALCIUM 9.3 mg/dl (8.6-10.4)
[2017-05-19] MEDS ORDERED: Iohexol 350mg/ml 100 ML ONE (22:36)
--- NOTE | 2017-05-19 23:57 | CT ---
EXAM: CT Angiography Chest With Intravenous Contrast EXAM DATE/TIME: 05/19/2017 9:52 PM CLINICAL HISTORY: 51 years old, female; Pain; Chest pain; Type not specified; Additional info: Chest pain radiating to the back, R/O pe TECHNIQUE: Axial computed tomographic angiography images of the chest with intravenous contrast using pulmonary embolism protocol. All CT scans at this facility use one or more dose reduction techniques, viz.: automated exposure control; ma/kV adjustment per patient size (including targeted exams where dose is matched to indication; i.e. head); or iterative reconstruction technique. MIP reconstructed images were created and reviewed. Coronal and sagittal reformatted images were created and reviewed. CONTRAST: 100 mL of omnipaque 350 administered intravenously. COMPARISON: Prior images are not available for review. FINDINGS: Artifacts: Motion artifact degrades image quality. Heart, aorta and Pulmonary arteries: Heart size is normal.There is trace fluid in pericardial recesses.There is no aneurysm or dissection.There are vascular calcifications. There are no pulmonary emboli. Lungs and pleural spaces: Trachea and main bronchi are patent.There is no pneumothorax. There is no focal consolidation. There is scarring at the lung bases. There is scarring in the lingula. There is minimal dependent airspace disease at the lung bases. There are no effusions. Mediastinum: There are multiple mildly enlarged mediastinal nodes. There are no enlarged hilar nodes. Esophagus is unremarkable. Thyroid: Thyroid is not optimally demonstrated. Bones/joints: There are degenerative changes in the osseus structures. Soft tissues: unremarkable Upper abdomen: There are no acute abnormalities in the visualized portion of the abdomen. There is fatty infiltration of the liver. There are punctate calcifications in the spleen. IMPRESSION: No aneurysm, dissection or pulmonary embolus; minimal basilar air space disease most likely atelectasis
--- NOTE | 2017-05-20 00:13 | C.PDOC ---
History Of Present Illness Pt c/o chest pain radiating to the back. Time Seen by Provider: 05/19/17 20:40 Chief Complaint (Nursing): Chest Pain History Per: Patient, Family Onset/Duration Of Symptoms: Days (few) Current Symptoms Are (Timing): Still Present Severity: Moderate Quality: "Pain" Associated Symptoms: Dyspnea. denies: Syncope Modifying Factors: Other Indicated Below Alleviating Factors: None Additional History Per: Prior Records Past Medical History Reviewed: Historical Data, Nursing Documentation, Vital Signs Vital Signs: Last Vital Signs Temp 97.7 F 05/19/17 20:43 Pulse 84 05/19/17 23:00 Resp 21 05/19/17 23:00 BP 157/81 H 05/19/17 23:00 Pulse Ox 99 05/20/17 00:16 - Medical History PMH: Asthma, CHF, CVA, Diabetes, HTN, Hypercholesterolemia, Peripheral Edema - [facility] Procedures ASSISTANCE WITH RESPIRATORY VENTILATION, >96 HRS, CPAP (05/24/16) INSERT INFUSION DEV IN R INT JUGULAR VEIN, PERC (08/27/16) INSERTION OF ENDOTRACHEAL AIRWAY INTO TRACHEA, VIA OPENING (08/27/16) MEASURE OF CARDIAC SAMPL & PRESSURE, L HEART, PERC APPROACH (05/24/16) PLAIN RADIOGRAPHY OF LEFT HEART USING OTHER CONTRAST (05/24/16) PLAIN RADIOGRAPHY OF MULT COR ART USING OTH CONTRAST (05/24/16) RESPIRATORY VENTILATION, 24-96 CONSECUTIVE HOURS (08/27/16) Family History: States: Unknown Family Hx - Social History Hx Tobacco Use: No Hx Alcohol Use: No Hx Substance Use: No - Immunization History Hx Tetanus Toxoid Vaccination: Yes Hx Influenza Vaccination: Yes Hx Pneumococcal Vaccination: Yes Review Of Systems Except As Marked, All Systems Reviewed And Found Negative. Constitutional: Negative for: Fever Cardiovascular: Positive for: Chest Pain Respiratory: Positive for: Shortness of Breath. Negative for: Hemoptysis Gastrointestinal: Negative for: Vomiting, Abdominal Pain Musculoskeletal: Positive for: Back Pain (upper), Leg Pain (right). Negative for: Neck Pain Skin: Negative for: Rash Neurological: Negative for: Weakness, Numbness Physical Exam - Physical Exam Appears: Non-toxic, No Acute Distress Skin: Normal Color, Warm, Dry Head: Atraumatic, Normacephalic Eye(s): bilateral: PERRL, EOMI Neck: Normal ROM, Supple Cardiovascular: Rhythm Regular Respiratory: Normal Breath Sounds, No Accessory Muscle Use Gastrointestinal/Abdominal: Soft, No Tenderness Back: No CVA Tenderness, No Vertebral Tenderness Extremity: Normal ROM, Calf Tenderness (right), Swelling (RLE) Neurological/Psych: Oriented x3, Normal Motor, Normal Sensation ED Course And Treatment - Laboratory Results Result Diagrams: 05/19/17 21:16 05/19/17 21:16 ECG: Interpreted By Me, Viewed By Me ECG Rhythm: Sinus Rhythm, L BBB, Nonspecific Changes ECG Interpretation: No Changes From Prior Rate From EC O2 Sat by Pulse Oximetry: 99 Pulse Ox Interpretation: Normal - Radiology CXR: Interpreted by Me, Viewed By Me CXR Interpretation: Yes: No Acute Disease - CT Scan/US CTA Chest Other Rad Studies (CT/US): Read By Radiologist, Radiology Report Reviewed CT/US Interpretation: IMPRESSION: No aneurysm, dissection or pulmonary embolus ; minimal basilar air. space disease most likely atelectasis Progress - Interventions Interventions:: Observation, Oxygen - Medications Administered Oral: Aspirin Subcutaneous: other (Lovenox) - Data Reviewed Data Reviewed: Lab, Diagnostic imaging, EKG, Old records - Patient Status Patient status: Partially improved - Continuity of Care Discussed patient case with:: Patient, Family-HIPPA compliant, ED Nurse, On- call PMD-pt unassigned Disposition Discussed With : Pako Sung Comment: He accepted pt on hospitalist service. Doctor Will See Patient In The: Hospital Counseled Patient/Family Regarding: Studies Performed, Diagnosis - Disposition Disposition: HOSPITALIZED Disposition Time: 00:39 Condition: FAIR - Clinical Impression Clinical Impression: Radiating chest pain, Pain and swelling of right lower extremity
[2017-05-20] MEDS ORDERED: Enoxaparin 80 mg Syringe SC STA (00:35)
[2017-05-20] MEDS ORDERED: Enoxaparin 80 mg Syringe ONE (00:45)
[2017-05-20] MEDS ORDERED: Tramadol 25 mg PO PRN (02:18)
[2017-05-20] MEDS ORDERED: (Lantus) Insulin Glargine, Recombinant SC ONE (02:18)
--- NOTE | 2017-05-20 02:35 | CP.PCM.HP ---
<PhilTrupti ConnieRené - Last Filed: 05/20/17 03:05> History of Present Illness - History of Present Illness History of Present Illness: CC: "chest pain" HPI: 51 year old female with past medical history of CHF, DM, HTN, CVA , HLD and MA presents to the ED for chest pain. Patient states the pain is on her left side and it radiates to her back. The pain has been going on for over a week and it would come and go. However this Friday till currently the pain is constant and when she walks, talks, or moves position the pain is worse. The pain is made better when she rests. She states the pain is worse after walking 2 blocks she has to stop because if not she becomes lightheaded and nauseated. She also states she has lower extremity swelling that comes and goes for about a week. She denies fever, nausea, vomiting, constipation or diarrhea. PMD: Clinic-Dr. Torres Past Medical History: asthma- patient was intubated on last admission for asthma exacerbation, CHF, DM, HTN, CVA, HLD, MA, sleep apnea, asthma Past Surgical History: cardiac cath 09/06 no stents were placed, tubal ligation Medications: Lasix 20mg BID, Aspirin 81mg daily, ventolin q6prn, Lisinopril 10mg daily, Carvedilol 6.25mg BID, metformin 1000mg BID, simvastatin 40mg, Monteleukast 10mg evening, vit D 5000IU once per week, meclizine 25mg TID, Fluticasone furote 200mg/vilanterol 25mcg Family History: Mother with HTN, DM, of MA at 32 Social History: denies tobacco, alcohol, drugs, not currently employed Allergies: denies Present on Admission - Present on Admission Any Indicators Present on Admission: Yes History of Uncontrolled Diabetes: Yes Review of Systems - Constitutional Constitutional: absent: Chills, Fever - EENT Eyes: absent: Blurred Vision, Change in Vision - Cardiovascular Cardiovascular: Chest Pain, Chest Pain with Activity, Dyspnea, Leg Edema, Pedal Edema, Radiating Pain. absent: Chest Pain at Rest, Lightheadedness, Palpitations - Respiratory Respiratory: Dyspnea. absent: Cough, Wheezing - Gastrointestinal Gastrointestinal: absent: Constipation, Diarrhea, Nausea, Vomiting - Genitourinary Genitourinary: absent: Dysuria - Musculoskeletal Musculoskeletal: Arthralgias, Back Pain. absent: Numbness, Tingling - Neurological Neurological: absent: Dizziness, Headaches, Tingling, Weakness Past Patient History - Infectious Disease Hx of Infectious Diseases: None - Past Medical History & Family History Past Medical History?: Yes - Past Social History Smoking Status: Never Smoked - CARDIAC Hx Congestive Heart Failure: Yes Hx Hypercholesterolemia: Yes Hx Hypertension: Yes Hx Peripheral Edema: Yes - PULMONARY Hx Asthma: Yes - NEUROLOGICAL HX Cerebrovascular Accident: Yes (weakness RLE) - HEENT Hx HEENT Problems: No - RENAL Hx Chronic Kidney Disease: No - ENDOCRINE/METABOLIC Hx Diabetes Mellitus Type 1: Yes - HEMATOLOGICAL/ONCOLOGICAL Hx Blood Disorders: No - INTEGUMENTARY Hx Dermatological Problems: No - MUSCULOSKELETAL/RHEUMATOLOGICAL Hx Musculoskeletal Disorders: No - GASTROINTESTINAL Hx Gastrointestinal Disorders: No - GENITOURINARY/GYNECOLOGICAL Hx Genitourinary Disorders: No - PSYCHIATRIC Hx Substance Use: No - SURGICAL HISTORY Hx Surgeries: Yes Hx Cardiac Catheterization: Yes Hx Tubal Ligation: Yes - ANESTHESIA Hx Anesthesia: Yes Hx Anesthesia Reactions: No Hx Malignant Hyperthermia: No Meds Allergies/Adverse Reactions: Allergies Allergy/AdvReac Type Severity Reaction Status Date / Time No Known Allergies Allergy Verified 12/02/16 01:17 Physical Exam - Constitutional Appears: No Acute Distress - Head Exam Head Exam: ATRAUMATIC, NORMAL INSPECTION, NORMOCEPHALIC - Eye Exam Eye Exam: EOMI, Normal appearance, PERRL Pupil Exam: NORMAL ACCOMODATION - ENT Exam ENT Exam: Mucous Membranes Moist - Respiratory Exam Respiratory Exam: Clear to Auscultation Bilateral, NORMAL BREATHING PATTERN. absent: Rales, Rhonchi, Wheezes - Cardiovascular Exam Cardiovascular Exam: REGULAR RHYTHM, RRR, +S1, +S2. absent: JVD - GI/Abdominal Exam GI & Abdominal Exam: Normal Bowel Sounds, Soft. absent: Tenderness - Extremities Exam Extremities exam: Positive for: pedal edema, tenderness - Back Exam Back exam: vertebral tenderness (mid thoracic ) - Neurological Exam Neurological exam: Alert, CN II-XII Intact, Oriented x3 - Psychiatric Exam Psychiatric exam: Normal Affect, Normal Mood - Skin Skin Exam: Normal Color, Warm Results - Vital Signs Recent Vital Signs: Last Vital Signs Temp 98 F 05/19/17 23:50 Pulse 59 L 05/20/17 00:25 Resp 20 05/20/17 00:25 BP 116/43 L 05/20/17 00:25 Pulse Ox 99 05/20/17 00:40 - Labs Result Diagrams: 05/19/17 21:16 05/19/17 21:16 Labs: Laboratory Results - last 24 hr 05/19/17 05/19/17 05/19/17 21:16 21:16 21:16 WBC 7.7 RBC 4.98 Hgb 14.9 Hct 42.8 MCV 86.0 MCH 29.9 MCHC 34.7 RDW 13.5 Plt Count 299 MPV 7.7 Neut % (Auto) 66.7 Lymph % (Auto) 24.4 [place]land % (Auto) 6.0 Eos % (Auto) 2.4 Baso % (Auto) 0.5 Neut # 5.1 Lymph # 1.9 Highland # 0.5 Eos # 0.2 Baso # 0.0 PT 10.7 INR 1.0 APTT 31 D-Dimer, Quantitative 455 H Sodium 132 Potassium 4.6 Chloride 96 L Carbon Dioxide 24 Anion Gap 16 BUN 11 Creatinine 0.5 L Est GFR ( Amer) > 60 Est GFR (Non-Af Amer) > 60 Random Glucose 332 H Calcium 9.3 Total Bilirubin 1.4 H AST 79 H ALT 67 H Alkaline Phosphatase 104 Troponin I 0.0160 NT-Pro-B Natriuret Pep 324 Total Protein 8.0 Albumin 4.8 Globulin 3.2 Albumin/Globulin Ratio 1.5 Assessment & Plan - Assessment and Plan (Free Text) Assessment: 1.) Chest Pain secondary to MA vs. musculoskeletal - Cardiac Cath (08/26/16):Angiographically normal coronaries. There is focal cardiomyopathy involving the inferior wall. The left ventricular systolic function is preserved. Diastolic dysfunction. Recommendations: Medical Therapy. - Troponin: negative - EKG: Sinus Rhythm - f/u Chest X-ray - f/u Troponin x2 - f/u EKG x2 - Tramadol 25mg PO q8h PRN 2.) Lower extremity pain secondary to DVT vs. chronic musculoskeletal pain - f/u venous doppler - Tramadol 25mg PO q8h PRN 3.) Uncontrolled Diabetes - 16units of Lantus - Accuchecks - hA1c (02/13/17): 10.5 4.) History of CHF secondary to diastolic dysfunction - ECHO (10/30/16): EF 53%; left ventricular function is normal; the left ventricular ejection fraction is within normal range; no regional wall motion abnormalities noted; LV filling pressures are elevated; the left atrium is mildly dilated; there is mild tricuspid regurgitation; right ventricular systolic pressure is about 40-50mmHg. - Cardiac Cath (08/26/16): Angiographically normal coronaries. There is focal cardiomyopathy involving the inferior wall. The left ventricular systolic function is preserved. Diastolic dysfunction. Recommendations: Medical Therapy. - Lisinopril 10mg daily - Coreg 6.25mg BID - Furosemide 20mg BID - Aspirin 81mg daily 5.) History of HLD - Crestor 20mg HS 6.) History of Asthma - f/u Chest X-ray - Ventolin 1puff INH Rq6 PRN - Advair 1puff INH Rq12 - Singulair 10mg HS 7,) Prophylaxis - Pepcid 20mg daily - Heparin SC - Contraindication SCDs- not tolerated due to pain <aPko Sung P - Last Filed: 05/20/17 08:10> Results - Vital Signs Recent Vital Signs: Last Vital Signs Temp 97.9 F 05/20/17 07:45 Pulse 69 05/20/17 07:45 Resp 18 05/20/17 07:45 BP 136/74 05/20/17 07:45 Pulse Ox 99 05/20/17 07:45 - Labs Result Diagrams: 05/20/17 05:51 05/20/17 05:51 Labs: Laboratory Results - last 24 hr 05/19/17 05/19/17 05/19/17 21:16 21:16 21:16 WBC 7.7 RBC 4.98 Hgb 14.9 Hct 42.8 MCV 86.0 MCH 29.9 MCHC 34.7 RDW 13.5 Plt Count 299 MPV 7.7 Neut % (Auto) 66.7 Lymph % (Auto) 24.4 Highland % (Auto) 6.0 Eos % (Auto) 2.4 Baso % (Auto) 0.5 Neut # 5.1 Lymph # 1.9 Highland # 0.5 Eos # 0.2 Baso # 0.0 PT 10.7 INR 1.0 APTT 31 D-Dimer, Quantitative 455 H Sodium 132 Potassium 4.6 Chloride 96 L Carbon Dioxide 24 Anion Gap 16 BUN 11 Creatinine 0.5 L Est GFR ( Amer) > 60 Est GFR (Non-Af Amer) > 60 POC Glucose (mg/dL) Random Glucose 332 H Calcium 9.3 Phosphorus Magnesium Total Bilirubin 1.4 H AST 79 H ALT 67 H Alkaline Phosphatase 104 Troponin I 0.0160 NT-Pro-B Natriuret Pep 324 Total Protein 8.0 Albumin 4.8 Globulin 3.2 Albumin/Globulin Ratio 1.5 05/20/17 05/20/17 05/20/17 05:51 05:51 07:18 WBC 7.3 RBC 4.94 Hgb 14.4 Hct 42.5 MCV 86.1 MCH 29.2 MCHC 33.9 RDW 13.2 Plt Count 273 MPV 7.7 Neut % (Auto) 54.6 Lymph % (Auto) 35.6 [place]land % (Auto) 6.7 Eos % (Auto) 2.6 Baso % (Auto) 0.5 Neut # 4.0 Lymph # 2.6 Highland # 0.5 Eos # 0.2 Baso # 0.0 PT INR APTT D-Dimer, Quantitative Sodium 135 Potassium 3.5 L Chloride 100 Carbon Dioxide 24 Anion Gap 15 BUN 10 Creatinine 0.4 L Est GFR ( Amer) > 60 Est GFR (Non-Af Amer) > 60 POC Glucose (mg/dL) 205 H Random Glucose 184 H Calcium 9.1 Phosphorus 4.0 Magnesium 1.5 L Total Bilirubin 0.4 AST 34 ALT 81 H D Alkaline Phosphatase 94 Troponin I NT-Pro-B Natriuret Pep Total Protein 7.6 Albumin 4.1 Globulin 3.5 Albumin/Globulin Ratio 1.1 Attending/Attestation - Attestation I have personally seen and examined this patient.: Yes I have fully participated in the care of the patient.: Yes I have reviewed all pertinent clinical information: Yes Notes (Text): * Atypical chest pain likely coming from mid spine musculoskeletal, PE study negative * Chronic asmmetric swelling now more in right, elevated ddimer, patient received a dose of therapeutic lovenox in ER * H/o asthma intubated in past * H/o DM not well controlled Plan * repeat troponin * tramadol for pain * Venous doppler * Pt will need to increase dose of lantus will increase to 16 from 8, will have to continue monitoring post discharge to adjust further dosing. * See orders for detail.
[2017-05-20] MEDS ORDERED: Albuterol HFA 90 mcg/actuation (8 g) INH PRN (02:49)
[2017-05-20 06:04] LABS: BASO % 0.5 % (0.0-2.0); EOS # 0.2 K/uL (0.0-0.7); EOS % 2.6 % (0.0-4.0); HEMATOCRIT 42.5 % (34.0-47.0); LYMPH # 2.6 K/uL (1.0-4.3); LYMPH % 35.6 % (20.0-40.0); MEAN CELL VOLUME 86.1 fL (81.0-99.0); MEAN CORPUSCULAR HEMOGLOBIN 29.2 pg (27.0-31.0); MEAN CORPUSCULAR HGB CONC 33.9 g/dL (33.0-37.0); MEAN PLATELET VOLUME 7.7 fL (7.2-11.7); MONO # 0.5 K/uL (0.0-0.8); MONO % 6.7 % (0.0-10.0); NRBC % 0.3 % (0.0-2.0); RED CELL DISTRIBUTION WIDTH 13.2 % (11.5-14.5); WHITE BLOOD COUNT 7.3 K/uL (4.8-10.8)
[2017-05-20 06:06] LABS: CHLORIDE 100 mmol/L (98-107)
[2017-05-20 06:07] LABS: POTASSIUM 3.5 mmol/L (3.6-5.2); SODIUM 135 mmol/L (132-148)
[2017-05-20 06:09] LABS: ALB/GLOB RATIO 1.1 (1.0-2.1); ALKALINE PHOSPHATASE 94 U/L (38-126); ALT/SGPT 81 U/L (9-52); AST/SGOT 34 U/L (14-36); BILIRUBIN,TOTAL 0.4 mg/dL (0.2-1.3); BLOOD UREA NITROGEN 10 mg/dL (7-17); CARBON DIOXIDE 24 mmol/L (22-30); GFR AFRICAN-AMERICAN > 60; GLUCOSE,RANDOM 184 mg/dL (65-105); TOTAL PROTEIN 7.6 g/dL (6.3-8.3)
[2017-05-20 06:10] LABS: CALCIUM 9.1 mg/dl (8.6-10.4); MAGNESIUM 1.5 mg/dL (1.6-2.3)
--- NOTE | 2017-05-20 08:15 | RAD ---
PROCEDURE: CHEST RADIOGRAPH, 1 VIEW HISTORY: chest pain, SOB COMPARISON: 12/02/2016 FINDINGS: LUNGS: No focal infiltrate or effusion. PLEURA: No pneumothorax or pleural fluid seen. CARDIOVASCULAR: Normal. OSSEOUS STRUCTURES: No significant abnormalities. VISUALIZED UPPER ABDOMEN: Normal. OTHER FINDINGS: None. IMPRESSION: No active disease.
[2017-05-20] MEDS: Fluticasone-Salmeterol 250-50mcg Diskus INH SCH (09:42)
--- NOTE | 2017-05-20 13:10 | VASCLAB ---
PROCEDURE: Lower Extremity Venous Duplex Exam. HISTORY: Lower extremity pain, Chest pain, Shortness of breath PRIORS: Last exam 08/29/2016, normal. TECHNIQUE: Bilateral common femoral, femoral, popliteal and posterior tibial, peroneal and great saphenous veins were evaluated. Flow was assessed with color Doppler, compressibility, assessment of phasic flow and augmentation response. Report prepared by BOUCHRA Jackson FINDINGS: RIGHT: 1. Common Femoral Vein: 1.1. Compressibility - Fully compressible: Thrombus - None : Flow - Phasic: Augmentation -Normal: Reflux - None. 2. Femoral Vein: 2.1. Compressibility - Fully compressible: Thrombus - None : Flow - Phasic: Augmentation -Normal: Reflux - Mild. 3. Popliteal Vein: 3.1. Compressibility - Fully compressible: Thrombus - None : Flow - Phasic: Augmentation -Normal: Reflux - None. 4. Posterior Tibial Vein: 4.1. Compressibility - Fully compressible: Thrombus - None: Flow - Phasic: Augmentation -Normal: Reflux - None. 5. Peroneal Vein: 5.1. Compressibility - Fully compressible: Thrombus - None: Flow - Phasic: Augmentation -Normal: Reflux - None. 6. Great Saphenous Vein: 6.1. Compressibility - Fully compressible: Thrombus - None: Flow - Phasic: Augmentation - Normal: Reflux - None. LEFT: 1. Common Femoral Vein: 1.1. Compressibility - Fully compressible: Thrombus - None: Flow - Phasic: Augmentation -Normal: Reflux - None. 2. Femoral Vein: 2.1. Compressibility - Fully compressible: Thrombus - None: Flow - Phasic: Augmentation -Normal: Reflux - None. 3. Popliteal Vein: 3.1. Compressibility - Fully compressible: Thrombus - None : Flow - Phasic: Augmentation -Normal: Reflux - None. 4. Posterior Tibial Vein: 4.1. Compressibility - Fully compressible: Thrombus - None: Flow - Phasic: Augmentation -Normal: Reflux - None. 5. Peroneal Vein: 5.1. Compressibility - Fully compressible: Thrombus - None: Flow - Phasic: Augmentation -Normal: Reflux - None. 6. Great Saphenous Vein: 6.1. Compressibility - Fully compressible: Thrombus - None: Flow - Phasic: Augmentation - Normal: Reflux - None. OTHER FINDINGS: Right: None significant. Left: None significant. IMPRESSION: Right: No evidence of deep or superficial vein thrombosis of the right lower extremity. 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 Left: No evidence of deep or superficial vein thrombosis of the left lower extremity. Normal valve function noted of the left side.
--- NOTE | 2017-05-20 15:38 | CP.PCM.PN ---
<Teodoro Grant - Last Filed: 05/20/17 16:25> Subjective - Date & Time of Evaluation Date of Evaluation: 05/20/17 Time of Evaluation: 15:00 - Subjective Subjective: PGY-[address] Lynn. No acute overnight events noted. Patient was seen and examined at bedside. She was sleeping when I walked in. She said her breathing has improved. She said her chest and back pain has improved but the pain is still there 09/27. She denied any focal deficits. She is currently on nasal cannula. She is anxious given her significant cardiovascular history including prior CVA and SD. She currently denies chest pain, shortness of breath, abdominal pain, fever, chills , headache. Objective - Vital Signs/Intake and Output Vital Signs (last 24 hours): Temp Pulse Resp BP Pulse Ox 98.6 F 76 16 135/69 97 05/20/17 12:29 05/20/17 12:29 05/20/17 12:29 05/20/17 12:29 05/20/17 12:29 - Medications Medications: Current Medications Albuterol (Ventolin Hfa 90 Mcg/Actuation (8 G)) 1 puff INH RQ6 PRN PRN Reason: Wheezing Aspirin (Ecotrin) 81 mg PO DAILY [facility] Last Admin: 05/20/17 09:33 Dose: 81 mg Carvedilol (Coreg) 6.25 mg PO BID [facility] Last Admin: 05/20/17 09:33 Dose: 6.25 mg Famotidine (Pepcid) 20 mg PO DAILY [facility] Last Admin: 05/20/17 09:33 Dose: 20 mg Furosemide (Lasix) 20 mg PO BID [facility] Last Admin: 05/20/17 09:33 Dose: 20 mg Heparin Sodium (Porcine) (Heparin) 5,000 units SC Q8 [facility] Last Admin: 05/20/17 13:44 Dose: 5,000 units Insulin Glargine (Lantus) 16 unit SC HS [facility] Lisinopril (Zestril) 10 mg PO DAILY [facility] Last Admin: 05/20/17 09:33 Dose: 10 mg Montelukast Sodium (Singulair) 10 mg PO HS [facility] Potassium Chloride (K-Dur 20 Meq Er Tab) 40 meq PO ONCE ONE Stop: 05/21/17 15:37 Rosuvastatin Calcium (Crestor) 10 mg PO HS [facility] Fluticasone/Salmeterol (Advair Diskus 250/50) 1 puff INH RQ12 [facility] Last Admin: 05/20/17 09:42 Dose: 1 puff Tramadol HCl (Ultram) 25 mg PO Q8H PRN PRN Reason: Pain, moderate (4-7) Last Admin: 05/20/17 13:43 Dose: 25 mg - Labs Labs: 05/20/17 05:51 05/20/17 05:51 PT 10.7 SECONDS (9.7-12.2) 05/19/17 21:16 INR 1.0 05/19/17 21:16 APTT 31 SECONDS (21-34) 05/19/17 21:16 - Additional Findings Additional findings: - Constitutional Appears: No Acute Distress - Head Exam Head Exam: ATRAUMATIC, NORMAL INSPECTION, NORMOCEPHALIC - Eye Exam Eye Exam: EOMI, Normal appearance, PERRL Pupil Exam: NORMAL ACCOMODATION - ENT Exam ENT Exam: Mucous Membranes Moist - Respiratory Exam Respiratory Exam: Clear to Auscultation Bilateral, NORMAL BREATHING PATTERN. absent: Rales, Rhonchi, Wheezes - Cardiovascular Exam Cardiovascular Exam: REGULAR RHYTHM, RRR, +S1, +S2. absent: JVD - GI/Abdominal Exam GI & Abdominal Exam: Normal Bowel Sounds, Soft, protuberant abdomen absent: Tenderness - Extremities Exam Extremities exam: Positive for: pedal edema, tenderness - Back Exam Back exam: vertebral tenderness (mid thoracic ) - Neurological Exam Neurological exam: Alert, CN II-XII Intact, Oriented x3 - Psychiatric Exam Psychiatric exam: Normal Affect, Normal Mood - Skin Skin Exam: Normal Color, Warm Assessment and Plan - Assessment and Plan (Free Text) Assessment: 1.) Chest Pain secondary to SD vs. musculoskeletal - Cardiac Cath (08/26/16): Angiographically normal coronaries. There is focal cardiomyopathy involving the inferior wall. The left ventricular systolic function is preserved. Diastolic dysfunction. Recommendations: Medical Therapy. - D-Dimer, quant 455 - Troponin: negative - EKG: Sinus Rhythm - Chest CT 05/19 shows no aneurysm, dissection or pulmonary embolus; minimal basilar air space disease most likely atelectasis - CXR 05/19 shows no active disease - Troponin x3 - EKG x3 - Tramadol 25mg PO q8h PRN 2.) Lower extremity pain secondary to DVT vs. chronic musculoskeletal pain - venous doppler 05/20 shows no evidence of deep or superficial vein thrombosis bilaterally - Tramadol 25mg PO q8h PRN 3.) Uncontrolled Diabetes - 16units of Lantus sc hs - Accuchecks - hA1c (02/13/17): 10.5 4.) History of CHF secondary to diastolic dysfunction - ECHO (10/30/16): EF 53%; left ventricular function is normal; the left ventricular ejection fraction is within normal range; no regional wall motion abnormalities noted; LV filling pressures are elevated; the left atrium is mildly dilated; there is mild tricuspid regurgitation; right ventricular systolic pressure is about 40-50mmHg. - Cardiac Cath (08/26/16): Angiographically normal coronaries. There is focal cardiomyopathy involving the inferior wall. The left ventricular systolic function is preserved. Diastolic dysfunction. Recommendations: Medical Therapy. - Lisinopril 10mg daily - Coreg 6.25mg BID po - Furosemide 20mg BID iv - Aspirin 81mg daily po 5.) History of HLD - Crestor 20mg HS po 6.) History of Asthma - Chest CT 05/19 shows no aneurysm, dissection or pulmonary embolus; minimal basilar air space disease most likely atelectasis - CXR 05/19 shows no active disease - Ventolin 1puff INH Rq6 PRN - Advair 1puff INH Rq12 - Singulair 10mg HS po 7,) Prophylaxis - Pepcid 20mg daily po - Heparin SC 5000u - Contraindication SCDs- not tolerated due to pain - heart healthy diet - moderate consistent diet <Kendall Lynn H - Last Filed: 05/20/17 17:13> Objective - Vital Signs/Intake and Output Vital Signs (last 24 hours): Temp Pulse Resp BP Pulse Ox 98.4 F 73 20 144/78 99 05/20/17 15:13 05/20/17 15:13 05/20/17 15:13 05/20/17 15:13 05/20/17 15:13 - Medications Medications: Current Medications Albuterol (Ventolin Hfa 90 Mcg/Actuation (8 G)) 1 puff INH RQ6 PRN PRN Reason: Wheezing Aspirin (Ecotrin) 81 mg PO DAILY [facility] Last Admin: 05/20/17 09:33 Dose: 81 mg Carvedilol (Coreg) 6.25 mg PO BID [facility] Last Admin: 05/20/17 09:33 Dose: 6.25 mg Famotidine (Pepcid) 20 mg PO DAILY [facility] Last Admin: 05/20/17 09:33 Dose: 20 mg Furosemide (Lasix) 20 mg IVP BID [facility] Heparin Sodium (Porcine) (Heparin) 5,000 units SC Q8 [facility] Last Admin: 05/20/17 13:44 Dose: 5,000 units Insulin Glargine (Lantus) 16 unit SC HS [facility] Lisinopril (Zestril) 10 mg PO DAILY [facility] Last Admin: 05/20/17 09:33 Dose: 10 mg Montelukast Sodium (Singulair) 10 mg PO HS [facility] Rosuvastatin Calcium (Crestor) 10 mg PO HS [facility] Fluticasone/Salmeterol (Advair Diskus 250/50) 1 puff INH RQ12 [facility] Last Admin: 05/20/17 09:42 Dose: 1 puff Tramadol HCl (Ultram) 25 mg PO Q8H PRN PRN Reason: Pain, moderate (4-7) Last Admin: 05/20/17 13:43 Dose: 25 mg - Labs Labs: 05/20/17 05:51 05/20/17 05:51 PT 10.7 SECONDS (9.7-12.2) 05/19/17 21:16 INR 1.0 05/19/17 21:16 APTT 31 SECONDS (21-34) 05/19/17 21:16 Attending/Attestation - Attestation I have personally seen and examined this patient.: Yes I have fully participated in the care of the patient.: Yes I have reviewed all pertinent clinical information, including history, physical exam and plan: Yes Notes (Text): 05/20/17 17:11 Medical attending: Patient was seen and examined by me, agree the above note by medical device sales representative. Patient is well known to me from previous days as well as the hospitalist service from previous sessions. On physical exam chest pain that she was having was able to be reproduced. Also I was able to have her stand up on physical exam and walk me out into the hallway. She is able to do so without any assistance. Review of her telemetry looks stable when she was walking around as well. Heart rate was in the mid 90s she was doing this. I explained to the patient that her cardiac enzymes have been negative by 3 sets , she also had a CTA and she ruled out having a pulmonary embolism Because of the way she presented with the pain she said was on the right side of her chest and that seemed to radiate to her right back we'll also check a abdominal ultrasound in case the patient has cholecystitis or gallstones for example Thank you very much, Kendall Lynn
[2017-05-20] MEDS ORDERED: Potassium Chloride 20 mEq ER Tab PO ONE (16:31)
[2017-05-20 16:33] VITALS: RESP 20
--- NOTE | 2017-05-20 19:42 | US ---
EXAM: US Abdomen Complete EXAM DATE/TIME: 05/20/2017 4:22 PM CLINICAL HISTORY: 51 years old, female; Pain; Abdominal pain; Generalized; Additional info: Ruq pain TECHNIQUE: Real-time ultrasound of the abdomen (complete) with image documentation. COMPARISON: There are no prior studies for comparison. FINDINGS: Liver: There is diffuse increased echogenicity to the liver. The liver is enlarged.There is hepatopedal flow in the main portal vein. Gallbladder: Gallbladder is incompletely distended. There are no large shadowing stones. There is no wall thickening. Common bile duct: Common bile duct measures 4 mm in diameter. Pancreas: Pancreas is almost completely obscured by bowel gas. Kidneys: Kidneys are normal in size. There is a 2.3 x 2 x 2 cm septated right upper pole cyst. There may be a focus of calcification in the cyst wall. There is no pelvocaliectasis. Spleen: Spleen is unremarkable. Aorta: Aorta and inferior vena cava are poorly visualized. Inferior vena cava: See above. IMPRESSION: Enlarged fatty liver; right renal cyst; extremely limited visualization of midline structures due to body habitus and bowel gas Patient was not tender over the gallbladder
[2017-05-20] MEDS ORDERED: (Lantus) Insulin Glargine, Recombinant SC SCH (22:00)
[2017-05-21 07:44] LABS: BASO % 0.3 % (0.0-2.0); EOS # 0.2 K/uL (0.0-0.7); HEMATOCRIT 41.1 % (34.0-47.0); LYMPH # 2.2 K/uL (1.0-4.3); MEAN CELL VOLUME 86.7 fL (81.0-99.0); MEAN CORPUSCULAR HEMOGLOBIN 29.4 pg (27.0-31.0); MEAN CORPUSCULAR HGB CONC 33.9 g/dL (33.0-37.0); MEAN PLATELET VOLUME 7.7 fL (7.2-11.7); MONO # 0.4 K/uL (0.0-0.8); MONO % 7.8 % (0.0-10.0); RED CELL DISTRIBUTION WIDTH 13.7 % (11.5-14.5); WHITE BLOOD COUNT 5.7 K/uL (4.8-10.8)
[2017-05-21] MEDS: Fluticasone-Salmeterol 250-50mcg Diskus INH SCH (08:16)
[2017-05-21 08:49] LABS: CHLORIDE 98 mmol/L (98-107); POTASSIUM 3.8 mmol/L (3.6-5.2); SODIUM 135 mmol/L (132-148)
[2017-05-21 08:51] LABS: BILIRUBIN,TOTAL 0.7 mg/dL (0.2-1.3); GFR AFRICAN-AMERICAN > 60
[2017-05-21 08:52] LABS: ALB/GLOB RATIO 1.6 (1.0-2.1); ALKALINE PHOSPHATASE 83 U/L (38-126); ALT/SGPT 88 U/L (9-52); AST/SGOT 55 U/L (14-36); BLOOD UREA NITROGEN 15 mg/dL (7-17); CARBON DIOXIDE 28 mmol/L (22-30); GLUCOSE,RANDOM 252 mg/dL (65-105); PHOSPHOROUS 4.3 mg/dL (2.5-4.5); TOTAL PROTEIN 6.6 g/dL (6.3-8.3)
[2017-05-21 08:53] LABS: CALCIUM 8.9 mg/dl (8.6-10.4); MAGNESIUM 1.6 mg/dL (1.6-2.3)
[2017-05-21 09:05] VITALS: TEMP 98.1; O2SAT 99
[2017-05-21 10:43] VITALS: BP 155/87
[2017-05-21] MEDS ORDERED: Influenza Vaccine 60 mcg/0.5 mL SYR (4YR UP) IM ONE (12:00)
[2017-05-21 12:08] VITALS: PULSE 72
--- NOTE | 2017-05-21 12:44 | CARD ---
APPROVED REPORT EKG Measurement Heart [id number] <Conclusion> Normal sinus rhythm Left bundle branch block Abnormal ECG
--- NOTE | 2017-05-21 13:56 | CP.PCM.DIS ---
<Teodoro Grant - Last Filed: 05/21/17 13:46> Provider - Provider Date of Admission: 05/20/17 00:41 Attending physician: Pako Sung MD Primary care physician: PMD: Dr Torres Consults: none Time Spent in preparation of Discharge (in minutes): 45 Diagnosis - Discharge Diagnosis (1) Costochondritis Status: Resolved Priority: Low Hospital Course - Lab Results Lab Results: Most Recent Lab Values WBC 5.7 K/uL (4.8-10.8) 05/21/17 07:33 RBC 4.74 Mil/uL (3.80-5.20) 05/21/17 07:33 Hgb 13.9 g/dL (11.0-16.0) 05/21/17 07:33 Hct 41.1 % (34.0-47.0) 05/21/17 07:33 MCV 86.7 fL (81.0-99.0) 05/21/17 07:33 MCH 29.4 pg (27.0-31.0) 05/21/17 07:33 MCHC 33.9 g/dL (33.0-37.0) 05/21/17 07:33 RDW 13.7 % (11.5-14.5) 05/21/17 07:33 Plt Count 267 K/uL (130-400) 05/21/17 07:33 MPV 7.7 fL (7.2-11.7) 05/21/17 07:33 Neut % (Auto) 50.9 % (50.0-75.0) 05/21/17 07:33 Lymph % (Auto) 38.0 % (20.0-40.0) 05/21/17 07:33 Noble % (Auto) 7.8 % (0.0-10.0) 05/21/17 07:33 Eos % (Auto) 3.0 % (0.0-4.0) 05/21/17 07:33 Baso % (Auto) 0.3 % (0.0-2.0) 05/21/17 07:33 Neut # 2.9 K/uL (1.8-7.0) 05/21/17 07:33 Lymph # 2.2 K/uL (1.0-4.3) 05/21/17 07:33 Noble # 0.4 K/uL (0.0-0.8) 05/21/17 07:33 Eos # 0.2 K/uL (0.0-0.7) 05/21/17 07:33 Baso # 0.0 K/uL (0.0-0.2) 05/21/17 07:33 PT 10.7 SECONDS (9.7-12.2) 05/19/17 21:16 INR 1.0 05/19/17 21:16 APTT 31 SECONDS (21-34) 05/19/17 21:16 D-Dimer, Quantitative 455 ng/mlDDU (0-243) H 05/19/17 21:16 Sodium 135 mmol/L (132-148) 05/21/17 07:33 Potassium 3.8 mmol/L (3.6-5.2) 05/21/17 07:33 Chloride 98 mmol/L (98-107) 05/21/17 07:33 Carbon Dioxide 28 mmol/L (22-30) 05/21/17 07:33 Anion Gap 13 (10-20) 05/21/17 07:33 BUN 15 mg/dL (7-17) 05/21/17 07:33 Creatinine 0.5 mg/dL (0.7-1.2) L 05/21/17 07:33 Est GFR ( Amer) > 60 05/21/17 07:33 Est GFR (Non-Af Amer) > 60 05/21/17 07:33 POC Glucose (mg/dL) 350 mg/dL (65-110) H 05/21/17 11:57 Random Glucose 252 mg/dL (65-105) H 05/21/17 07:33 Calcium 8.9 mg/dl (8.6-10.4) 05/21/17 07:33 Phosphorus 4.3 mg/dL (2.5-4.5) 05/21/17 07:33 Magnesium 1.6 mg/dL (1.6-2.3) 05/21/17 07:33 Total Bilirubin 0.7 mg/dL (0.2-1.3) 05/21/17 07:33 AST 55 U/L (14-36) H D 05/21/17 07:33 ALT 88 U/L (9-52) H 05/21/17 07:33 Alkaline Phosphatase 83 U/L (38-126) 05/21/17 07:33 Total Creatine Kinase 33 U/L (30-135) 05/20/17 17:01 CK-MB (Mass) 0.33 ng/mL (0.0-3.38) 05/20/17 17:01 Troponin I 0.0160 ng/mL (0.00-0.120) 05/19/17 21:16 Troponin I, Quant < 0.0120 ng/mL (0.00-0.120) 05/20/17 17:01 NT-Pro-B Natriuret Pep 324 pg/mL (0-900) 05/19/17 21:16 Total Protein 6.6 g/dL (6.3-8.3) 05/21/17 07:33 Albumin 4.0 g/dL (3.5-5.0) 05/21/17 07:33 Globulin 2.6 gm/dL (2.2-3.9) 05/21/17 07:33 Albumin/Globulin Ratio 1.6 (1.0-2.1) 05/21/17 07:33 - Hospital Course Hospital Course: CC: "chest pain" HPI: 51 year old female with past medical history of CHF, DM, HTN, CVA , HLD and MN presents to the ED for chest pain. Patient states the pain is on her left side and it radiates to her back. The pain has been going on for over a week and it would come and go. However this Friday till currently the pain is constant and when she walks, talks, or moves position the pain is worse. The pain is made better when she rests. She states the pain is worse after walking 2 blocks she has to stop because if not she becomes lightheaded and nauseated. She also states she has lower extremity swelling that comes and goes for about a week. She denies fever, nausea, vomiting, constipation or diarrhea. PMD: Clinic-Dr. Torres Past Medical History: asthma- patient was intubated on last admission for asthma exacerbation, CHF, DM, HTN, CVA, HLD, MN, sleep apnea, asthma Past Surgical History: cardiac cath 09/06 no stents were placed, tubal ligation Medications: Lasix 20mg BID, Aspirin 81mg daily, ventolin q6prn, Lisinopril 10mg daily, Carvedilol 6.25mg BID, metformin 1000mg BID, simvastatin 40mg, Monteleukast 10mg evening, vit D 5000IU once per week, meclizine 25mg TID, Fluticasone furote 200mg/vilanterol 25mcg Family History: Mother with HTN, DM, of MN at 32 Social History: denies tobacco, alcohol, drugs, not currently employed Allergies: denies HOSPITAL COURSE: This is a patient who presented with chest pain. Her D-dimer was elevated at 455. Her troponins was negative x3. Her EKG was normal sinus rhythm, she was put on telemetry for monitoring. A CXR showed no active disease. A Chest CT showed "no aneurysm, dissection or pulmonary embolus; minimal basilar air space disease most likely atelectasis". She had a cardiac cath procedure done in aug 2016 which showed "Angiographically normal coronaries. There is focal cardiomyopathy involving the inferior wall. The left ventricular systolic function is preserved. Diastolic dysfunction". Medical therapy was indicated at that time. To treat her pain she was given tramadol 25mg po q8h prn. Venous dopplers of her lower extremities were ordered which showed "no evidence of deep or superficial vein thrombosis bilaterally". This patient has a history of CHF secondary to diastolic dysfunction. Her ECHO from 10/30/16 showed "EF 53%; left ventricular function is normal; the left ventricular ejection fraction is within normal range; no regional wall motion abnormalities noted; LV filling pressures are elevated; the left atrium is mildly dilated; there is mild tricuspid regurgitation; right ventricular systolic pressure is about 40-50mmHg". Thus she was given Lisinopril 10mg daily , Coreg 6.25mg BID po, Furosemide 20mg BID iv, Aspirin 81mg daily po. To treat her HLD and asthma she was given crestor 20mg hs po, ventolin 1puff inh rq6 prn, advair 1puff inh rq12 and singulair 10mg hs po. She also complained of RUQ pain thus an abdominal ultrasound was ordered. It showed fatty liver, otherwise unremarkable. It was concluded that her chest pain is most likely costochondritis as it was reproducible and given results mentioned above. She was instructed to do stretching exercises and take an over the counter ibuprofen when the pain is unbearable. Stronger pain meds can be considered by her PMD. Discharge Exam - Head Exam Head Exam: ATRAUMATIC, NORMAL INSPECTION, NORMOCEPHALIC - Additional Findings Additional findings: - Constitutional Appears: No Acute Distress - Head Exam Head Exam: ATRAUMATIC, NORMAL INSPECTION, NORMOCEPHALIC - Eye Exam Eye Exam: EOMI, Normal appearance, PERRL Pupil Exam: NORMAL ACCOMODATION - ENT Exam ENT Exam: Mucous Membranes Moist - Respiratory Exam Respiratory Exam: Clear to Auscultation Bilateral, NORMAL BREATHING PATTERN. absent: Rales, Rhonchi, Wheezes - Cardiovascular Exam Cardiovascular Exam: REGULAR RHYTHM, RRR, +S1, +S2. absent: JVD - GI/Abdominal Exam GI & Abdominal Exam: Normal Bowel Sounds, Soft, protuberant abdomen absent: Tenderness - Extremities Exam Extremities exam: Positive for: pedal edema, tenderness - Back Exam Back exam: vertebral tenderness (mid thoracic ) - Neurological Exam Neurological exam: Alert, CN II-XII Intact, Oriented x3 - Psychiatric Exam Psychiatric exam: Normal Affect, Normal Mood - Skin Skin Exam: Normal Color, Warm Discharge Plan - Follow Up Plan Condition: FAIR Disposition: HOME/ ROUTINE Instructions: Heart Failure (DC), Chest Pain (DC), Heart Healthy Diet (DC) Additional Instructions: Patient is medically stable for discharge. No additional medications will be added to her medication list. She is to resume her home medications as prescribed. If chest pain returns she may take an over the counter ibuprofen. She is to follow-up with her primary medical doctor, Dr Torres, in 1 week regarding this admission. If symptoms worsen or return, she is to return to the ER. Referrals: Simi Torres MD [Staff Provider] - Clinical Quality Measures - CQM - Heart Failure Ejection Fraction: 40 % or Greater Left Ventricular Function to be assessed after discharge: No DOMO Inhibitor Prescribed: No Contraindication/Reason for not providing: She takes DOMO already and didn't need a prescription. Beta-Natalia Prescribed: None Contraindication/Reason for not providing: She takes a BB already and didn't need a prescription. Angiotensin II Receptor Natalia Prescribed: No Contraindication/Reason for not providing: She takes an DOMO AnticoagulationTherapy for Atrial Fibrillation/Atrialflutter: No Contraindication/Reason for not providing: Not in AFib Will be discharged to: Home Follow Up Date (must be within 7 days from discharge): 05/27/17 Follow Up Time: 09:00 <Kendall Lynn - Last Filed: 05/21/17 17:52> Provider - Provider Date of Admission: 05/20/17 00:41 Attending physician: Pako Sung MD Hospital Course - Lab Results Lab Results: Most Recent Lab Values WBC 5.7 K/uL (4.8-10.8) 05/21/17 07:33 RBC 4.74 Mil/uL (3.80-5.20) 05/21/17 07:33 Hgb 13.9 g/dL (11.0-16.0) 05/21/17 07:33 Hct 41.1 % (34.0-47.0) 05/21/17 07:33 MCV 86.7 fL (81.0-99.0) 05/21/17 07:33 MCH 29.4 pg (27.0-31.0) 05/21/17 07:33 MCHC 33.9 g/dL (33.0-37.0) 05/21/17 07:33 RDW 13.7 % (11.5-14.5) 05/21/17 07:33 Plt Count 267 K/uL (130-400) 05/21/17 07:33 MPV 7.7 fL (7.2-11.7) 05/21/17 07:33 Neut % (Auto) 50.9 % (50.0-75.0) 05/21/17 07:33 Lymph % (Auto) 38.0 % (20.0-40.0) 05/21/17 07:33 Noble % (Auto) 7.8 % (0.0-10.0) 05/21/17 07:33 Eos % (Auto) 3.0 % (0.0-4.0) 05/21/17 07:33 Baso % (Auto) 0.3 % (0.0-2.0) 05/21/17 07:33 Neut # 2.9 K/uL (1.8-7.0) 05/21/17 07:33 Lymph # 2.2 K/uL (1.0-4.3) 05/21/17 07:33 Noble # 0.4 K/uL (0.0-0.8) 05/21/17 07:33 Eos # 0.2 K/uL (0.0-0.7) 05/21/17 07:33 Baso # 0.0 K/uL (0.0-0.2) 05/21/17 07:33 PT 10.7 SECONDS (9.7-12.2) 05/19/17 21:16 INR 1.0 05/19/17 21:16 APTT 31 SECONDS (21-34) 05/19/17 21:16 D-Dimer, Quantitative 455 ng/mlDDU (0-243) H 05/19/17 21:16 Sodium 135 mmol/L (132-148) 05/21/17 07:33 Potassium 3.8 mmol/L (3.6-5.2) 05/21/17 07:33 Chloride 98 mmol/L (98-107) 05/21/17 07:33 Carbon Dioxide 28 mmol/L (22-30) 05/21/17 07:33 Anion Gap 13 (10-20) 05/21/17 07:33 BUN 15 mg/dL (7-17) 05/21/17 07:33 Creatinine 0.5 mg/dL (0.7-1.2) L 05/21/17 07:33 Est GFR ( Amer) > 60 05/21/17 07:33 Est GFR (Non-Af Amer) > 60 05/21/17 07:33 POC Glucose (mg/dL) 350 mg/dL (65-110) H 05/21/17 11:57 Random Glucose 252 mg/dL (65-105) H 05/21/17 07:33 Calcium 8.9 mg/dl (8.6-10.4) 05/21/17 07:33 Phosphorus 4.3 mg/dL (2.5-4.5) 05/21/17 07:33 Magnesium 1.6 mg/dL (1.6-2.3) 05/21/17 07:33 Total Bilirubin 0.7 mg/dL (0.2-1.3) 05/21/17 07:33 AST 55 U/L (14-36) H D 05/21/17 07:33 ALT 88 U/L (9-52) H 05/21/17 07:33 Alkaline Phosphatase 83 U/L (38-126) 05/21/17 07:33 Total Creatine Kinase 33 U/L (30-135) 05/20/17 17:01 CK-MB (Mass) 0.33 ng/mL (0.0-3.38) 05/20/17 17:01 Troponin I 0.0160 ng/mL (0.00-0.120) 05/19/17 21:16 Troponin I, Quant < 0.0120 ng/mL (0.00-0.120) 05/20/17 17:01 NT-Pro-B Natriuret Pep 324 pg/mL (0-900) 05/19/17 21:16 Total Protein 6.6 g/dL (6.3-8.3) 05/21/17 07:33 Albumin 4.0 g/dL (3.5-5.0) 05/21/17 07:33 Globulin 2.6 gm/dL (2.2-3.9) 05/21/17 07:33 Albumin/Globulin Ratio 1.6 (1.0-2.1) 05/21/17 07:33 Attending/Attestation - Attestation I have personally seen and examined this patient.: Yes I have fully participated in the care of the patient.: Yes I have reviewed all pertinent clinical information, including history, physical exam and plan: Yes Notes (Text): 05/21/17 17:52 Medical attending: Patient was seen and examined by me, agrees the above note by medical technologist chief. Today we again had the patient ambulate with us home today. She was able to do so without any assistance. She was not short of breath she denied having palpitations. She reported she was still having chest pain that was reproducible on exam Excellent as documented before the patient had a CTA that was negative for PE, she's also had several cardiac enzymes which were also negative as well. At this time were to discharge the patient with pain medication naproxen to help with what appears to be inflammation possibly from costochondritis or some type of musculoskeletal chest pain. Thank you very much, Kendall Lynn
[2017-05-21] MEDS ORDERED: Potassium Chloride 20 mEq ER Tab PO ONE (15:45)
--- NOTE | 2017-05-22 17:36 | CARD ---
APPROVED REPORT EKG Measurement Heart [id number] [place] [id number] <Conclusion> Normal sinus rhythm Left bundle branch block Abnormal ECG
--- NOTE | 2017-05-22 17:44 | CARD ---
APPROVED REPORT EKG Measurement Heart [id number] [place] 150P38 [id number] <Conclusion> Normal sinus rhythm Left bundle branch block Abnormal ECG
== END 2017-05-21 14:40 | disposition home or self-care (01) ==
LOC: C.ER 20:16 → C.9E 05-20 00:41 → C.6T 05-20 10:35
PROVIDERS: ADMIT Internal Medicine; ATTEND Internal Medicine
DX: M94.0 Chondrocostal junction syndrome [Tietze] (principal); I50.32 Chronic diastolic (congestive) heart failure; J45.909 Unspecified asthma, uncomplicated; I11.0 Hypertensive heart disease with heart failure; G47.30 Sleep apnea, unspecified; E78.5 Hyperlipidemia, unspecified; E78.00 Pure hypercholesterolemia, unspecified; E10.65 Type 1 diabetes mellitus with hyperglycemia; I42.9 Cardiomyopathy, unspecified; K21.9 Gastro-esophageal reflux disease without esophagitis; K76.0 Fatty (change of) liver, not elsewhere classified; Z79.82 Long term (current) use of aspirin; Z86.73 Personal history of transient ischemic attack (TIA), and cerebral infarction without residual deficits; Z79.4 Long term (current) use of insulin
CPT/HCPCS: 36415; 71010; 71275; 76700; 80053; 82948; 83735; 83880; 84100; 84484; 85025; 85378; 85610; 85730; 90471; 90674; 93005; 93970; 94640; 96372; 99285; G0378; J1644; J1650; J1940; Q9967

== ENCOUNTER 2017-10-05 21:59 | Emergency (ER) | payer SELFPAY ==
[2017-10-05 21:59] VITALS: BMI 41.5
[2017-10-05 22:12] VITALS: RESP 20; O2SAT 96
[2017-10-05] MEDS ORDERED: Albuterol-Ipratrop 3 mg / 0.5 (3 ml) UD IH STA (22:35)
[2017-10-05 23:20] LABS: BASO % 0.4 % (0.0-2.0); EOS # 0.2 K/uL (0.0-0.7); EOS % 2.8 % (0.0-4.0); HEMOGLOBIN 13.7 g/dL (11.0-16.0); LYMPH # 2.2 K/uL (1.0-4.3); LYMPH % 33.4 % (20.0-40.0); MEAN CELL VOLUME 84.8 fL (81.0-99.0); MEAN CORPUSCULAR HEMOGLOBIN 29.9 pg (27.0-31.0); MEAN CORPUSCULAR HGB CONC 35.3 g/dL (33.0-37.0); MEAN PLATELET VOLUME 7.3 fL (7.2-11.7); MONO # 0.3 K/uL (0.0-0.8); MONO % 4.7 % (0.0-10.0); NEUT # 3.9 K/uL (1.8-7.0); NEUT % 58.7 % (50.0-75.0); NRBC % 0.1 % (0.0-2.0); RBC 4.59 Mil/uL (3.80-5.20); RED CELL DISTRIBUTION WIDTH 12.8 % (11.5-14.5); WHITE BLOOD COUNT 6.6 K/uL (4.8-10.8)
[2017-10-05 23:35] LABS: ALB/GLOB RATIO 1.2 (1.0-2.1); ALT/SGPT 70 U/L (9-52); AST/SGOT 32 U/L (14-36); BLOOD UREA NITROGEN 13 mg/dL (7-17); CALCIUM 8.4 mg/dl (8.6-10.4); GFR AFRICAN-AMERICAN > 60; GFR NON-AFRICAN AMERICAN > 60
[2017-10-05] MEDS ORDERED: Albuterol-Ipratrop 3 mg / 0.5 (3 ml) UD ONE (23:45)
[2017-10-05 23:51] LABS: B-TYPE NATRIURETIC PEPTIDE 310 pg/mL (0-900)
[2017-10-06] MEDS ORDERED: Lactated Ringer's 1,000 ML IVB STA
[2017-10-06] MEDS ORDERED: Lactated Ringer's 1,000 ML ONE (00:14)
--- NOTE | 2017-10-06 00:53 | C.PDOC ---
Time Seen by Provider: 10/05/17 22:21 Chief Complaint (Nursing): Cough, Cold, Congestion History Per: Patient, Family Onset/Duration Of Symptoms: Days (about 1 week) Current Symptoms Are (Timing): Worse Associated Symptoms: Fever, Sore Throat, Cough, Nasal Congestion Severity: Moderate Additional History Per: Prior Records Past Medical History Reviewed: Historical Data, Nursing Documentation, Vital Signs Vital Signs: Last Vital Signs Temp 97.9 F 10/05/17 22:07 Pulse 73 10/05/17 22:07 Resp 20 10/05/17 22:07 BP 166/82 H 10/05/17 22:07 Pulse Ox 96 10/05/17 22:07 - Medical History PMH: Asthma, CHF, CVA, Depression, Diabetes, HTN, Hypercholesterolemia, Peripheral Edema - [facility] Procedures ASSISTANCE WITH RESPIRATORY VENTILATION, >96 HRS, CPAP (05/24/16) INSERT INFUSION DEV IN R INT JUGULAR VEIN, PERC (08/27/16) INSERTION OF ENDOTRACHEAL AIRWAY INTO TRACHEA, VIA OPENING (08/27/16) MEASURE OF CARDIAC SAMPL & PRESSURE, L HEART, PERC APPROACH (05/24/16) PLAIN RADIOGRAPHY OF LEFT HEART USING OTHER CONTRAST (05/24/16) PLAIN RADIOGRAPHY OF MULT COR ART USING OTH CONTRAST (05/24/16) RESPIRATORY VENTILATION, 24-96 CONSECUTIVE HOURS (08/27/16) Family History: States: Unknown Family Hx - Social History Hx Tobacco Use: No Hx Alcohol Use: No Hx Substance Use: No - Immunization History Hx Tetanus Toxoid Vaccination: No Hx Influenza Vaccination: Yes Hx Pneumococcal Vaccination: Yes Review Of Systems Except As Marked, All Systems Reviewed And Found Negative. Constitutional: Negative for: Weakness ENT: Positive for: Nose Congestion Respiratory: Positive for: Cough. Negative for: Hemoptysis Gastrointestinal: Negative for: Vomiting, Abdominal Pain Genitourinary: Negative for: Dysuria Musculoskeletal: Negative for: Neck Pain Skin: Negative for: Rash Neurological: Negative for: Weakness, Numbness Physical Exam - Physical Exam Appears: Non-toxic, No Acute Distress Skin: Normal Color, Warm, Dry, No Rash Head: Atraumatic, Normacephalic Eye(s): bilateral: Normal Inspection, PERRL, EOMI Throat: Normal Neck: Normal ROM, Supple Cardiovascular: Rhythm Regular Respiratory: No Accessory Muscle Use, Wheezing (mild, scattered) Gastrointestinal/Abdominal: Soft, No Tenderness Back: No CVA Tenderness Extremity: Normal ROM, No Pedal Edema, No Calf Tenderness Neurological/Psych: Oriented x3, Normal Speech, Normal Motor, Normal Sensation ED Course And Treatment - Laboratory Results Result Diagrams: 10/05/17 23:18 10/05/17 23:18 Lab Interpretation: No Acute Changes ECG: Interpreted By Me, Viewed By Me ECG Rhythm: Sinus Rhythm, L BBB ECG Interpretation: No Changes From Prior Rate From EC O2 Sat by Pulse Oximetry: 96 Pulse Ox Interpretation: Normal - Radiology CXR: Interpreted by Me, Viewed By Me CXR Interpretation: Yes: No Acute Disease Progress - Interventions Interventions:: Observation, Intravenous fluid - Medications Administered Oral: Corticosteriod Inhaled nebulized: Anticholinergic, Beta-2 agonist - Data Reviewed Data Reviewed: Lab, Diagnostic imaging, EKG, Old records - Patient Status Patient status: Mostly improved - Continuity of Care Discussed patient case with:: Patient, Family-HIPPA compliant, ED Nurse - Patient Plan Patient Plan: Discharge, F/U with PCP, Continue present meds Disposition Counseled Patient/Family Regarding: Studies Performed, Diagnosis, Need For Followup, Rx Given - Disposition Referrals: [facility] [Outside] Disposition: HOME/ ROUTINE Disposition Time: 00:54 Condition: IMPROVED Additional Instructions: Follow up in the clinic this week. Return to the ER if you develop shortness of breath, worsening of symptoms or if you have any other concerns. Prescriptions: Doxycycline Hyclate 100 mg PO BID #14 capsule predniSONE [predniSONE Tab] 2 tab PO DAILY #6 tab Instructions: Acute Bronchitis, Adult (DC) Forms: Gen Discharge Inst Yi Print Language: ISRAELI - Clinical Impression Clinical Impression: Acute bronchitis
[2017-10-06 01:16] VITALS: BP 134/65; PULSE 92; TEMP 98.2
--- NOTE | 2017-10-06 08:42 | RAD ---
HISTORY: Cough COMPARISON: 05/19/2027 seen TECHNIQUE: Chest PA and lateral FINDINGS: LUNGS: No active pulmonary disease. PLEURA: No significant pleural effusion identified. No pneumothorax apparent. CARDIOVASCULAR: Normal. OSSEOUS STRUCTURES: No significant abnormalities. VISUALIZED UPPER ABDOMEN: Normal. OTHER FINDINGS: None. IMPRESSION: No active disease.
--- NOTE | 2017-10-07 19:16 | CARD ---
APPROVED REPORT EKG Measurement Heart [id number] [place] [id number] <Conclusion> Normal sinus rhythm Left bundle branch block Abnormal ECG
== END 2017-10-06 01:16 | disposition home or self-care (01) ==
LOC: C.ER 21:59
DX: J20.9 Acute bronchitis, unspecified (principal); I10 Essential (primary) hypertension; E78.00 Pure hypercholesterolemia, unspecified
CPT/HCPCS: 71046; 80053; 83880; 84484; 85025; 87040; 87804; 93005; 99284; J7120

== ENCOUNTER 2018-07-22 08:17 | Outpatient (CLI) | payer SELFPAY | END 2018-07-22 08:18 | disposition home or self-care (01) | LOC: C.USIC 08:17 | DX: R10.9 Unspecified abdominal pain (principal); N20.0 Calculus of kidney; K76.89 Other specified diseases of liver; N28.1 Cyst of kidney, acquired ==

== ENCOUNTER 2018-07-22 08:26 | Outpatient (CLI) | payer SELFPAY | END 2018-07-22 08:27 | disposition home or self-care (01) | LOC: C.MAMMO 08:27 | DX: Z12.31 Encounter for screening mammogram for malignant neoplasm of breast (principal); R92.2 Inconclusive mammogram ==

== ENCOUNTER 2018-08-17 12:23 | Outpatient (CLI) | payer SELFPAY | END 2018-08-17 12:24 | disposition home or self-care (01) | LOC: C.DIABED 12:23 | DX: E11.65 Type 2 diabetes mellitus with hyperglycemia (principal); E78.9 Disorder of lipoprotein metabolism, unspecified ==

== ENCOUNTER 2018-08-31 12:27 | Outpatient (CLI) | payer SELFPAY | END 2018-08-31 12:28 | disposition home or self-care (01) | LOC: C.DIABED 12:27 | DX: E11.65 Type 2 diabetes mellitus with hyperglycemia (principal) ==

== ENCOUNTER 2018-09-28 10:53 | Outpatient (CLI) | payer SELFPAY | END 2018-09-28 10:54 | disposition home or self-care (01) | LOC: C.DIABED 10:53 ==

== ENCOUNTER 2018-10-19 11:20 | Outpatient (CLI) | payer OTHER | END 2018-10-19 11:21 | disposition home or self-care (01) | LOC: C.DIABED 11:20 | DX: E11.65 Type 2 diabetes mellitus with hyperglycemia (principal); E78.2 Mixed hyperlipidemia ==